=== PATIENT | male | born 1950 | race Two or more races ===

== ENCOUNTER 2023-11-09 11:43 | Outpatient (REF) | payer MEDICARE, SELFPAY ==
[2023-11-09 13:48] LABS: Alanine Aminotransferase 16 U/L (16-63); Albumin Globulin Ratio 0.9; Albumin Level 2.8 g/dL (3.4-5.0); Alkaline Phosphatase 62 U/L (46-116); Anion Gap 10.7; Aspartate Amino Transferase 10 U/L (15-37); Bilirubin Total 0.8 mg/dL (0.2-1.0); Calcium 9.2 mg/dL (8.5-10.1); Carbon Dioxide 36.3 mmol/L (21.0-32.0); Chloride 99 mmol/L (98-107); Estimated GFR (African America 53 (>=60); Estimated GFR (Non-African Ame 44 (>=60); Glucose 159 mg/dL (74-106); Sodium 142 mmol/L (136-145); Total Protein 5.8 g/dL (6.4-8.2)
[2023-11-09 14:45] LABS: Estimated Average Glucose 128 mg/dL; Glycohemoglobin A1C 6.1 % (4.5-6.2)
== END 2023-11-09 11:44 | disposition home or self-care (01) ==
LOC: LAB 11:43
PROVIDERS: PCP Family Medicine; Visit Provider Family Medicine
DX: J44.9 Chronic obstructive pulmonary disease, unspecified (principal); J96.12 Chronic respiratory failure with hypercapnia; E11.42 Type 2 diabetes mellitus with diabetic polyneuropathy; E46 Unspecified protein-calorie malnutrition
CPT/HCPCS: 36415; 80053; 83036

== ENCOUNTER 2023-11-11 02:06 | Outpatient (REF) | payer MEDICARE, SELFPAY ==
--- OUTSIDE RECORDS SUMMARY | 2023-11-11 02:10 | XMS_ITS | CCD ---
Author Organization [facility] Inform ion Partnership [facility] Care Team Providers Care Annual Giving Director Name Role Phone PATRICE MARTIN Primary Care Unavailable PATRICE MARTIN Admitting Unavailable NARAYAN RAMOS Attending Unavailable DANIEL CHENG Attending Unavailable CATHI SERVIN Primary Care KATERINE Hughes Referring Unavailable CATHI SERVIN Primary Care Mounika riddle Allergies Allergy Classification Reported Allergen(s) Allergy Type Date of Onset Reaction(s) Facility Anti-Epileptic Agents (1 source) gabapentin; Translations: [GABAPENTIN] Drug Allergy 09-01-2023 [facility] Repository sildenafil (1 source) sildenafil; Translations: [SILDENAFIL] Drug Allergy 09-01-2023 [facility] Repository (1 source) gabapentin; Translations: [GABAPENTIN] Drug Allergy 05-13-2021 [facility] Repository (1 source) sildenafil; Translations: [SILDENAFIL] Drug Allergy 04-28-2020 [facility] Repository (1 source) tomato allergenic extract; Translations: [TOMATO] Drug Allergy 10-19-2018 [facility] Repository Problems Problem Classification Problem Date Documented Da te Episodic/Chronic Other injuries and conditions due to external causes (2 sources) History of fall; Translations: [Multiple Falls] Onset: 08-02-2023 Episodic Other lower respiratory disease (2 sources) Dyspnea, unspecified; Translations: [Dyspnea, unspecified] Onset: 09-01-2023 Episodic Residual codes; unclassified (2 sources) Altered mental status, unspecified; Translations: [Altered mental status, unspecified] Onset: 08-02-2023 Episodic Residual codes; unclassified (2 sources) Altered mental status; Translations: [Altered Mental Status] Onset: 08-02-2023 Episodic Respiratory failure; insufficiency; arrest (adult) (6 sources) Acute and chronic respiratory failure with hypoxia; Translations: [Acute and chronic respiratory failure with hypercapnia] Onset: 08-02-2023 Chronic Respiratory failure; insufficiency; arrest (adult) (3 sources) Acute respiratory failure with hypoxia; Translations: [Acute respiratory failure with hypoxia ([facility])] Onset: 08-02-2023 Episodic Results Test Name Value Interpretation Reference Range Facility BNPon 09-01-2023 Natriuretic peptide B (Bld) [Mass/Vol] 383 pg/mL High 0-124 [facility] Comment on above: Performed By: #### B NPEP #### MD ANDREAS CORLEY ([id number]) [facility] [address] [place] [address] CBC With Platelet and Differ entialon 09-01-2023 Anisocytosis Ql (Bld) Occasional Abnormal [facility] Comment on above: Performed By: #### C BCWD #### MD ANDREAS CORLEY ([id number]) [facility] [address] [place] [address] Atypical Lymphs 1 % Normal 0-6 [facility] Comment on above: Performed By: #### C BCWD #### MD ANDREAS CORLEY ([id number]) [facility] [address] [place] [address] Basophils (Bld) [#/Vol] 0.0 10*3/uL Normal 0.0-0.2 [facility] Comment on above: Performed By: #### C BCWD #### MD ANDREAS CORLEY ([id number]) [facility] ([facility] [address] [place] [address] [place] Basophils/100 WBC (Bld) 0.0 % Normal [facility] Comment on above: Performed By: #### C BCWD #### MD ANDREAS CORLEY ([id number]) [facility] [address] [place] [address] [place] Eosinophils (Bld) [#/Vol] 0.0 10*3/uL Normal 0.0-0.6 [facility] Comment on above: Performed By: #### C BCWD #### MD ANDREAS CORLEY ([id number]) [facility] ([facility] [address] [place] [address] [place] Eosinophils/100 WBC (Bld) 0.0 % Normal [facility] Comment on above: Performed By: #### C BCWD #### MD ANDREAS CORLEY ([id number]) [facility]) [address] [place] [address] [place] Lymphocytes (Bld) [#/Vol] 2.3 10*3/uL Normal 1.0-5.1 [facility] Comment on above: Performed By: #### C BCWD #### MD ANDREAS CORLEY ([id number]) [facility] ([facility]) [address] [place], [place] [phone] [place] Lymphocytes/100 WBC (Bld) 12.0 % Normal [facility] Comment on above: Performed By: #### C BCWD #### MD ANDREAS CORLEY ([id number]) [facility] ([facility]) [address] [place] [address] [place] Monocytes (Bld) [#/Vol] 0.5 10*3/uL Normal 0.0-1.3 [facility] Comment on above: Performed By: #### C BCWD #### MD ANDREAS CORLEY ([id number]) [facility] ([facility]) [address] [place] [address] [place] Monocytes/100 WBC (Bld) 3.0 % Normal [facility] Comment on above: Performed By: #### C BCWD #### MD ANDREAS CORLEY ([id number]) [facility]) [address] [place] [address] [place] Neutrophils (Bld) [#/Vol] 14.9 10*3/uL High 1.7-7.7 [facility] Comment on above: Performed By: #### C BCWD #### MD ANDREAS CORLEY ([id number]) [facility] ([facility]) [address] [place] [address] [place] Neutrophils/100 WBC (Bld) 84.0 % Normal [facility] Comment on above: Performed By: #### C BCWD #### MD ANDREAS CORLEY ([id number]) [facility] [address] [place] [address] Polychromasia Occasional Abnormal [facility] Comment on above: Performed By: #### C BCWD #### MD ANDREAS CORLEY ([id number]) [facility] [address] [place] [address] Slide Review see below Normal [facility] Comment on above: Result Comment: Slid e review agrees with reported results Performed By: #### C BCWD #### MD ANDREAS CORLEY ([id number]) [facility] ([facility]) [address] [place] [address] Slide Review for Platelets Adequate [facility] Comment on above: Performed By: #### C BCWD #### MD ANDREAS CORLEY ([id number]) [facility] [address] [place] [address] Erythrocyte distribution width (RBC) [Ratio] 15.6 % High 12.4-15.4 [facility] Comment on above: Performed By: #### C BCWD #### MD ANDREAS CORLEY ([id number]) [facility] [address] [place] [address] Hematocrit (Bld) [Volume fraction] 36.2 % Low 40.5-52.5 [facility] Comment on above: Performed By: #### C BCWD #### MD ANDREAS CORLEY ([id number]) [facility] [address] [place] [address] Hemoglobin (Bld) [Mass/Vol] 11.9 g/dL Low 13.5-17.5 [facility] Comment on above: Performed By: #### C BCWD #### MD ANDREAS CORLEY ([id number]) [facility] [address] [place] [address] MCH (RBC) [Entitic mass] 31.8 pg Normal 26.0-34.0 [facility] Comment on above: Performed By: #### C BCWD #### MD ANDREAS CORLEY ([id number]) [facility] [address] [place] [address] MCHC (RBC) [Mass/Vol] 32.8 g/dL Normal 31.0-36.0 [facility] Comment on above: Performed By: #### C BCWD #### MD ANDREAS CORLEY ([id number]) [facility] [address] [place] [address] MCV (RBC) [Entitic vol] 97.0 fL Normal 80.0-100.0 [facility] Comment on above: Performed By: #### C BCWD #### MD ANDREAS CORLEY ([id number]) [facility] ([facility]) [address] [place] [address] Platelet mean volume (Bld) [Entitic vol] 7.6 fL Normal 5.0-10.5 [facility] Comment on above: Performed By: #### C BCWD #### MD ANDREAS CORLEY ([id number]) [facility] [address] [place] [address] Platelets (Bld) [#/Vol] 304 10*3/uL Normal 135-450 [facility] Comment on above: Performed By: #### C BCWD #### MD ANDREAS CORLEY ([id number]) [facility] [address] [place] [address] RBC (Bld) [#/Vol] 3.74 10*6/uL Low 4.20-5.90 [facility] Comment on above: Performed By: #### C BCWD #### MD ANDREAS CORLEY ([id number]) [facility] [address] [place] [address] [place] WBC (Bld) [#/Vol] 17.7 10*3/uL High 4.0-11.0 [facility] Comment on above: Performed By: #### C BCWD #### MD ANDREAS CORLEY ([id number]) [facility] ([facility]) [address] [place] [address] COVID-19on 09-01-2023 SARS-CoV-2 (COVID-19) RNA GEE+probe Ql (Unsp spec) Not detected Normal Not Detected [facility] Comment on above: Result Comment: Bradleyi erinn NAAT: Negative results should be treated as presumptive and, if inconsistent with clinical signs and symptoms or necessary for patient management, should be tested with an alternative molecular assay. Negative results do not preclude SARS-CoV-2 infection and should not be used as the sole basis for patient management decisions. This test has been authorized by the FDA under an Emergency Use Authorization (EUA) for use by authorized laboratories. Fact sheet for Healthcare Providers: https://www.fda.gov/media/680180/download Fact sheet for Patients: https://www.fda.gov/media/861271/download METHODOLOGY: Isothermal Nucleic Acid Amplification Performed By: #### C OVRG #### MD ANDREAS CORLEY ([id number]) [facility] ([facility]) [address] [place] [address] Comprehensive Metabolic Pane l reflex Mgon 09-01-2023 Albumin [Mass/Vol] 3.1 g/dL Low 3.4-5.0 [facility] Comment on above: Performed By: #### C MPX #### MD ANDREAS CORLEY ([id number]) [facility] ([facility]) [address] [place] [address] Albumin/Globulin [Mass ratio] 1.1 {ratio} Normal 1.1-2.2 [facility] Comment on above: Performed By: #### C MPX #### MD ANDREAS CORLEY ([id number]) [facility] ([facility]) [address] [place] [address] ALP [Catalytic activity/Vol] 110 U/L Normal 40-129 [facility] Comment on above: Performed By: #### C MPX #### MD ANDREAS CORLEY ([id number]) [facility] ([facility]) [address] [place] [address] ALT [Catalytic activity/Vol] 12 U/L Normal 10-40 [facility] Comment on above: Performed By: #### C MPX #### MD ANDREAS CORLEY ([id number]) [facility] [address] [place] [address] [place] Anion gap [Moles/Vol] 7 mmol/L Normal 3-16 [facility] Comment on above: Performed By: #### C MPX #### MD ANDREAS CORLEY ([id number]) [facility] [address] [place] [address] [place] AST [Catalytic activity/Vol] 7 U/L Low 15-37 [facility] Comment on above: Performed By: #### C MPX #### MD ANDREAS CORLEY ([id number]) [facility] [address] [place] [address] Bilirubin [Mass/Vol] 0.5 mg/dL Normal 0.0-1.0 [facility] Comment on above: Performed By: #### C MPX #### MD ANDREAS CORLEY ([id number]) [facility] [address] [place] [address] Calcium [Mass/Vol] 9.0 mg/dL Normal 8.3-10.6 [facility] Comment on above: Performed By: #### C MPX #### MD ANDREAS CORLEY ([id number]) [facility] [address] [place] [address] [place] Chloride [Moles/Vol] 99 mmol/L Normal 99-110 [facility] Comment on above: Performed By: #### C MPX #### MD ANDREAS CORLEY ([id number]) [facility] [address] [place], [place] [phone] [place] CO2 [Moles/Vol] 32 mmol/L Normal 21-32 [facility] Comment on above: Performed By: #### C MPX #### MD ANDREAS CORLEY ([id number]) [facility] ([facility] [address] [place], [place] [phone] [place] Creatinine [Mass/Vol] 1.2 mg/dL Normal 0.8-1.3 [facility] Comment on above: Performed By: #### C MPX #### MD ANDREAS CORLEY ([id number]) [facility] ([facility] [address] [place], [place] [phone] [facility] GFR 64 Normal >60 [facility] Comment on above: Result Comment: Alina stephensc calculator link https://www.kidney.org/professionals/kdoqi/gfr_calculatorped Effective Jan 06, 2022 These results are not intended for use in patients <18 years of age. eGFR results are calculated without a race factor using the 2020 CKD-EPI equation. Careful clinical correlation is recommended, particularly when comparing to results calculated using previous equations. The CKD-EPI equation is less accurate in patients with extremes of muscle mass, extra-renal metabolism of creatinine, excessive creatinine ingestion, or following therapy that affects renal tubular secretion. Performed By: #### C MPX #### MD ANDREAS CORLEY ([id number]) [facility] ([facility] [address] [place], [place] [phone] [facility] Glucose [Mass/Vol] 142 mg/dL High 70-99 [facility] Comment on above: Performed By: #### C MPX #### MD ANDREAS CORLEY ([id number]) [facility] [address] [place], [place] [phone] [place] Magnesium [Moles/Vol] 5.1 mmol/L Normal 3.5-5.1 [facility] Comment on above: Performed By: #### C MPX #### MD ANDREAS CORLEY ([id number]) [facility] [address] [place] [address] [place] Protein [Mass/Vol] 5.9 g/dL Low 6.4-8.2 [facility] Comment on above: Performed By: #### C MPX #### MD ADNREAS CORLEY ([id number]) [facility] [address] [place], [place] [phone] [facility] Sodium [Moles/Vol] 138 mmol/L Normal 136-145 [facility] Comment on above: Performed By: #### C MPX #### MD ANDREAS CORLEY ([id number]) [facility] ([facility]) [address] [place] [address] Urea nitrogen [Mass/Vol] 21 mg/dL High 7-20 [facility] Comment on above: Performed By: #### C MPX #### MD ANDREAS CORLEY ([id number]) [facility] ([facility]) [address] [place] [address] Culture, Bloodon 09-01-2023 Microscopic examination of blood, culture Culture, Blood No Growth after 4 days of incubation. [facility] Comment on above: Performed By: #### C BCWD #### MD ANDREAS CORLEY ([id number]) [facility] ([facility]) [address] [place] [address] Culture, Blood 2on 4 Culture, Blood 2 Culture, Blood 2 No Growth after 4 days of incubation. [facility] Comment on above: Performed By: #### C BCWD #### MD ANDREAS CORLEY ([id number]) [facility] ([facility]) [address] [place] [address] High Sensitivity Troponin To n 09-01-2023 High Sensitivity Troponin T 77 ng/L High 022 [facility] Comment on above: Result Comment: The high-sensitivity troponin T result should not be compared with other troponin methodologies. Performed By: #### T RP5 #### MD ANDREAS CORLEY ([id number]) [facility] ([facility]) [address] [place] [address] High Sensitivity Troponin T 75 ng/L High 022 [facility] Comment on above: Result Comment: The high-sensitivity troponin T result should not be compared with other troponin methodologies. Performed By: #### T RP5 #### MD ANDREAS CORLEY ([id number]) [facility] ([facility]) [address] [place] [address] Venous Blood Gason 4 CO2 [Moles/Vol] 31 mmol/L Normal Not Established [facility] Comment on above: Performed By: #### V BG #### MD ANDREAS CORLEY ([id number]) [facility] ([facility]) [address] [place] [address] HCO3 (Bld) [Moles/Vol] 28.8 mmol/L Normal 23.0-29.0 [facility] Comment on above: Performed By: #### V BG #### MD ANDREAS CORLEY ([id number]) [facility] [address] [place] [address] Oxygen saturation in Blood 62 % Normal Not Established [facility] Comment on above: Performed By: #### V BG #### MD ANDREAS CORLEY ([id number]) [facility] [address] [place] [address] Venous Base Excess 1.1 mmol/L Normal -3.0-3.0 [facility] Comment on above: Performed By: #### V BG #### MD ANDREAS CORLEY ([id number]) [facility] ([facility]) [address] [place] [address] Venous Carboxyhemoglobin 3.5 % High 0.0-1.5 [facility] Comment on above: Result Comment: 0.0- 1.5 (Smokers 1.5-5.0) Performed By: #### V BG #### MD ANDREAS CORLEY ([id number]) [facility] ([facility]) [address] [place] [address] Venous Methemoglobin 0.3 % Normal <1.5 [facility] Comment on above: Performed By: #### V BG #### MD ANDREAS CORLEY ([id number]) [facility] [address] [place] [address] Venous O2 Content 12 VOL % Normal Not Established [facility] Comment on above: Performed By: #### V BG #### MD ANDREAS CORLEY ([id number]) [facility] [address] [place] [address] Venous PCO2 59.7 mmHg High 40.0-50.0 [facility] Comment on above: Performed By: #### V BG #### MD ANDREAS CORLEY ([id number]) [facility] [address] [place] [address] Venous pH 7.301 Low 7.350-7.450 [facility] Comment on above: Performed By: #### V BG #### MD ANDREAS CORLEY ([id number]) [facility] [address] [place] [address] Venous PO2 36.0 mmHg Normal 25.0-40.0 [facility] Comment on above: Performed By: #### V BG #### MD ANDREAS CORLEY ([id number]) [facility] [address] [place] [address] Venous O2 Therapy Unknown Normal [facility] Comment on above: Performed By: #### V BG #### MD ANDREAS CORLEY ([id number]) [facility] [address] [place] [address] CO2 [Moles/Vol] 33 mmol/L Normal Not Established [facility] Comment on above: Performed By: #### V BG #### MD ANDREAS CORLEY ([id number]) [facility] [address] [place] [address] HCO3 (Bld) [Moles/Vol] 31.2 mmol/L High 23.0-29.0 [facility] Comment on above: Performed By: #### V BG #### MD ANDREAS CORLEY ([id number]) [facility] [address] [place] [address] Oxygen saturation in Blood 92 % Normal Not Established [facility] Comment on above: Performed By: #### V BG #### MD ANDREAS CORLEY ([id number]) [facility] [address] [place] [address] Venous Base Excess 3.3 mmol/L High -3.0-3.0 [facility] Comment on above: Performed By: #### V BG #### MD ANDREAS CORLEY ([id number]) [facility] [address] [place], [place] [phone] [facility] Venous Carboxyhemoglobin 1.6 % High 0.0-1.5 [facility] Comment on above: Result Comment: 0.0- 1.5 (Smokers 1.5-5.0) Performed By: #### V BG #### MD ANDREAS CORLEY ([id number]) [facility] [address] [place] [address] Venous Methemoglobin 0.0 % Normal <1.5 [facility] Comment on above: Performed By: #### V BG #### MD ANDREAS CORLEY ([id number]) [facility] [address] [place] [address] Venous O2 Content 17 VOL % Normal Not Established [facility] Comment on above: Performed By: #### V BG #### MD ANDREAS CORLEY ([id number]) [facility] [address] [place] [address] Venous PCO2 62.6 mmHg High 40.0-50.0 [facility] Comment on above: Performed By: #### V BG #### MD ANDREAS CORLEY ([id number]) [facility] [address] [place] [address] Venous pH 7.315 Low 7.350-7.450 [facility] Comment on above: Performed By: #### V BG #### MD ANDREAS CORLEY ([id number]) [facility] [address] [place] [address] Venous PO2 70.9 mmHg High 25.0-40.0 [facility] Comment on above: Performed By: #### V BG #### MD ANDREAS CORLEY ([id number]) [facility] [address] [place] [address] Venous O2 Therapy Unknown Normal [facility] Comment on above: Performed By: #### V BG #### MD ANDREAS CORLEY ([id number]) [facility] [address] [place] [address] CO2 [Moles/Vol] 31 mmol/L Normal Not Established [facility] Comment on above: Performed By: #### V BG #### MD ANDREAS CORLEY ([id number]) [facility] [address] [place] [address] HCO3 (Bld) [Moles/Vol] 29.2 mmol/L High 23.0-29.0 [facility] Comment on above: Performed By: #### V BG #### MD ANDREAS CORLEY ([id number]) [facility] [address] [place] [address] Oxygen saturation in Blood 96 % Normal Not Established [facility] Comment on above: Performed By: #### V BG #### MD ANDREAS CORLEY ([id number]) [facility] [address] [place] [address] Venous Base Excess 1.9 mmol/L Normal -3.0-3.0 [facility] Comment on above: Performed By: #### V BG #### MD ANDREAS CORLEY ([id number]) [facility] ([facility]) [address] [place] [address] Venous Carboxyhemoglobin 3.0 % High 0.0-1.5 [facility] Comment on above: Result Comment: 0.0- 1.5 (Smokers 1.5-5.0) Performed By: #### V BG #### MD ANDREAS CORLEY ([id number]) [facility] ([facility]) [address] [place] [address] Venous Methemoglobin 0.0 % Normal <1.5 [facility] Comment on above: Performed By: #### V BG #### MD ANDREAS CORLEY ([id number]) [facility] [address] [place] [address] Venous PCO2 57.8 mmHg High 40.0-50.0 [facility] Comment on above: Performed By: #### V BG #### MD ANDREAS CORLEY ([id number]) [facility] [address] [place] [address] Venous pH 7.321 Low 7.350-7.450 [facility] Comment on above: Performed By: #### V BG #### MD ANDREAS CORLEY ([id number]) [facility] [address] [place] [address] Venous PO2 93.3 mmHg High 25.0-40.0 [facility] Comment on above: Performed By: #### V BG #### MD ANDREAS CORLEY ([id number]) [facility] [address] [place] [address] Venous O2 Therapy Unknown Normal [facility] Comment on above: Performed By: #### V BG #### MD ANDREAS CORLYE ([id number]) [facility] ([facility]) [address] [place] [address] XR CHEST PORTABLEon 09-01-19 XR CHEST PORTABLE EXAMINATION: ONE XRAY VIEW OF THE CHEST 09/01/2023 11:38 am COMPARISON: None. HISTORY: ORDERING SYSTEM PROVIDED HISTORY: dyspnea TECHNOLOGIST PROVIDED HISTORY: Reason for exam:->dyspnea Reason for Exam: Dyspnea FINDINGS: Lung volumes are low accentuating heart size and bronchovascular markings at the lung bases. Hazy opacity is seen at the lung bases bilaterally, left greater than right. Blunting the left costophrenic angle is seen on the left either due to small left-sided pleural effusion or pleural thickening. IMPRESSION: Bibasilar airspace disease, either atelectasis or pneumonia. Pleural fluid-pleural thickening is seen on the left. Interpreted by: Ranjit Bradley MD Signed by: Ranjit Bradley MD 09/01/23 Final result Normal [facility] Comment on above: Order Comment: Reaso n for exam:->dyspnea Reason for exam?->Dyspnea CBCon 08-06-2023 Erythrocyte distribution width (RBC) [Ratio] 15.2 % High 11.0-15.0 [facility] Comment on above: Performed By: #### B C #### Roger Witt ([id number]) [address] Hematocrit (Bld) [Volume fraction] 43.4 % Normal 38.5-50.0 [facility] Comment on above: Performed By: #### B C #### Roger Witt ([id number]) [address] Hemoglobin (Bld) [Mass/Vol] 14.7 g/dL Normal 13.2-17.1 [facility] Comment on above: Performed By: #### B C #### Roger Witt ([id number]) [address] MCH (RBC) [Entitic mass] 32.6 pg Normal 27.0-33.0 [facility] Comment on above: Performed By: #### B C #### Roger Witt ([id number]) [address] MCHC (RBC) [Mass/Vol] 33.8 g/dL Normal 32.0-36.0 [facility] Comment on above: Performed By: #### B C #### Roger Witt ([id number]) [address] MCV (RBC) [Entitic vol] 96.7 fL Normal 80.0-100.0 [facility] Comment on above: Performed By: #### B C #### Roger Witt ([id number]) [address] Platelet mean volume (Bld) [Entitic vol] 8.9 fL Normal 7.5-11.5 [facility] Comment on above: Performed By: #### B C #### Roger Witt ([id number]) [address] Platelets (Bld) [#/Vol] 397 10*3/uL Normal 140-400 [facility] Comment on above: Performed By: #### B C #### Roger Witt ([id number]) [facility] [address] RBC (Bld) [#/Vol] 4.49 10*6/uL Normal 4.20-5.80 [facility] Comment on above: Performed By: #### B C #### Roger Witt ([id number]) [address] WBC (Bld) [#/Vol] 15.0 10*3/uL High 3.8-10.8 [facility] Comment on above: Performed By: #### B C #### Roger Witt ([id number]) [address] Disch [facility] 08-06-2023 [facility] Department of Internal Medicine Inpatient Discharge Summary Patient: Maikel Riojas CSN: [id number] Date of Admission: 08/02/2023 Date of Discharge: 08/06/23 Attending Physician: Narayan Ramos MD Past Medical History Past Medical History: Diagnosis Date Anxiety Cataract Chronic heart failure Chronic obstructive pulmonary disease Chronic respiratory failure with hypoxia and hypercapnia Depression Diabetes mellitus type 2 Hyperlipidemia Hypertension Obesity Obstructive sleep apnea Spinal stenosis Umbilical hernia Urinary retention Discharge Diagnoses There are no hospital problems to display for this patient. Operations/Procedures Performed (include dates) Lines/Drains/Airways: Patient Lines/Drains/Airways Status Active Line / PIV Line Name Placement date Placement time Site Days Peripheral IV 08/05/23 Left Antecubital 08/05/23 1606 Antecubital less than 1 Notable Imaging Studies: Results for orders placed during the hospital encounter of 08/02/23 X-ray Portable Chest Narrative EXAM: XR PORTABLE CHEST INDICATION: Intubation TECHNIQUE: 1 view of the chest. COMPARISON: Chest radiograph from less than 1 hour prior FINDINGS: Medical Devices: ET tube tip projects over the midthoracic trachea. Enteric tube courses below the level of the diaphragms with tip not included in the [id number]-neyi. Heart and Mediastinum: Cardiac silhouette is partially obscured, but likely within normal size limits. Lungs and Pleura: Hypoexpanded lungs with mild bibasilar parenchymal opacities. Suspected trace bilateral pleural effusions with blunting of the lateral costophrenic sulci. No pneumothorax. Bones and soft tissues: No acute abnormalities. Allergies Sildenafil Tomato Gabapentin Discharge Medications Medication List TAKE these medications, which are NEW Quantity/Refills metFORMIN 500 MG tablet Commonly known as: GLUCOPHAGE Take 1 tablet (500 mg total) by mouth daily with breakfast. Increase to BID after one week if tolerated from a GI SE standpoint. Quantity: 60 tablet Refills: 0 miconazole 2 % powder Commonly known as: MICOTIN Apply topically 2 times a day. Quantity: 70 g Refills: 0 polyethylene glycol 17 gram packet Commonly known as: MIRALAX Take 17 g by mouth daily. Start taking on: August 07, 2023 Quantity: 14 packet Refills: 0 tamsulosin 0.4 mg Cap Commonly known as: FLOMAX Take 2 capsules (0.8 mg total) by mouth at bedtime. Refills: 0 wound dressings Pste Commonly known as: TRIAD (Zinc Oxide 20%) Apply 1 g topically daily. Start taking on: August 07, 2023 Refills: 0 TAKE these medications, which you were ALREADY TAKING Quantity/Refills aspirin 81 MG EC tablet Take 1 tablet (81 mg total) by mouth daily. Refills: 0 atorvastatin 20 MG tablet Commonly known as: LIPITOR Take 1 tablet (20 mg total) by mouth daily. Refills: 0 DULoxetine 60 MG capsule Commonly known as: CYMBALTA Take 1 capsule (60 mg total) by mouth daily. Refills: 0 pregabalin 150 MG capsule Commonly known as: LYRICA Take 1 capsule (150 mg total) by mouth 2 times a day. Refills: 0 spironolactone 25 MG tablet Commonly known as: ALDACTONE Take 0.5 tablets (12.5 mg total) by mouth daily. Refills: 0 torsemide 20 MG tablet Commonly known as: DEMADEX Take 3 tablets (60 mg total) by mouth daily. Refills: 0 Where to Get Your Medications These medications were sent to [facility] [address] [place] [id number] Hours: Thursday - Thursday: 8:00AM - 6:00PM metFORMIN 500 MG tablet miconazole 2 % powder polyethylene glycol 17 gram packet Information about where to get these medications is not yet available Ask your nurse or doctor about these medications tamsulosin 0.4 mg Cap wound dressings Pste Reason for Admission Per H&P: Maikel Riojas is a 73 y.o. male with a history of COPD, T2DM, HFpEF, HTN, HARIS, BPH, multiple recent falls presenting for altered mental status. Of note patient recently admitted to [facility] for COPD exacerbation which required ICU stay and intubation, discharged on 07/26. Per ED notes, patient reports multiple falls on 07/31-08/01 without LOC or head strike in addition to some confusion and SOA, he is not on blood thinners. In the ED patient's mental status reportedly declined with minimal response to deep painful stimuli and patient was placed on BIPAP trial given concern for hypercarbia. Patient's mental status continued to decline and patient was intubated and admitted to ICU. Additional treatment in ED included initiation of treatment for COPD exacerbation and patient was started on broad spectrum antibiotics. On arrival to ICU patient alert and following all commands on ventilator subsequently found to have severe uremia on lab workup. Hospital Course By Problem #Acute on chronic hypo (more content not included)... Normal [facility] Nursingon 08-06-2023 Nursing PIV removed with catheter intact... report called to Zafar at the [facility] in [facility]. Pt will be transported via EMS [facility] POC GLU MONITORING DEVICEon 08-06-2023 POC GLU MONITORING DEVICE 173 mg/dL High 70-100 [facility] Comment on above: Performed By: #### P OCGMD #### Roger Witt ([id number]) [address] POC GLU MONITORING DEVICE 235 mg/dL High 70-100 [facility] Comment on above: Performed By: #### B C #### Roger Witt ([id number]) [address] RENAL FUNCTION PANEL W/EGFRo n 08-06-2023 Albumin [Mass/Vol] 3.8 g/dL Normal 3.5-5.7 [facility] Comment on above: Performed By: #### P OCGMD #### Roger Witt ([id number]) [address] Anion gap [Moles/Vol] 10 mmol/L Normal 3-16 [facility] Comment on above: Performed By: #### P OCGMD #### Roger Witt ([id number]) [address] Calcium [Mass/Vol] 9.6 mg/dL Normal 8.6-10.3 [facility] Comment on above: Performed By: #### P OCGMD #### Roger Witt ([id number]) [address] Chloride [Moles/Vol] 102 mmol/L Normal 98-110 [facility] Comment on above: Performed By: #### P OCGMD #### Roger Witt ([id number]) [address] CO2 [Moles/Vol] 29 mmol/L Normal 21-33 [facility] Comment on above: Performed By: #### P OCGMD #### Roger Witt ([id number]) [address] Creatinine [Mass/Vol] 1.10 mg/dL Normal 0.60-1.30 [facility] Comment on above: Performed By: #### P OCGMD #### Roger Witt ([id number]) [address] GFR/1.73 sq M.predicted among non-blacks MDRD (S/P/Bld) [Vol rate/Area] 71 mL/min/{1.73_m2} Normal [facility] Comment on above: Result Comment: As o f 2021, the estimated GFR is calculated using the 2020 Chronic Kidney Disease Epidemiology Collaboration (CKD-EPI) equation. In line with the NKF-ASN Task Force Recommendations, this equation does not include a coefficient for race. A single eGFR value is calculated for each patient. The reference interval is >60 mL/min/1.73m2. eGFR values greater than 90 will be reported as >90mL/min/1.73m2. Reference: Mark C, Karen M, Edgard DC, Gene ND, Jaylene CA, Abbie LA, et al. A Unifying Approach for GFR Estimation: Recommendations of the NKF-ASN Task Force on Reassessing the inclusion of Race in Diagnosing Kidney Disease. Am J Kidney Dis. 2020. Performed By: #### P OCGMD #### Roger Witt ([id number]) [address] Glucose [Mass/Vol] 213 mg/dL High 70-100 [facility] Comment on above: Performed By: #### P OCGMD #### Roger Witt ([id number]) [address] Osmolality [Osmolality] 309 mosm/kg High 278-305 [facility] Comment on above: Performed By: #### P OCGMD #### Roger Witt ([id number]) [address] Phosphate [Mass/Vol] 3.0 mg/dL Normal 2.1-4.5 [facility] Comment on above: Result Comment: HEMO LYSIS EVIDENT. RESULTS MAY BE INFLUENCED. Performed By: #### P OCGMD #### Roger Witt ([id number]) [place] [address] [place] Potassium [Moles/Vol] 5.6 mmol/L High 3.5-5.3 [facility] Comment on above: Result Comment: Hemo lysis Present: Results may be influenced artificially. Recommend recollection as clinically indicated. Performed By: #### P OCGMD #### Roger Witt ([id number]) [address] Sodium [Moles/Vol] 141 mmol/L Normal 133-146 [facility] Comment on above: Performed By: #### P OCGMD #### Roger Witt ([id number]) [address] Urea nitrogen [Mass/Vol] 42 mg/dL High 7-25 [facility] Comment on above: Performed By: #### P OCGMD #### Roger Witt ([id number]) [address] CARE PLANon 08-05-2023 CARE PLAN Problem: Patient jaz l remain free of injury d/t fall Goal: High Fall Risk Precautions Outcome: Progressing Goal: Additional High Fall Risk Precautions (consider the following) Outcome: Progressing Problem: Knowledge Deficit Goal: Patient/family/caregi johnie demonstrates understanding of disease process, treatment plan, medications, and discharge instructions Description: Complete learning assessment and assess knowledge base. Outcome: Progressing Problem: Potential for Compromised Skin Integrity Goal: Skin integrity is maintained or improved Description: Assess and monitor skin integrity. Identify patients at risk for skin breakdown on admission and per policy. Collaborate with interdisciplinary team and initiate plans and interventions as needed. Outcome: Progressing Goal: Nutritional status is improving Description: Monitor and assess patient for malnutrition (ex- brittle hair, bruises, dry skin, pale skin and conjunctiva, muscle wasting, smooth red tongue, and disorientation). Collaborate with interdisciplinary team and initiate plan and interventions as ordered. Monitor patient's weight and dietary intake as ordered or per policy. Utilize nutrition screening tool and intervene per policy. Determine patient's food preferences and provide high-protein, high-caloric foods as appropriate. Outcome: Progressing Problem: Incontinence Goal: Perineal skin integrity is maintained or improved Description: Assess genitourinary system, perineal skin, labs (urinalysis), and history of incontinence to include past management, aggravating, and alleviating factors. Collaborate with interdisciplinary team and initiate plans and interventions as needed. Outcome: Progressing Normal [facility] CONSULTon 08-05-2023 CONSULT [facility] Wound Care Assessment 08/05/2023 11:45 AM Maikel Riojas is an 73 y.o. male Assessment: Wound care consulted for skin breakdown to gluteal cleft, scrotum. Wounds appear to be moisture associated skin damage (MASD) at this time. Wounds pictured and detailed below. Of note, patient is moderately mobile, able to turn with min assist. Per chart review, patient has hx of cardiac disease, DM. Wound care recommends Triad [place] to buttocks/scrotum, safe skin bundle, and low air loss (CATINA) mattress. Triad [place] is a zinc-oxide based hydrophilic paste absorbs moderate levels of wound exudate. Helps maintain an optimal wound healing environment to facilitate natural autolytic debridement. Wound care will sign off at this time. Please re-consult for further skin needs or worsening wound. Thank you. Last recorded Bert Score by nursing: Bert Scale Score: 14 Sleep support surface: Pressure re-distribution, CATINA Pain assessment: Patient did not c/o pain upon assessment. Plan: Cleanse scrotum/buttocks with saline or pH balanced non-rinse foam cleanser. Pat dry. Apply Triad [place] paste to wound bed daily and as needed. Leave open to air. CATINA Mattress. Safe S.K.I.N. Bundle. Safe S.K.I.N. Pressure injury preventative nursing interventions: 1. Inspect skin every shift. Consider Low air-loss support surface for increased moisture or decreased mobility. Head of bed at 30 degrees or less. Waffle cushion when up in chair. Float heels off of bed. Sacral preventative dressing-check every shift. 2. Turn and reposition every 2 hours and as needed. Limit layers. Use glide sheet or incontinence pad for re-positioning. Limit chair-time to one hour or shift every 30 minutes. If possible, rotate medical devices every 12 hours. 3. Provide incontinent care and apply skin barriers to protect skin as needed. Avoid adult diapers when possible. Interdry to skin folds as needed. 4. Address nutrition and hydration. 5. Keep patient turned off of any pressure injuries as much as possible. Wounds (Other): Wound #1 Moisture associated skin damage Buttocks (Active) 08/05/23 1143 Wound Number: #1 Wound Type: Moisture associated skin damage Location: Buttocks Orientation: Wound Description (Comments): Present on admission: No Removal Reason : Non-staged Wound Description Partial thickness 08/05/23 1144 Site (Wound bed) Assessment Moist;[place];Red 08/05/23 1144 [place]-wound Assessment [place];Intact 08/05/23 1144 Closure None 08/05/23 1144 Hematoma Present? No 08/05/23 1144 Drainage Amount Scant 08/05/23 1144 Drainage Description Serous 08/05/23 1144 Treatments Cleanse with soap & water 08/05/23 1144 Dressing Triad hydro;Open to air 08/05/23 1144 Dressing Changed Nurse to change 08/05/23 1144 Tunneling 0 cm 08/05/23 1144 Undermining 0 cm 08/05/23 1144 Margins Attached edges;Undefined edges;Defined edges 08/05/23 1144 History: Diagnosis: Acute hypoxemic respiratory failure (CMS-HCC) [J96.01] AMS (altered mental status) [R41.82] Past Medical History: Diagnosis Date Anxiety Cataract Chronic heart failure Chronic obstructive pulmonary disease Chronic respiratory failure with hypoxia and hypercapnia Depression Diabetes mellitus type 2 Hyperlipidemia Hypertension Obesity Obstructive sleep apnea Spinal stenosis Umbilical hernia Urinary retention Past Surgical History: Procedure Laterality Date ENDOTRACHEAL INTUBATION EMERGENT Social History Socioeconomic History Marital status: Single Spouse name: Not on file Number of children: Not on file Years of education: Not on file Highest education level: Not on file Occupational History Not on file Tobacco Use Smoking status: Former Types: Cigarettes Smokeless tobacco: Not on file Substance and Sexual Activity Alcohol use: Not on file Drug use: Not on file Sexual activity: Not on file Other Topics Concern Not on file Social History Narrative Not on file Social Determinants of Health Financial Resource Strain: Not on file Food Insecurity: Patient Declined (08/02/2023) Hunger Vital Sign Worried About Running Out of Food in the Last Year: Patient declined Ran Out of Food in the Last Year: Patient declined Transportation Needs: Patient Unable To Answer (08/02/2023) PRAPARE - Transportation Lack of Transportation (Medical): Patient unable to answer Lack of Transportation (Non-Medical): Patient unable to answer Physical Activity: Not on file Stress: Not on file Social Connections: Not on file Intimate Partner Violence: Patient Unable To Answer (08/02/2023) Humiliation, Afraid, Rape, and Kick questionnaire Fear of Current or Ex-Partner: Patient unable to answer Emotionally Abused: Patient unable to answer Physically Abused: Patient unable to answer Sexually Abused: Patient unable to answer Housing Stability: Patient Unable To Answer (08/02/2023) Housing Stability Vital Sign Unable (more content not included)... Normal [facility] POC GLU MONITORING DEVICEon 08-05-2023 POC GLU MONITORING DEVICE 315 mg/dL High 70-100 [facility] Comment on above: Performed By: #### B C #### Roger Witt ([id number]) [address] POC GLU MONITORING DEVICE 252 mg/dL High 70-100 [facility] Comment on above: Performed By: #### B C #### Roger Witt ([id number]) [address] POC GLU MONITORING DEVICE 192 mg/dL High 70-100 [facility] Comment on above: Performed By: #### B C #### Roger Witt ([id number]) [address] POC GLU MONITORING DEVICE 213 mg/dL High 70-100 [facility] Comment on above: Performed By: #### E DHCVR #### Roger Witt ([id number]) [address] RENAL FUNCTION PANEL W/EGFRo n 08-05-2023 Albumin [Mass/Vol] 3.9 g/dL Normal 3.5-5.7 [facility] Comment on above: Performed By: #### B C #### Roger Witt ([id number]) [address] Anion gap [Moles/Vol] 10 mmol/L Normal 3-16 [facility] Comment on above: Performed By: #### B C #### Roger Witt ([id number]) [address] Calcium [Mass/Vol] 8.8 mg/dL Normal 8.6-10.3 [facility] Comment on above: Performed By: #### B C #### Roger Witt ([id number]) [address] Chloride [Moles/Vol] 101 mmol/L Normal 98-110 [facility] Comment on above: Performed By: #### B C #### Roger Witt ([id number]) [address] CO2 [Moles/Vol] 27 mmol/L Normal 21-33 [facility] Comment on above: Performed By: #### B C #### Roger Witt ([id number]) [address] Creatinine [Mass/Vol] 1.36 mg/dL High 0.60-1.30 [facility] Comment on above: Performed By: #### B C #### Roger Witt ([id number]) [address] GFR/1.73 sq M.predicted among non-blacks MDRD (S/P/Bld) [Vol rate/Area] 55 mL/min/{1.73_m2} Normal [facility] Comment on above: Result Comment: As o f 2021, the estimated GFR is calculated using the 2020 Chronic Kidney Disease Epidemiology Collaboration (CKD-EPI) equation. In line with the NKF-ASN Task Force Recommendations, this equation does not include a coefficient for race. A single eGFR value is calculated for each patient. The reference interval is >60 mL/min/1.73m2. eGFR values greater than 90 will be reported as >90mL/min/1.73m2. Reference: Mark C, Karen M, Edgard DC, Gene ND, Jaylene CA, Abbie LA, et al. A Unifying Approach for GFR Estimation: Recommendations of the NKF-ASN Task Force on Reassessing the inclusion of Race in Diagnosing Kidney Disease. Am J Kidney Dis. 2020. Performed By: #### B C #### Roger Witt ([id number]) [address] Glucose [Mass/Vol] 338 mg/dL High 70-100 [facility] Comment on above: Performed By: #### B C #### Roger Witt ([id number]) [address] Osmolality [Osmolality] 310 mosm/kg High 278-305 [facility] Comment on above: Performed By: #### B C #### Roger Witt ([id number]) [address] Phosphate [Mass/Vol] 2.5 mg/dL Normal 2.1-4.5 [facility] Comment on above: Performed By: #### B C #### Roger Witt ([id number]) [address] Potassium [Moles/Vol] 5.0 mmol/L Normal 3.5-5.3 [facility] Comment on above: Performed By: #### B C #### Roger Witt ([id number]) [address] Sodium [Moles/Vol] 138 mmol/L Normal 133-146 [facility] Comment on above: Performed By: #### B C #### Roger Witt ([id number]) [address] Urea nitrogen [Mass/Vol] 44 mg/dL High 7- [facility] Comment on above: Performed By: #### B C #### Roger Witt ([id number]) [address] CBCon 08-04-2023 Erythrocyte distribution width (RBC) [Ratio] 15.0 % Normal 11.0-15.0 [facility] Comment on above: Performed By: #### H STROPI #### Roger Witt ([id number]) [address] Hematocrit (Bld) [Volume fraction] 42.7 % Normal 38.5-50.0 [facility] Comment on above: Performed By: #### H STROPI #### Roger Witt ([id number]) [address] Hemoglobin (Bld) [Mass/Vol] 14.2 g/dL Normal 13.2-17.1 [facility] Comment on above: Performed By: #### H STROPI #### Roger Witt ([id number]) [address] MCH (RBC) [Entitic mass] 32.1 pg Normal 27.0-33.0 [facility] Comment on above: Performed By: #### H STROPI #### Roger Witt ([id number]) [address] MCHC (RBC) [Mass/Vol] 33.3 g/dL Normal 32.0-36.0 [facility] Comment on above: Performed By: #### H STROPI #### Roger Witt ([id number]) [address] MCV (RBC) [Entitic vol] 96.5 fL Normal 80.0-100.0 [facility] Comment on above: Performed By: #### H STROPI #### Roger Witt ([id number]) [address] Platelet mean volume (Bld) [Entitic vol] 8.1 fL Normal 7.5-11.5 [facility] Comment on above: Performed By: #### H STROPI #### Roger Witt ([id number]) [address] Platelets (Bld) [#/Vol] 280 10*3/uL Normal 140-400 [facility] Comment on above: Performed By: #### H STROPI #### Roger Witt ([id number]) [address] RBC (Bld) [#/Vol] 4.43 10*6/uL Normal 4.20-5.80 [facility] Comment on above: Performed By: #### H STROPI #### Roger Witt ([id number]) [address] WBC (Bld) [#/Vol] 14.6 10*3/uL High 3.8-10.8 [facility] Comment on above: Performed By: #### H STROPI #### Roger Kiran Witt ([id number]) [facility] [address] CONSULTon 08-04-2023 CONSULT Speech Language Pathology Clinical Swallow Assessment Name: Maikel Riojas : 1950 Attending Physician: Narayan Ramos MD Admission Diagnosis: Acute hypoxemic respiratory failure (CMS-HCC) [J96.01] AMS (altered mental status) [R41.82] Date: 08/04/2023 Reviewed Pertinent hospital course: Yes Hospital Course [employer] ATT[employer]ER: 73 y/o male presents with AMS. PMH: COPD, T2DM, HFpEF, HTN, HARIS, BPH, multiple recent falls. Patient with recent admission to [facility] for COPD exacerbation requiring ICU stay and intubation, discharged 07/26. Intubated 08/01-08/02. Imaging: HCT 08/01: 1. No acute intracranial hemorrhage or mass effect 2. Mild chronic microvascular ischemic disease and diffuse atrophy. CXR 08/01: 1. Endotracheal tube tip projects over the midthoracic trachea. 2. Expiratory chest radiograph with mild bibasilar parenchymal opacities, consider atelectasis or developing pneumonia to include aspiration. 3. Trivial trace bilateral pleural effusions. BRUSH LOADER AND HANDLE ATTACHER Hx: none at [facility]. Assessment: Patient presents with increased risk of oropharyngeal dysphagia secondary to recent intubation and comorbidities (COPD on baseline O2). No clinical sign/symptoms of aspiration are observed with thin liquids, puree, or hard solids. Patient endorses occasional difficulty swallowing, specifically coughing when eating and drinking, if he is not paying close attention during meals. Given current chest imaging and today's evaluation, recommend regular diet (IDDSI 7) with thin liquids (IDDSI 0) and a FEES to further evaluate pharyngeal swallow function. Plan: - Diet recommendation: Regular (IDDSI 7) with Thin Liquids (IDDSI 0) - Instrumental recommendation: FEES - BRUSH LOADER AND HANDLE ATTACHER therapy recommendations TBD pending results of instrumental assessment Orientation: Person: Yes Place: Yes Time: Yes Situation: Yes Behavioral Profile: alert, cooperative Pain: Pain Score: 0 - No Pain Aspiration Risk Aspiration Risk Recommendations: Fiberoptic endoscopic evaluation of swallowing Dysphagia Diagnosis: pending further imaging Prognosis: Good Prognosis Considerations: Previous level of function, Participation level Recommended Solid for Diet: Regular Recommended Liquid for Diet: Thin Liquids (IDDSI 0) Medication Administration: whole Recommendation Recommendations Recommendation: BRUSH LOADER AND HANDLE ATTACHER recommendation pending clinical progress Baseline Assessment History of Intubation: Yes Length of Intubations (days): 2 days Date extubated: 08/03/23 Dentition: Some missing teeth Baseline diet: regular diet with thin liquids Current diet: regular diet with thin liquids Patient Positioning: Upright in bed Respiratory Status Respiratory Status: O2 via nasual cannula Cranial Nerve & Laryngeal Function Exam CNV- Trigeminal: Within Functional Limits CNVII - Facial : Within Functional Limits CNIX - Glossopharyngeal: Within Functional Limits CNX - Vagus: Impaired;Likely unrelated to CN deficit Vocal quality: hoarse CNVXII - Hypoglossal Status: Within Functional Limits Dentition and Hearing Dentition: Some missing teeth Hearing Exceptions: None Consistencies Assessed Consistencies Assessed: Thin;Puree;Hard Solid Thin # of Trials: 1 cup Presentation: Straw Oral: Within functional limits Pharyngeal: No overt s/s of aspiration Puree # of Trials: 2 Presentation: Spoon Oral: Within functional limits Pharyngeal: No overt s/s of aspiration Hard Solid # of Trials: 2 Presentation: Self Fed Oral: Prolonged Oral Phase Pharyngeal: No overt s/s of aspiration Patient and Family Education Patient and Family Education: Patient educated on, instrumental procedure, role of BRUSH LOADER AND HANDLE ATTACHER, current POC Education response: Patient demonstrated understanding End of Session: Patient was left in bed with call light within reach and all needs met. Safety handoff completed with RN. Jessica Mitchell M.A, [facility]-BRUSH LO[employer]ER [employer] HANDLE ATTACHER Speech Language Pathologist--Rehab Services [facility] MBSImP Certified Clinician Time Start Time: 1330 Stop Time: 1355 Time Calculation (min): 25 min Charges $Clinical Swallow: 1 Procedure Patient Class Inpatient Normal [facility] CONSULT Speech Language Pathology Speech, Language and Cognitive Initial Assessment Name: Maikel Riojas : 1950 Attending Physician: Narayan Ramos MD Admission Diagnosis: Acute hypoxemic respiratory failure (CMS-HCC) [J96.01] AMS (altered mental status) [R41.82] Date: 08/04/2023 Reviewed Pertinent hospital course: Yes Hospital Course BRUSH LOADER AND HANDLE ATTACHER: 73 y/o male presents with AMS. PMH: COPD, T2DM, HFpEF, HTN, HARIS, BPH, multiple recent falls. Patient with recent admission to [place] for COPD exacerbation requiring ICU stay and intubation, discharged 07/26. Intubated 08/01-08/02. Imaging: HCT 08/01: 1. No acute intracranial hemorrhage or mass effect 2. Mild chronic microvascular ischemic disease and diffuse atrophy. CXR 08/01: 1. Endotracheal tube tip projects over the midthoracic trachea. 2. Expiratory chest radiograph with mild bibasilar parenchymal opacities, consider atelectasis or developing pneumonia to include aspiration. 3. Trivial trace bilateral pleural effusions. BR[employer] LO[employer]ER AND HANDLE ATTACHER Hx: none at [facility]. Assessment: Patient presents with moderate cognitive-linguistic deficits in the domains of short-term memory and abstract reasoning. He endorses change to baseline cognitive-linguistic function and states I need to work on it. The patient was administered the Cognistat which assesses orientation, attention, language, constructional ability, memory, reasoning, and judgement. The patient's composite score is 62 / 76 with the following breakdown: Component Score Total Severity of Deficits Orientation 12 12 WFL Attention 6 8 WFL Comprehension 6 6 WFL Repetition 12 12 WFL Naming 8 8 WFL Constructional Ability X X DNT Memory 5 12 moderate Calculations 4 4 WFL Similarities 3 8 moderate Judgement 6 6 WFL Composite 62 76 Acute BRUSH LOADER AND HANDLE ATTACHER intervention is warranted. Plan/Recommendation: - Diet: Regular (IDDSI 7) with Thin Liquids (IDDSI 0), FEES - BRUSH LOADER AND HANDLE ATTACHER therapy 1-3x/week while inpatient - BRUSH LOADER AND HANDLE ATTACHER at discharge is recommended Prognosis Diagnosis: Cognitive-linguistic deficits Prognosis: Good Prognosis Considerations: Previous level of function, Participation level Goals Goals Cognitive-Linguistics Patient will recall: 4/4 items of information following a 2-minute delay with min cues. Patient will complete abstract reasoning task: with 80% accuracy and min cues. Patient will demonstrate use compensatory strategy: for short term memory with 90% accuracy and min cues. Time frame for goals to be met in: 08/14/23 Recommendation Recommendations Services: Recommend BRUSH LOADER AND HANDLE ATTACHER therapy at discharge Problem List There is no problem list on file for this patient. Past Medical History Past Medical History: Diagnosis Date Anxiety Cataract Chronic heart failure Chronic obstructive pulmonary disease Chronic respiratory failure with hypoxia and hypercapnia Depression Diabetes mellitus type 2 Hyperlipidemia Hypertension Obesity Obstructive sleep apnea Spinal stenosis Umbilical hernia Urinary retention Past Surgical History Past Surgical History: Procedure Laterality Date ENDOTRACHEAL INTUBATION EMERGENT Orientation: Person: Yes Place: Yes Time: Yes Situation: Yes Behavioral Profile: alert;cooperative Pain Pain Score: 0 - No Pain Respiratory Status Respiratory Status: O2 via nasual cannula Receptive Language Simple Yes/No Questions: WFL Complex Yes/No Questions: WFL One Step Basic Commands: Within Functional Limits Two Step Basic Commands: Within Functional Limits Multistep Basic Commands: Within Functional Limits Conversation: Within Functional Limits Expressive Language Primary Mode of Expression: Verbal Primary Language: Greek Confrontation Naming: Within Functional Limits Sentence Level Repetition: Within Functional Limits Open Ended Questions: Within Functional Limits Spontaneous Speech in Conversation: WFL Conversation: Within Functional Limits Cognitive Attention: Within Functional Limits Memory: Impaired Short-term Memory: Moderate 50-74% Problem Solving: Within Functional Limits Numeric Reasoning: Within Functional Limits Abstract Reasoning: Impaired Impulsive: WFL Organization: WFL Processing Speed: WFL Motor Speech Intelligibility: Intelligible Cranial Nerve & Laryngeal Function Exam CNV- Trigeminal: Within Functional Limits CNVII - Facial : Within Functional Limits CNIX - Glossopharyngeal: Within Functional Limits CNX - Vagus: Impaired;Likely unrelated to CN deficit Vocal quality: hoarse CNVXII - Hypoglossal Status: Within Functional Limits Dentition and Hearing Dentition: Some missing teeth Hearing Exceptions: None Patient Education Patient educated on: role of BRUSH LOADER AND HANDLE ATTACHER, current POC, and discharge recommendations for BRUSH LOADER AND HANDLE ATTACHER therapy;cognitive function and strategies to improve cognition Patient response: Patient verbalized understanding End of Session: Patient was left in bed with call light within reach and (more content not included)... Normal [facility] LACTIC ACIDon 08-04-2023 Lactate [Moles/Vol] 1.1 mmol/L Normal 0.5-2.2 [facility] Comment on above: Performed By: #### H STROPI #### Roger Witt ([id number]) [address] MAGNESIUMon 08-04-2023 Magnesium [Mass/Vol] 2.3 mg/dL Normal 1.5-2.5 [facility] Comment on above: Performed By: #### H STROPI #### Roger Witt ([id number]) [address] Nursingon 08-04-2023 Nursing Patient has arrived from the MICU with belongings in stable condition, paitent has been oriented to room and call light is within reach Normal [facility] POC GLU MONITORING DEVICEon 08-04-2023 POC GLU MONITORING DEVICE 246 mg/dL High 70-100 [facility] Comment on above: Performed By: #### E DHCVR #### Roger Witt ([id number]) [address] POC GLU MONITORING DEVICE 213 mg/dL High 70-100 [facility] Comment on above: Performed By: #### E DHCVR #### Roger Witt ([id number]) [address] POC GLU MONITORING DEVICE 145 mg/dL High 70-100 [facility] Comment on above: Performed By: #### H STROPI #### Roger Witt ([id number]) [address] POC GLU MONITORING DEVICE 201 mg/dL High 70-100 [facility] Comment on above: Performed By: #### H STROPI #### Roger Witt ([id number]) [address] RENAL FUNCTION PANEL W/EGFRo n 08-04-2023 Albumin [Mass/Vol] 3.6 g/dL Normal 3.5-5.7 [facility] Comment on above: Performed By: #### E DHCVR #### Roger Witt ([id number]) [address] Anion gap [Moles/Vol] 7 mmol/L Normal 3-16 [facility] Comment on above: Performed By: #### E DHCVR #### Roger Witt ([id number]) [place] [address] [place] Calcium [Mass/Vol] 9.1 mg/dL Normal 8.6-10.3 [facility] Comment on above: Performed By: #### E DHCVR #### Roger Witt ([id number]) [place] [address] [place] Chloride [Moles/Vol] 98 mmol/L Normal 98-110 [facility] Comment on above: Performed By: #### E DHCVR #### Roger Witt ([id number]) [place] [address] [place] CO2 [Moles/Vol] 33 mmol/L Normal 21-33 [facility] Comment on above: Performed By: #### E DHCVR #### Roger Witt ([id number]) [place] [address] [place] Creatinine [Mass/Vol] 2.06 mg/dL High 0.60-1.30 [facility] Comment on above: Performed By: #### E DHCVR #### Roger Witt ([id number]) [place] [address] [place] GFR/1.73 sq M.predicted among non-blacks MDRD (S/P/Bld) [Vol rate/Area] 33 mL/min/{1.73_m2} Normal [facility] Comment on above: Result Comment: As o f 2021, the estimated GFR is calculated using the 2020 Chronic Kidney Disease Epidemiology Collaboration (CKD-EPI) equation. In line with the NKF-ASN Task Force Recommendations, this equation does not include a coefficient for race. A single eGFR value is calculated for each patient. The reference interval is >60 mL/min/1.73m2. eGFR values greater than 90 will be reported as >90mL/min/1.73m2. Reference: Flores C, Karen M, Edgard DC, Gene ND, Jaylene CA, Abbie LA, et al. A Unifying Approach for GFR Estimation: Recommendations of the NKF-ASN Task Force on Reassessing the inclusion of Race in Diagnosing Kidney Disease. Am J Kidney Dis. 2020. Performed By: #### E DHCVR #### Roger Witt ([id number]) [address] Glucose [Mass/Vol] 279 mg/dL High 70-100 [facility] Comment on above: Performed By: #### E DHCVR #### Roger Witt ([id number]) [address] Osmolality [Osmolality] 313 mosm/kg High 278-305 [facility] Comment on above: Performed By: #### E DHCVR #### Roger Witt ([id number]) [place] [address] [place] Phosphate [Mass/Vol] 4.7 mg/dL High 2.1-4.5 [facility] Comment on above: Performed By: #### E DHCVR #### Roger Witt ([id number]) [place] [address] [place] Potassium [Moles/Vol] 4.7 mmol/L Normal 3.5-5.3 [facility] Comment on above: Performed By: #### E DHCVR #### Roger Witt ([id number]) [address] Sodium [Moles/Vol] 138 mmol/L Normal 133-146 [facility] Comment on above: Performed By: #### E DHCVR #### Roger Witt ([id number]) [address] Urea nitrogen [Mass/Vol] 61 mg/dL High 7-25 [facility] Comment on above: Performed By: #### E DHCVR #### Roger Witt ([id number]) [address] Albumin [Mass/Vol] 3.3 g/dL Low 3.5-5.7 [facility] Comment on above: Performed By: #### E DHCVR #### Roger Witt ([id number]) [address] Anion gap [Moles/Vol] 11 mmol/L Normal 3-16 [facility] Comment on above: Performed By: #### E DHCVR #### Roger Witt ([id number]) [address] Calcium [Mass/Vol] 8.9 mg/dL Normal 8.6-10.3 [facility] Comment on above: Performed By: #### E DHCVR #### Roger Witt ([id number]) [place] [address] [place] Chloride [Moles/Vol] 100 mmol/L Normal 98-110 [facility] Comment on above: Performed By: #### E DHCVR #### Roger Witt ([id number]) [address] CO2 [Moles/Vol] 28 mmol/L Normal 21-33 [facility] Comment on above: Performed By: #### E DHCVR #### Roger Witt ([id number]) [facility] [address] Creatinine [Mass/Vol] 2.29 mg/dL High 0.60-1.30 [facility] Comment on above: Performed By: #### E DHCVR #### Roger Witt ([id number]) [place] [address] [place] GFR/1.73 sq M.predicted among non-blacks MDRD (S/P/Bld) [Vol rate/Area] 29 mL/min/{1.73_m2} Normal [facility] Comment on above: Result Comment: As o f 2021, the estimated GFR is calculated using the 2020 Chronic Kidney Disease Epidemiology Collaboration (CKD-EPI) equation. In line with the NKF-ASN Task Force Recommendations, this equation does not include a coefficient for race. A single eGFR value is calculated for each patient. The reference interval is >60 mL/min/1.73m2. eGFR values greater than 90 will be reported as >90mL/min/1.73m2. Reference: Mark C, Karen M, Edgard DC, Gene ND, Jaylene CA, Abbie LA, et al. A Unifying Approach for GFR Estimation: Recommendations of the NKF-ASN Task Force on Reassessing the inclusion of Race in Diagnosing Kidney Disease. Am J Kidney Dis. 2020. Performed By: #### E DHCVR #### Roger Witt ([id number]) [place] [address] [place] Glucose [Mass/Vol] 164 mg/dL High 70-100 [facility] Comment on above: Performed By: #### E DHCVR #### Roger Witt ([id number]) [place] [address] [place] Osmolality [Osmolality] 312 mosm/kg High 278-305 [facility] Comment on above: Performed By: #### E DHCVR #### Roger Witt ([id number]) [address] Phosphate [Mass/Vol] 4.0 mg/dL Normal 2.1-4.5 [facility] Comment on above: Performed By: #### E DHCVR #### Roger Witt ([id number]) [address] Potassium [Moles/Vol] 3.9 mmol/L Normal 3.5-5.3 [facility] Comment on above: Performed By: #### E DHCVR #### Roger Witt ([id number]) [address] Sodium [Moles/Vol] 139 mmol/L Normal 133-146 [facility] Comment on above: Performed By: #### E DHCVR #### Roger Witt ([id number]) [address] Urea nitrogen [Mass/Vol] 69 mg/dL High 7-25 [facility] Comment on above: Performed By: #### E DHCVR #### Roger Witt ([id number]) [address] AMMONIAon 08-03-2023 Ammonia (P) [Mass/Vol] 46 ug/dL Normal 27-90 [facility] Comment on above: Performed By: #### L DVBG #### Roger Witt ([id number]) [place] [address] [place] CALCIUM FREE, SERUMon 2023 Calcium [Mass/Vol] 4.77 mg/dL Normal 4.40-5.40 [facility] Comment on above: Result Comment: Free calcium levels vary inversely with pH by approximately 5% for each 0.1 unit of pH change. Assay results have been normalized to pH = 7.40. Performed By: #### D IFF #### Roger Witt ([id number]) [address] Calcium [Mass/Vol] 11.27 mg/dL Critically high 4.40-5.40 [facility] Comment on above: Result Comment: The critical result was called to, and read back by, licensed caregiver [place] [address]558T IN MICU Performed By: #### D IFF #### Roger Witt ([id number]) [address] Calcium [Mass/Vol] 4.73 mg/dL Normal 4.40-5.40 [facility] Comment on above: Result Comment: Free calcium levels vary inversely with pH by approximately 5% for each 0.1 unit of pH change. Assay results have been normalized to pH = 7.40. Performed By: #### L DVBG #### Roger Witt ([id number]) [address] CARE PLANon 08-03-2023 CARE PLAN Problem: Patient jaz l remain free of injury d/t fall Goal: High Fall Risk Precautions Outcome: Progressing Goal: Additional High Fall Risk Precautions (consider the following) Outcome: Progressing Problem: Knowledge Deficit Goal: Patient/family/caregi johnie demonstrates understanding of disease process, treatment plan, medications, and discharge instructions Description: Complete learning assessment and assess knowledge base. Outcome: Progressing Problem: Potential for Compromised Skin Integrity Goal: Skin integrity is maintained or improved Description: Assess and monitor skin integrity. Identify patients at risk for skin breakdown on admission and per policy. Collaborate with interdisciplinary team and initiate plans and interventions as needed. Outcome: Progressing Problem: Incontinence Goal: Perineal skin integrity is maintained or improved Description: Assess genitourinary system, perineal skin, labs (urinalysis), and history of incontinence to include past management, aggravating, and alleviating factors. Collaborate with interdisciplinary team and initiate plans and interventions as needed. Outcome: Progressing Normal [facility] CBCon 08-03-2023 Erythrocyte distribution width (RBC) [Ratio] 14.5 % Normal 11.0-15.0 [facility] Comment on above: Performed By: #### C BC #### Roger Witt ([id number]) [address] Hematocrit (Bld) [Volume fraction] 38.1 % Low 38.5-50.0 [facility] Comment on above: Performed By: #### C BC #### Roger Witt ([id number]) [address] Hemoglobin (Bld) [Mass/Vol] 12.7 g/dL Low 13.2-17.1 [facility] Comment on above: Performed By: #### C BC #### Roger Witt ([id number]) [address] MCH (RBC) [Entitic mass] 32.0 pg Normal 27.0-33.0 [facility] Comment on above: Performed By: #### C BC #### Roger Witt ([id number]) [address] MCHC (RBC) [Mass/Vol] 33.3 g/dL Normal 32.0-36.0 [facility] Comment on above: Performed By: #### C BC #### Roger Witt ([id number]) [address] MCV (RBC) [Entitic vol] 96.1 fL Normal 80.0-100.0 [facility] Comment on above: Performed By: #### C BC #### Roger Witt ([id number]) [address] Platelet mean volume (Bld) [Entitic vol] 8.6 fL Normal 7.5-11.5 [facility] Comment on above: Performed By: #### C BC #### Roger Witt ([id number]) [address] Platelets (Bld) [#/Vol] 255 10*3/uL Normal 140-400 [facility] Comment on above: Performed By: #### C BC #### Roger Witt ([id number]) [address] RBC (Bld) [#/Vol] 3.96 10*6/uL Low 4.20-5.80 [facility] Comment on above: Performed By: #### C BC #### Roger Witt ([id number]) [address] WBC (Bld) [#/Vol] 12.9 10*3/uL High 3.8-10.8 [facility] Comment on above: Performed By: #### C BC #### Roger Witt ([id number]) [address] Erythrocyte distribution width (RBC) [Ratio] 15.2 % High 11.0-15.0 [facility] Comment on above: Order Comment: Perip heral blood smear was scanned per review criteria approved by the laboratory medical imaging technician. Performed By: #### L DVBG #### Roger Witt ([id number]) [address] Hematocrit (Bld) [Volume fraction] 43.0 % Normal 38.5-50.0 [facility] Comment on above: Order Comment: Perip heral blood smear was scanned per review criteria approved by the laboratory medical imaging technician. Performed By: #### L DVBG #### Roger Witt ([id number]) [address] Hemoglobin (Bld) [Mass/Vol] 14.5 g/dL Normal 13.2-17.1 [facility] Comment on above: Order Comment: Perip heral blood smear was scanned per review criteria approved by the laboratory medical imaging technician. Performed By: #### L DVBG #### Roger Witt ([id number]) [address] MCH (RBC) [Entitic mass] 32.2 pg Normal 27.0-33.0 [facility] Comment on above: Order Comment: Perip heral blood smear was scanned per review criteria approved by the laboratory medical imaging technician. Performed By: #### L DVBG #### Roger Witt ([id number]) [address] MCHC (RBC) [Mass/Vol] 33.7 g/dL Normal 32.0-36.0 [facility] Comment on above: Order Comment: Perip heral blood smear was scanned per review criteria approved by the laboratory medical imaging technician. Performed By: #### L DVBG #### Roger Witt ([id number]) [address] MCV (RBC) [Entitic vol] 95.7 fL Normal 80.0-100.0 [facility] Comment on above: Order Comment: Perip heral blood smear was scanned per review criteria approved by the laboratory medical imaging technician. Performed By: #### L DVBG #### Roger Witt ([id number]) [address] Platelet estimate Adequate Normal [facility] Comment on above: Order Comment: Perip heral blood smear was scanned per review criteria approved by the laboratory medical imaging technician. Performed By: #### L DVBG #### Roger Witt ([id number]) [address] Platelet mean volume (Bld) [Entitic vol] 8.2 fL Normal 7.5-11.5 [facility] Comment on above: Order Comment: Perip heral blood smear was scanned per review criteria approved by the laboratory medical imaging technician. Performed By: #### L DVBG #### Roger Witt ([id number]) [address] Platelets (Bld) [#/Vol] 208 10*3/uL Normal 140-400 [facility] Comment on above: Order Comment: Perip heral blood smear was scanned per review criteria approved by the laboratory medical imaging technician. Result Comment: Spec imen checked for clots. None detected. Slide Reviewed for PLT Clumps. None Seen. Performed By: #### L DVBG #### Roger Witt ([id number]) [address] RBC (Bld) [#/Vol] 4.50 10*6/uL Normal 4.20-5.80 [facility] Comment on above: Order Comment: Perip heral blood smear was scanned per review criteria approved by the laboratory medical imaging technician. Performed By: #### L DVBG #### Roger Witt ([id number]) [address] WBC (Bld) [#/Vol] 17.8 10*3/uL High 3.8-10.8 [facility] Comment on above: Order Comment: Perip heral blood smear was scanned per review criteria approved by the laboratory medical imaging technician. Performed By: #### L DVBG #### Roger Witt ([id number]) [place] [address] [place] CHLORIDE, RANDOM URINEon Chloride, Ur 89 mmol/L Normal [facility] Comment on above: Result Comment: Refe rence range not established for this test. Performed By: #### L AVBG #### Roger Witt ([id number]) [place] [address] [place] CONSULTon 08-03-2023 CONSULT [facility] Clinical Pharmacy Service: Vancomycin Consult Primary team has transitioned patient off of vancomycin. Pharmacy will sign off consult at this time. If vancomycin is reinitiated, please feel free to consult pharmacy services again. Thank you. Carlita Friedman, PharmD, [facility] Clinical Calculation Clerk, Critical Care Epic Secure Chat Preferred OnCall/Weekends: [phone] 08/03/23 1:03 PM Normal [facility] ETHANOL, SERUMon 08-03-2023 Ethanol [Mass/Vol] mg/dL Normal 0-10 [facility] Comment on above: Performed By: #### L DVBG #### Roger Witt ([id number]) [address] FREE CALCIUM, WHOLE BLOODon 08-03-2023 Calcium [Mass/Vol] 4.71 mg/dL Normal 4.50-5.30 [facility] Comment on above: Performed By: #### D IFF #### Roger Witt ([id number]) [address] Calcium [Mass/Vol] 3.63 mg/dL Low 4.50-5.30 [facility] Comment on above: Performed By: #### C BC #### Roger Witt ([id number]) [address] GLYCOHEMOGLOBIN, A1Con 08-02 HbA1c (Bld) [Mass fraction] 7.3 % High 4.0-5.6 [facility] Comment on above: Result Comment: Hemo globin A1c Interpretation Guidelines: Normal: <5.7% Prediabetes: 5.7-6.4% Diabetes: >6.4% Diagnosis requires two independent tests unless clinical diagnosis is clear. Some clinical conditions, particularly anemias and hemoglobinopathies, may interfere with the diagnostic accuracy of hemoglobin A1c. The recommended goal for diabetic glycemic control (Hemoglobin A1c <7.0%) should be individualized based on duration of diabetes, age/life expectancy, comorbid conditions, known CVD or advanced microvascular complications, hypoglycemia unawareness, and other individual patient considerations. Performed By: #### C CHRISTINE #### Roger Witt ([id number]) [address] H AND Timothy 08-03-2023 H AND P - Attestation signed by Hari Gould MD at 08/03/2023 1:25 AM I have personally seen this patient, obtained the history and review of systems, performed the physical examination, and reviewed the pertinent laboratory and imaging data. I discussed the treatment plan with the resident and/or fellow as well as the patient when applicable. I saw the patient on 08/02/2023. Please see my separate note for details regarding plan of care. Hari Gould MD Pulmonary, Critical Care, Interventional Pulmonology Department of Internal Medicine MICU History and Physical Patient Name: Maikel Riojas (73 y.o. male) Room/Bed: B01/1U Admission Date: 08/02/2023 (HD# 0) Attending Physician: Hari Gould,* Chief Complaint(s) Encephalopathy HPI Maikel Riojas is a 73 y.o. male with a history of COPD, T2DM, HFpEF, HTN, HARIS, BPH, multiple recent falls presenting for altered mental status. Of note patient recently admitted to [facility] for COPD exacerbation which required ICU stay and intubation, discharged on 07/26. Per ED notes, patient reports multiple falls on 07/31-08/01 without LOC or head strike in addition to some confusion and SOA, he is not on blood thinners. In the ED patient's mental status reportedly declined with minimal response to deep painful stimuli and patient was placed on BIPAP trial given concern for hypercarbia. Patient's mental status continued to decline and patient was intubated and admitted to ICU. Additional treatment in ED included initiation of treatment for COPD exacerbation and patient was started on broad spectrum antibiotics. On arrival to ICU patient alert and following all commands on ventilator subsequently found to have severe uremia on lab workup. Review of Systems Unable to obtain due to: intubated and sedated History Past Medical History: Diagnosis Date Anxiety Cataract Chronic heart failure Chronic obstructive pulmonary disease Chronic respiratory failure with hypoxia and hypercapnia Depression Diabetes mellitus type 2 Hyperlipidemia Hypertension Obesity Obstructive sleep apnea Spinal stenosis Umbilical hernia Urinary retention Past Surgical History: Procedure Laterality Date ENDOTRACHEAL INTUBATION EMERGENT History reviewed. No pertinent family history. - FHx reviewed, non-contributory other than listed above. Allergies as of 08/02/2023 - Fully Reviewed 08/02/2023 Allergen Reaction Noted Sildenafil 04/28/2020 Tomato 10/19/2018 Gabapentin Swelling 05/13/2021 Medications Medications Prior to Admission Patient fills meds at [facility] Inpatient Medications Scheduled Medications vancomycin 25 mg/kg Intravenous Once Continuous Medications fentanyl (SUBLIMAZE) IV infusion 100 mcg/hr (08/02/232130) propofol PRN Medications fentanyl (SUBLIMAZE) IV infusion AND fentaNYL AND fentaNYL Access/Lines/Tubes/Dr henriquez -ETT: intubated on 08/01 -PIV: x4 -Holloway: present (placed on 08/01) -OG Vitals & Physical Exam Temp: [97.4 ?F (36.3 ?C)-97.9 ?F (36.6 ?C)] 97.9 ?F (36.6 ?C) Heart Rate: [57-81] 63 Resp: [15-25] 16 BP: (89-117)/(54-78) 99/69 FiO2: [40 %-100 %] 40 % Vitals: 08/02/23 2102 08/02/23 2103 08/02/23 21008/02/23 2134 BP: 99/69 Pulse: 60 62 61 63 Resp: 16 16 18 16 Temp: 97.9 ?F (36.6 ?C) TempSrc: Bladder SpO2: 93% 92% 91% 99% Weight: General: sedated and intubated Eyes: No discharge, conjunctival injection, or scleral icterus. HENT: NC/AT. Neck is supple and symmetric. Lungs: Intubated, on vent. Lungs are clear to auscultation bilaterally. Cardiovascular: RRR. No peripheral edema. Abdomen: Soft and non-distended. No palpable masses or organomegaly. Normal bowel sounds in all 4 quadrants. No guarding. MSK: Extremities are warm and well-perfused. Normal muscle bulk w/o contractures, deformities or obvious signs of trauma. Skin: Warm and dry. No jaundice. No obvious rashes or lesions. Neurologic: alert. Moves all 4 extremities symmetrically. No facial asymmetry. Labs/Studies Labs and diagnostic studies reviewed in EMR, pertinent results discussed in assessment and plan below Recent Imaging Imaging studies were reviewed in EMR. Pertinent findings are discussed in assessment and plan. X-ray Portable Chest Result Date: 08/02/2023 EXAM: XR PORTABLE CHEST INDICATION: Intubation TECHNIQUE: 1 view of the chest. COMPARISON: Chest radiograph from less than 1 hour prior FINDINGS: Medical Devices: ET tube tip projects over the midthoracic trachea. Enteric tube courses below the level of the diaphragms with tip not included in the [id number]. Heart and Mediastinum: Cardiac silhouette is partially obscured, but likely within normal size limits. Lungs and Pleura: Hypoexpanded lungs with mild bibasilar par (more content not included)... Normal [facility] HEPATIC FUNCTION PANELon Albumin [Mass/Vol] 3.5 g/dL Normal 3.5-5.7 [facility] Comment on above: Performed By: #### L DVBG #### Roger Witt ([id number]) [address] ALP [Catalytic activity/Vol] 78 U/L Normal 36-125 [facility] Comment on above: Performed By: #### L DVBG #### Roger Witt ([id number]) [address] ALT [Catalytic activity/Vol] 7 U/L Normal 7-52 [facility] Comment on above: Performed By: #### L DVBG #### Roger Witt ([id number]) [address] AST [Catalytic activity/Vol] 8 U/L Low 13-39 [facility] Comment on above: Performed By: #### L DVBG #### Roger Witt ([id number]) [address] BILI, Direct 0.17 mg/dL Normal 0.00-0.40 [facility] Comment on above: Performed By: #### L DVBG #### Roger Witt ([id number]) [address] BILI, Total 0.7 mg/dL Normal 0.0-1.5 [facility] Comment on above: Performed By: #### L DVBG #### Roger Witt ([id number]) [address] Performed By: #### P OCGMD #### Roger Witt ([id number]) [address] [place] [address] [place] Bilirubin, Indirect 0.53 mg/dL Normal 0.00-1.10 [facility] Comment on above: Performed By: #### L DVBG #### Roger Witt ([id number]) [address] Protein [Mass/Vol] 6.8 g/dL Normal 6.4-8.9 [facility] Comment on above: Performed By: #### L DVBG #### Roger Witt ([id number]) [address] ALP [Catalytic activity/Vol] 90 U/L Normal 36-125 [facility] Comment on above: Performed By: #### P OCGMD #### Roger Witt ([id number]) [address] ALT [Catalytic activity/Vol] 8 U/L Normal 7-52 [facility] Comment on above: Performed By: #### P OCGMD #### Roger Witt ([id number]) [address] AST [Catalytic activity/Vol] 12 U/L Low 13-39 [facility] Comment on above: Performed By: #### P OCGMD #### Roger Witt ([id number]) [address] BILI, Direct 0.11 mg/dL Normal 0.00-0.40 [facility] Comment on above: Result Comment: HEMO LYSIS EVIDENT. RESULTS MAY BE INFLUENCED. Performed By: #### P OCGMD #### Roger Witt ([id number]) [address] Bilirubin, Indirect 0.59 mg/dL Normal 0.00-1.10 [facility] Comment on above: Performed By: #### P OCGMD #### Roger Witt ([id number]) [address] Protein [Mass/Vol] 7.8 g/dL Normal 6.4-8.9 [facility] Comment on above: Performed By: #### P OCGMD #### Roger Witt ([id number]) [address] LACTIC ACIDon 08-03-2023 Lactate [Moles/Vol] 2.6 mmol/L High 0.5-2.2 [facility] Comment on above: Performed By: #### B STEM ROLLER OPERATOR #### Roger Witt ([id number]) [address] Lactate [Moles/Vol] 2.5 mmol/L High 0.5-2.2 [facility] Comment on above: Performed By: #### L AVBG #### Roger Witt ([id number]) [address] LIPASEon 08-03-2023 Lipase [Catalytic activity/Vol] 75 U/L Normal 4-82 [facility] Comment on above: Performed By: #### P OCGMD #### Roger Witt ([id number]) [address] MAGNESIUMon 08-03-2023 Magnesium [Mass/Vol] 2.0 mg/dL Normal 1.5-2.5 [facility] Comment on above: Performed By: #### D IFF #### Roger Witt ([id number]) [place] [address] [place] Magnesium [Mass/Vol] 2.4 mg/dL Normal 1.5-2.5 [facility] Comment on above: Performed By: #### L DVBG #### Roger Witt ([id number]) [address] MRSA/Staph aureus DNA - Diag nostic testing for pneon 08-03-2023 MRSA, PCR Negative Normal Negative [facility] Comment on above: Order Comment: Diagn osis of MRSA Pneumonia->Yes - Place [id number] (this order) Performed By: #### C BC #### Roger Witt ([id number]) [address] Staph Aureus, PCR Negative Normal Negative [facility] Comment on above: Order Comment: Diagn osis of MRSA Pneumonia->Yes - Place [id number] (this order) Result Comment: Test method is a FDA approved amplified DNA assay. Performed By: #### C BC #### Roger Witt ([id number]) [address] POC GLU MONITORING DEVICEon 08-03-2023 POC GLU MONITORING DEVICE 205 mg/dL High 70-100 [facility] Comment on above: Performed By: #### H STROPI #### Roger Witt ([id number]) [address] POC GLU MONITORING DEVICE 239 mg/dL High 70-100 [facility] Comment on above: Performed By: #### B STEM ROLLER OPERATOR #### Roger Witt ([id number]) [address] POC GLU MONITORING DEVICE 216 mg/dL High 70-100 [facility] Comment on above: Performed By: #### B STEM ROLLER OPERATOR #### Roger Witt ([id number]) [address] POC GLU MONITORING DEVICE 191 mg/dL High 70-100 [facility] Comment on above: Performed By: #### C BC #### Roger Witt ([id number]) [address] POC GLU MONITORING DEVICE 165 mg/dL High 70-100 [facility] Comment on above: Performed By: #### L AVBG #### Roger Witt ([id number]) [address] POTASSIUM, RANDOM URINEon Potassium, Ur 30.0 mmol/L Normal [facility] Comment on above: Result Comment: Refe rence range not established for this test. Performed By: #### L AVBG #### Roger Witt ([id number]) [address] PROTIMEon 08-03-2023 INR Coag (PPP) [Relative time] 0.9 {INR} Normal 0.9-1.1 [facility] Comment on above: Result Comment: MESSI MMENDED THERAPEUTIC RANGES USING INR : Stable oral anticoagulant therapy: 2.0 - 3.0 Mechanical prosthetic heart valve: 2.5 - 3.5 Recurrent acute myocardial infarction: 2.5 - 3.5 Performed By: #### P OCGMD #### Roger Witt ([id number]) [address] PT Coag (PPP) [Time] 12.6 s Normal 12.1-15.1 [facility] Comment on above: Performed By: #### P OCGMD #### Roger Witt ([id number]) [address] [place] [address] [place] PTHon 08-03-2023 PTH, Intact 185.0 pg/mL High 12.0-88.0 [facility] Comment on above: Performed By: #### B STEM ROLLER OPERATOR #### Roger Witt ([id number]) [address] PTH-RELATED PROTEIN (PTH-RP) on 08-03-2023 PTH Related Protein <2.0 Normal [facility] Comment on above: Order Comment: PERFO RMED AT: [facility] [id number] [place] [address] [id number] DIRECTOR: Mike Dotson MD PHONE: [phone] Result Comment: This test was developed and its performance characteristics determined by [facility]. It has not been cleared or approved by the Food and Drug Administration. Reference Range: All Ages: <2.0 The PTHrP assay should not be used to exclude cancer or screen tumor patients for humoral hypercalcemia of malignancy (HHM). The results should always be assessed in conjunction with the patient's medical history, clinical examination, and other findings. If test results are clinically discordant, please contact the laboratory. Performed By: #### P OCGMD #### Roger Witt ([id number]) [address] RENAL FUNCTION PANEL W/EGFRo n 08-03-2023 Albumin [Mass/Vol] 3.6 g/dL Normal 3.5-5.7 [facility] Comment on above: Performed By: #### H STROPI #### Roger Witt ([id number]) [address] Anion gap [Moles/Vol] 15 mmol/L Normal 3-16 [facility] Comment on above: Performed By: #### H STROPI #### Roger Witt ([id number]) [facility] [address] Calcium [Mass/Vol] 9.2 mg/dL Normal 8.6-10.3 [facility] Comment on above: Performed By: #### H STROPI #### Roger Witt ([id number]) [place] [address] [place] Chloride [Moles/Vol] 94 mmol/L Low 98-110 [facility] Comment on above: Performed By: #### H STROPI #### Roger Witt ([id number]) [address] CO2 [Moles/Vol] 28 mmol/L Normal 21-33 [facility] Comment on above: Performed By: #### H STROPI #### Roger Witt ([id number]) [address] Creatinine [Mass/Vol] 3.01 mg/dL High 0.60-1.30 [facility] Comment on above: Performed By: #### H STROPI #### Roger Witt ([id number]) [address] GFR/1.73 sq M.predicted among non-blacks MDRD (S/P/Bld) [Vol rate/Area] 21 mL/min/{1.73_m2} Normal [facility] Comment on above: Result Comment: As o f 2021, the estimated GFR is calculated using the 2020 Chronic Kidney Disease Epidemiology Collaboration (CKD-EPI) equation. In line with the NKF-ASN Task Force Recommendations, this equation does not include a coefficient for race. A single eGFR value is calculated for each patient. The reference interval is >60 mL/min/1.73m2. eGFR values greater than 90 will be reported as >90mL/min/1.73m2. Reference: Karen Peterson M, Edgard DC, Gene ND, Jaylene CA, Abbie LA, et al. A Unifying Approach for GFR Estimation: Recommendations of the NKF-ASN Task Force on Reassessing the inclusion of Race in Diagnosing Kidney Disease. Am J Kidney Dis. 2020. Performed By: #### H STROPI #### Roger Witt ([id number]) [address] Glucose [Mass/Vol] 233 mg/dL High 70-100 [facility] Comment on above: Performed By: #### H STROPI #### Roger Witt ([id number]) [address] Osmolality [Osmolality] 317 mosm/kg High 278-305 [facility] Comment on above: Performed By: #### H STROPI #### Roger Witt ([id number]) [address] Phosphate [Mass/Vol] 5.5 mg/dL High 2.1-4.5 [facility] Comment on above: Performed By: #### H STROPI #### Roger Witt ([id number]) [address] Potassium [Moles/Vol] 4.2 mmol/L Normal 3.5-5.3 [facility] Comment on above: Performed By: #### H STROPI #### Roger Witt ([id number]) [address] Sodium [Moles/Vol] 137 mmol/L Normal 133-146 [facility] Comment on above: Performed By: #### H STROPI #### Roger Witt ([id number]) [facility] [address] Urea nitrogen [Mass/Vol] 83 mg/dL High 7-25 [facility] Comment on above: Performed By: #### H KRISTY #### Roger Witt ([id number]) [address] Albumin [Mass/Vol] 3.5 g/dL Normal 3.5-5.7 [facility] Comment on above: Performed By: #### D IFF #### Roger Witt ([id number]) [address] Anion gap [Moles/Vol] 15 mmol/L Normal 3-16 [facility] Comment on above: Performed By: #### D IFF #### Roger Witt ([id number]) [address] Calcium [Mass/Vol] 9.1 mg/dL Normal 8.6-10.3 [facility] Comment on above: Performed By: #### D IFF #### Roger Witt ([id number]) [address] Chloride [Moles/Vol] 93 mmol/L Low 98-110 [facility] Comment on above: Performed By: #### D IFF #### Roger Witt ([id number]) [address] CO2 [Moles/Vol] 28 mmol/L Normal 21-33 [facility] Comment on above: Performed By: #### D IFF #### Roger Witt ([id number]) [address] Creatinine [Mass/Vol] 3.28 mg/dL High 0.60-1.30 [facility] Comment on above: Performed By: #### D IFF #### Roger Witt ([id number]) [place] [address] [place] GFR/1.73 sq M.predicted among non-blacks MDRD (S/P/Bld) [Vol rate/Area] 19 mL/min/{1.73_m2} [facility] Comment on above: Result Comment: As o f 2021, the estimated GFR is calculated using the 2020 Chronic Kidney Disease Epidemiology Collaboration (CKD-EPI) equation. In line with the NKF-ASN Task Force Recommendations, this equation does not include a coefficient for race. A single eGFR value is calculated for each patient. The reference interval is >60 mL/min/1.73m2. eGFR values greater than 90 will be reported as >90mL/min/1.73m2. Reference: Mark C, Karen M, Edgard DC, Gene ND, Jaylene CA, Abbie LA, et al. A Unifying Approach for GFR Estimation: Recommendations of the NKF-ASN Task Force on Reassessing the inclusion of Race in Diagnosing Kidney Disease. Am J Kidney Dis. 2020. Performed By: #### D IFF #### Roger Witt ([id number]) [place] [address] [place] Glucose [Mass/Vol] 231 mg/dL High 70-100 [facility] Comment on above: Performed By: #### D IFF #### Roger Witt ([id number]) [place] [address] [place] Osmolality [Osmolality] 315 mosm/kg High 278-305 [facility] Comment on above: Performed By: #### D IFF #### Roger Witt ([id number]) [address] [address] [place] Phosphate [Mass/Vol] 6.5 mg/dL High 2.1-4.5 [facility] Comment on above: Performed By: #### D IFF #### Roger Witt ([id number]) [address] Potassium [Moles/Vol] 4.8 mmol/L Normal 3.5-5.3 [facility] Comment on above: Performed By: #### D IFF #### Roger Witt ([id number]) [address] Sodium [Moles/Vol] 136 mmol/L Normal 133-146 [facility] Comment on above: Performed By: #### D IFF #### Roger Witt ([id number]) [address] Urea nitrogen [Mass/Vol] 84 mg/dL High 7-25 [facility] Comment on above: Performed By: #### D IFF #### Roger Witt ([id number]) [address] Albumin [Mass/Vol] 2.9 g/dL Low 3.5-5.7 [facility] Comment on above: Performed By: #### D IFF #### Roger Witt ([id number]) [address] Anion gap [Moles/Vol] 14 mmol/L Normal 3-16 [facility] Comment on above: Performed By: #### D IFF #### Roger Witt ([id number]) [address] Calcium [Mass/Vol] 14.0 mg/dL High 8.6-10.3 [facility] Comment on above: Performed By: #### D IFF #### Roger Witt ([id number]) [place] [address] [place] Chloride [Moles/Vol] 98 mmol/L Normal 98-110 [facility] Comment on above: Performed By: #### D IFF #### Roger Witt ([id number]) [place] [address] [place] CO2 [Moles/Vol] 23 mmol/L Normal 21-33 [facility] Comment on above: Performed By: #### D IFF #### Roger Witt ([id number]) [address] Creatinine [Mass/Vol] 2.97 mg/dL High 0.60-1.30 [facility] Comment on above: Performed By: #### D IFF #### Roger Witt ([id number]) [address] GFR/1.73 sq M.predicted among non-blacks MDRD (S/P/Bld) [Vol rate/Area] 22 mL/min/{1.73_m2} [facility] Comment on above: Result Comment: As o f 2021, the estimated GFR is calculated using the 2020 Chronic Kidney Disease Epidemiology Collaboration (CKD-EPI) equation. In line with the NKF-ASN Task Force Recommendations, this equation does not include a coefficient for race. A single eGFR value is calculated for each patient. The reference interval is >60 mL/min/1.73m2. eGFR values greater than 90 will be reported as >90mL/min/1.73m2. Reference: Mark Guzman, Karen M, Edgard DC, Gene CLANCY, Jaylene CASAS, Abbie MARTÍNEZ, et al. A Unifying Approach for GFR Estimation: Recommendations of the NKF-ASN Task Force on Reassessing the inclusion of Race in Diagnosing Kidney Disease. Am J Kidney Dis. 2020. Performed By: #### D IFF #### Roger Witt ([id number]) [address] Glucose [Mass/Vol] 205 mg/dL High 70-100 [facility] Comment on above: Performed By: #### D IFF #### Roger Witt ([id number]) [address] Osmolality [Osmolality] 308 mosm/kg High 278-305 [facility] Comment on above: Performed By: #### D IFF #### Roger Witt ([id number]) [address] Phosphate [Mass/Vol] 5.2 mg/dL High 2.1-4.5 [facility] Comment on above: Performed By: #### D IFF #### Roger Witt ([id number]) [address] Potassium [Moles/Vol] 4.1 mmol/L Normal 3.5-5.3 [facility] Comment on above: Performed By: #### D IFF #### Roger Witt ([id number]) [place] [address] [place] Sodium [Moles/Vol] 135 mmol/L Normal 133-146 [facility] Comment on above: Performed By: #### D IFF #### Roger Witt ([id number]) [address] Urea nitrogen [Mass/Vol] 74 mg/dL High 7-25 [facility] Comment on above: Performed By: #### D IFF #### Roger Witt ([id number]) [address] Albumin [Mass/Vol] 3.2 g/dL Low 3.5-5.7 [facility] Comment on above: Performed By: #### C BC #### Roger Witt ([id number]) [address] Anion gap [Moles/Vol] 15 mmol/L Normal 3-16 [facility] Comment on above: Performed By: #### C BC #### Roger Witt ([id number]) [address] Calcium [Mass/Vol] 7.1 mg/dL Low 8.6-10.3 [facility] Comment on above: Performed By: #### C BC #### Roger Witt ([id number]) [address] Chloride [Moles/Vol] 99 mmol/L Normal 98-110 [facility] Comment on above: Performed By: #### C BC #### Roger Witt ([id number]) [address] CO2 [Moles/Vol] 23 mmol/L Normal 21-33 [facility] Comment on above: Performed By: #### C BC #### Roger Witt ([id number]) [address] Creatinine [Mass/Vol] 2.99 mg/dL High 0.60-1.30 [facility] Comment on above: Performed By: #### C BC #### Roger Witt ([id number]) [place] [address] [place] GFR/1.73 sq M.predicted among non-blacks MDRD (S/P/Bld) [Vol rate/Area] 21 mL/min/{1.73_m2} [facility] Comment on above: Result Comment: As o f 2021, the estimated GFR is calculated using the 2020 Chronic Kidney Disease Epidemiology Collaboration (CKD-EPI) equation. In line with the NKF-ASN Task Force Recommendations, this equation does not include a coefficient for race. A single eGFR value is calculated for each patient. The reference interval is >60 mL/min/1.73m2. eGFR values greater than 90 will be reported as >90mL/min/1.73m2. Reference: Mark C, Karen M, Edgard DC, Gene CLANCY, Jaylene CA, Abbie LA, et al. A Unifying Approach for GFR Estimation: Recommendations of the NKF-ASN Task Force on Reassessing the inclusion of Race in Diagnosing Kidney Disease. Am J Kidney Dis. 2020. Performed By: #### C BC #### Roger Witt ([id number]) [place] [address] [place] Glucose [Mass/Vol] 177 mg/dL High 70-100 [facility] Comment on above: Performed By: #### C BC #### Roger Witt ([id number]) [place] [address] [place] Osmolality [Osmolality] 310 mosm/kg High 278-305 [facility] Comment on above: Performed By: #### C BC #### Roger Witt ([id number]) [place] [address] [place] Phosphate [Mass/Vol] 5.2 mg/dL High 2.1-4.5 [facility] Comment on above: Performed By: #### C BC #### Roger Witt ([id number]) [address] Potassium [Moles/Vol] 4.3 mmol/L Normal 3.5-5.3 [facility] Comment on above: Performed By: #### C BC #### Roger Witt ([id number]) [address] Sodium [Moles/Vol] 137 mmol/L Normal 133-146 [facility] Comment on above: Performed By: #### C BC #### Roger Witt ([id number]) [address] Urea nitrogen [Mass/Vol] 74 mg/dL High 7-25 [facility] Comment on above: Performed By: #### C BC #### Roger Witt ([id number]) [address] Anion gap [Moles/Vol] 15 mmol/L Normal 3-16 [facility] Comment on above: Performed By: #### L DVBG #### Roger Witt ([id number]) [address] Calcium [Mass/Vol] 8.6 mg/dL Normal 8.6-10.3 [facility] Comment on above: Performed By: #### L DVBG #### Roger Witt ([id number]) [address] Chloride [Moles/Vol] 95 mmol/L Low 98-110 [facility] Comment on above: Performed By: #### L DVBG #### Roger Witt ([id number]) [place] [address] [place] CO2 [Moles/Vol] 26 mmol/L Normal 21-33 [facility] Comment on above: Performed By: #### L DVBG #### Roger Witt ([id number]) [address] Creatinine [Mass/Vol] 3.55 mg/dL High 0.60-1.30 [facility] Comment on above: Performed By: #### L DVBG #### Roger Witt ([id number]) [address] GFR/1.73 sq M.predicted among non-blacks MDRD (S/P/Bld) [Vol rate/Area] 17 mL/min/{1.73_m2} Normal [facility] Comment on above: Result Comment: As o f 2021, the estimated GFR is calculated using the 2020 Chronic Kidney Disease Epidemiology Collaboration (CKD-EPI) equation. In line with the NKF-ASN Task Force Recommendations, this equation does not include a coefficient for race. A single eGFR value is calculated for each patient. The reference interval is >60 mL/min/1.73m2. eGFR values greater than 90 will be reported as >90mL/min/1.73m2. Reference: Mark C, Karen M, Edgard DC, Gene ND, Jaylene CA, Abbie LA, et al. A Unifying Approach for GFR Estimation: Recommendations of the NKF-ASN Task Force on Reassessing the inclusion of Race in Diagnosing Kidney Disease. Am J Kidney Dis. 2020. Performed By: #### L DVBG #### Roger Witt ([id number]) [address] Performed By: #### P OCGMD #### Roger Witt ([id number]) [address] Glucose [Mass/Vol] 173 mg/dL High 70-100 [facility] Comment on above: Performed By: #### L DVBG #### Roger Witt ([id number]) [place] [address] [place] Osmolality [Osmolality] 312 mosm/kg High 278-305 [facility] Comment on above: Performed By: #### L DVBG #### Roger Witt ([id number]) [address] Phosphate [Mass/Vol] 6.5 mg/dL High 2.1-4.5 [facility] Comment on above: Performed By: #### L DVBG #### Roger Witt ([id number]) [address] Potassium [Moles/Vol] 4.4 mmol/L Normal 3.5-5.3 [facility] Comment on above: Performed By: #### L DVBG #### Roger Witt ([id number]) [address] Sodium [Moles/Vol] 136 mmol/L Normal 133-146 [facility] Comment on above: Performed By: #### L DVBG #### Roger Witt ([id number]) [place] [address] [place] Urea nitrogen [Mass/Vol] 84 mg/dL High 7-25 [facility] Comment on above: Performed By: #### L DVBG #### Roger Witt ([id number]) [place] [address] [place] Albumin [Mass/Vol] 3.9 g/dL Normal 3.5-5.7 [facility] Comment on above: Performed By: #### P OCGMD #### Roger Witt ([id number]) [address] Anion gap [Moles/Vol] 16 mmol/L Normal 3-16 [facility] Comment on above: Performed By: #### P OCGMD #### Roger Witt ([id number]) [address] Calcium [Mass/Vol] 9.1 mg/dL Normal 8.6-10.3 [facility] Comment on above: Performed By: #### P OCGMD #### Roger Witt ([id number]) [address] Chloride [Moles/Vol] 92 mmol/L Low 98-110 [facility] Comment on above: Performed By: #### P OCGMD #### Roger Witt ([id number]) [address] CO2 [Moles/Vol] 27 mmol/L Normal 21-33 [facility] Comment on above: Performed By: #### P OCGMD #### Roger Witt ([id number]) [address] Creatinine [Mass/Vol] 3.70 mg/dL High 0.60-1.30 [facility] Comment on above: Performed By: #### P OCGMD #### Roger Witt ([id number]) [address] Glucose [Mass/Vol] 155 mg/dL High 70-100 [facility] Comment on above: Performed By: #### P OCGMD #### Roger Witt ([id number]) [address] Osmolality [Osmolality] 308 mosm/kg High 278-305 [facility] Comment on above: Performed By: #### P OCGMD #### Roger Witt ([id number]) [address] Phosphate [Mass/Vol] 7.0 mg/dL High 2.1-4.5 [facility] Comment on above: Performed By: #### P OCGMD #### Roger Witt ([id number]) [address] Potassium [Moles/Vol] 4.6 mmol/L Normal 3.5-5.3 [facility] Comment on above: Result Comment: Hemo lysis Present: Results may be influenced artificially. Recommend recollection as clinically indicated. Performed By: #### P OCGMD #### Roger Witt ([id number]) [address] Sodium [Moles/Vol] 135 mmol/L Normal 133-146 [facility] Comment on above: Performed By: #### P OCGMD #### Roger Witt ([id number]) [address] Urea nitrogen [Mass/Vol] 81 mg/dL High 7-25 [facility] Comment on above: Performed By: #### P OCGMD #### Roger Witt ([id number]) [address] SALICYLATEon 08-03-2023 Salicylate <3 Low 10-30 [facility] Comment on above: Performed By: #### L DVBG #### Roger Witt ([id number]) [address] SERUM PROT ELECTROPHORESIS, REFLEX TO ITon 08-03-2023 Albumin [Mass/Vol] 3.3 g/dL Low 3.70-4.90 [facility] Comment on above: Performed By: #### H STROPI #### Roger Witt ([id number]) [address] Alpha 1 0.3 g/dL Normal 0.20-0.40 [facility] Comment on above: Performed By: #### H STROPI #### Roger Witt ([id number]) [address] Alpha 2 0.8 g/dL Normal 0.50-1.00 [facility] Comment on above: Performed By: #### H STROPI #### Roger Witt ([id number]) [address] Beta 0.7 g/dL Normal 0.60-1.00 [facility] Comment on above: Performed By: #### H STROPI #### Roger Witt ([id number]) [address] Gamma 1.1 g/dL Normal 0.50-1.50 [facility] Comment on above: Performed By: #### H STROPI #### Roger Witt ([id number]) [address] M Hung 0.0 g/dL Normal [facility] Comment on above: Performed By: #### H STROPI #### Roger Witt ([id number]) [address] Protein [Mass/Vol] 6.3 g/dL Low 6.4-8.9 [facility] Comment on above: Performed By: #### H STROPI #### Roger Witt ([id number]) [address] SODIUM, RANDOM URINEon 08-02 Sodium (U) [Moles/Vol] 81 mmol/L Normal [facility] Comment on above: Result Comment: Refe rence range not established for this test. Performed By: #### L AVBG #### Roger Witt ([id number]) [address] SPUTUM CULTURE PLUS STAINon 08-03-2023 SPUTUM CULTURE PLUS STAIN Gram Stain: Minimal Oral Contamination; Inflammation Present >25 Polymorphonuclear Leukocytes; <10 Squamous Epithelial Cells Per Low Power Field. No Organisms Seen Culture Result: Staphylococcus lugdunensis Scant Growth Identified by MALDI-TOF MS Susceptibility testing for Oxacillin against Staphylococci predicts susceptibility or resistance to all beta-lactamase stable penicillins, beta-lactamase inhibitor combinations, relevant cephalosporins, and carbapenems. Testing Performed at Laboratory Organism 2: No Normal Respiratory Brunilda Isolated Organism: Staphylococcus lugdunensis Antibiotic Interpretation BEBETO Status CLINDAMYCIN I F DOXYCYCLINE S <= 0.5 F ERYTHROMYCIN R >= 8 F OXACILLIN R >= 4 F SULFA/TRIMETHOPRIM S <= 10 F VANCOMYCIN S <= 0.5 F Susceptible [facility] Comment on above: Performed By: #### B STEM ROLLER OPERATOR #### Roger Witt ([id number]) [place] [address] [place] UREA NITROGEN, RANDOM URINEo n 08-03-2023 Urea, Ur 247 mg/dL Normal [facility] Comment on above: Result Comment: Refe rence range not established for this test. Performed By: #### C BC #### Roger Witt ([id number]) [address] URINE CREATININE, RANDOMon 0 08-03-2023 Creatinine, Ur 30.20 mg/dL Normal [facility] Comment on above: Result Comment: Refe rence range not established for this test. Performed By: #### C BC #### Roger Witt ([id number]) [address] URINE DRUG SCREEN WITHOUT CO NFIRMATION, Carlos 08-03-2023 Amphetamines, 500 cutoff Negative Normal Negative [facility] Comment on above: Performed By: #### L DVBG #### Roger Witt ([id number]) [address] Barbiturates, 300 ng/mL Cutoff Negative Normal Negative [facility] Comment on above: Performed By: #### L DVBG #### Roger Witt ([id number]) [address] Benzo, 300 ng/mL Cutoff Positive Abnormal Negative [facility] Comment on above: Performed By: #### L DVBG #### Roger Witt ([id number]) [address] Buprenorphine, 5 ng/mL Cutoff Negative Normal Negative [facility] Comment on above: Performed By: #### L DVBG #### Roger Witt ([id number]) [address] Cocaine, 300 ng/mL Cutoff Negative Normal Negative [facility] Comment on above: Performed By: #### L DVBG #### Roger Witt ([id number]) [place] [address] [place] Fentanyl, 2 ng/mL Cutoff Positive Abnormal Negative [facility] Comment on above: Result Comment: This test has been developed and its performance characteristics determined by [facility] which is certified under the Clinical Laboratory Improvement Amendment of 1988 (CLIA-88) to perform high complexity testing. The test has not been cleared or approved by the [place] Food and Drug Administration (FDA). The FDA has determined that such clearance is not necessary. The test should be used for clinical purposes and is not regarded as investigational. Performed By: #### L DVBG #### Roger Witt ([id number]) [place] [address] [place] Methadone 300 ng/mLCutoff Negative Normal Negative [facility] Comment on above: Performed By: #### L DVBG #### Roger Witt ([id number]) [address] Opiates, 300 ng/mL Cutoff Negative Normal Negative [facility] Comment on above: Performed By: #### L DVBG #### Roger Witt ([id number]) [address] Oxycodone, 100 ng/mL Negative Normal Negative [facility] Comment on above: Performed By: #### L DVBG #### Roger Witt ([id number]) [address] TCA, 300 ng/mL Cutoff Negative Normal [facility] Comment on above: Result Comment: This test has been developed and its performance characteristics determined by [facility] which is certified under the Clinical Laboratory Improvement Amendment of 1987 (CLIA-88) to perform high complexity testing. The test has not been cleared or approved by the [place] Food and Drug Administration (FDA). The FDA has determined that such clearance is not necessary. The test should be used for clinical purposes and is not regarded as investigational. Performed By: #### L DVBG #### Roger Witt ([id number]) [address] THC, 50 ng/mL Cutoff Negative Normal Negative [facility] Comment on above: Result Comment: This is a screening method only and may be associated with false positive and/or false negative results. Results are not definitive without additional confirmatory testing by mass spectrometry. Performed By: #### L DVBG #### Roger Witt ([id number]) [address] URINE KAPPA/LAMBDA RANDOMon 08-03-2023 [place] Chains 112.13 mg/L High 0.39-15.10 [facility] Comment on above: Performed By: #### E DHCVR #### Roger Witt ([id number]) [address] [place]/Lambda Ratio 4.85 ratio High 0.46-4.00 [facility] Comment on above: Performed By: #### E DHCVR #### Roger Witt ([id number]) [address] Lambda Chains 23.14 mg/L High 0.81-10.10 [facility] Comment on above: Performed By: #### E DHCVR #### Roger Witt ([id number]) [address] URINE PROTEIN ELECTROPHORESI S, RANDOM W REFLEX TSTon 08-03-2023 Albumin 5.7 mg/dL Normal [facility] Comment on above: Order Comment: This assay has been modified from the veterinary meat inspector's specifications and has been validated with performance characteristics determined by [facility] in accordance with federal regulations under the Clinical Laboratory Act Amendment of 1987. The modification has not been approved by the FDA which has determined that such approval is not necessary. The test is for clinical purposes and should not be regarded as investigational or for research use. Performed By: #### H KRISTY #### Roger Witt ([id number]) [address] Gajxf-6-Wruvyghjm 11.8 mg/dL Normal [facility] Comment on above: Order Comment: This assay has been modified from the veterinary meat inspector's specifications and has been validated with performance characteristics determined by [facility] in accordance with federal regulations under the Clinical Laboratory Act Amendment of 1988. The modification has not been approved by the FDA which has determined that such approval is not necessary. The test is for clinical purposes and should not be regarded as investigational or for research use. Performed By: #### H LEONIEPI #### Roger Witt ([id number]) [address] Grzbk-3-Dnmzneuhv 4.7 mg/dL Normal [facility] Comment on above: Order Comment: This assay has been modified from the veterinary meat inspector's specifications and has been validated with performance characteristics determined by [facility] in accordance with federal regulations under the Clinical Laboratory Act Amendment of 1988. The modification has not been approved by the FDA which has determined that such approval is not necessary. The test is for clinical purposes and should not be regarded as investigational or for research use. Performed By: #### H KRISTY #### Roger Witt ([id number]) [address] Beta Globulins 4.1 mg/dL Normal [facility] Comment on above: Order Comment: This assay has been modified from the veterinary meat inspector's specifications and has been validated with performance characteristics determined by [facility] in accordance with federal regulations under the Clinical Laboratory Act Amendment of 1988. The modification has not been approved by the FDA which has determined that such approval is not necessary. The test is for clinical purposes and should not be regarded as investigational or for research use. Performed By: #### H LEONIEPI #### Roger Witt ([id number]) [address] Gamma Globulins 2.8 mg/dL Normal [facility] Comment on above: Order Comment: This assay has been modified from the veterinary meat inspector's specifications and has been validated with performance characteristics determined by [facility] in accordance with federal regulations under the Clinical Laboratory Act Amendment of 1987. The modification has not been approved by the FDA which has determined that such approval is not necessary. The test is for clinical purposes and should not be regarded as investigational or for research use. Performed By: #### H STROPI #### Roger Witt ([id number]) [address] Interpretation See Note Normal [facility] Comment on above: Order Comment: This assay has been modified from the veterinary meat inspector's specifications and has been validated with performance characteristics determined by [facility] in accordance with federal regulations under the Clinical Laboratory Act Amendment of 1987. The modification has not been approved by the FDA which has determined that such approval is not necessary. The test is for clinical purposes and should not be regarded as investigational or for research use. Result Comment: Urin e immunofixation negative for monoclonal proteins. Note: Free kappa light chains are elevated with an abnormal K/L ratio. No associated M-spike. Reviewed by Jenise Grady M.D. Performed By: #### H STROPI #### Roger Witt ([id number]) [address] Result Comment: Seru m protein separation shows an unremarkable pattern. No monoclonal protein seen. Reviewed by Jenise Grady M.D. M Hung 0.0 mg/dL Normal [facility] Comment on above: Order Comment: This assay has been modified from the veterinary meat inspector's specifications and has been validated with performance characteristics determined by [facility] in accordance with federal regulations under the Clinical Laboratory Act Amendment of 1987. The modification has not been approved by the FDA which has determined that such approval is not necessary. The test is for clinical purposes and should not be regarded as investigational or for research use. Performed By: #### H STROBOO #### Roger Witt ([id number]) [address] Protein (U) [Mass/Vol] 29 mg/dL Normal [facility] Comment on above: Order Comment: This assay has been modified from the veterinary meat inspector's specifications and has been validated with performance characteristics determined by [facility] in accordance with federal regulations under the Clinical Laboratory Act Amendment of 1987. The modification has not been approved by the FDA which has determined that such approval is not necessary. The test is for clinical purposes and should not be regarded as investigational or for research use. Result Comment: Refe rence range not established for this test. Performed By: #### H STROPI #### Roger Witt ([id number]) [address] US RETROPERITONEAL COMPLETEo n 08-03-2023 US RETROPERITONEAL COMPLETE EXAM: US RETROPERITONEAL COMPLETE INDICATION: acute renal failure COMPARISON: None TECHNIQUE: Grayscale and color Doppler imaging acquisition was performed for evaluation of the kidneys and urinary bladder. FINDINGS: Limited due to poor acoustic windows Right Kidney: 11.6 cm. There is no hydronephrosis. Normal echogenicity. Left Kidney: 10.8 cm. There is no hydronephrosis. Normal echogenicity. Bladder: Urinary bladder is not visualized. Other: None IMPRESSION: Limited study. No hydronephrosis Report Verified by: Fely Kline MD at 08/03/2023 2:10 PM EDT Normal [facility] Comment on above: Performed By: #### B STEM ROLLER OPERATOR #### Roger Witt ([id number]) [address] VANCOMYCIN, RANDOMon 024 Vancomycin, Random 28.0 ug/mL Normal [facility] Comment on above: Result Comment: Refe rence range not established for this test. Performed By: #### D IFF #### Roger Witt ([id number]) [address] VENOUS BLOOD GAS, LINE/SYRIN GEon 08-03-2023 %HBO2 79.3 % High 40.0-70.0 [facility] Comment on above: Performed By: #### D IFF #### Roger Witt ([id number]) [address] Base Excess 0.0 mmol/L Normal -2.0-3.0 [facility] Comment on above: Performed By: #### D IFF #### Roger Witt ([id number]) [address] Carboxyhgb 1.6 % Normal [facility] Comment on above: Result Comment: CARB OXYHEMOGLOBIN (CO) REFERENCE RANGES: Non-Smokers: <2 % Smokers: <8 % TOXIC: >20 % Performed By: #### D IFF #### Roger Witt ([id number]) [address] CO2 [Moles/Vol] 29 mmol/L Normal 25-29 [facility] Comment on above: Performed By: #### D IFF #### Roger Witt ([id number]) [address] HCO3 (Bld) [Moles/Vol] 27 mmol/L Normal 24-28 [facility] Comment on above: Performed By: #### D IFF #### Roger Witt ([id number]) [address] Methemoglobin 0.6 % Normal 0.0-1.5 [facility] Comment on above: Performed By: #### D IFF #### Roger Witt ([id number]) [place] [address] [place] PCO2 54 mm Hg High 41-51 [facility] Comment on above: Performed By: #### D IFF #### Roger Witt ([id number]) [address] pH (Bld) 7.31 [pH] Low 7.32-7.42 [facility] Comment on above: Performed By: #### D IFF #### Roger Witt ([id number]) [place] [address] [place] PO2 48 mm Hg High 25-40 [facility] Comment on above: Performed By: #### D IFF #### Roger Witt ([id number]) [address] Reduced Hemoglobin 18.5 % High 0.0-5.0 [facility] Comment on above: Performed By: #### D IFF #### Roger Witt ([id number]) [address] %HBO2 43.2 % Normal 40.0-70.0 [facility] Comment on above: Performed By: #### C BC #### Roger Witt ([id number]) [address] Base Excess -1.6 mmol/L Normal -2.0-3.0 [facility] Comment on above: Performed By: #### C BC #### Roger Witt ([id number]) [address] Carboxyhgb 1.2 % Normal 0.0-2.0 [facility] Comment on above: Result Comment: CARB OXYHEMOGLOBIN (CO) REFERENCE RANGES: Non-Smokers: <2 % Smokers: <8 % TOXIC: >20 % Performed By: #### C BC #### Roger Witt ([id number]) [address] CO2 [Moles/Vol] 26 mmol/L Normal 25-29 [facility] Comment on above: Performed By: #### C BC #### Roger Witt ([id number]) [address] HCO3 (Bld) [Moles/Vol] 25 mmol/L Normal 24-28 [facility] Comment on above: Performed By: #### C BC #### Roger Witt ([id number]) [address] Methemoglobin 0.7 % Normal 0.0-1.5 [facility] Comment on above: Performed By: #### C BC #### Roger Witt ([id number]) [address] PCO2 47 mm Hg Normal 41-51 [facility] Comment on above: Performed By: #### C BC #### Roger Witt ([id number]) [address] pH (Bld) 7.33 [pH] Normal 7.32-7.42 [facility] Comment on above: Performed By: #### C BC #### Roger Witt ([id number]) [address] PO2 26 mm Hg Normal 25-40 [facility] Comment on above: Performed By: #### C BC #### Roger Witt ([id number]) [address] Reduced Hemoglobin 54.9 % High 0.0-5.0 [facility] Comment on above: Performed By: #### C BC #### Roger Witt ([id number]) [address] %HBO2 35.4 % Low 40.0-70.0 [facility] Comment on above: Performed By: #### L AVBG #### Roger Witt ([id number]) [address] Base Excess 2.4 mmol/L Normal -2.0-3.0 [facility] Comment on above: Performed By: #### L AVBG #### Roger Witt ([id number]) [address] Carboxyhgb 1.1 % Normal 0.0-2.0 [facility] Comment on above: Result Comment: CARB OXYHEMOGLOBIN (CO) REFERENCE RANGES: Non-Smokers: <2 % Smokers: <8 % TOXIC: >20 % Performed By: #### L AVBG #### Roger Witt ([id number]) [address] CO2 [Moles/Vol] 33 mmol/L High 25-29 [facility] Comment on above: Performed By: #### L AVBG #### Roger Witt ([id number]) [address] Performed By: #### P OCGMD #### Roger Witt ([id number]) [address] HCO3 (Bld) [Moles/Vol] 31 mmol/L High 24-28 [facility] Comment on above: Performed By: #### L AVBG #### Roger Witt ([id number]) [address] Performed By: #### P OCGMD #### Roger Witt ([id number]) [address] Methemoglobin 0.7 % Normal 0.0-1.5 [facility] Comment on above: Performed By: #### L AVBG #### Roger Witt ([id number]) [place] [address] [place] PCO2 64 mm Hg High 41-51 [facility] Comment on above: Performed By: #### L AVBG #### Roger Witt ([id number]) [address] pH (Bld) 7.29 [pH] Low 7.32-7.42 [facility] Comment on above: Performed By: #### L AVBG #### Roger Witt ([id number]) [place] [address] [place] PO2 24 mm Hg Low 25-40 [facility] Comment on above: Performed By: #### L AVBG #### Roger Witt ([id number]) [address] Reduced Hemoglobin 62.8 % High 0.0-5.0 [facility] Comment on above: Performed By: #### L AVBG #### Roger Witt ([id number]) [address] %HBO2 31.9 % Low 40.0-70.0 [facility] Comment on above: Performed By: #### P OCGMD #### Roger Witt ([id number]) [address] Base Excess 1.1 mmol/L Normal -2.0-3.0 [facility] Comment on above: Performed By: #### P OCGMD #### Roger Witt ([id number]) [address] Carboxyhgb 1.2 % Normal 0.0-2.0 [facility] Comment on above: Result Comment: CARB OXYHEMOGLOBIN (CO) REFERENCE RANGES: Non-Smokers: <2 % Smokers: <8 % TOXIC: >20 % Performed By: #### P OCGMD #### Roger Witt ([id number]) [address] PCO2 67 mm Hg High 41-51 [facility] Comment on above: Performed By: #### P OCGMD #### Roger Witt ([id number]) [address] pH (Bld) 7.27 [pH] Low 7.32-7.42 [facility] Comment on above: Performed By: #### P OCGMD #### Roger Witt ([id number]) [place] [address] [place] PO2 22 mm Hg Low 25-40 [facility] Comment on above: Performed By: #### P OCGMD #### Roger Witt ([id number]) [address] Reduced Hemoglobin 66.3 % High 0.0-5.0 [facility] Comment on above: Performed By: #### P OCGMD #### Roger Witt ([id number]) [address] VITAMIN B12on 08-03-2023 Cobalamin (Vitamin B12) [Mass/Vol] 248 pg/mL Normal 180-914 [facility] Comment on above: Performed By: #### L DVBG #### Roger Witt ([id number]) [address] VITAMIN D 25-HYDROXYon 08-02 Vitamin D, 25 Hydroxy 42.0 ng/mL Normal 30.0-100.0 [facility] Comment on above: Result Comment: Keyla min D deficiency has been defined by the [place] [employer] (IOM) and an Endocrine Society practice guideline as a level of serum 25-OH Vitamin D less than 20 ng/mL. The Endocrine Society went on to further define Vitamin D insufficiency as a level between 21-29 ng/mL. 1) IOM. 2011 Dietary reference intakes for calcium and D. Boudreaux D.C: The National Academies Press 2) Pito MF, Luzmaria NC, Erickson LEAL, et al. Evaluation, treatment, and prevention of Vitamin D deficiency: an Endocrine Society clinical practice guideline. JCEM. 2010; 96(7):1911-30. Performed By: #### B STEM ROLLER OPERATOR #### Roger Witt ([id number]) [address] B NATRIURETIC PEPTIDEon 07-06 Natriuretic peptide B (Bld) [Mass/Vol] 14 pg/mL Normal 0-100 [facility] Comment on above: Order Comment: The p resence of high concentrations of biotin may cause falsely lowered BNP results. Biotin interference may be seen if an individual is taking >5 mg biotin per day. Interpret BNP results in the context of the patient's clinical presentation. Result Comment: BNP may be increased in the presence of sacubitril/valsartan (Entresto). Please interpret accordingly. Performed By: #### B STEM ROLLER OPERATOR #### Roger Witt ([id number]) [address] BLOOD CULTURE-PERIPHERALon 0 08-02-2023 BLOOD CULTURE-PERIPHERAL Culture Result: No Growth After 5 Days Normal [facility] Comment on above: Order Comment: Subop timal volume of blood received. Interpret results with caution. Performed By: #### B C #### Roger Witt ([id number]) [address] Performed By: #### P OCGMD #### Roger Witt ([id number]) [address] CBCon 08-02-2023 Erythrocyte distribution width (RBC) [Ratio] 15.3 % High 11.0-15.0 [facility] Comment on above: Performed By: #### C BC #### Roger Witt ([id number]) [address] Hematocrit (Bld) [Volume fraction] 46.6 % Normal 38.5-50.0 [facility] Comment on above: Performed By: #### C BC #### Roger Witt ([id number]) [address] Hemoglobin (Bld) [Mass/Vol] 15.7 g/dL Normal 13.2-17.1 [facility] Comment on above: Performed By: #### C BC #### Roger Witt ([id number]) [address] MCH (RBC) [Entitic mass] 32.4 pg Normal 27.0-33.0 [facility] Comment on above: Performed By: #### C BC #### Roger Witt ([id number]) [address] MCHC (RBC) [Mass/Vol] 33.6 g/dL Normal 32.0-36.0 [facility] Comment on above: Performed By: #### C BC #### Roger Witt ([id number]) [address] MCV (RBC) [Entitic vol] 96.5 fL Normal 80.0-100.0 [facility] Comment on above: Performed By: #### C BC #### Roger Witt ([id number]) [address] Platelet mean volume (Bld) [Entitic vol] 8.6 fL Normal 7.5-11.5 [facility] Comment on above: Performed By: #### C BC #### Roger Witt ([id number]) [address] Platelets (Bld) [#/Vol] 318 10*3/uL Normal 140-400 [facility] Comment on above: Performed By: #### C BC #### Roger Witt ([id number]) [address] RBC (Bld) [#/Vol] 4.83 10*6/uL Normal 4.20-5.80 [facility] Comment on above: Performed By: #### C BC #### Roger Witt ([id number]) [address] WBC (Bld) [#/Vol] 19.1 10*3/uL High 3.8-10.8 [facility] Comment on above: Performed By: #### C BC #### Roger Witt ([id number]) [address] HEAD WO CONTRASTon 2023 CT HEAD WO CONTRAST EXAM: CT HEAD WO CONTRAST INDICATION: Mental status change, unknown cause TECHNIQUE: Axial thin section CT images of the head were obtained without contrast. Sagittal and coronal 2-D multiplanar reconstructions were performed at the scanner. COMPARISON: None available. FINDINGS: Limited by nonstandard positioning and streak artifacts. Brain parenchyma: Scattered foci of nonspecific white matter low-attenuation. No acute intraparenchymal hemorrhage or mass effect. Ventricles and extraaxial spaces: Proportionate mild enlargement of ventricles and sulci. Mildly prominent extra-axial fluid spaces, likely compensatory. Orbits, paranasal sinuses, mastoids: No acute orbital abnormality. Clear paranasal sinuses. Mild mastoid opacification on the right Extracranial soft tissues: Limited evaluation of the left scalp due to partial exclusion from the [id number]. Normal as included. Calvarium and skull base: No fracture or suspicious osseous lesion. Unfused posterior arch C1. Other: Partially visualized endotracheal tube and enteric tube. IMPRESSION: 1. No acute intracranial hemorrhage or mass effect 2. Mild chronic microvascular ischemic disease and diffuse atrophy. Approved by Vikas Gomez MD on 08/02/2023 9:40 PM EDT I have personally reviewed the images and I agree with this report. Report Verified by: Eduardo Suazo MD at 08/02/2023 10:47 PM EDT Normal [facility] DIFFERENTIALon 08-02-2023 Abs BASO 76 /uL Normal 0-200 [facility] Comment on above: Performed By: #### D IFF #### Roger Witt ([id number]) [address] Abs EOS 134 /uL Normal 15-500 [facility] Comment on above: Performed By: #### D IFF #### Roger Witt ([id number]) [address] Abs MONO 1719 /uL High 200-950 [facility] Comment on above: Performed By: #### D IFF #### Roger Witt ([id number]) [address] Abs NEUT 11807 /uL High 6906-7926 [facility] Comment on above: Performed By: #### D IFF #### Roger Witt ([id number]) [address] Basophils/100 WBC (Bld) 0.4 % Normal 0.0-1.0 [facility] Comment on above: Performed By: #### D IFF #### Roger Witt ([id number]) [address] Eosinophils/100 WBC (Bld) 0.7 % Normal 0.0-8.0 [facility] Comment on above: Performed By: #### D IFF #### Roger Witt ([id number]) [place] [address] [place] Lymphocytes (Bld) [#/Vol] 1.795 10*3/uL Normal 850-3900 [facility] Comment on above: Performed By: #### D IFF #### Roger Witt ([id number]) [place] [address] [place] Lymphocytes/100 WBC (Bld) 9.4 % Low 15.0-45.0 [facility] Comment on above: Performed By: #### D IFF #### Roger Witt ([id number]) [place] [address] [place] Monocytes/100 WBC (Bld) 9.0 % Normal 0.0-12.0 [facility] Comment on above: Performed By: #### D IFF #### Roger Witt ([id number]) [address] Neutrophils/100 WBC (Bld) 80.5 % High 40.0-80.0 [facility] Comment on above: Performed By: #### D IFF #### Roger Witt ([id number]) [address] Nucleated RBC 0 /100 WBC Normal 0-0 [facility] Comment on above: Performed By: #### D IFF #### Roger Witt ([id number]) [address] ED HCV AB REFLEX TO HCV JASPAL Ton 08-02-2023 HCVAB NUMBER 0.08 S/CO Normal 0.00-0.79 [facility] Comment on above: Performed By: #### E DHCVR #### Roger Witt ([id number]) [address] Hepatitis C Interp Non-Reactive Normal Nonreactive [facility] Comment on above: Result Comment: Heal th Department notified in accordance with reportable infectious disease guidelines. Performed By: #### E DHCVR #### Roger Witt ([id number]) [address] ED Prov Noteon 08-02-2023 ED Prov Note [facility] ED Note Date of Service: 08/02/2023 Reason for Visit: Altered Mental Status and Multiple Falls Patient History HPI Maikel Riojas is a 73 y.o. male with a history of COPD. DMT2, CHF , HTN who presents to the ED for evaluation of AMS. Patient presents via aircare after multiple falls and now presenting with AMS. Patient had been recently admitted to [place] for a COPD exacerbation that required an ICU stay along with intubation. He had been discharged on 07/26 however, he started having falls yesterday (fell a total of three times per family). No LOC, no head strikes. He also began having increasing SOB and altered mental status. Patient denies any fevers, chills, chest pain, nausea, vomiting, diarrhea, constipation or abdominal pain. States that he is having orthopnea and feels that his legs are a bit swollen. Denies hitting head or any LOC. Patient is not on any blood thinners at this time. History reviewed. No pertinent past medical history. No past surgical history on file. Physical Exam Vitals: 08/02/23 2102 08/02/23 2103 08/02/23 2104 08/02/23 2134 BP: 99/69 BP Location: Right upper arm Patient Position: Lying BP Cuff Size: Large Pulse: 60 62 61 63 Resp: 16 16 18 16 Temp: 97.9 ?F (36.6 ?C) TempSrc: Bladder SpO2: 93% 92% 91% 99% Weight: General: Ill appearing; increased WOB Eyes: Pupils reactive. EOMI. No discharge from eyes. ENT: No oropharyngeal edema, tolerating oral secretions Pulmonary: Increased work of breath. Bilateral wheezing of the lower extremities. Cardiac: Regular rate and rhythm. Abdomen: Soft. Non-distended. Non-tender. Musculoskeletal: No long bone deformity. No peripheral edema Skin: Dry, no rashes Neuro: Alert and oriented x4 but is lethargic. Speech is slurred at times. Unable to move lower extremities chronically, 5/5 strength of the upper extremities and Cranial nerves intact. Diagnostic Studies Labs: Please see EMR for labs obtained during this patient encounter Radiology: Please see EMR for images obtained during this patient encounter EKG Interpretation: Rhythm: normal sinus Rate: normal ST Segments: no acute change T Waves: no acute change Q Waves: none Clinical Impression: no acute changes Comparison: ED Course and MDM Maikel Riojas is a 73 y.o. male with a history and presentation as described above in HPI. The patient was evaluated by myself, the ED Attending Physician Dr. Conway, and R4 Dr. Nuno. All management and disposition plans were discussed and agreed upon. Medications received during this ED visit: Medications vancomycin (VANCOCIN) 3,000 mg in sodium chloride 0.9 % 500 mL IVPB (3,000 mg Intravenous New Bag 08/02/232042) propofol (DIPRIVAN) infusion 10 mg/mL (has no administration in time range) fentaNYL (SUBLIMAZE) 2,000 mcg in sodium chloride 0.9% 200 mL IV infusion (100 mcg/hr Intravenous Rate/Dose Change 08/02/232130) And fentaNYL (SUBLIMAZE) bolus from bag 50 mcg (50 mcg Intravenous Bolus from Bag 08/02/232131) And fentaNYL (SUBLIMAZE) bolus from bag 100 mcg (has no administration in time range) ipratropium-albuteroL (DUO-NEB) 0.5 mg-3 mg(2.5 mg base)/3 mL nebulizer solution 3 mL (3 mLs Nebulization Given 08/02/231936) methylPREDNISolone sod suc(PF) (SOLU-medrol) SolR 125 mg (125 mg Intravenous Given 08/02/232005) cefepime (MAXIPIME) 2 g in sodium chloride 0.9% 100 mL IVPB ADDaptor (0 g Intravenous Stopped 08/02/232042) electrolyte-R (pH 7.4) (NORMOSOL-R pH 7.4) IV bolus 500 mL (0 mLs Intravenous Stopped 08/02/232134) succinylcholine (QUELICIN) injection 200 mg (200 mg Intravenous Given 08/02/232033) ketamine (KETALAR) injection 200 mg (200 mg Intravenous Given 08/02/232032) Medical Decision Making Amount and/or Complexity of Data Reviewed Labs: ordered. Radiology: ordered. ECG/medicine tests: ordered. Risk Prescription drug management. Decision regarding hospitalization. ED Course as of 08/02/232142 Sun Aug 02, 20231910 EKG showed normal sinus rhythm with first degree AV block. No ST/T wave changes. 1954 This is a patient with a history of COPD and CHF who was is presenting with altered mental status. On exam, patient seems lethargic and has slurred speech. He has no focal neurological deficits and is unable to move lower extremities chronically. He is afebrile and normotensive but is requiring 4L of O2 (increased from his home 2L). Given his recent hospitalization for COPD exacerbation, patient was started on duonebs and given a course of solumedrol. Patient showed respiratory acidosis with a pH of 7.25 and wheezing on exam. BNP was 14. Chest X-ray was obtained. EKG showed normal sinus rhythm with first degree AV block. Troponin was 14; repeat is pending at this time. Given elevated lactate, infections workup was done with Blood culture and Urine culture. CBC was elevated to 19.1 with a left shift. Patient was started on Vancomycin a (more content not included)... Normal [facility] ED Triage Noon 08-02-2023 ED Triage No Pt to [facility] by air car e for AMS, multiple recent falls, COPD exacerbation. VSS per EMS. Istat remarkable only for lactic of 3. [facility]. On 4LPM O2, baseline 2 L. Normal [facility] High Sensitivity Troponinon 08-02-2023 HSTROPI 14 ng/L Normal 0-20 [facility] Comment on above: Performed By: #### L AVBG #### Roger Witt ([id number]) [address] Performed By: #### H STROPI #### Roger Witt ([id number]) [address] LACTIC ACID VENOUS WHOLE BLO ODon 08-02-2023 Lactate [Moles/Vol] 3.6 mmol/L High 0.5-2.2 [facility] Comment on above: Performed By: #### L AVBG #### Roger Witt ([id number]) [address] POC GLU MONITORING DEVICEon 08-02-2023 POC GLU MONITORING DEVICE 169 mg/dL High 70-100 [facility] Comment on above: Performed By: #### P OCGMD #### Roger Witt ([id number]) [address] URINALYSIS W/RFL TO MICROSCO Maykel 08-02-2023 Bilirubin, Urine Negative Normal Negative [facility] Comment on above: Order Comment: Micro scopic testing is not performed when the dipstick is negative for blood, leukocyte, protein and nitrite. Performed By: #### P OCGMD #### Roger Witt ([id number]) [address] Clarity (U) Clear Normal Clear [facility] Comment on above: Order Comment: Micro scopic testing is not performed when the dipstick is negative for blood, leukocyte, protein and nitrite. Performed By: #### P OCGMD #### Roger Witt ([id number]) [address] Color (U) Yellow Normal Yellow,Straw [facility] Comment on above: Order Comment: Micro scopic testing is not performed when the dipstick is negative for blood, leukocyte, protein and nitrite. Performed By: #### P OCGMD #### Roger Witt ([id number]) [address] Glucose Ql (U) Negative Normal Negative [facility] Comment on above: Order Comment: Micro scopic testing is not performed when the dipstick is negative for blood, leukocyte, protein and nitrite. Performed By: #### P OCGMD #### Roger Witt ([id number]) [address] Hemoglobin Ql (U) Negative Normal Negative [facility] Comment on above: Order Comment: Micro scopic testing is not performed when the dipstick is negative for blood, leukocyte, protein and nitrite. Performed By: #### P OCGMD #### Roger Witt ([id number]) [address] Hyaline Cast 16 /LPF High 0-2 [facility] Comment on above: Order Comment: Micro scopic testing is not performed when the dipstick is negative for blood, leukocyte, protein and nitrite. Performed By: #### P OCGMD #### Roger Witt ([id number]) [address] Ketone Negative Normal Negative [facility] Comment on above: Order Comment: Micro scopic testing is not performed when the dipstick is negative for blood, leukocyte, protein and nitrite. Performed By: #### P OCGMD #### Roger Witt ([id number]) [address] Leukocyte esterase Test strip Ql (U) Negative Normal Negative [facility] Comment on above: Order Comment: Micro scopic testing is not performed when the dipstick is negative for blood, leukocyte, protein and nitrite. Performed By: #### P OCGMD #### Roger Witt ([id number]) [address] Mucous Present Abnormal None Seen [facility] Comment on above: Order Comment: Micro scopic testing is not performed when the dipstick is negative for blood, leukocyte, protein and nitrite. Performed By: #### P OCGMD #### Roger Witt ([id number]) [address] Nitrite Ql (U) Negative Normal Negative [facility] Comment on above: Order Comment: Micro scopic testing is not performed when the dipstick is negative for blood, leukocyte, protein and nitrite. Performed By: #### P OCGMD #### Roger Witt ([id number]) [address] pH (U) 5.5 [pH] Normal 5.0-8.0 [facility] Comment on above: Order Comment: Micro scopic testing is not performed when the dipstick is negative for blood, leukocyte, protein and nitrite. Performed By: #### P OCGMD #### Roger Witt ([id number]) [address] Protein, urine Negative Normal Negative [facility] Comment on above: Order Comment: Micro scopic testing is not performed when the dipstick is negative for blood, leukocyte, protein and nitrite. Result Comment: Resu lts were rechecked. Performed By: #### P OCGMD #### Roger Witt ([id number]) [address] RBC. 1 /HPF Normal 0-3 [facility] Comment on above: Order Comment: Micro scopic testing is not performed when the dipstick is negative for blood, leukocyte, protein and nitrite. Performed By: #### P OCGMD #### Roger Witt ([id number]) [address] Specific gravity (U) [Rel density] 1.015 Normal 1.005-1.035 [facility] Comment on above: Order Comment: Micro scopic testing is not performed when the dipstick is negative for blood, leukocyte, protein and nitrite. Performed By: #### P OCGMD #### Roger Witt ([id number]) [address] Squamous, Epith 1 /HPF Normal 0-5 [facility] Comment on above: Order Comment: Micro scopic testing is not performed when the dipstick is negative for blood, leukocyte, protein and nitrite. Performed By: #### P OCGMD #### Roger Witt ([id number]) [address] Urobilinogen (U) [Mass/Vol] mg/dL Normal 0.2-1.9 [facility] Comment on above: Order Comment: Micro scopic testing is not performed when the dipstick is negative for blood, leukocyte, protein and nitrite. Performed By: #### P OCGMD #### Roger Witt ([id number]) [address] WBC. 3 /HPF Normal 0-5 [facility] Comment on above: Order Comment: Micro scopic testing is not performed when the dipstick is negative for blood, leukocyte, protein and nitrite. Performed By: #### P OCGMD #### Roger Witt ([id number]) [address] URINE CULTUREon 08-02-2023 Bacteria identified Cx Nom (U) Culture Result: No Growth After 2 Days Normal [facility] Comment on above: Performed By: #### B STEM ROLLER OPERATOR #### Roger Witt ([id number]) [address] VENOUS BLOOD GAS, LINE/SYRIN GEon 08-02-2023 %HBO2 43.1 % Normal 40.0-70.0 [facility] Comment on above: Performed By: #### L DVBG #### Roger Witt ([id number]) [address] Base Excess 0.7 mmol/L Normal -2.0-3.0 [facility] Comment on above: Performed By: #### L DVBG #### Roger Witt ([id number]) [address] Carboxyhgb 1.4 % Normal 0.0-2.0 [facility] Comment on above: Result Comment: CARB OXYHEMOGLOBIN (CO) REFERENCE RANGES: Non-Smokers: <2 % Smokers: <8 % TOXIC: >20 % Performed By: #### L DVBG #### Roger Witt ([id number]) [address] CO2 [Moles/Vol] 32 mmol/L High 25-29 [facility] Comment on above: Performed By: #### L DVBG #### Roger Witt ([id number]) [address] HCO3 (Bld) [Moles/Vol] 30 mmol/L High 24-28 [facility] Comment on above: Performed By: #### L DVBG #### Roger Witt ([id number]) [address] Methemoglobin 0.6 % Normal 0.0-1.5 [facility] Comment on above: Performed By: #### P OCGMD #### Roger Witt ([id number]) [address] Performed By: #### L DVBG #### Roger Witt ([id number]) [address] PCO2 69 mm Hg High 41-51 [facility] Comment on above: Performed By: #### L DVBG #### Roger Witt ([id number]) [address] pH (Bld) 7.25 [pH] Low 7.32-7.42 [facility] Comment on above: Performed By: #### L DVBG #### Roger Witt ([id number]) [address] PO2 28 mm Hg Normal 25-40 [facility] Comment on above: Performed By: #### L DVBG #### Roger Witt ([id number]) [address] Reduced Hemoglobin 54.9 % High 0.0-5.0 [facility] Comment on above: Performed By: #### L DVBG #### Roger Witt ([id number]) [address] XR PORTABLE CHESTon 08-02-19 XR PORTABLE CHEST EXAM: XR PORTABLE CHEST INDICATION: Intubation TECHNIQUE: 1 view of the chest. COMPARISON: Chest radiograph from less than 1 hour prior FINDINGS: Medical Devices: ET tube tip projects over the midthoracic trachea. Enteric tube courses below the level of the diaphragms with tip not included in the [id number]. Heart and Mediastinum: Cardiac silhouette is partially obscured, but likely within normal size limits. Lungs and Pleura: Hypoexpanded lungs with mild bibasilar parenchymal opacities. Suspected trace bilateral pleural effusions with blunting of the lateral costophrenic sulci. No pneumothorax. Bones and soft tissues: No acute abnormalities. IMPRESSION: 1. Endotracheal tube tip projects over the midthoracic trachea. 2. Expiratory chest radiograph with mild bibasilar parenchymal opacities, consider atelectasis or developing pneumonia to include aspiration. 3. Trivial trace bilateral pleural effusions. Report Verified by: Yesenia Schmitt MD at 08/02/2023 9:13 PM EDT Normal [facility] Comment on above: Performed By: #### P OCGMD #### Roger Witt ([id number]) [address] XR PORTABLE CHEST EXAM: XR PORTABLE CHEST INDICATION: Altered mental status, unspecified TECHNIQUE: 1 view of the chest. COMPARISON: None. FINDINGS: Medical Devices: None. Heart and Mediastinum: Cardiomediastinal silhouette is within normal limits. Lungs and Pleura: Low lung volumes with mild bibasilar parenchymal opacities and suspected trace bilateral pleural effusions. No visible pneumothorax. Bones and soft tissues: No acute abnormalities. IMPRESSION: Mild bibasilar parenchymal opacities likely atelectasis versus pneumonia with trace bilateral pleural effusions. Approved by Zain Fajardo MD on 08/02/2023 10:34 PM EDT I have personally reviewed the images and I agree with this report. Report Verified by: Vivek Pedraza MD at 08/02/2023 11:04 PM EDT Normal [facility] Comment on above: Performed By: #### L AVBG #### Roger Kiran Witt ([id number]) [address] Encounters Encounter Date Encounter Type Care Provider Facility Start: 09-01-2023 End: 09-01-2023 Emergency department patient visit [facility] Start: 08-02-2023 End: 08-06-2023 Evaluation and management of inpatient [facility] Payers Date Payer Category Payer Unknown [id number] 1950 Unknown [id number] 1950 Unknown [id number] 1950 Unknown [id number] Clinical Note 08-06-2023 Note Date & Type Note Facility 08-06-2023 Note [facility] Case Management/Social Work Department Progress Note Patient Information Patient Name: Maikel Riojas Hospital day: 4 Inpatient/Observation: Inpatient Level of Care: floor Admit date: 08/02/2023 Admission diagnosis: Acute hypoxemic respiratory failure (CMS-HCC) [J96.01] AMS (altered mental status) [R41.82] PMH: has a past medical history of Anxiety, Cataract, Chronic heart failure, Chronic obstructive pulmonary disease, Chronic respiratory failure with hypoxia and hypercapnia, Depression, Diabetes mellitus type 2, Hyperlipidemia, Hypertension, Obesity, Obstructive sleep apnea, Spinal stenosis, Umbilical hernia, and Urinary retention. PCP: ATTENDING PROVIDER UNKNOWN Home Pharmacy: [facility] [id number] [id number] Medical Insurance Coverage: Payor: [employer] CARE / Plan: [employer] [facility] / Product Type: Government / Other Pertinent Information RNCM met with interdisciplinary team for rounding/received report, and reviewed chart. Per team, patient is medically ready for discharge. Patient has been accepted at both [facility] and [facility]. Patient has chosen [facility]. Kirill, liaison with [facility]# [phone], is checking on which insurance to use and will reply back to RNCM. Discharge Plan Anticipated discharge plan: short term chcf Anticipated discharge date: today or tomorrow CM/SW will continue to follow and remain available for discharge planning needs. SUGAR MEDINA Cell [phone] [facility] Clinical Note 08-05-2023 Note Date & Type Note Facility 08-05-2023 Note [facility] Case Management/Social Work Department Progress Note Patient Information Patient Name: Maikel Riojas Hospital day: 3 Inpatient/Observation: Inpatient Level of Care: floor Admit date: 08/02/2023 Admission diagnosis: Acute hypoxemic respiratory failure (CMS-HCC) [J96.01] AMS (altered mental status) [R41.82] PMH: has a past medical history of Anxiety, Cataract, Chronic heart failure, Chronic obstructive pulmonary disease, Chronic respiratory failure with hypoxia and hypercapnia, Depression, Diabetes mellitus type 2, Hyperlipidemia, Hypertension, Obesity, Obstructive sleep apnea, Spinal stenosis, Umbilical hernia, and Urinary retention. PCP: ATTENDING PROVIDER UNKNOWN Home Pharmacy: [facility] [id number] [id number] Medical Insurance Coverage: Payor: [employer] CARE / Plan: [facility] [facility] / Product Type: Government / Other Pertinent Information RNCM met with interdisciplinary team for rounding/received report, and reviewed chart. Per team, patient is medically ready for discharge. Patient needs SNF placement. [facility] who stated [facility] not eligible for [facility] with [facility]. Referral sent to Ebonie at the [facility] who stated they do not have a bed available until 08/19/23. RNCM spoke with patient's son, Hayden, explaining new referrals need to be picked for patient. RNCM printed compare list and given to patient to choose from. Referrals sent out for SNFs. Discharge Plan Anticipated discharge plan: short term skilled facility Anticipated discharge date: 1-2 days CM/SW will continue to follow and remain available for discharge planning needs. 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 PMH: COPD, T2DM, HFpEF, HTN, HARIS, BPH, multiple recent falls. Patient with recent admission to [facility] for COPD exacerbation requiring ICU stay and intubation, discharged 07/26. Intubated 08/01-08/02. Imaging: HCT 08/01: 1. No acute intracranial hemorrhage or mass effect 2. Mild chronic microvascular ischemic disease and diffuse atrophy. CXR 08/01: 1. Endotracheal tube tip projects over the midthoracic trachea. 2. Expiratory chest radiograph with mild bibasilar parenchymal opacities, consider atelectasis or developing pneumonia to include aspiration. 3. Trivial trace bilateral pleural effusions. BRUSH LOADER AND HANDLE ATTACHER Hx: none at [facility]. Assessment: Patient presents with oropharyngeal dysphagia secondary to delayed swallow initiation and reduced hyolaryngeal elevation, complicated by comorbidities and prolonged intubation resulting in observed laryngeal penetration and trace silent aspiration of thin liquids x1 during the swallow. A cued cough and re-swallow is effective in clearing tracheal residue and most laryngeal residue. Trace penetration of mildly thick liquid through interarytenoid space also observed, with no further penetration or aspiration of any other consistency. Swallow initiation is generally timely with occasional pre-mature spillage of thin liquid to the pyriforms contributing to observed instances of penetration/aspiration. No significant post swallow residue of any consistency is noted. Mastication is timely and efficient. Based on today's evaluation, recommend a Regular diet (IDDSI 7) with Thin liquids (IDDSI 1) with intermittent throat clear and re-swallow. BRUSH LOADER AND HANDLE ATTACHER will follow up 1-2x to ensure implementation of compensatory and safe swallow strategy. Patient is at an increased risk of aspiration. Images are available for review in [employer]. Flotation Operator: Elena Deleon silent aspiration of thin liquid x1 Plan/Recommendation ST while in house: recommended ST while in house frequency: 1-3x/week ST at discharge: not anticipated Recommended Solid for Diet: Regular Recommended Liquid for Diet: Thin Liquids (IDDSI 0); intermittent throat clear/re-swallow Medication Administration: whole Compensatory Swallowing Strategies/ Safe Swallowing Behaviors: Upright as possible for all oral intake, Small bites/sips, Eat/feed slowly, Throat clear and re-swallow Background/Subjective Past Medical History: Past Medical History: Diagnosis Date Anxiety Cataract Chronic heart failure Chronic obstructive pulmonary disease Chronic respiratory failure with hypoxia and hypercapnia Depression Diabetes mellitus type 2 Hyperlipidemia Hypertension Obesity Obstructive sleep apnea Spinal stenosis Umbilical hernia Urinary retention Respiratory Status: O2 via nasual cannula Liters: 2 Dentition: Some missing teeth Previous Swallowing Assessments: BSE Dates/ Results: 08/03 rx R/T & FEES Orientation: Person: Yes Place: Yes Time: Yes Situation: Yes Behavioral Profile: alert, cooperative Pain: Pain Score: 0 - No Pain Procedure: The purpose and description of the procedure was explained in addition to the risks and options available to the patient. The nasoendoscope was advanced through the right nares. Adequate views were obtained. Pre-Swallow Assessment Serial number Nasopharyngoscope used: [id number] Velopharyngeal closure: complete Base of tongue contact with posterior pharyngeal wall: WFL Pharyngeal and Longitudinal constrictors on high pitched /i/: WFL Left true vocal fold adduction and abduction: WFL Right true vocal fold adduction and abduction: WFL Epiglottic inversion/retroversion on dry swallow: incomplete Secretions: none Masses/Lesions Observed: White excresence on posterior 1/3 of true VF's consistent with intubation, noted to be slightly increased on R vs. L. Erythema also observed on both anterior and posterior 1/3 of VF's, with R VF slightly more edematous than L. Additonal Pre-Swallow Observations: Compression of false vocal folds noted, with reduced negative space in the pharynx 2/2 body habitus Trials Administered & Pen Asp Scale Score Pen Asp Score Description of Events 1. Material does not enter airway 2. Material enters the airway, remains above the vocal folds, and is ejected from the airway. 3. Material enters the airway, remains above the vocal folds, and is not ejected from the airway. 4 Material enters the airway, contacts the vocal folds, and is ejected from the airway. 5. Material enters the airway, contacts the vocal folds, and is not (more content not included)... [facility] Clinical Note 08-03-2023 Note Date & Type Note Facility 08-03-2023 Note Problem: Non-violent , bzo-qkhg-vxkprgnvsmu restraints Description: Less restrictive alternative interventions will be considered prior to application of restraint devices. Goal: Patient will be restrained only to maintain safety Description: Alternatives to restraints can include; moving the patient closer to the nurses station, video monitoring where available, medicating for pain, agitation or psychosis, psychosocial interventions, manipulation of environment, frequent toileting, diversional activities, bed alarms, having family members sit with patient, frequent reorientation, or repositioning. 08/03/2023 1420 by Leonor Rios RN Outcome: Completed 08/03/2023 0941 by Leonor Rios RN Outcome: Progressing Problem: Non-violent restraint safety Goal: Patient will be free from injury during restraint period Description: Assess and monitor for unsafe behaviors that can include unintentional harm of self or others, risk for joint dislocation related to post-operative status, risks for potential nutrition/hydration issues related to removing/tampering with medical equipment, protection of medical procedures, or protection of medical record retrieval specialist access. Outcome: Completed Restraints removed with extubation. notified. Leonor Fabian RN [facility] Clinical Note 08-03-2023 Note Date & Type Note Facility 08-03-2023 Note HEALTH Care Management/Social Work Assessment Patient Information Patient Name: Maikel Riojas Hospital Day: 1 Inpatient/Observation: Inpatient Admit Date: 08/02/2023 Admission Diagnosis: Acute hypoxemic respiratory failure (CMS-HCC) [J96.01] Attending provider: Nicolas Rich MD PCP: ATTENDING PROVIDER UNKNOWN Home Pharmacy: No Pharmacies Listed Issues related to obtaining medications: n/a Payor Information Medical Insurance Coverage: Payor: [employer] / Plan: [facility] / Product Type: Government / Secondary Payor: Medicare A Functional Assessment Functional Assessment Assessment Information Obtained From:: Children, Chart Review May We Obtain Collateral Information From Family, Friends and Neighbors?: Yes Current Mental Status: Intubated Mental Status Prior to Admission: Unable to Assess Mental Health History: No Suicide Attempts: No Activities of Daily Living: Partial Assistance Needed Marital Status: Single Number of children and their names: 13 Relative Search Completed: No Demographics Correct:: Yes Current Living Arrangements Current Living Arrangements Current Living Arrangements: Home Type of Housing: Apartment Who do you live with?: Alone One Story or Two (check all that apply): One Story Enter the number of steps and rails to enter the residence: 0 Enter the number of steps and rails inside the residence: 0 History of Falls?: No Community Services Community Services Community Services at Home: Home Health Group Home Health Services Types Prior to Admission: Home Health Aide Support Systems Emergency contact: Extended Emergency Contact Information Primary Emergency Contact: Hayden Riojas Mobile Relation: Son Radiology Teacher needed? No Support Systems Primary Caregiver: Self, Family Marital Status: Single Number of children and their names: 13 Relative Search Completed: No Demographics Correct:: Yes Expected Discharge Disposition: [facility] Facility Next of Kin: Hayden Riojas Next of Kin Relationship: Son Next of Kin Assessment Information Obtained From:: Children, Chart Review Other Pertinent Information Registered Nurse Cardiac met with MICU team for daily rounds and completed chart review. Patient is not anticipated to be medically ready today. Pt is currently intubated. H&P: Maikel Riojas is a 73 y.o. male with a history of COPD, T2DM, HFpEF, HTN, HARIS, BPH, multiple recent falls presenting for altered mental status. Of note patient recently admitted to [facility] for COPD exacerbation which required ICU stay and intubation, discharged on 07/26. Per ED notes, patient reports multiple falls on 07/31-08/01 without LOC or head strike in addition to some confusion and SOA, he is not on blood thinners. In the ED patient's mental status reportedly declined with minimal response to deep painful stimuli and patient was placed on BIPAP trial given concern for hypercarbia. Patient's mental status continued to decline and patient was intubated and admitted to ICU. Additional treatment in ED included initiation of treatment for COPD exacerbation and patient was started on broad spectrum antibiotics. On arrival to ICU patient alert and following all commands on ventilator subsequently found to have severe uremia on lab workup. Assessment: Airline Radio Operator/Registered Nurse Cardiac Malcolm Gerardo spoke with patient's son Hayden [phone] to complete psychosocial assessment for discharge planning as part of routine care. SW introduced herself and role of SW in hospital. SW verified demographic information. Patient lives alone in an apartment. Patient reportedly has 0 step(s) to enter the home and 0 steps inside the home. Patient reportedly has 13 children. SW unable to assess pt's safety at home due to intubation. Pt does not usually falls at home but did have 3 falls this weekend. Pt reported was partially independent with ADLs prior to admission. Patient reported DME use. Pt is using community resources to meet his needs at this time. Patient is currently receiving SSI and VA benefits. Patient has no history of or current mental health concerns or diagnoses. Patient has no history of or current alcohol abuse, tobacco use, and/or drug/illicit substance use. Pt has home oxygen No dialysis. No history of chcf facility Pt has a history of inpatient rehabilitation facility admissions. No history of home health care services. SW inquired regarding Advance Directives paperwork. Pt reportedly does have a HCPOA which is his son, Hayden Riojas [phone]. Son is aware that without this document on file we go to LNOK which is all of his children collectively. Patient's LNOK are all 13 of his children (3 are leaving 10) until Hayden sends over HCPOA documentation. Advance Directives (For Healthcare) Advance Directive: Patient has advance directive, copy not (more content not included)... [facility] Clinical Note 08-03-2023 Note Date & Type Note Facility 08-03-2023 Note Problem: Non-violent , vqr-jybj-ioqqeehszvx restraints Description: Less restrictive alternative interventions will be considered prior to application of restraint devices. Goal: Patient will be restrained only to maintain safety Description: Alternatives to restraints can include; moving the patient closer to the nurses station, video monitoring where available, medicating for pain, agitation or psychosis, psychosocial interventions, manipulation of environment, frequent toileting, diversional activities, bed alarms, having family members sit with patient, frequent reorientation, or repositioning. Outcome: Progressing: Patient in bilateral soft wrist restraints per valid order. Patient intubated with x4 pivs, holloway and og. This RN has concern for inadvertent discontinuation of airway and lines that play a vital role in this patients care. There are no signs or symptoms of injury related to restraint use. All polices and procedures are being followed. Will continue to monitor and assess patient. Problem: Patient will remain free of injury d/t fall Goal: High Fall Risk Precautions Outcome: Progressing: Patient remains on bed rest at this time. Assisted with turns q2h. Bed alarm on with bed in low position with wheels locked. Call light in reach. Free from falls this shift. Problem: Potential for Compromised Skin Integrity Goal: Skin integrity is maintained or improved Description: Assess and monitor skin integrity. Identify patients at risk for skin breakdown on admission and per policy. Collaborate with interdisciplinary team and initiate plans and interventions as needed. Outcome: Progressing: Redness noted to BLE. Patient remains on low air loss bed. Leonor Fabian RN [facility] Clinical Note 08-03-2023 Note Date & Type Note Facility 08-03-2023 Note Problem: Non-violent , vjd-prqp-wxgjjbplzqn restraints Description: Less restrictive alternative interventions will be considered prior to application of restraint devices. Goal: Patient will be restrained only to maintain safety Description: Alternatives to restraints can include; moving the patient closer to the nurses station, video monitoring where available, medicating for pain, agitation or psychosis, psychosocial interventions, manipulation of environment, frequent toileting, diversional activities, bed alarms, having family members sit with patient, frequent reorientation, or repositioning. Outcome: Progressing Problem: Non-violent restraint safety Goal: Patient will be free from injury during restraint period Description: Assess and monitor for unsafe behaviors that can include unintentional harm of self or others, risk for joint dislocation related to post-operative status, risks for potential nutrition/hydration issues related to removing/tampering with medical equipment, protection of medical procedures, or protection of medical record retrieval specialist access. Outcome: Progressing Pt in BUE restraints to prevent from pulling at medical devices. Will educate and continue to monitor. [facility] Clinical Note 08-03-2023 Note Date & Type Note Facility 08-03-2023 Note Problem: Non-violent , vuk-bidi-hfqvqeyippt restraints Description: Less restrictive alternative interventions will be considered prior to application of restraint devices. Goal: Patient will be restrained only to maintain safety Description: Alternatives to restraints can include; moving the patient closer to the nurses station, video monitoring where available, medicating for pain, agitation or psychosis, psychosocial interventions, manipulation of environment, frequent toileting, diversional activities, bed alarms, having family members sit with patient, frequent reorientation, or repositioning. 08/02/[id number] by Nnamdi Estrada RN Note: Patient in bilateral soft wrist restraints to maintain safety and protect multiple lines and tubes. Will continue to monitor need for restraints Q2h 08/02/20232227 by Nnamdi Estrada RN Outcome: Progressing Problem: Potential for Compromised Skin Integrity Goal: Skin integrity is maintained or improved Description: Assess and monitor skin integrity. Identify patients at risk for skin breakdown on admission and per policy. Collaborate with interdisciplinary team and initiate plans and interventions as needed. 08/02/20232227 by Nnamdi Estrada RN Note: Patient turned Q2h to prevent pressure on bony prominences. Skin kept clean and dry. Patient monitored for incontinence 08/02/20232227 by Nnamdi Estrada RN Outcome: Progressing [facility] Procedure note 08-02-2023 Note Date & Type Note Facility 08-02-2023 Note [facility] ED Procedu re Note Emergency Department Procedures Intubation Date/Time: 08/02/2023 8:40 PM Performed by: Юлия Pate MD Authorized by: Ulises Conway MD Consent: Consent obtained: Emergent situation [place] protocol: Patient identity confirmed: Arm band Pre-procedure details: Indications: altered consciousness and respiratory failure Indications comment: Ventilatory failure Patient status: Altered mental status Look externally: facial hair and large tongue Mouth opening - incisor distance: 2 finger widths Hyoid-mental distance: 1 finger width Hyoid-thyroid distance: 1 finger width Mallampati score: Unable to assess, on BiPAP. Obstruction: none Normal range of motion: Kyphosis. Pharmacologic strategy: RSI Induction agents: Etomidate Paralytics: Succinylcholine Procedure details: Preoxygenation: BiLevel CPR in progress: no Number of attempts: 1 Successful intubation attempt details: Intubation method: Oral Intubation technique: video assisted Laryngoscope blade: Hypercurved Bougie used: no Grade view: I Tube size (mm): 8.0 Tube type: Cuffed Tube visualized through cords: yes Placement assessment: ETT at teeth/gumline (cm): 23 Tube secured with: ETT almendarez Breath sounds: Equal and absent over the epigastrium Placement verification: CXR verification, direct visualization and equal breath sounds Post-procedure details: Procedure completion: Tolerated well, no immediate complications The patient developed respiratory distress and worsening hypercapnea despite BiPAP. Decision made to proceed with intubation. The patient was on BiPAP. The decision was made to intubate the patient due to respiratory failure and mental status. The patient was pre-oxygenated with BiPAP. Anticipated difficulty of the procedure was moderate due to habitus, high anterior airway, kyphosis, poor respiratory reserve . Meds were pushed and the requisite time elapsed before proceeding with intubation. The pre-oxygenation adjunct was removed. Apneic oxygenation of 15L nasal cannula was maintained. A video laryngoscope with hyperangulated S4 blade was placed into the patient's mouth and advanced into the airway. During intubation, standard respiratory secretions encountered in the airway and managed with Yankauer catheter. A Cormack-Lehane Grade 1 view wasobtained. An 8.0 cuffed endotracheal tube was advanced into the airway. The cuff was visualized passing though the cords and the balloon was inflated. Tube depth at time of placement was 23 cm at the teeth. This was secured with the assistance of RT. Tube placement was confirmed by bilateral breath sounds, quantitative end tidal CO2 monitoring, and adequate pulse oximetry reading. A CXR was obtained which showed appropriate tube position. EM Екатерина Nuno MD and EM Laura Conway MD were present for this procedure. There were no complications unless otherwise documented. [facility] Summary Purpose Family History No Family History Records FoundNo Family History Records Found Advance Directives No Advanced Directives Records FoundNo Advanced Directives Records Found Additional Source Comments (unrecognized sect ion and content) No Status Records FoundNo Status Records Found INFORMATION SOURCE (unrecogn ized section and content) DATE CREATED AUTHOR 08/13/2023 [facility] DATE CREATED AUTHOR AUTHOR'S ORGANIZ ATION 09/11/2023 [facility] FOR RECORDS PERTAINING TO PATIENTS WHO ARE OR HAVE BEEN ENROLLED IN A CHEMICAL DEPENDENCY/SUBSTANCEABUSE PROGRAM, SOME INFORMATION MAY BE OMITTED. This clinical summary was aggregated from multiple sources. Caution should be exercised in using it in the provision of clinical care. This summary normalizes information from multiple sources, and as a consequence, information in this document may materially change the coding, format and clinical context of patient data. In addition, data may be omitted in some cases. CLINICAL DECISIONS SHOULD BE BASED ON THE PRIMARY CLINICAL RECORDS. [facility]. provides no warranty or guarantee of the accuracy or completeness of information in this document.
[2023-11-11 09:43] LABS: BUN Creatinine Ratio 21.2; Carbon Dioxide 33.8 mmol/L (21.0-32.0); Chloride 97 mmol/L (98-107); Estimated GFR (African America 55 (>=60); Estimated GFR (Non-African Ame 46 (>=60); Glucose 114 mg/dL (74-106); Potassium 3.8 mmol/L (3.5-5.1); Sodium 139 mmol/L (136-145)
== END 2023-11-11 02:07 | disposition home or self-care (01) ==
LOC: LAB 02:06
PROVIDERS: PCP Family Medicine; Visit Provider Nurse Practitioner
DX: I50.43 Acute on chronic combined systolic (congestive) and diastolic (congestive) heart failure (principal); I73.9 Peripheral vascular disease, unspecified
CPT/HCPCS: 36415; 80048

== ENCOUNTER 2023-11-28 10:20 | Outpatient (REF) | payer MEDICARE, SELFPAY ==
--- OUTSIDE RECORDS SUMMARY | 2023-11-28 10:36 | XMS_ITS | CCD ---
Author Organization [place] [employer] [facility] Care Team Providers Care Nipple Threader Name Role Phone PATRICE MARTIN Primary Care Unavailable PATRICE MARTIN Admitting Unavailable NARAYAN RAMOS Attending Unavailable DANIEL CHENG Attending Unavailable CATHI SERVIN Primary Care KATERINE Hughes Referring Unavailable CATHI SERVIN Primary Care Shari Mabry Attending Unavailable Allergies Allergy Classification Reported Allergen(s) Allergy Type Date of Onset Reaction(s) Facility Anti-Epileptic Agents (1 source) gabapentin; Translations: [GABAPENTIN] Drug Allergy 09-01-2023 [facility] Repository sildenafil (1 source) sildenafil; Translations: [SILDENAFIL] Drug Allergy 09-01-2023 [facility] Repository (1 source) gabapentin; Translations: [GABAPENTIN] Drug Allergy 05-13-2021 [facility] Repository (1 source) sildenafil; Translations: [SILDENAFIL] Drug Allergy 04-28-2020 [facility] Repository (1 source) tomato allergenic extract; Translations: [TOMATO] Drug Allergy 10-19-2018 [facility] Repository Problems Problem Classification Problem [...] hypoxia; Translations: [Acute respiratory failure with hypoxia ([facility])] Onset: 08-02-2023 Episodic Results Test Name Value Interpretation Reference Range Facility BNPon 09-01-2023 Natriuretic peptide B (Bld) [Mass/Vol] 383 pg/mL High 0-124 [facility] Comment on above: Performed By: #### B NPEP #### MD ANDREAS CORLEY ([id number]) [facility] ([facility]) [address] [place] [address] CBC With Platelet and Differ entialon 09-01-2023 Anisocytosis Ql (Bld) Occasional Abnormal [facility] Comment on above: Performed By: #### C BCWD #### MD ANDREAS CORLEY ([id number]) [facility] ([facility]) [address] [place] [address] Atypical Lymphs 1 % Normal 0-6 [facility] Comment on above: Performed By: #### C BCWD #### MD ANDREAS CORLEY ([id number]) [facility] ([facility]) [address] [place] [address] Basophils (Bld) [#/Vol] 0.0 10*3/uL Normal 0.0-0.2 [facility] Comment on above: Performed By: #### C BCWD #### MD ANDREAS CORLEY ([id number]) [facility] ([facility]) [address] [place] [address] [place] Basophils/100 WBC (Bld) 0.0 % Normal [facility] Comment on above: Performed By: #### C BCWD #### MD ANDREAS CORLEY ([id number]) [facility] ([facility]) [address] [place] [address] [place] Eosinophils (Bld) [#/Vol] 0.0 10*3/uL Normal 0.0-0.6 [facility] Comment on above: Performed By: #### C BCWD #### MD ANDREAS CORLEY ([id number]) [facility] ([facility]) [address] [place] [address] [place] Eosinophils/100 WBC (Bld) 0.0 % Normal [facility] Comment on above: Performed By: #### C BCWD #### MD ANDREAS CORLEY ([id number]) [facility] ([facility]) [address] [place] [address] [place] Lymphocytes (Bld) [#/Vol] 2.3 10*3/uL Normal 1.0-5.1 [facility] Comment on above: Performed By: #### C BCWD #### MD ANDREAS CORLEY ([id number]) [facility] ([facility]) [address] [place] [address] [place] Lymphocytes/100 WBC (Bld) 12.0 % Normal [facility] Comment on above: Performed By: #### C BCWD #### MD ANDREAS CORLEY ([id number]) [facility] ([facility]) [address] [place] [address] [place] Monocytes (Bld) [#/Vol] 0.5 10*3/uL Normal 0.0-1.3 [facility] Comment on above: Performed By: #### C BCWD #### MD ANDREAS CORLEY ([id number]) [facility] ([facility]) [address] [place] [address] [place] Monocytes/100 WBC (Bld) 3.0 % Normal [facility] Comment on above: Performed By: #### C BCWD #### MD ANDREAS CORLEY ([id number]) [facility] ([facility]) [address] [place] [address] [place] Neutrophils (Bld) [#/Vol] 14.9 10*3/uL High 1.7-7.7 [facility] Comment on above: Performed By: #### C BCWD #### MD ANDREAS CORLEY ([id number]) [facility] ([facility]) [address] [place] [address] Neutrophils/100 WBC (Bld) 84.0 % Normal [facility] Comment on above: Performed By: #### C BCWD #### MD ANDREAS CORLEY ([id number]) [facility] ([facility]) [address] [place] [address] Polychromasia Occasional Abnormal [facility] Comment on above: Performed By: #### C BCWD #### MD ANDREAS CORLEY ([id number]) [facility] ([facility]) [address] [place] [address] Slide Review see below Normal [facility] Comment on above: Result Comment: Slid e review agrees with reported results Performed By: #### C BCWD #### MD ANDREAS CORLEY ([id number]) [facility] ([facility]) [address] [place] [address] Slide Review for Platelets Adequate Normal [facility] Comment on above: Performed By: #### C BCWD #### MD ANDREAS CORLEY ([id number]) [facility] ([facility]) [address] [place] [address] Erythrocyte distribution width (RBC) [Ratio] 15.6 % High 12.4-15.4 [facility] Comment on above: Performed By: #### C BCWD #### MD ANDREAS CORLEY ([id number]) [facility] ([facility]) [address] [place] [address] Hematocrit (Bld) [Volume fraction] 36.2 % Low 40.5-52.5 [facility] Comment on above: Performed By: #### C BCWD #### MD ANDREAS CORLEY ([id number]) [facility] ([facility]) [address] [place] [address] Hemoglobin (Bld) [Mass/Vol] 11.9 g/dL Low 13.5-17.5 [facility] Comment on above: Performed By: #### C BCWD #### MD ANDREAS CORLEY ([id number]) [facility] ([facility]) [address] [place] [address] MCH (RBC) [Entitic mass] 31.8 pg Normal 26.0-34.0 [facility] Comment on above: Performed By: #### C BCWD #### MD ANDREAS CORLEY ([id number]) [facility] ([facility]) [address] [place] [address] MCHC (RBC) [Mass/Vol] 32.8 g/dL Normal 31.0-36.0 [facility] Comment on above: Performed By: #### C BCWD #### MD ANDREAS CORLEY ([id number]) [facility] ([facility]) [address] [place] [address] MCV (RBC) [Entitic vol] 97.0 fL Normal 80.0-100.0 [facility] Comment on above: Performed By: #### C BCWD #### MD ANDREAS CORLEY ([id number]) [facility] ([facility]) [address] [place] [address] Platelet mean volume (Bld) [Entitic vol] 7.6 fL Normal 5.0-10.5 [facility] Comment on above: Performed By: #### C BCWD #### MD ANDREAS CORLEY ([id number]) [facility] ([facility]) [address] [place] [address] Platelets (Bld) [#/Vol] 304 10*3/uL Normal 135-450 [facility] Comment on above: Performed By: #### C BCWD #### MD ANDREAS CORLEY ([id number]) [facility] ([facility]) [address] [place] [address] RBC (Bld) [#/Vol] 3.74 10*6/uL Low 4.20-5.[address] [facility] Comment on above: Performed By: #### C BCWD #### MD ANDREAS CORLEY ([id number]) [facility] ([facility]) [address] [place] [address] WBC (Bld) [#/Vol] 17.7 10*3/uL High 4.0-11.[address] [facility] Comment on above: Performed By: #### C BCWD #### MD ANDREAS CORLEY ([id number]) [facility] ([facility]) [address] [place] [address] [place] COVID-19on 09-01-2023 SARS-CoV-2 (COVID-19) RNA GEE+probe Ql (Unsp spec) Not detected Normal Not Detected [facility] Comment on above: Result Comment: Rapi d NAAT: Negative results should be treated as [...] authorized laboratories. Fact sheet for Healthcare Providers: https://www.fda.gov/media/056921/download Fact sheet for Patients: https://www.fda.gov/media/417808/download METHODOLOGY: Isothermal Nucleic Acid Amplification Performed By: #### C OVRG #### MD ANDREAS CORLEY ([id number]) [facility] ([facility]) [address] [place] [address] Comprehensive Metabolic Pane l reflex Mgon 09-01-2023 Albumin [Mass/Vol] 3.1 g/dL Low 3.4-5.0 [facility] Comment on above: Performed By: #### C MPX #### MD ANDREAS CORLEY ([id number]) [facility] ([facility]) [address] [place] [address] Albumin/Globulin [Mass ratio] 1.1 {ratio} Normal 1.1-2.2 [facility] Comment on above: Performed By: #### C MPX #### MD ANDREAS CORLEY ([id number]) [facility] ([facility]) [address] [place] [address] ALP [Catalytic activity/Vol] 110 U/L Normal 40-129 [facility] Comment on above: Performed By: #### C MPX #### MD ANDREAS CORLEY ([id number]) [facility] ([facility]) [address] [place] [address] [place] ALT [Catalytic activity/Vol] 12 U/L Normal 10-40 [facility] Comment on above: Performed By: #### C MPX #### MD ANDREAS CORLEY ([id number]) [facility] ([facility]) [address] [place], [place] [phone] [facility] Anion gap [Moles/Vol] 7 mmol/L Normal 3-16 [facility] Comment on above: Performed By: #### C MPX #### MD ANDREAS CORLEY ([id number]) [facility] ([facility]) [address] [place], [place] [phone] [place] AST [Catalytic activity/Vol] 7 U/L Low 15-37 [facility] Comment on above: Performed By: #### C MPX #### MD ANDREAS CORLEY ([id number]) [facility] ([facility]) [address] [place] [address] Bilirubin [Mass/Vol] 0.5 mg/dL Normal 0.0-1.0 [facility] Comment on above: Performed By: #### C MPX #### MD ANDREAS CORLEY ([id number]) [facility] ([facility]) [address] [place] [address] [place] Calcium [Mass/Vol] 9.0 mg/dL Normal 8.3-10.6 [facility] Comment on above: Performed By: #### C MPX #### MD ANDREAS CORLEY ([id number]) [facility] ([facility]) [address] [place] [address] [place] Chloride [Moles/Vol] 99 mmol/L Normal 99-110 [facility] Comment on above: Performed By: #### C MPX #### MD ANDREAS CORLEY ([id number]) [facility] ([facility]) [address] [place], [place] [phone] [place] CO2 [Moles/Vol] 32 mmol/L Normal 21-32 [facility] Comment on above: Performed By: #### C MPX #### MD ANDREAS CORLEY ([id number]) [facility] ([facility]) [address] [place], [place] [phone] [place] Creatinine [Mass/Vol] 1.2 mg/dL Normal 0.8-1.3 [facility] Comment on above: Performed By: #### C MPX #### MD ANDREAS CORLEY ([id number]) [facility] ([facility]) [address] [place] [address] GFR 64 Normal >60 [facility] Comment on above: Result Comment: Alina atric calculator link https://www.kidney.org/professionals/kdoqi/gfr_calculatorped Effective Jan 06, 2022 [...] #### C MPX #### MD ANDREAS CORLEY ([id number]) [facility] ([facility]) [address] [place] [address] Glucose [Mass/Vol] 142 mg/dL High 70-99 [facility] Comment on above: Performed By: #### C MPX #### MD ANDREAS CORLEY ([id number]) [facility] ([facility]) [address] [place] [address] Magnesium [Moles/Vol] 5.1 mmol/L Normal 3.5-5.1 [facility] Comment on above: Performed By: #### C MPX #### MD ANDREAS CORLEY ([id number]) [facility] ([facility]) [address] [place], [place] [phone] [facility] Protein [Mass/Vol] 5.9 g/dL Low 6.4-8.2 [facility] Comment on above: Performed By: #### C MPX #### MD ANDREAS CORLEY ([id number]) [facility] ([facility]) [address] [place], [place] [phone] [facility] Sodium [Moles/Vol] 138 mmol/L Normal 136-145 [facility] Comment on above: Performed By: #### C MPX #### MD ANDREAS CORLEY ([id number]) [facility] ([facility]) [address] [place] [address] Urea nitrogen [Mass/Vol] 21 mg/dL High 7-20 [facility] Comment on above: Performed By: #### C MPX #### MD ANDREAS CORLEY ([id number]) [facility] ([facility]) [address] [place] [address] Culture, Bloodon 09-01-2023 Microscopic examination of blood, culture Culture, Blood No Growth after 4 days of incubation. Normal [facility] Comment on above: Performed By: #### C BCWD #### MD ANDREAS CORLEY ([id number]) [facility] ([facility]) [address] [place] [address] Culture, Blood 2on 4 Culture, Blood 2 Culture, Blood 2 No Growth after 4 days of incubation. [facility] Comment on above: Performed By: #### C BCWD #### MD ANDREAS CORLEY ([id number]) [facility] ([facility]) [address] [place] [address] High Sensitivity Troponin To n 09-01-2023 High Sensitivity Troponin T 77 ng/L [facility] 022 [facility] Comment on above: Result Comment: The high-sensitivity troponin T result should not be compared with other troponin methodologies. Performed By: #### T RP5 #### MD ANDREAS COLREY ([id number]) [facility] ([facility]) [address] [place] [address] High Sensitivity Troponin T 75 ng/L [facility] 022 [facility] Comment on above: Result Comment: The high-sensitivity troponin T result should not be compared with other troponin methodologies. Performed By: #### T RP5 #### MD ANDREAS CORLEY ([id number]) [facility] ([facility]) [address] [place] [address] Venous Blood Gason 4 CO2 [Moles/Vol] 31 mmol/L Normal Not Established [facility] Comment on above: Performed By: #### V BG #### MD ANDREAS CORLEY ([id number]) [facility] ([facility]) [address] [place] [address] HCO3 (Bld) [Moles/Vol] 28.8 mmol/L Normal 23.0-29.0 [facility] Comment on above: Performed By: #### V BG #### MD ANDREAS CORLEY ([id number]) [facility] ([facility]) [address] [place] [address] Oxygen saturation in Blood 62 % Normal Not Established [facility] Comment on above: Performed By: #### V BG #### MD ANDREAS CORLEY ([id number]) [facility] [address] [place] [address] Venous Base Excess 1.1 mmol/L Normal -3.0-3.0 [facility] Comment on above: Performed By: #### V BG #### MD ANDREAS CORLEY ([id number]) [facility]) [address] [place] [address] Venous Carboxyhemoglobin 3.5 % High 0.0-1.5 [facility] Comment on above: Result Comment: 0.0- 1.5 (Smokers 1.5-5.0) Performed By: #### V BG #### MD ANDREAS CORLEY ([id number]) [facility] ([facility]) [address] [place] [address] Venous Methemoglobin 0.3 % Normal <1.5 [facility] Comment on above: Performed By: #### V BG #### MD ANDREAS CORLEY ([id number]) [facility] [address] [place] [address] Venous O2 Content 12 VOL % Normal Not Established [facility] Comment on above: Performed By: #### V BG #### MD ANDREAS CORLEY ([id number]) [facility]) [address] [place] [address] Venous PCO2 59.7 mmHg High 40.0-50.0 [facility] Comment on above: Performed By: #### V BG #### MD ANDREAS CORLEY ([id number]) [facility] [address] [place], [place] [phone] [facility] Venous pH 7.301 Low 7.350-7.450 [facility] Comment on above: Performed By: #### V BG #### MD ANDREAS CORLEY ([id number]) [facility] [address] [place] [address] Venous PO2 36.0 mmHg Normal 25.0-40.0 [facility] Comment on above: Performed By: #### V BG #### MD ANDREAS CORLEY ([id number]) [facility] ([facility]) [address] [place] [address] Venous O2 Therapy Unknown Normal [facility] Comment on above: Performed By: #### V BG #### MD ANDREAS CORLEY ([id number]) [facility] ([facility]) [address] [place] [address] CO2 [Moles/Vol] 33 mmol/L Normal Not [facility] Comment on above: Performed By: #### V BG #### MD ANDREAS CORLEY ([id number]) [facility] ([facility]) [address] [place] [address] HCO3 (Bld) [Moles/Vol] 31.2 mmol/L High 23.0-29.0 [facility] Comment on above: Performed By: #### V BG #### MD ANDREAS CORLEY ([id number]) [facility] ([facility]) [address] [place] [address] Oxygen saturation in Blood 92 % Normal Not [facility] Comment on above: Performed By: #### V BG #### MD ANDREAS CORLEY ([id number]) [facility] [address] [place] [address] Venous Base Excess 3.3 mmol/L High -3.0-3.0 [facility] Comment on above: Performed By: #### V BG #### MD ANDREAS CORLEY ([id number]) [facility] [address] [place] [address] Venous Carboxyhemoglobin 1.6 % High 0.0-1.5 [facility] Comment on above: Result Comment: 0.0- 1.5 (Smokers 1.5-5.0) Performed By: #### V BG #### MD ANDREAS CORLEY ([id number]) [facility] ([facility]) [address] [place] [address] [facility] Venous Methemoglobin 0.0 % Normal <1.5 [facility] Comment on above: Performed By: #### V BG #### MD ANDREAS CORLEY ([id number]) [facility] [address] [place] [address] [facility] Venous O2 Content 17 VOL % Normal Not Established [facility] Comment on above: Performed By: #### V BG #### MD ANDREAS CORLEY ([id number]) [facility] [address] [place] [address] [facility] Venous PCO2 62.6 mmHg High 40.0-50.0 [facility] Comment on above: Performed By: #### V BG #### MD ANDREAS CORLEY ([id number]) [facility] [address] [place] [address] [facility] Venous pH 7.315 Low 7.350-7.450 [facility] Comment on above: Performed By: #### V BG #### MD ANDREAS CORLEY ([id number]) [facility] [address] [place] [address] [facility] Venous PO2 70.9 mmHg High 25.0-40.0 [facility] Comment on above: Performed By: #### V BG #### MD ANDREAS CORLEY ([id number]) [facility] [address] [place] [address] [place] Venous O2 Therapy Unknown Normal [facility] Comment on above: Performed By: #### V BG #### MD ANDREAS CORLEY ([id number]) [facility] ([facility]) [address] [place] [address] [place] CO2 [Moles/Vol] 31 mmol/L Normal Not Established [facility] Comment on above: Performed By: #### V BG #### MD ANDREAS CORLEY ([id number]) [facility] ([facility]) [address] [place] [address] HCO3 (Bld) [Moles/Vol] 29.2 mmol/L High 23.0-29.0 [facility] Comment on above: Performed By: #### V BG #### MD ANDREAS CORLEY ([id number]) [facility] ([facility]) [address] [place] [address] Oxygen saturation in Blood 96 % Normal Not Established [facility] Comment on above: Performed By: #### V BG #### MD ANDREAS CORLEY ([id number]) [facility] ([facility]) [address] [place] [address] Venous Base Excess 1.9 mmol/L Normal -3.0-3.0 [facility] Comment on above: Performed By: #### V BG #### MD ANDREAS CORLEY ([id number]) [facility] ([facility]) [address] [place] [address] Venous Carboxyhemoglobin 3.0 % High 0.0-1.5 [facility] Comment on above: Result Comment: 0.0- 1.5 (Smokers 1.5-5.0) Performed By: #### V BG #### MD ANDREAS CORLEY ([id number]) [facility] ([facility]) [address] [place] [address] Venous Methemoglobin 0.0 % Normal <1.5 [facility] Comment on above: Performed By: #### V BG #### MD ANDREAS CORLEY ([id number]) [facility] ([facility]) [address] [place] [address] Venous PCO2 57.8 mmHg High 40.0-50.0 [facility] Comment on above: Performed By: #### V BG #### MD ANDREAS CORLEY ([id number]) [facility] ([facility]) [address] [place] [address] Venous pH 7.321 Low 7.350-7.450 [facility] Comment on above: Performed By: #### V BG #### MD ANDREAS CORLEY ([id number]) [facility] ([facility]) [address] [place] [address] Venous PO2 93.3 mmHg High 25.0-40.0 [facility] Comment on above: Performed By: #### V BG #### MD ANDREAS CORLEY ([id number]) [facility] ([facility]) [address] [place] [address] Venous O2 Therapy Unknown Normal [facility] Comment on above: Performed By: #### V BG #### MD ANDREAS CORLEY ([id number]) [facility] ([facility]) [address] [place] [address] XR CHEST PORTABLEon 09-01-19 XR CHEST PORTABLE [...] Ranjit Bradley MD 09/01/23 Final result Normal [facility] Comment on above: Order Comment: Reaso n for exam:->dyspnea Reason for exam?->Dyspnea CBCon 08-06-2023 Erythrocyte distribution width (RBC) [Ratio] 15.2 % High 11.0-15.0 [facility] Comment on above: Performed By: #### B C #### Roger Witt ([id number]) [address] Hematocrit (Bld) [Volume fraction] 43.4 % Normal 38.5-50.0 [facility] Comment on above: Performed By: #### B C #### Roger Witt ([id number]) [address] Hemoglobin (Bld) [Mass/Vol] 14.7 g/dL Normal 13.2-17.1 [facility] Comment on above: Performed By: #### B C #### Roger Witt ([id number]) [address] MCH (RBC) [Entitic mass] 32.6 pg Normal 27.0-33.0 [facility] Comment on above: Performed By: #### B C #### Roger Witt ([id number]) [address] MCHC (RBC) [Mass/Vol] 33.8 g/dL Normal 32.0-36.0 [facility] Comment on above: Performed By: #### B C #### Roger Witt ([id number]) [address] MCV (RBC) [Entitic vol] 96.7 fL Normal 80.0-100.0 [facility] Comment on above: Performed By: #### B C #### Roger Witt ([id number]) [address] Platelet mean volume (Bld) [Entitic vol] 8.9 fL Normal 7.5-11.5 [facility] Comment on above: Performed By: #### B C #### Roger Witt ([id number]) [address] Platelets (Bld) [#/Vol] 397 10*3/uL Normal 140-400 [facility] Comment on above: Performed By: #### B C #### Roger Witt ([id number]) [address] RBC (Bld) [#/Vol] 4.49 10*6/uL Normal 4.20-5.80 [facility] Comment on above: Performed By: #### B C #### Roger Witt ([id number]) [address] WBC (Bld) [#/Vol] 15.0 10*3/uL High 3.8-10.8 [facility] Comment on above: Performed By: #### B C #### Roger Witt ([id number]) [address] Disch [facility] 08-06-2023 [facility] Department of Internal Medicine Inpatient Discharge Summary Patient: Maikel Riojas CSN: [id number] Date of Admission: 08/02/2023 Date of Discharge: [...] diaphragms with tip not included in the [id number]. Heart and Mediastinum: Cardiac silhouette is partially [...] were sent to [facility] [address] [place] [address] Hours: Thursday - Thursday: 8:00AM - 6:00PM [...] status. Of note patient [place] for COPD exacerbation which required ICU stay [...] chronic hypo (more content not included)... Normal [facility] Nursingon 08-06-2023 Nursing PIV removed with catheter intact... report called to [facility] [place] [facility]. Pt will be transported via EMS Normal [facility] POC GLU MONITORING DEVICEon 08-06-2023 POC GLU MONITORING DEVICE 173 mg/dL High 70-100 [facility] Comment on above: Performed By: #### P OCGMD #### Roger Witt ([id number]) [address] POC GLU MONITORING DEVICE 235 mg/dL High 70-100 [facility] Comment on above: Performed By: #### B C #### Roger Witt ([id number]) [address] RENAL FUNCTION PANEL W/EGFRo n 08-06-2023 Albumin [Mass/Vol] 3.8 g/dL Normal 3.5-5.7 [facility] Comment on above: Performed By: #### P OCGMD #### Roger Witt ([id number]) [address] Anion gap [Moles/Vol] 10 mmol/L Normal 3-16 [facility] Comment on above: Performed By: #### P OCGMD #### Roger Witt ([id number]) [address] Calcium [Mass/Vol] 9.6 mg/dL Normal 8.6-10.3 [facility] Comment on above: Performed By: #### P OCGMD #### Roger Witt ([id number]) [address] Chloride [Moles/Vol] 102 mmol/L Normal 98-110 [facility] Comment on above: Performed By: #### P OCGMD #### Roger Witt ([id number]) [address] CO2 [Moles/Vol] 29 mmol/L Normal 21-33 [facility] Comment on above: Performed By: #### P OCGMD #### Roger Witt ([id number]) [address] Creatinine [Mass/Vol] 1.10 mg/dL Normal 0.60-1.30 [facility] Comment on above: Performed By: #### P OCGMD #### Roger Witt ([id number]) [place] [address] [place] GFR/1.73 sq M.predicted among non-blacks MDRD (S/P/Bld) [Vol rate/Area] 71 mL/min/{1.73_m2} Normal [place] [facility] Comment on above: Result Comment: As o [...] By: #### P OCGMD #### Roger Witt ([id number]) [place] [address] [place] Glucose [Mass/Vol] 213 mg/dL High 70-100 [facility] Comment on above: Performed By: #### P OCGMD #### Roger Witt ([id number]) [place] [address] [place] Osmolality [Osmolality] 309 mosm/kg High 278-305 [facility] Comment on above: Performed By: #### P OCGMD #### Roger Witt ([id number]) [place] [address] [place] Phosphate [Mass/Vol] 3.0 mg/dL Normal 2.1-4.5 [facility] Comment on above: Result Comment: HEMO LYSIS EVIDENT. RESULTS MAY BE INFLUENCED. Performed By: #### P OCGMD #### Roger Witt ([id number]) [address] Potassium [Moles/Vol] 5.6 mmol/L High 3.5-5.3 [facility] Comment on above: Result Comment: Hemo lysis Present: Results may be influenced artificially. Recommend recollection as clinically indicated. Performed By: #### P OCGMD #### Roger Witt ([id number]) [address] Sodium [Moles/Vol] 141 mmol/L Normal 133-146 [facility] Comment on above: Performed By: #### P OCGMD #### Roger Witt ([id number]) [address] Urea nitrogen [Mass/Vol] 42 mg/dL High 7-25 [facility] Comment on above: Performed By: #### P OCGMD #### Roger Witt ([id number]) [address] CARE PLANon 08-05-2023 CARE PLAN Problem: [...] and interventions as needed. Outcome: Progressing Normal [facility] CONSULTon 08-05-2023 CONSULT [facility] Assessment 08/05/2023 11:45 AM Maikel [...] cardiac disease, DM. Wound care recommends [employer] to buttocks/scrotum, safe skin bundle, and low air loss (CATINA) mattress. [employer] is a zinc-oxide based hydrophilic paste absorbs [...] non-rinse foam cleanser. Pat dry. Apply [employer] paste to wound bed daily and as [...] thickness 08/05/23 1144 Site (Wound bed) Assessment Moist;[place];Red 08/05/23 1144 [place]-wound Assessment [place];Intact 08/05/23 1144 Closure None 08/05/23 1144 Hematoma [...] 1144 History: Diagnosis: Acute hypoxemic respiratory failure ([facility]) [J96.01] AMS (altered mental status) [R41.82] Past [...] Sign Unable (more content not included)... Normal [facility] POC GLU MONITORING DEVICEon 08-05-2023 POC GLU MONITORING DEVICE 315 mg/dL High 70-100 [facility] Comment on above: Performed By: #### B C #### Roger Witt ([id number]) [address] POC GLU MONITORING DEVICE 252 mg/dL High 70-100 [facility] Comment on above: Performed By: #### B C #### Roger Witt ([id number]) [address] POC GLU MONITORING DEVICE 192 mg/dL High 70-100 [facility] Comment on above: Performed By: #### B C #### Roger Witt ([id number]) [address] POC GLU MONITORING DEVICE 213 mg/dL High 70-100 [facility] Comment on above: Performed By: #### E DHCVR #### Roger Witt ([id number]) [address] RENAL FUNCTION PANEL W/EGFRo n 08-05-2023 Albumin [Mass/Vol] 3.9 g/dL Normal 3.5-5.7 [facility] Comment on above: Performed By: #### B C #### Roger Witt ([id number]) [address] Anion gap [Moles/Vol] 10 mmol/L Normal 3-16 [facility] Comment on above: Performed By: #### B C #### Roger Witt ([id number]) [address] Calcium [Mass/Vol] 8.8 mg/dL Normal 8.6-10.3 [facility] Comment on above: Performed By: #### B C #### Roger Witt ([id number]) [address] Chloride [Moles/Vol] 101 mmol/L Normal 98-110 [facility] Comment on above: Performed By: #### B C #### Roger Witt ([id number]) [address] CO2 [Moles/Vol] 27 mmol/L Normal 21-33 [facility] Comment on above: Performed By: #### B C #### Roger Witt ([id number]) [address] Creatinine [Mass/Vol] 1.36 mg/dL High 0.60-1.30 [facility] Comment on above: Performed By: #### B C #### Roger Witt ([id number]) [place] [address] [place] GFR/1.73 sq M.predicted among non-blacks MDRD (S/P/Bld) [Vol rate/Area] 55 mL/min/{1.73_m2} Normal [place] [facility] Comment on above: Result Comment: As o [...] By: #### B C #### Roger Witt ([id number]) [address] Glucose [Mass/Vol] 338 mg/dL High 70-100 [facility] Comment on above: Performed By: #### B C #### Roger Witt ([id number]) [place] [address] [place] Osmolality [Osmolality] 310 mosm/kg High 278-305 [facility] Comment on above: Performed By: #### B C #### Roger Witt ([id number]) [address] Phosphate [Mass/Vol] 2.5 mg/dL Normal 2.1-4.5 [facility] Comment on above: Performed By: #### B C #### Roger Witt ([id number]) [address] Potassium [Moles/Vol] 5.0 mmol/L Normal 3.5-5.3 [facility] Comment on above: Performed By: #### B C #### Roger Witt ([id number]) [address] Sodium [Moles/Vol] 138 mmol/L Normal 133-146 [facility] Comment on above: Performed By: #### B C #### Roger Witt ([id number]) [address] Urea nitrogen [Mass/Vol] 44 mg/dL High 7- [facility] Comment on above: Performed By: #### B C #### Roger Witt ([id number]) [address] CBCon 08-04-2023 Erythrocyte distribution width (RBC) [Ratio] 15.0 % Normal 11.0-15.0 [facility] Comment on above: Performed By: #### H KRISTY #### Roger Witt ([id number]) [address] Hematocrit (Bld) [Volume fraction] 42.7 % Normal 38.5-50.0 [facility] Comment on above: Performed By: #### H STROPI #### Roger Witt ([id number]) [address] Hemoglobin (Bld) [Mass/Vol] 14.2 g/dL Normal 13.2-17.1 [facility] Comment on above: Performed By: #### H STROPI #### Roger Witt ([id number]) [address] MCH (RBC) [Entitic mass] 32.1 pg Normal 27.0-33.0 [facility] Comment on above: Performed By: #### H STROPI #### Roger Witt ([id number]) [address] MCHC (RBC) [Mass/Vol] 33.3 g/dL Normal 32.0-36.0 [facility] Comment on above: Performed By: #### H STROPI #### Roger Witt ([id number]) [address] MCV (RBC) [Entitic vol] 96.5 fL Normal 80.0-100.0 [facility] Comment on above: Performed By: #### H STROPI #### Roger Witt ([id number]) [address] Platelet mean volume (Bld) [Entitic vol] 8.1 fL Normal 7.5-11.5 [facility] Comment on above: Performed By: #### H STROPI #### Roger Witt ([id number]) [address] Platelets (Bld) [#/Vol] 280 10*3/uL Normal 140-400 [facility] Comment on above: Performed By: #### H STROPI #### Roger Witt ([id number]) [address] RBC (Bld) [#/Vol] 4.43 10*6/uL Normal 4.20-5.80 [facility] Comment on above: Performed By: #### H STROPI #### Roger Witt ([id number]) [address] WBC (Bld) [#/Vol] 14.6 10*3/uL High 3.8-10.8 [facility] Comment on above: Performed By: #### H KRISTY #### Roger Kiran Witt ([id number]) [facility] [address] CONSULTon 08-04-2023 CONSULT Speech Language Pathology Clinical Swallow Assessment Name: Maikel Riojas : 1950 Attending Physician: Narayan Ramos MD Admission Diagnosis: Acute hypoxemic respiratory failure (CMS-HCC) [J96.01] AMS (altered mental status) [R41.82] Date: 08/04/2023 Reviewed Pertinent hospital course: Yes Hospital Course OUTER DIAMETER GRINDER TOOL: 73 y/o male presents with AMS. PMH: COPD, T2DM, HFpEF, HTN, HARIS, BPH, multiple recent falls. Patient with recent admission to [place] for COPD exacerbation requiring ICU stay and [...] aspiration. 3. Trivial trace bilateral pleural effusions. OUTER DIAMETER GRINDER TOOL Hx: none at [facility]. Assessment: Patient presents with increased risk of [...] (IDDSI 0) - Instrumental recommendation: FEES - OUTER DIAMETER GRINDER TOOL therapy recommendations TBD pending results of instrumental [...] 0) Medication Administration: whole Recommendation Recommendations Recommendation: OUTER DIAMETER GRINDER TOOL recommendation pending clinical progress Baseline Assessment History [...] Patient educated on, instrumental procedure, role of OUTER DIAMETER GRINDER TOOL, current POC Education response: Patient demonstrated understanding End of Session: Patient was left in bed with call light within reach and all needs met. Safety handoff completed with RN. Jessica Mitchell M.A, [facility] DIAMETER GRINDER TOOL Speech Language Pathologist--Rehab Services [facility] MBSImP Certified Clinician Time Start Time: 1330 Stop Time: 1355 Time Calculation (min): 25 min Charges $Clinical Swallow: 1 Procedure Patient Class Inpatient Normal [facility] CONSULT Speech Language Pathology Speech, Language and Cognitive Initial Assessment Name: Maikel Riojas : 1950 Attending Physician: Narayan Ramos MD Admission Diagnosis: Acute hypoxemic respiratory failure (CMS-HCC) [J96.01] AMS (altered mental status) [R41.82] Date: 08/04/2023 Reviewed Pertinent hospital course: Yes Hospital Course OUTER DIAMETER GRINDER TOOL: 73 y/o male presents with AMS. PMH: COPD, T2DM, HFpEF, HTN, HARIS, BPH, multiple recent falls. Patient with recent admission to [place] for [place] exacerbation requiring ICU stay and [...] aspiration. 3. Trivial trace bilateral pleural effusions. OUTER DIAMETER GRINDER TOOL Hx: none at [facility]. Assessment: Patient presents with moderate cognitive-linguistic deficits [...] 6 6 WFL Composite 62 76 Acute OUTER DIAMETER GRINDER TOOL intervention is warranted. Plan/Recommendation: - Diet: Regular (IDDSI 7) with Thin Liquids (IDDSI 0), FEES - OUTER DIAMETER GRINDER TOOL therapy 1-3x/week while inpatient - OUTER DIAMETER GRINDER TOOL at discharge is recommended Prognosis Diagnosis: Cognitive-linguistic [...] met in: 08/14/23 Recommendation Recommendations Services: Recommend OUTER DIAMETER GRINDER TOOL therapy at discharge Problem List There is [...] Primary Mode of Expression: Verbal Primary Language: Ukrainian Confrontation Naming: Within Functional Limits Sentence Level [...] Patient Education Patient educated on: role of OUTER DIAMETER GRINDER TOOL, current POC, and discharge recommendations for OUTER DIAMETER GRINDER TOOL therapy;cognitive function and strategies to improve cognition Patient response: Patient verbalized understanding End of Session: Patient was left in bed with call light within reach and (more content not included)... Normal [facility] LACTIC ACIDon 08-04-2023 Lactate [Moles/Vol] 1.1 mmol/L Normal 0.5-2.2 [facility] Comment on above: Performed By: #### H STROPI #### Roger Witt ([id number]) [address] MAGNESIUMon 08-04-2023 Magnesium [Mass/Vol] 2.3 mg/dL Normal 1.5-2.5 [facility] Comment on above: Performed By: #### H STROPI #### Roger Witt ([id number]) [address] Nursingon 08-04-2023 Nursing Patient has arrived from the MICU with belongings in stable condition, paitent has been oriented to room and call light is within reach Normal [facility] POC GLU MONITORING DEVICEon 08-04-2023 POC GLU MONITORING DEVICE 246 mg/dL High 70-100 [facility] Comment on above: Performed By: #### E DHCVR #### Roger Witt ([id number]) [address] POC GLU MONITORING DEVICE 213 mg/dL High 70-100 [facility] Comment on above: Performed By: #### E DHCVR #### Roger Witt ([id number]) [address] POC GLU MONITORING DEVICE 145 mg/dL High 70-100 [facility] Comment on above: Performed By: #### H STROPI #### Roger Witt ([id number]) [address] POC GLU MONITORING DEVICE 201 mg/dL High 70-100 [facility] Comment on above: Performed By: #### H STROPI #### Roger Witt ([id number]) [address] RENAL FUNCTION PANEL W/EGFRo n 08-04-2023 Albumin [Mass/Vol] 3.6 g/dL Normal 3.5-5.7 [facility] Comment on above: Performed By: #### E DHCVR #### Roger Witt ([id number]) [address] Anion gap [Moles/Vol] 7 mmol/L Normal 3-16 [facility] Comment on above: Performed By: #### E DHCVR #### Roger Witt ([id number]) [place] [address] [place] Calcium [Mass/Vol] 9.1 mg/dL Normal 8.6-10.3 [facility] Comment on above: Performed By: #### E DHCVR #### Roger Witt ([id number]) [address] Chloride [Moles/Vol] 98 mmol/L Normal 98-110 [facility] Comment on above: Performed By: #### E DHCVR #### Roger Witt ([id number]) [address] CO2 [Moles/Vol] 33 mmol/L Normal 21-33 [facility] Comment on above: Performed By: #### E DHCVR #### Roger Witt ([id number]) [address] Creatinine [Mass/Vol] 2.06 mg/dL High 0.60-1.30 [facility] Comment on above: Performed By: #### E DHCVR #### Roger Witt ([id number]) [address] GFR/1.73 sq M.predicted among non-blacks MDRD (S/P/Bld) [Vol rate/Area] 33 mL/min/{1.73_m2} Normal [place] [facility] Comment on above: Result Comment: [...] By: #### E DHCVR #### Roger Witt ([id number]) [place] [address] [place] Glucose [Mass/Vol] 279 mg/dL High 70-100 [facility] Comment on above: Performed By: #### E DHCVR #### Roger Witt ([id number]) [place] [address] [place] Osmolality [Osmolality] 313 mosm/kg High 278-305 [facility] Comment on above: Performed By: #### E DHCVR #### Roger Witt ([id number]) [address] Phosphate [Mass/Vol] 4.7 mg/dL High 2.1-4.5 [facility] Comment on above: Performed By: #### E DHCVR #### Roger Witt ([id number]) [address] Potassium [Moles/Vol] 4.7 mmol/L Normal 3.5-5.3 [facility] Comment on above: Performed By: #### E DHCVR #### Roger Witt ([id number]) [address] Sodium [Moles/Vol] 138 mmol/L Normal 133-146 [facility] Comment on above: Performed By: #### E DHCVR #### Roger Witt ([id number]) [address] Urea nitrogen [Mass/Vol] 61 mg/dL High 7-25 [facility] Comment on above: Performed By: #### E DHCVR #### Roger Witt ([id number]) [address] Albumin [Mass/Vol] 3.3 g/dL Low 3.5-5.7 [facility] Comment on above: Performed By: #### E DHCVR #### Roger Witt ([id number]) [address] Anion gap [Moles/Vol] 11 mmol/L Normal 3-16 [facility] Comment on above: Performed By: #### E DHCVR #### Roger Witt ([id number]) [address] Calcium [Mass/Vol] 8.9 mg/dL Normal 8.6-10.3 [facility] Comment on above: Performed By: #### E DHCVR #### Roger Witt ([id number]) [address] Chloride [Moles/Vol] 100 mmol/L Normal 98-110 [facility] Comment on above: Performed By: #### E DHCVR #### Roger Witt ([id number]) [address] CO2 [Moles/Vol] 28 mmol/L Normal 21-33 [facility] Comment on above: Performed By: #### E DHCVR #### Roger Witt ([id number]) [place] [address] [place] Creatinine [Mass/Vol] 2.29 mg/dL High 0.60-1.30 [facility] Comment on above: Performed By: #### E DHCVR #### Roger Witt ([id number]) [place] [address] [place] GFR/1.73 sq M.predicted among non-blacks MDRD (S/P/Bld) [Vol rate/Area] 29 mL/min/{1.73_m2} Normal [place] [facility] Comment on above: Result Comment: As o [...] By: #### E DHCVR #### Roger Witt ([id number]) [place] [address] [place] Glucose [Mass/Vol] 164 mg/dL High 70-100 [facility] Comment on above: Performed By: #### E DHCVR #### Roger Witt ([id number]) [place] [address] [place] Osmolality [Osmolality] 312 mosm/kg High 278-305 [facility] Comment on above: Performed By: #### E DHCVR #### Roger Witt ([id number]) [address] Phosphate [Mass/Vol] 4.0 mg/dL Normal 2.1-4.5 [facility] Comment on above: Performed By: #### E DHCVR #### Roger Witt ([id number]) [address] Potassium [Moles/Vol] 3.9 mmol/L Normal 3.5-5.3 [facility] Comment on above: Performed By: #### E DHCVR #### Roger Witt ([id number]) [address] Sodium [Moles/Vol] 139 mmol/L Normal 133-146 [facility] Comment on above: Performed By: #### E DHCVR #### Roger Witt ([id number]) [address] Urea nitrogen [Mass/Vol] 69 mg/dL High 7-25 [facility] Comment on above: Performed By: #### E DHCVR #### Roger Witt ([id number]) [address] AMMONIAon 08-03-2023 Ammonia (P) [Mass/Vol] 46 ug/dL Normal 27-90 [facility] Comment on above: Performed By: #### L DVBG #### Roger Witt ([id number]) [address] CALCIUM FREE, SERUMon 2023 Calcium [Mass/Vol] 4.77 mg/dL Normal 4.40-5.40 [facility] Comment on above: Result Comment: Free calcium levels vary inversely with pH by approximately 5% for each 0.1 unit of pH change. Assay results have been normalized to pH = 7.40. Performed By: #### D IFF #### Roger Witt ([id number]) [address] Calcium [Mass/Vol] 11.27 mg/dL Critically high 4.40-5.40 [facility] Comment on above: Result Comment: The critical result was called to, and read back by, licensed caregiver LONI KYLE RN AT 05T IN MICU Performed By: #### D IFF #### Roger Witt ([id number]) [address] Calcium [Mass/Vol] 4.73 mg/dL Normal 4.40-5.40 [facility] Comment on above: Result Comment: Free calcium levels vary inversely with pH by approximately 5% for each 0.1 unit of pH change. Assay results have been normalized to pH = 7.40. Performed By: #### L DVBG #### Roger Witt ([id number]) [address] CARE PLANon 08-03-2023 CARE PLAN Problem: [...] and interventions as needed. Outcome: Progressing Normal [facility] CBCon 08-03-2023 Erythrocyte distribution width (RBC) [Ratio] 14.5 % Normal 11.0-15.0 [facility] Comment on above: Performed By: #### C BC #### Roger Witt ([id number]) [address] Hematocrit (Bld) [Volume fraction] 38.1 % Low 38.5-50.0 [facility] Comment on above: Performed By: #### C BC #### Roger Witt ([id number]) [address] Hemoglobin (Bld) [Mass/Vol] 12.7 g/dL Low 13.2-17.1 [facility] Comment on above: Performed By: #### C BC #### Roger Witt ([id number]) [address] MCH (RBC) [Entitic mass] 32.0 pg Normal 27.0-33.0 [facility] Comment on above: Performed By: #### C BC #### Roger Witt ([id number]) [address] MCHC (RBC) [Mass/Vol] 33.3 g/dL Normal 32.0-36.0 [facility] Comment on above: Performed By: #### C BC #### Roger Witt ([id number]) [address] MCV (RBC) [Entitic vol] 96.1 fL Normal 80.0-100.0 [facility] Comment on above: Performed By: #### C BC #### Roger Witt ([id number]) [address] Platelet mean volume (Bld) [Entitic vol] 8.6 fL Normal 7.5-11.5 [facility] Comment on above: Performed By: #### C BC #### Roger Witt ([id number]) [address] Platelets (Bld) [#/Vol] 255 10*3/uL Normal 140-400 [facility] Comment on above: Performed By: #### C BC #### Roger Witt ([id number]) [address] RBC (Bld) [#/Vol] 3.96 10*6/uL Low 4.20-5.80 [facility] Comment on above: Performed By: #### C BC #### Roger Witt ([id number]) [address] WBC (Bld) [#/Vol] 12.9 10*3/uL High 3.8-10.8 [facility] Comment on above: Performed By: #### C BC #### Roger Witt ([id number]) [address] Erythrocyte distribution width (RBC) [Ratio] 15.2 % High 11.0-15.0 [facility] Comment on above: Order Comment: Perip heral blood smear was scanned per review criteria approved by the laboratory emergency medical service manager. Performed By: #### L DVBG #### Roger Witt ([id number]) [address] Hematocrit (Bld) [Volume fraction] 43.0 % Normal 38.5-50.0 [facility] Comment on above: Order Comment: Perip heral blood smear was scanned per review criteria approved by the laboratory emergency medical service manager. Performed By: #### L DVBG #### Roger Witt ([id number]) [address] Hemoglobin (Bld) [Mass/Vol] 14.5 g/dL Normal 13.2-17.1 [facility] Comment on above: Order Comment: Perip heral blood smear was scanned per review criteria approved by the laboratory emergency medical service manager. Performed By: #### L DVBG #### Roger Witt ([id number]) [address] MCH (RBC) [Entitic mass] 32.2 pg Normal 27.0-33.0 [facility] Comment on above: Order Comment: Perip heral blood smear was scanned per review criteria approved by the laboratory emergency medical service manager. Performed By: #### L DVBG #### Roger Witt ([id number]) [address] MCHC (RBC) [Mass/Vol] 33.7 g/dL Normal 32.0-36.0 [facility] Comment on above: Order Comment: Perip heral blood smear was scanned per review criteria approved by the laboratory emergency medical service manager. Performed By: #### L DVBG #### Roger Witt ([id number]) [address] MCV (RBC) [Entitic vol] 95.7 fL Normal 80.0-100.0 [facility] Comment on above: Order Comment: Perip heral blood smear was scanned per review criteria approved by the laboratory emergency medical service manager. Performed By: #### L DVBG #### Roger Witt ([id number]) [address] Platelet estimate Adequate Normal [facility] Comment on above: Order Comment: Perip heral blood smear was scanned per review criteria approved by the laboratory emergency medical service manager. Performed By: #### L DVBG #### Roger Witt ([id number]) [address] Platelet mean volume (Bld) [Entitic vol] 8.2 fL Normal 7.5-11.5 [facility] Comment on above: Order Comment: Perip heral blood smear was scanned per review criteria approved by the laboratory emergency medical service manager. Performed By: #### L DVBG #### Roger Witt ([id number]) [address] Platelets (Bld) [#/Vol] 208 10*3/uL Normal 140-400 [facility] Comment on above: Order Comment: Perip heral blood smear was scanned per review criteria approved by the laboratory emergency medical service manager. Result Comment: Spec imen checked for clots. None detected. Slide Reviewed for PLT Clumps. None Seen. Performed By: #### L DVBG #### Roger Witt ([id number]) [address] RBC (Bld) [#/Vol] 4.50 10*6/uL Normal 4.20-5.80 [facility] Comment on above: Order Comment: Perip heral blood smear was scanned per review criteria approved by the laboratory emergency medical service manager. Performed By: #### L DVBG #### Roger Witt ([id number]) [address] WBC (Bld) [#/Vol] 17.8 10*3/uL High 3.8-10.8 [facility] Comment on above: Order Comment: Perip heral blood smear was scanned per review criteria approved by the laboratory emergency medical service manager. Performed By: #### L DVBG #### Roger Witt ([id number]) [place] [address] [place] CHLORIDE, RANDOM URINEon Chloride, Ur 89 mmol/L Normal [facility] Comment on above: Result Comment: Refe rence range not established for this test. Performed By: #### L AVBG #### Roger Witt ([id number]) [place] [address] [place] CONSULTon 08-03-2023 [facility]ULT [facility] Clinical Pharmacy Service: Vancomycin Consult Primary team has transitioned patient off of vancomycin. Pharmacy will sign off consult at this time. If vancomycin is reinitiated, please feel free to consult pharmacy services again. Thank you. Carlita Friedman, PharmD, [facility] Clinical Cutting Supervisor, Critical Care Epic Secure Chat Preferred OnCall/Weekends: [phone] 08/03/23 1:03 PM Normal [facility] ETHANOL, SERUMon 08-03-2023 Ethanol [Mass/Vol] mg/dL Normal 0-10 [facility] Comment on above: Performed By: #### L DVBG #### Roger Witt ([id number]) [address] FREE CALCIUM, WHOLE BLOODon 08-03-2023 Calcium [Mass/Vol] 4.71 mg/dL Normal 4.50-5.30 [facility] Comment on above: Performed By: #### D IFF #### Roger Witt ([id number]) [address] Calcium [Mass/Vol] 3.63 mg/dL Low 4.50-5.30 [facility] Comment on above: Performed By: #### C BC #### Roger Witt ([id number]) [address] GLYCOHEMOGLOBIN, A1Con 08-02 HbA1c (Bld) [Mass fraction] 7.3 % High 4.0-5.6 [facility] Comment on above: Result Comment: Hemo globin [...] individual patient considerations. Performed By: #### C BC #### Roger Witt ([id number]) [address] H AND Timothy 08-03-2023 H AND [...] Name: Maikel Riojas (73 y.o. male) Room/Bed: B01/B01U Admission Date: 08/02/2023 (HD# 0) Attending Physician: Hari Gould,* Chief Complaint(s) Encephalopathy HPI Maikel Riojas is a 73 y.o. male with a history of COPD, T2DM, HFpEF, HTN, HARIS, BPH, multiple recent falls presenting for altered mental status. Of note patient recently admitted [facility] for COPD exacerbation which required ICU stay [...] Prior to Admission Patient fills meds at [facility] Inpatient Medications Scheduled Medications vancomycin 25 mg/kg [...] 40 % Vitals: 08/02/23 2102 08/02/23 2103 08/02/23210308/02/232133 BP: 99/69 Pulse: 60 62 61 63 [...] diaphragms with tip not included in the [id number]. Heart and Mediastinum: Cardiac silhouette is partially obscured, but likely within normal size limits. Lungs and Pleura: Hypoexpanded lungs with mild bibasilar par (more content not included)... Normal [facility] HEPATIC FUNCTION PANELon Albumin [Mass/Vol] 3.5 g/dL Normal 3.5-5.7 [facility] Comment on above: Performed By: #### L DVBG #### Roger Witt ([id number]) [address] ALP [Catalytic activity/Vol] 78 U/L Normal 36-125 [facility] Comment on above: Performed By: #### L DVBG #### Roger Witt ([id number]) [address] ALT [Catalytic activity/Vol] 7 U/L Normal 7-52 [facility] Comment on above: Performed By: #### L DVBG #### Roger Witt ([id number]) [address] AST [Catalytic activity/Vol] 8 U/L Low 13-39 [facility] Comment on above: Performed By: #### L DVBG #### Roger Witt ([id number]) [address] BILI, Direct 0.17 mg/dL Normal 0.00-0.40 [facility] Comment on above: Performed By: #### L DVBG #### Roger Witt ([id number]) [address] BILI, Total 0.7 mg/dL Normal 0.0-1.5 [facility] Comment on above: Performed By: #### L DVBG #### Roger Witt ([id number]) [address] Performed By: #### P OCGMD #### Roger Witt ([id number]) [address] Bilirubin, Indirect 0.53 mg/dL Normal 0.00-1.10 [facility] Comment on above: Performed By: #### L DVBG #### Roger Witt ([id number]) [address] Protein [Mass/Vol] 6.8 g/dL Normal 6.4-8.9 [facility] Comment on above: Performed By: #### L DVBG #### Roger Witt ([id number]) [address] ALP [Catalytic activity/Vol] 90 U/L Normal 36-125 [facility] Comment on above: Performed By: #### P OCGMD #### Roger Witt ([id number]) [address] ALT [Catalytic activity/Vol] 8 U/L Normal 7-52 [facility] Comment on above: Performed By: #### P OCGMD #### Roger Witt ([id number]) [address] AST [Catalytic activity/Vol] 12 U/L Low 13-39 [facility] Comment on above: Performed By: #### P OCGMD #### Roger Witt ([id number]) [address] BILI, Direct 0.11 mg/dL Normal 0.00-0.40 [facility] Comment on above: Result Comment: HEMO LYSIS EVIDENT. RESULTS MAY BE INFLUENCED. Performed By: #### P OCGMD #### Roger Witt ([id number]) [address] Bilirubin, Indirect 0.59 mg/dL Normal 0.00-1.10 [facility] Comment on above: Performed By: #### P OCGMD #### Roger Witt ([id number]) [address] Protein [Mass/Vol] 7.8 g/dL Normal 6.4-8.9 [facility] Comment on above: Performed By: #### P OCGMD #### Roger Witt ([id number]) [address] LACTIC ACIDon 08-03-2023 Lactate [Moles/Vol] 2.6 mmol/L High 0.5-2.2 [facility] Comment on above: Performed By: #### B OWNER CONSULTING ENGINEER #### Roger Witt ([id number]) [address] Lactate [Moles/Vol] 2.5 mmol/L High 0.5-2.2 [facility] Comment on above: Performed By: #### L AVBG #### Rogre Witt ([id number]) [address] LIPASEon 08-03-2023 Lipase [Catalytic activity/Vol] 75 U/L Normal 4-82 [facility] Comment on above: Performed By: #### P OCGMD #### Roger Witt ([id number]) [address] MAGNESIUMon 08-03-2023 Magnesium [Mass/Vol] 2.0 mg/dL Normal 1.5-2.5 [facility] Comment on above: Performed By: #### D IFF #### Roger Witt ([id number]) [address] Magnesium [Mass/Vol] 2.4 mg/dL Normal 1.5-2.5 [facility] Comment on above: Performed By: #### L DVBG #### Roger Witt ([id number]) [address] MRSA/Staph aureus DNA - Diag nostic testing for pneon 08-03-2023 MRSA, PCR Negative Normal Negative [facility] Comment on above: Order Comment: Diagn osis of MRSA Pneumonia->Yes - Place [id number] (this order) Performed By: #### C BC #### Roger Witt ([id number]) [address] Staph Aureus, PCR Negative Normal Negative [facility] Comment on above: Order Comment: Diagn osis of MRSA Pneumonia->Yes - Place [id number] (this order) Result Comment: Test method is a FDA approved amplified DNA assay. Performed By: #### C BC #### Roger Witt ([id number]) [address] POC GLU MONITORING DEVICEon 08-03-2023 POC GLU MONITORING DEVICE 205 mg/dL High 70-100 [facility] Comment on above: Performed By: #### H STROPI #### Roger Witt ([id number]) [address] POC GLU MONITORING DEVICE 239 mg/dL High 70-100 [facility] Comment on above: Performed By: #### B OWNER CONSULTING ENGINEER #### Roger Witt ([id number]) [address] POC GLU MONITORING DEVICE 216 mg/dL High 70-100 [facility] Comment on above: Performed By: #### B OWNER CONSULTING ENGINEER #### Roger Witt ([id number]) [address] POC GLU MONITORING DEVICE 191 mg/dL High 70-100 [facility] Comment on above: Performed By: #### C BC #### Roger Witt ([id number]) [address] POC GLU MONITORING DEVICE 165 mg/dL High 70-100 [facility] Comment on above: Performed By: #### L AVBG #### Roger Witt ([id number]) [address] POTASSIUM, RANDOM URINEon Potassium, Ur 30.0 mmol/L Normal [facility] Comment on above: Result Comment: Refe rence range not established for this test. Performed By: #### L AVBG #### Roger Witt ([id number]) [address] PROTIMEon 08-03-2023 INR Coag (PPP) [Relative time] 0.9 {INR} Normal 0.9-1.1 [facility] Comment on above: Result Comment: MESSI MMENDED THERAPEUTIC RANGES USING INR : Stable oral anticoagulant therapy: 2.0 - 3.0 Mechanical prosthetic heart valve: 2.5 - 3.5 Recurrent acute myocardial infarction: 2.5 - 3.5 Performed By: #### P OCGMD #### Roger iWtt ([id number]) [address] PT Coag (PPP) [Time] 12.6 s Normal 12.1-15.1 [facility] Comment on above: Performed By: #### P OCGMD #### Roger Witt ([id number]) [address] PTHon 08-03-2023 PTH, Intact 185.0 pg/mL High 12.0-88.0 [facility] Comment on above: Performed By: #### B OWNER CONSULTING ENGINEER #### Roger Witt ([id number]) [address] PTH-RELATED PROTEIN (PTH-RP) on 08-03-2023 PTH Related Protein <2.0 Normal [facility] Comment on above: Order Comment: PERFO RMED AT: [facility] [address] [id number] DIRECTOR: Mike Dotson MD PHONE: [phone] Result Comment: This test was developed and its performance characteristics determined by [employer]. It has not been cleared or approved [...] By: #### P OCGMD #### Roger Witt ([id number]) [address] RENAL FUNCTION PANEL W/EGFRo n 08-03-2023 Albumin [Mass/Vol] 3.6 g/dL Normal 3.5-5.7 [facility] Comment on above: Performed By: #### H STROPI #### Roger Witt ([id number]) [address] Anion gap [Moles/Vol] 15 mmol/L Normal 3-16 [facility] Comment on above: Performed By: #### H STROPI #### Roger Witt ([id number]) [address] Calcium [Mass/Vol] 9.2 mg/dL Normal 8.6-10.3 [facility] Comment on above: Performed By: #### H STROPI #### Roger Witt ([id number]) [address] Chloride [Moles/Vol] 94 mmol/L Low 98-110 [facility] Comment on above: Performed By: #### H STROPI #### Roger Witt ([id number]) [address] CO2 [Moles/Vol] 28 mmol/L Normal 21-33 [facility] Comment on above: Performed By: #### H STROPI #### Roger Witt ([id number]) [address] Creatinine [Mass/Vol] 3.01 mg/dL High 0.60-1.30 [facility] Comment on above: Performed By: #### H STROPI #### Roger Witt ([id number]) [address] GFR/1.73 sq M.predicted among non-blacks MDRD (S/P/Bld) [Vol rate/Area] 21 mL/min/{1.73_m2} Normal [place] [facility] Comment on above: Result Comment: [...] By: #### H STROPI #### Roger Witt ([id number]) [address] Glucose [Mass/Vol] 233 mg/dL High 70-100 [facility] Comment on above: Performed By: #### H STROPI #### Roger Witt ([id number]) [address] Osmolality [Osmolality] 317 mosm/kg High 278-305 [facility] Comment on above: Performed By: #### H STROPI #### Roger Witt ([id number]) [address] Phosphate [Mass/Vol] 5.5 mg/dL High 2.1-4.5 [facility] Comment on above: Performed By: #### H STROPI #### Roger Witt ([id number]) [address] Potassium [Moles/Vol] 4.2 mmol/L Normal 3.5-5.3 [facility] Comment on above: Performed By: #### H STROPI #### Roger Witt ([id number]) [address] Sodium [Moles/Vol] 137 mmol/L Normal 133-146 [facility] Comment on above: Performed By: #### H STROPI #### Roger Witt ([id number]) [address] Urea nitrogen [Mass/Vol] 83 mg/dL High 7-25 [facility] Comment on above: Performed By: #### H STROPI #### Roger Witt ([id number]) [address] Albumin [Mass/Vol] 3.5 g/dL Normal 3.5-5.7 [facility] Comment on above: Performed By: #### D IFF #### Roger Witt ([id number]) [address] Anion gap [Moles/Vol] 15 mmol/L Normal 3-16 [facility] Comment on above: Performed By: #### D IFF #### Roger Witt ([id number]) [address] Calcium [Mass/Vol] 9.1 mg/dL Normal 8.6-10.3 [facility] Comment on above: Performed By: #### D IFF #### Roger Witt ([id number]) [address] Chloride [Moles/Vol] 93 mmol/L Low 98-110 [facility] Comment on above: Performed By: #### D IFF #### Roger Witt ([id number]) [address] CO2 [Moles/Vol] 28 mmol/L Normal 21-33 [facility] Comment on above: Performed By: #### D IFF #### Roger Witt ([id number]) [place] [address] [place] Creatinine [Mass/Vol] 3.28 mg/dL High 0.60-1.30 [facility] Comment on above: Performed By: #### D IFF #### Roger Witt ([id number]) [place] [address] [place] GFR/1.73 sq M.predicted among non-blacks MDRD (S/P/Bld) [Vol rate/Area] 19 mL/min/{1.73_m2} [facility] Comment on above: Result Comment: As o [...] By: #### D IFF #### Roger Witt ([id number]) [place] [address] [place] Glucose [Mass/Vol] 231 mg/dL High 70-100 [facility] Comment on above: Performed By: #### D IFF #### Roger Witt ([id number]) [place] [address] [place] Osmolality [Osmolality] 315 mosm/kg High 278-305 [facility] Comment on above: Performed By: #### D IFF #### Roger Witt ([id number]) [address] Phosphate [Mass/Vol] 6.5 mg/dL High 2.1-4.5 [facility] Comment on above: Performed By: #### D IFF #### Roger Witt ([id number]) [address] Potassium [Moles/Vol] 4.8 mmol/L Normal 3.5-5.3 [facility] Comment on above: Performed By: #### D IFF #### Roger Witt ([id number]) [address] Sodium [Moles/Vol] 136 mmol/L Normal 133-146 [facility] Comment on above: Performed By: #### D IFF #### Roger Witt ([id number]) [address] Urea nitrogen [Mass/Vol] 84 mg/dL High 7-25 [facility] Comment on above: Performed By: #### D IFF #### Roger Witt ([id number]) [address] Albumin [Mass/Vol] 2.9 g/dL Low 3.5-5.7 [facility] Comment on above: Performed By: #### D IFF #### Roger Witt ([id number]) [address] Anion gap [Moles/Vol] 14 mmol/L Normal 3-16 [facility] Comment on above: Performed By: #### D IFF #### Roger Witt ([id number]) [place] [address] [place] Calcium [Mass/Vol] 14.0 mg/dL High 8.6-10.3 [facility] Comment on above: Performed By: #### D IFF #### Roger Witt ([id number]) [place] [address] [place] Chloride [Moles/Vol] 98 mmol/L Normal 98-110 [facility] Comment on above: Performed By: #### D IFF #### Roger Witt ([id number]) [address] CO2 [Moles/Vol] 23 mmol/L Normal 21-33 [facility] Comment on above: Performed By: #### D IFF #### Roger Witt ([id number]) [address] Creatinine [Mass/Vol] 2.97 mg/dL High 0.60-1.30 [facility] Comment on above: Performed By: #### D IFF #### Roger Witt ([id number]) [address] GFR/1.73 sq M.predicted among non-blacks MDRD (S/P/Bld) [Vol rate/Area] 22 mL/min/{1.73_m2} [facility] Comment on above: Result Comment: [...] By: #### D IFF #### Roger Witt ([id number]) [address] Glucose [Mass/Vol] 205 mg/dL High 70-100 [facility] Comment on above: Performed By: #### D IFF #### Roger Witt ([id number]) [address] Osmolality [Osmolality] 308 mosm/kg High 278-305 [facility] Comment on above: Performed By: #### D IFF #### Roger Witt ([id number]) [address] Phosphate [Mass/Vol] 5.2 mg/dL High 2.1-4.5 [facility] Comment on above: Performed By: #### D IFF #### Roger Witt ([id number]) [address] Potassium [Moles/Vol] 4.1 mmol/L Normal 3.5-5.3 [facility] Comment on above: Performed By: #### D IFF #### Roger Witt ([id number]) [address] Sodium [Moles/Vol] 135 mmol/L Normal 133-146 [facility] Comment on above: Performed By: #### D IFF #### Roger Witt ([id number]) [address] Urea nitrogen [Mass/Vol] 74 mg/dL High 7-25 [facility] Comment on above: Performed By: #### D IFF #### Roger Witt ([id number]) [address] Albumin [Mass/Vol] 3.2 g/dL Low 3.5-5.7 [facility] Comment on above: Performed By: #### C BC #### Roger Witt ([id number]) [address] Anion gap [Moles/Vol] 15 mmol/L Normal 3-16 [facility] Comment on above: Performed By: #### C BC #### Roger Witt ([id number]) [address] Calcium [Mass/Vol] 7.1 mg/dL Low 8.6-10.3 [facility] Comment on above: Performed By: #### C BC #### Roger Witt ([id number]) [address] Chloride [Moles/Vol] 99 mmol/L Normal 98-110 [facility] Comment on above: Performed By: #### C BC #### Roger Witt ([id number]) [address] CO2 [Moles/Vol] 23 mmol/L Normal 21-33 [facility] Comment on above: Performed By: #### C BC #### Roger Witt ([id number]) [address] Creatinine [Mass/Vol] 2.99 mg/dL High 0.60-1.30 [facility] Comment on above: Performed By: #### C BC #### Roger Witt ([id number]) [place] [address] [place] GFR/1.73 sq M.predicted among non-blacks MDRD (S/P/Bld) [Vol rate/Area] 21 mL/min/{1.73_m2} Normal [place] [facility] Comment on above: Result Comment: As o [...] By: #### C BC #### Roger Witt ([id number]) [place] [address] [place] Glucose [Mass/Vol] 177 mg/dL High 70-100 [facility] Comment on above: Performed By: #### C BC #### Roger Witt ([id number]) [place] [address] [place] Osmolality [Osmolality] 310 mosm/kg High 278-305 [facility] Comment on above: Performed By: #### C BC #### Roger Witt ([id number]) [place] [id number] [place] Phosphate [Mass/Vol] 5.2 mg/dL High 2.1-4.5 [facility] Comment on above: Performed By: #### C BC #### Roger Witt ([id number]) [address] Potassium [Moles/Vol] 4.3 mmol/L Normal 3.5-5.3 [facility] Comment on above: Performed By: #### C BC #### Roger Witt ([id number]) [address] Sodium [Moles/Vol] 137 mmol/L Normal 133-146 [facility] Comment on above: Performed By: #### C BC #### Roger Witt ([id number]) [address] Urea nitrogen [Mass/Vol] 74 mg/dL High 7-25 [facility] Comment on above: Performed By: #### C BC #### Roger Witt ([id number]) [address] Anion gap [Moles/Vol] 15 mmol/L Normal 3-16 [facility] Comment on above: Performed By: #### L DVBG #### Roger Witt ([id number]) [address] Calcium [Mass/Vol] 8.6 mg/dL Normal 8.6-10.3 [facility] Comment on above: Performed By: #### L DVBG #### Roger Witt ([id number]) [address] Chloride [Moles/Vol] 95 mmol/L Low 98-110 [facility] Comment on above: Performed By: #### L DVBG #### Roger Witt ([id number]) [address] CO2 [Moles/Vol] 26 mmol/L Normal 21-33 [facility] Comment on above: Performed By: #### L DVBG #### Roger Witt ([id number]) [address] Creatinine [Mass/Vol] 3.55 mg/dL High 0.60-1.30 [facility] Comment on above: Performed By: #### L DVBG #### Roger Witt ([id number]) [address] GFR/1.73 sq M.predicted among non-blacks MDRD (S/P/Bld) [Vol rate/Area] 17 mL/min/{1.73_m2} Normal [place] [facility] Comment on above: Result Comment: [...] By: #### L DVBG #### Roger Witt ([id number]) [place] [id number] [place] Performed By: #### P OCGMD #### Roger Witt ([id number]) [address] Glucose [Mass/Vol] 173 mg/dL High 70-100 [facility] Comment on above: Performed By: #### L DVBG #### Roger Witt ([id number]) [address] Osmolality [Osmolality] 312 mosm/kg High 278-305 [facility] Comment on above: Performed By: #### L DVBG #### Roger Witt ([id number]) [address] Phosphate [Mass/Vol] 6.5 mg/dL High 2.1-4.5 [facility] Comment on above: Performed By: #### L DVBG #### Roger Witt ([id number]) [address] Potassium [Moles/Vol] 4.4 mmol/L Normal 3.5-5.3 [facility] Comment on above: Performed By: #### L DVBG #### Roger Witt ([id number]) [address] Sodium [Moles/Vol] 136 mmol/L Normal 133-146 [facility] Comment on above: Performed By: #### L DVBG #### Roger Witt ([id number]) [address] Urea nitrogen [Mass/Vol] 84 mg/dL High 7-25 [facility] Comment on above: Performed By: #### L DVBG #### Roger Witt ([id number]) [address] Albumin [Mass/Vol] 3.9 g/dL Normal 3.5-5.7 [facility] Comment on above: Performed By: #### P OCGMD #### Roger Witt ([id number]) [address] Anion gap [Moles/Vol] 16 mmol/L Normal 3-16 [facility] Comment on above: Performed By: #### P OCGMD #### Roger Witt ([id number]) [address] Calcium [Mass/Vol] 9.1 mg/dL Normal 8.6-10.3 [facility] Comment on above: Performed By: #### P OCGMD #### Roger Witt ([id number]) [address] Chloride [Moles/Vol] 92 mmol/L Low 98-110 [facility] Comment on above: Performed By: #### P OCGMD #### Roger Witt ([id number]) [address] CO2 [Moles/Vol] 27 mmol/L Normal 21-33 [facility] Comment on above: Performed By: #### P OCGMD #### Roger Witt ([id number]) [address] Creatinine [Mass/Vol] 3.70 mg/dL High 0.60-1.30 [facility] Comment on above: Performed By: #### P OCGMD #### Roger Witt ([id number]) [address] Glucose [Mass/Vol] 155 mg/dL High 70-100 [facility] Comment on above: Performed By: #### P OCGMD #### Roger Witt ([id number]) [address] Osmolality [Osmolality] 308 mosm/kg High 278-305 [facility] Comment on above: Performed By: #### P OCGMD #### Roger Witt ([id number]) [address] Phosphate [Mass/Vol] 7.0 mg/dL High 2.1-4.5 [facility] Comment on above: Performed By: #### P OCGMD #### Roger Witt ([id number]) [address] Potassium [Moles/Vol] 4.6 mmol/L Normal 3.5-5.3 [facility] Comment on above: Result Comment: Hemo lysis Present: Results may be influenced artificially. Recommend recollection as clinically indicated. Performed By: #### P OCGMD #### Roger Witt ([id number]) [address] Sodium [Moles/Vol] 135 mmol/L Normal 133-146 [facility] Comment on above: Performed By: #### P OCGMD #### Roger Witt ([id number]) [address] Urea nitrogen [Mass/Vol] 81 mg/dL High 7-25 [facility] Comment on above: Performed By: #### P OCGMD #### Roger Witt ([id number]) [address] SALICYLATEon 08-03-2023 Salicylate <3 Low 10-30 [facility] Comment on above: Performed By: #### L DVBG #### Roger Witt ([id number]) [address] SERUM PROT ELECTROPHORESIS, REFLEX TO ITon 08-03-2023 Albumin [Mass/Vol] 3.3 g/dL Low 3.70-4.90 [facility] Comment on above: Performed By: #### H STROPI #### Roger Witt ([id number]) [address] Alpha 1 0.3 g/dL Normal 0.20-0.40 [facility] Comment on above: Performed By: #### H STROPI #### Roger Witt ([id number]) [address] Alpha 2 0.8 g/dL Normal 0.50-1.00 [facility] Comment on above: Performed By: #### H STROPI #### Roger Witt ([id number]) [address] Beta 0.7 g/dL Normal 0.60-1.00 [facility] Comment on above: Performed By: #### H STROPI #### Roger Witt ([id number]) [place] [address] [place] Gamma 1.1 g/dL Normal 0.50-1.50 [facility] Comment on above: Performed By: #### H STROPI #### Roger Witt ([id number]) [place] [address] [place] M Hung 0.0 g/dL Normal [facility] Comment on above: Performed By: #### H STROPI #### Roger Witt ([id number]) [address] Protein [Mass/Vol] 6.3 g/dL Low 6.4-8.9 [facility] Comment on above: Performed By: #### H STROPI #### Roger Witt ([id number]) [address] SODIUM, RANDOM URINEon 08-02 Sodium (U) [Moles/Vol] 81 mmol/L Normal [facility] Comment on above: Result Comment: Refe rence range not established for this test. Performed By: #### L AVBG #### Roger Witt ([id number]) [address] SPUTUM CULTURE PLUS STAINon 08-03-2023 SPUTUM [...] F VANCOMYCIN S <= 0.5 F Susceptible [facility] Comment on above: Performed By: #### B OWNER CONSULTING ENGINEER #### Roger Witt ([id number]) [address] UREA NITROGEN, RANDOM URINEo n 08-03-2023 Urea, Ur 247 mg/dL Normal [facility] Comment on above: Result Comment: Refe rence range not established for this test. Performed By: #### C BC #### Roger Witt ([id number]) [address] URINE CREATININE, RANDOMon 0 08-03-2023 Creatinine, Ur 30.20 mg/dL Normal [facility] Comment on above: Result Comment: Refe rence range not established for this test. Performed By: #### C BC #### Roger Witt ([id number]) [address] URINE DRUG SCREEN WITHOUT CO NFIRMATION, Carlos 08-03-2023 Amphetamines, 500 cutoff Negative Normal Negative [facility] Comment on above: Performed By: #### L DVBG #### Roger Witt ([id number]) [address] Barbiturates, 300 ng/mL Cutoff Negative Normal Negative [facility] Comment on above: Performed By: #### L DVBG #### Roger Witt ([id number]) [place] [address] [place] Benzo, 300 ng/mL Cutoff Positive Abnormal Negative [facility] Comment on above: Performed By: #### L DVBG #### Roger Witt ([id number]) [place] [address] [place] Buprenorphine, 5 ng/mL Cutoff Negative Normal Negative [facility] Comment on above: Performed By: #### L DVBG #### Roger Witt ([id number]) [place] [address] [place] Cocaine, 300 ng/mL Cutoff Negative Normal Negative [facility] Comment on above: Performed By: #### L DVBG #### Roger Witt ([id number]) [place] [address] [place] Fentanyl, 2 ng/mL Cutoff Positive Abnormal Negative [facility] Comment on above: Result Comment: This test has been developed and its performance characteristics determined by [facility] which is certified under the Clinical [...] By: #### L DVBG #### Roger Witt ([id number]) [place] [address] [place] Methadone 300 ng/mLCutoff Negative Normal Negative [facility] Comment on above: Performed By: #### L DVBG #### Roger Witt ([id number]) [place] [address] [place] Opiates, 300 ng/mL Cutoff Negative Normal Negative [facility] Comment on above: Performed By: #### L DVBG #### Roger Witt ([id number]) [place] [address] [place] Oxycodone, 100 ng/mL Negative Normal Negative [facility] Comment on above: Performed By: #### L DVBG #### Roger Witt ([id number]) [place] [address] [place] TCA, 300 ng/mL Cutoff Negative Normal Negative [facility] Comment on above: Result Comment: This test has been developed and its performance characteristics determined by [facility] which is certified under the Clinical [...] By: #### L DVBG #### Roger Witt ([id number]) [address] THC, 50 ng/mL Cutoff Negative Normal Negative [facility] Comment on above: Result Comment: This is a screening method only and may be associated with false positive and/or false negative results. Results are not definitive without additional confirmatory testing by mass spectrometry. Performed By: #### L DVBG #### Roger Witt ([id number]) [address] URINE KAPPA/LAMBDA RANDOMon 08-03-2023 [place] Chains 112.13 mg/L High 0.39-15.10 [facility] Comment on above: Performed By: #### E DHCVR #### Roger Witt ([id number]) [address] [place]/Lambda Ratio 4.85 ratio High 0.46-4.00 [facility] Comment on above: Performed By: #### E DHCVR #### Roger Witt ([id number]) [address] Lambda Chains 23.14 mg/L High 0.81-10.10 [facility] Comment on above: Performed By: #### E DHCVR #### Roger Witt ([id number]) [address] URINE PROTEIN ELECTROPHORESI S, RANDOM W REFLEX TSTon 08-03-2023 Albumin 5.7 mg/dL Normal [facility] Comment on above: Order Comment: This assay has been modified from the terrazzo finisher's specifications and has been validated with performance characteristics determined by [facility] in accordance with federal regulations under the Clinical Laboratory Act Amendment of 1988. The modification has not been approved by the FDA which has determined that such approval is not necessary. The test is for clinical purposes and should not be regarded as investigational or for research use. Performed By: #### H KRISTY #### Roger Witt ([id number]) [address] Vmsbl-9-Aqjsxkefz 11.8 mg/dL Normal [facility] Comment on above: Order Comment: This assay has been modified from the terrazzo finisher's specifications and has been validated with performance characteristics determined by [facility] in accordance with federal regulations under the Clinical Laboratory Act Amendment of 1988. The modification has not been approved by the FDA which has determined that such approval is not necessary. The test is for clinical purposes and should not be regarded as investigational or for research use. Performed By: #### H KRISTY #### Roger Witt ([id number]) [address] Sdwyn-9-Jssodneqn 4.7 mg/dL Normal [facility] Comment on above: Order Comment: This assay has been modified from the terrazzo finisher's specifications and has been validated with performance characteristics determined by [facility] in accordance with federal regulations under the Clinical Laboratory Act Amendment of 1988. The modification has not been approved by the FDA which has determined that such approval is not necessary. The test is for clinical purposes and should not be regarded as investigational or for research use. Performed By: #### H LEONIEPI #### Roger Witt ([id number]) [address] Beta Globulins 4.1 mg/dL Normal [facility] Comment on above: Order Comment: This assay has been modified from the terrazzo finisher's specifications and has been validated with performance characteristics determined by [facility] in accordance with federal regulations under the Clinical Laboratory Act Amendment of 1988. The modification has not been approved by the FDA which has determined that such approval is not necessary. The test is for clinical purposes and should not be regarded as investigational or for research use. Performed By: #### H STROPI #### Roger Witt ([id number]) [address] Gamma Globulins 2.8 mg/dL Normal [facility] Comment on above: Order Comment: This assay has been modified from the terrazzo finisher's specifications and has been validated with performance characteristics determined by [facility] in accordance with federal regulations under the Clinical Laboratory Act Amendment of 1987. The modification has not been approved by the FDA which has determined that such approval is not necessary. The test is for clinical purposes and should not be regarded as investigational or for research use. Performed By: #### H STROPI #### Roger Witt ([id number]) [address] Interpretation See Note Normal [facility] Comment on above: Order Comment: This assay has been modified from the terrazzo finisher's specifications and has been validated with performance characteristics determined by [facility] in accordance with federal regulations under the [...] By: #### H STROPI #### Roger Witt ([id number]) [address] Result Comment: Seru m protein separation shows an unremarkable pattern. No monoclonal protein seen. Reviewed by Jenise Grady M.D. M Hung 0.0 mg/dL Normal [facility] Comment on above: Order Comment: This assay has been modified from the terrazzo finisher's specifications and has been validated with performance characteristics determined by [facility] in accordance with federal regulations under the Clinical Laboratory Act Amendment of 1987. The modification has not been approved by the FDA which has determined that such approval is not necessary. The test is for clinical purposes and should not be regarded as investigational or for research use. Performed By: #### H KRISTY #### Roger Witt ([id number]) [address] Protein (U) [Mass/Vol] 29 mg/dL Normal [facility] Comment on above: Order Comment: This assay has been modified from the terrazzo finisher's specifications and has been validated with performance characteristics determined by [facility] in accordance with federal regulations under the Clinical Laboratory Act Amendment of 1988. The modification has not been approved by the FDA which has determined that such approval is not necessary. The test is for clinical purposes and should not be regarded as investigational or for research use. Result Comment: Refe rence range not established for this test. Performed By: #### H KRISTY #### Roger Witt ([id number]) [address] US RETROPERITONEAL COMPLETEo n 08-03-2023 US [...] MD at 08/03/2023 2:10 PM EDT Normal [facility] Comment on above: Performed By: #### B OWNER CONSULTING ENGINEER #### Roger Witt ([id number]) [address] VANCOMYCIN, RANDOMon 024 Vancomycin, Random 28.0 ug/mL Normal [facility] Comment on above: Result Comment: Refe rence range not established for this test. Performed By: #### D IFF #### Roger Witt ([id number]) [address] VENOUS BLOOD GAS, LINE/SYRIN GEon 08-03-2023 %HBO2 79.3 % High 40.0-70.0 [facility] Comment on above: Performed By: #### D IFF #### Roger Witt ([id number]) [address] Base Excess 0.0 mmol/L Normal -2.0-3.0 [facility] Comment on above: Performed By: #### D IFF #### Roger Witt ([id number]) [address] Carboxyhgb 1.6 % Normal [facility] Comment on above: Result Comment: CARB OXYHEMOGLOBIN (CO) REFERENCE RANGES: Non-Smokers: <2 % Smokers: <8 % TOXIC: >20 % Performed By: #### D IFF #### Roger Witt ([id number]) [address] CO2 [Moles/Vol] 29 mmol/L Normal 25-29 [facility] Comment on above: Performed By: #### D IFF #### Roger Witt ([id number]) [address] HCO3 (Bld) [Moles/Vol] 27 mmol/L Normal 24-28 [facility] Comment on above: Performed By: #### D IFF #### Roger Witt ([id number]) [address] Methemoglobin 0.6 % Normal 0.0-1.5 [facility] Comment on above: Performed By: #### D IFF #### Roger Witt ([id number]) [place] [address] [place] PCO2 54 mm Hg High 41-51 [facility] Comment on above: Performed By: #### D IFF #### Roger Witt ([id number]) [address] pH (Bld) 7.31 [pH] Low 7.32-7.42 [facility] Comment on above: Performed By: #### D IFF #### Roger Witt ([id number]) [place] [address] [place] PO2 48 mm Hg High 25-40 [facility] Comment on above: Performed By: #### D IFF #### Roger Witt ([id number]) [address] Reduced Hemoglobin 18.5 % High 0.0-5.0 [facility] Comment on above: Performed By: #### D IFF #### Roger Witt ([id number]) [address] %HBO2 43.2 % Normal 40.0-70.0 [facility] Comment on above: Performed By: #### C BC #### Roger Witt ([id number]) [address] Base Excess -1.6 mmol/L Normal -2.0-3.0 [facility] Comment on above: Performed By: #### C BC #### Roger Witt ([id number]) [address] Carboxyhgb 1.2 % Normal 0.0-2.0 [facility] Comment on above: Result Comment: CARB OXYHEMOGLOBIN (CO) REFERENCE RANGES: Non-Smokers: <2 % Smokers: <8 % TOXIC: >20 % Performed By: #### C BC #### Roger Witt ([id number]) [address] CO2 [Moles/Vol] 26 mmol/L Normal 25-29 [facility] Comment on above: Performed By: #### C BC #### Roger Witt ([id number]) [address] HCO3 (Bld) [Moles/Vol] 25 mmol/L Normal 24-28 [facility] Comment on above: Performed By: #### C BC #### Roger Witt ([id number]) [address] Methemoglobin 0.7 % Normal 0.0-1.5 [facility] Comment on above: Performed By: #### C BC #### Roger Witt ([id number]) [place] [address] [place] PCO2 47 mm Hg Normal 41-51 [facility] Comment on above: Performed By: #### C BC #### Roger Witt ([id number]) [address] pH (Bld) 7.33 [pH] Normal 7.32-7.42 [facility] Comment on above: Performed By: #### C BC #### Roger Witt ([id number]) [place] [address] [place] PO2 26 mm Hg Normal 25-40 [facility] Comment on above: Performed By: #### C BC #### Roger Witt ([id number]) [address] Reduced Hemoglobin 54.9 % High 0.0-5.0 [facility] Comment on above: Performed By: #### C BC #### Roger Witt ([id number]) [address] %HBO2 35.4 % Low 40.0-70.0 [facility] Comment on above: Performed By: #### L AVBG #### Roger Witt ([id number]) [address] Base Excess 2.4 mmol/L Normal -2.0-3.0 [facility] Comment on above: Performed By: #### L AVBG #### Roger Witt ([id number]) [address] Carboxyhgb 1.1 % Normal 0.0-2.0 [facility] Comment on above: Result Comment: CARB OXYHEMOGLOBIN (CO) REFERENCE RANGES: Non-Smokers: <2 % Smokers: <8 % TOXIC: >20 % Performed By: #### L AVBG #### Roger Witt ([id number]) [address] CO2 [Moles/Vol] 33 mmol/L High 25-29 [facility] Comment on above: Performed By: #### L AVBG #### Roger Witt ([id number]) [address] Performed By: #### P OCGMD #### Roger Witt ([id number]) [facility] [address] HCO3 (Bld) [Moles/Vol] 31 mmol/L High 24-28 [facility] Comment on above: Performed By: #### L AVBG #### Roger Witt ([id number]) [address] Performed By: #### P OCGMD #### Roger Witt ([id number]) [address] Methemoglobin 0.7 % Normal 0.0-1.5 [facility] Comment on above: Performed By: #### L AVBG #### Roger Witt ([id number]) [address] PCO2 64 mm Hg High 41-51 [facility] Comment on above: Performed By: #### L AVBG #### Roger Witt ([id number]) [address] pH (Bld) 7.29 [pH] Low 7.32-7.42 [facility] Comment on above: Performed By: #### L AVBG #### Roger Witt ([id number]) [place] [address] [place] PO2 24 mm Hg Low 25-40 [facility] Comment on above: Performed By: #### L AVBG #### Roger Witt ([id number]) [address] Reduced Hemoglobin 62.8 % High 0.0-5.0 [facility] Comment on above: Performed By: #### L AVBG #### Roger Witt ([id number]) [address] %HBO2 31.9 % Low 40.0-70.0 [facility] Comment on above: Performed By: #### P OCGMD #### Roger Witt ([id number]) [address] Base Excess 1.1 mmol/L Normal -2.0-3.0 [facility] Comment on above: Performed By: #### P OCGMD #### Roger Witt ([id number]) [address] Carboxyhgb 1.2 % Normal 0.0-2.0 [facility] Comment on above: Result Comment: CARB OXYHEMOGLOBIN (CO) REFERENCE RANGES: Non-Smokers: <2 % Smokers: <8 % TOXIC: >20 % Performed By: #### P OCGMD #### Roger Witt ([id number]) [address] PCO2 67 mm Hg High 41-51 [facility] Comment on above: Performed By: #### P OCGMD #### Roger Witt ([id number]) [address] pH (Bld) 7.27 [pH] Low 7.32-7.42 [facility] Comment on above: Performed By: #### P OCGMD #### Roger Witt ([id number]) [address] PO2 22 mm Hg Low 25-40 [facility] Comment on above: Performed By: #### P OCGMD #### Roger Witt ([id number]) [address] Reduced Hemoglobin 66.3 % High 0.0-5.0 [facility] Comment on above: Performed By: #### P OCGMD #### Roger Witt ([id number]) [address] VITAMIN B12on 08-03-2023 Cobalamin (Vitamin B12) [Mass/Vol] 248 pg/mL Normal 180-914 [facility] Comment on above: Performed By: #### L DVBG #### Roger Witt ([id number]) [address] VITAMIN D 25-HYDROXYon 08-02 Vitamin D, 25 Hydroxy 42.0 ng/mL Normal 30.0-100.0 [facility] Comment on above: Result Comment: Keyla min D deficiency has been defined by the [place] [employer] (IOM) and an Endocrine Society practice guideline as a level of serum 25-OH Vitamin D less than 20 ng/mL. The Endocrine Society went on to further define Vitamin D insufficiency as a level between 21-29 ng/mL. 1) IOM. 2011 Dietary reference intakes for calcium and D. Boudreaux D.C: The National Academies Press 2) Pito MF, Luzmaria KIM, Erickson LEAL, et al. Evaluation, treatment, and prevention of Vitamin D deficiency: an Endocrine Society clinical practice guideline. JCEM. 2010; 96(7):1911-30. Performed By: #### B OWNER CONSULTING ENGINEER #### Roger Witt ([id number]) [address] B NATRIURETIC PEPTIDEon 07-06 Natriuretic peptide B (Bld) [Mass/Vol] 14 pg/mL Normal 0-100 [facility] Comment on above: Order Comment: The p [...] Please interpret accordingly. Performed By: #### B OWNER CONSULTING ENGINEER #### Roger Witt ([id number]) [address] BLOOD CULTURE-PERIPHERALon 0 08-02-2023 BLOOD CULTURE-PERIPHERAL Culture Result: No Growth After 5 Days Normal [facility] Comment on above: Order Comment: Subop timal volume of blood received. Interpret results with caution. Performed By: #### B C #### Roger Witt ([id number]) [address] Performed By: #### P OCGMD #### Roger Witt ([id number]) [address] CBCon 08-02-2023 Erythrocyte distribution width (RBC) [Ratio] 15.3 % High 11.0-15.0 [facility] Comment on above: Performed By: #### C BC #### Roger Witt ([id number]) [address] Hematocrit (Bld) [Volume fraction] 46.6 % Normal 38.5-50.0 [facility] Comment on above: Performed By: #### C BC #### Roger Witt ([id number]) [address] Hemoglobin (Bld) [Mass/Vol] 15.7 g/dL Normal 13.2-17.1 [facility] Comment on above: Performed By: #### C BC #### Roger Witt ([id number]) [address] MCH (RBC) [Entitic mass] 32.4 pg Normal 27.0-33.0 [facility] Comment on above: Performed By: #### C BC #### Roger Witt ([id number]) [address] MCHC (RBC) [Mass/Vol] 33.6 g/dL Normal 32.0-36.0 [facility] Comment on above: Performed By: #### C BC #### Roger Witt ([id number]) [address] MCV (RBC) [Entitic vol] 96.5 fL Normal 80.0-100.0 [facility] Comment on above: Performed By: #### C BC #### Roger Witt ([id number]) [address] Platelet mean volume (Bld) [Entitic vol] 8.6 fL Normal 7.5-11.5 [facility] Comment on above: Performed By: #### C BC #### Roger Witt ([id number]) [address] Platelets (Bld) [#/Vol] 318 10*3/uL Normal 140-400 [facility] Comment on above: Performed By: #### C BC #### Roger Witt ([id number]) [address] RBC (Bld) [#/Vol] 4.83 10*6/uL Normal 4.20-5.80 [facility] Comment on above: Performed By: #### C BC #### Roger Witt ([id number]) [address] WBC (Bld) [#/Vol] 19.1 10*3/uL High 3.8-10.8 [facility] Comment on above: Performed By: #### C BC #### Roger Witt ([id number]) [address] HEAD WO CONTRASTon 2023 CT [...] scalp due to partial exclusion from the [id number]. Normal as included. Calvarium and skull base: [...] MD at 08/02/2023 10:47 PM EDT Normal [facility] DIFFERENTIALon 08-02-2023 Abs BASO 76 /uL Normal 0-200 [facility] Comment on above: Performed By: #### D IFF #### Roger Witt ([id number]) [address] Abs EOS 134 /uL Normal 15-500 [facility] Comment on above: Performed By: #### D IFF #### Roger Witt ([id number]) [place] [address] [place] Abs MONO 1719 /uL High 200-950 [facility] Comment on above: Performed By: #### D IFF #### Roger Witt ([id number]) [place] [address] [place] Abs NEUT 10980 /uL High 9863-2434 [facility] Comment on above: Performed By: #### D IFF #### Roger Witt ([id number]) [place] [address] [place] Basophils/100 WBC (Bld) 0.4 % Normal 0.0-1.0 [facility] Comment on above: Performed By: #### D IFF #### Roger Witt ([id number]) [place] [address] [place] Eosinophils/100 WBC (Bld) 0.7 % Normal 0.0-8.0 [facility] Comment on above: Performed By: #### D IFF #### Roger Witt ([id number]) [place] [address] [place] Lymphocytes (Bld) [#/Vol] 1.795 10*3/uL Normal 850-3900 [facility] Comment on above: Performed By: #### D IFF #### Roger Witt ([id number]) [place] [address] [place] Lymphocytes/100 WBC (Bld) 9.4 % Low 15.0-45.0 [facility] Comment on above: Performed By: #### D IFF #### Roger Witt ([id number]) [place] [address] [place] Monocytes/100 WBC (Bld) 9.0 % Normal 0.0-12.0 [facility] Comment on above: Performed By: #### D IFF #### Roger Witt ([id number]) [address] Neutrophils/100 WBC (Bld) 80.5 % High 40.0-80.0 [facility] Comment on above: Performed By: #### D IFF #### Roger Witt ([id number]) [address] Nucleated RBC 0 /100 WBC Normal 0-0 [facility] Comment on above: Performed By: #### D IFF #### Roger Witt ([id number]) [address] ED HCV AB REFLEX TO HCV JASPAL Ton 08-02-2023 HCVAB NUMBER 0.08 S/CO Normal 0.00-0.79 [facility] Comment on above: Performed By: #### E DHCVR #### Roger Witt ([id number]) [address] Hepatitis C Interp Non-Reactive Normal Nonreactive [facility] Comment on above: Result Comment: Heal th Department notified in accordance with reportable infectious disease guidelines. Performed By: #### E DHCVR #### Roger Witt ([id number]) [address] ED Prov Noteon 08-02-2023 ED Prov Note [facility] ED Note Date of Service: 08/02/2023 Reason for Visit: Altered Mental Status and Multiple Falls Patient History HPI Maikel Riojas is a 73 y.o. male with a history of COPD. DMT2, CHF , HTN who presents to the ED for evaluation of AMS. Patient presents via [facility]irc[facility] after multiple falls and now presenting with AMS. Patient had been recently admitted to [facility] for a COPD exacerbation that required an [...] file. Physical Exam Vitals: 08/02/23 2102 08/02/23 [id number]/[id number] BP: 99/69 BP Location: Right upper arm [...] Vancomycin a (more content not included)... Normal [facility] ED Triage Noon 08-02-2023 ED Triage No Pt to [facility] by air car e for AMS, multiple recent falls, COPD exacerbation. VSS per EMS. Istat remarkable only for lactic of 3. [facility]. On 4LPM O2, baseline 2 L. Normal [facility] High Sensitivity Troponinon 08-02-2023 HSTROPI 14 ng/L Normal 0-20 [facility] Comment on above: Performed By: #### L AVBG #### Roegr Witt ([id number]) [address] Performed By: #### H STROPI #### Roger Witt ([id number]) [address] LACTIC ACID VENOUS WHOLE BLO ODon 08-02-2023 Lactate [Moles/Vol] 3.6 mmol/L High 0.5-2.2 [facility] Comment on above: Performed By: #### L AVBG #### Roger Witt ([id number]) [address] POC GLU MONITORING DEVICEon 08-02-2023 POC GLU MONITORING DEVICE 169 mg/dL High 70-100 [facility] Comment on above: Performed By: #### P OCGMD #### Roger Witt ([id number]) [address] [place] [address] [place] URINALYSIS W/RFL TO MICROSCO Maykel 08-02-2023 Bilirubin, Urine Negative Normal Negative [facility] Comment on above: Order Comment: Micro scopic testing is not performed when the dipstick is negative for blood, leukocyte, protein and nitrite. Performed By: #### P OCGMD #### Roger Witt ([id number]) [address] Clarity (U) Clear Normal Clear [facility] Comment on above: Order Comment: Micro scopic testing is not performed when the dipstick is negative for blood, leukocyte, protein and nitrite. Performed By: #### P OCGMD #### Roger Witt ([id number]) [address] Color (U) Yellow Normal Yellow,Straw [place] [facility] Comment on above: Order Comment: Micro scopic testing is not performed when the dipstick is negative for blood, leukocyte, protein and nitrite. Performed By: #### P OCGMD #### Roger Witt ([id number]) [address] Glucose Ql (U) Negative Normal Negative [facility] Comment on above: Order Comment: Micro scopic testing is not performed when the dipstick is negative for blood, leukocyte, protein and nitrite. Performed By: #### P OCGMD #### Roger Witt ([id number]) [address] Hemoglobin Ql (U) Negative Normal Negative [facility] Comment on above: Order Comment: Micro scopic testing is not performed when the dipstick is negative for blood, leukocyte, protein and nitrite. Performed By: #### P OCGMD #### Roger Witt ([id number]) [address] [place] [address] [place] Hyaline Cast 16 /LPF High 0-2 [facility] Comment on above: Order Comment: Micro scopic testing is not performed when the dipstick is negative for blood, leukocyte, protein and nitrite. Performed By: #### P OCGMD #### Roger Witt ([id number]) [address] Ketone Negative Normal Negative [facility] Comment on above: Order Comment: Micro scopic testing is not performed when the dipstick is negative for blood, leukocyte, protein and nitrite. Performed By: #### P OCGMD #### Roger Witt ([id number]) [address] Leukocyte esterase Test strip Ql (U) Negative Normal Negative [facility] Comment on above: Order Comment: Micro scopic testing is not performed when the dipstick is negative for blood, leukocyte, protein and nitrite. Performed By: #### P OCGMD #### Roger Witt ([id number]) [address] Mucous Present Abnormal None Seen [facility] Comment on above: Order Comment: Micro scopic testing is not performed when the dipstick is negative for blood, leukocyte, protein and nitrite. Performed By: #### P OCGMD #### Roger Witt ([id number]) [address] Nitrite Ql (U) Negative Normal Negative [facility] Comment on above: Order Comment: Micro scopic testing is not performed when the dipstick is negative for blood, leukocyte, protein and nitrite. Performed By: #### P OCGMD #### Roger Witt ([id number]) [address] pH (U) 5.5 [pH] Normal 5.0-8.0 [facility] Comment on above: Order Comment: Micro scopic testing is not performed when the dipstick is negative for blood, leukocyte, protein and nitrite. Performed By: #### P OCGMD #### Roger Witt ([id number]) [address] Protein, urine Negative Normal Negative [facility] Comment on above: Order Comment: Micro scopic testing is not performed when the dipstick is negative for blood, leukocyte, protein and nitrite. Result Comment: Resu lts were rechecked. Performed By: #### P OCGMD #### Roger Witt ([id number]) [address] RBC. 1 /HPF Normal 0-3 [facility] Comment on above: Order Comment: Micro scopic testing is not performed when the dipstick is negative for blood, leukocyte, protein and nitrite. Performed By: #### P OCGMD #### Roger Witt ([id number]) [address] Specific gravity (U) [Rel density] 1.015 Normal 1.005-1.035 [facility] Comment on above: Order Comment: Micro scopic testing is not performed when the dipstick is negative for blood, leukocyte, protein and nitrite. Performed By: #### P OCGMD #### Roger Witt ([id number]) [place] [address] [place] Squamous, Epith 1 /HPF Normal 0-5 [facility] Comment on above: Order Comment: Micro scopic testing is not performed when the dipstick is negative for blood, leukocyte, protein and nitrite. Performed By: #### P OCGMD #### Roger Witt ([id number]) [place] [address] [place] Urobilinogen (U) [Mass/Vol] mg/dL Normal 0.2-1.9 [facility] Comment on above: Order Comment: Micro scopic testing is not performed when the dipstick is negative for blood, leukocyte, protein and nitrite. Performed By: #### P OCGMD #### Roger Witt ([id number]) [address] WBC. 3 /HPF Normal 0-5 [facility] Comment on above: Order Comment: Micro scopic testing is not performed when the dipstick is negative for blood, leukocyte, protein and nitrite. Performed By: #### P OCGMD #### Roger Witt ([id number]) [address] URINE CULTUREon 08-02-2023 Bacteria identified Cx Nom (U) Culture Result: No Growth After 2 Days Normal [facility] Comment on above: Performed By: #### B OWNER CONSULTING ENGINEER #### Roger Witt ([id number]) [address] VENOUS BLOOD GAS, LINE/SYRIN GEon 08-02-2023 %HBO2 43.1 % Normal 40.0-70.0 [facility] Comment on above: Performed By: #### L DVBG #### Roger Witt ([id number]) [address] Base Excess 0.7 mmol/L Normal -2.0-3.0 [facility] Comment on above: Performed By: #### L DVBG #### Roger Witt ([id number]) [address] Carboxyhgb 1.4 % Normal 0.0-2.0 [facility] Comment on above: Result Comment: CARB OXYHEMOGLOBIN (CO) REFERENCE RANGES: Non-Smokers: <2 % Smokers: <8 % TOXIC: >20 % Performed By: #### L DVBG #### Roger Witt ([id number]) [address] CO2 [Moles/Vol] 32 mmol/L High 25-29 [facility] Comment on above: Performed By: #### L DVBG #### Roger Witt ([id number]) [address] HCO3 (Bld) [Moles/Vol] 30 mmol/L High 24-28 [facility] Comment on above: Performed By: #### L DVBG #### Roger Witt ([id number]) [address] Methemoglobin 0.6 % Normal 0.0-1.5 [facility] Comment on above: Performed By: #### P OCGMD #### Roger Witt ([id number]) [address] Performed By: #### L DVBG #### Roger Witt ([id number]) [address] PCO2 69 mm Hg High 41-51 [facility] Comment on above: Performed By: #### L DVBG #### Roger Witt ([id number]) [address] pH (Bld) 7.25 [pH] Low 7.32-7.42 [facility] Comment on above: Performed By: #### L DVBG #### Roger Witt ([id number]) [address] [address] [place] PO2 28 mm Hg Normal 25-40 [facility] Comment on above: Performed By: #### L DVBG #### Roger Witt ([id number]) [address] Reduced Hemoglobin 54.9 % High 0.0-5.0 [facility] Comment on above: Performed By: #### L DVBG #### Roger Witt ([id number]) [address] XR PORTABLE CHESTon 08-02-19 XR PORTABLE CHEST EXAM: XR PORTABLE CHEST INDICATION: Intubation TECHNIQUE: 1 view of the chest. COMPARISON: Chest radiograph from less than 1 hour prior FINDINGS: Medical Devices: ET tube tip projects over the midthoracic trachea. Enteric tube courses below the level of the diaphragms with tip not included in the osuiq-cs-srbb. Heart and Mediastinum: Cardiac silhouette is partially [...] MD at 08/02/2023 9:13 PM EDT Normal [facility] Comment on above: Performed By: #### P OCGMD #### Roger Witt ([id number]) [address] XR PORTABLE CHEST EXAM: XR PORTABLE [...] MD at 08/02/2023 11:04 PM EDT Normal [facility] Comment on above: Performed By: #### L AVBG #### Roger Kiran Witt ([id number]) [address] Encounters Encounter Date Encounter Type Care Provider Facility Start: 12-10-2023 ambulatory Shari Tobar Facility :[facility] Start: 09-01-2023 End: 09-01-2023 Emergency department patient visit [facility] Start: 08-02-2023 End: 08-06-2023 Evaluation and management of inpatient PATRICE MARTIN [facility] Payers Date Payer Category Payer Unknown [id number] 1950 Unknown [id number] 1950 Unknown [id number] 1950 Unknown [id number] Clinical Note 08-06-2023 Note Date & Type Note Facility 08-06-2023 Note [facility] Case Management/Social Work Department Progress Note Patient [...] UNKNOWN Home Pharmacy: [facility] [id number] [id number] Medical Insurance Coverage: Payor: [employer] [place] CARE / Plan: [facility] [facility] / Product Type: Government / Other Pertinent Information RNCM met with interdisciplinary team for rounding/received report, and reviewed chart. Per team, patient is medically ready for discharge. Patient has been accepted at both [facility] and [facility]. Patient has chosen [facility]. Kirill, liaison with [facility]# [phone], is checking on which insurance to use and will reply back to RNCM. Discharge Plan Anticipated discharge plan: short term group home Anticipated discharge date: today or tomorrow CM/SW will continue to follow and remain available for discharge planning needs. SUGAR HANEY Cell [phone] [facility] Clinical Note 08-05-2023 Note Date & Type Note Facility 08-05-2023 Note [facility] Case Management/Social Work Department Progress Note Patient [...] UNKNOWN Home Pharmacy: [facility] [id number] [id number] Medical Insurance Coverage: Payor: [employer] / Plan: [facility] [facility] / Product Type: Government / Other Pertinent Information RNCM met with interdisciplinary team for rounding/received report, and reviewed chart. Per team, patient is medically ready for discharge. Patient needs SNF placement. [facility] who stated [facility] not [facility] for [facility] with [facility]. Referral sent to Ebonie at the [facility] who stated they do not have a [...] for discharge planning needs. SUGAR HANEY Cell [phone] [facility] Procedure note 08-05-2023 Note Date & Type Note Facility 08-05-2023 Note Speech Shirring Machine Operator ology Fiberoptic Endoscopic Evaluation of Swallowing (FEES) Name: Maikel Riojas : 1950 Attending Physician: Narayan Ramos MD Admission Diagnosis: Acute hypoxemic respiratory failure (CMS-HCC) [J96.01] AMS (altered mental status) [R41.82] Date: 08/05/2023 Reviewed Pertinent hospital course: Yes Hospital Course OUTER DIAMETER GRINDER TOOL: 73 y/o male presents with AMS. PMH: COPD, T2DM, HFpEF, HTN, HARIS, BPH, multiple recent falls. Patient with recent admission to [facility] for COPD exacerbation requiring ICU stay and [...] aspiration. 3. Trivial trace bilateral pleural effusions. OUTER DIAMETER GRINDER TOOL Hx: [facility] at [facility]. Assessment: Patient presents with oropharyngeal dysphagia secondary [...] 1) with intermittent throat clear and re-swallow. OUTER DIAMETER GRINDER TOOL will follow up 1-2x to ensure implementation of compensatory and safe swallow strategy. Patient is at an increased risk of aspiration. Images are available for review in [employer]. Restaurant Kitchen Manager: Elena Trace silent aspiration of thin liquid x1 Plan/Recommendation [...] obtained. Pre-Swallow Assessment Serial number Nasopharyngoscope used: [id number] Velopharyngeal closure: complete Base of tongue contact [...] and is not (more content not included)... [facility] Clinical Note 08-03-2023 Note Date & Type Note Facility 08-03-2023 Note Problem: Non-violent , lyp-bvkm-oyhhlhiiyoa restraints Description: Less restrictive alternative interventions will [...] of medical procedures, or protection of medical surgical tech access. Outcome: Completed Restraints removed with extubation. notified. Leonor Fabian RN [facility] Clinical Note 08-03-2023 Note Date & Type [...] Coverage: Payor: [employer] / [facility] Product Type: Government / Secondary Payor: [...] Services Community Services at Home: [facility] Types Prior to Admission: Home Health Aide Support Systems Emergency contact: Extended Emergency Contact Information Primary Emergency Contact: Hayden Riojas Mobile Relation: Son Golf Manager needed? No Support Systems Primary Caregiver: Self, Family Marital Status: Single Number of children and their names: 13 Relative Search Completed: No Demographics Correct:: Yes Expected Discharge Disposition: Jail Facility Next of Kin: Hayden Riojas Next of Kin Relationship: Son Next of Kin Assessment Information Obtained From:: Children, Chart Review Other Pertinent Information Equipment Mechanic Specialist met with MICU team for daily rounds and completed chart review. Patient is not anticipated to be medically ready today. Pt is currently intubated. H&P: Maikel Riojas is a 73 y.o. male with a history of COPD, T2DM, HFpEF, HTN, HARIS, BPH, multiple recent falls presenting for altered mental status. Of note patient recently admitted to [facility] for COPD exacerbation which required ICU stay [...] have severe uremia on lab workup. Assessment: Supervisor [employer]/Equipment Mechanic Specialist Malcolm Gerardo spoke with patient's son Hayden [phone] to complete psychosocial assessment for discharge planning [...] home oxygen No dialysis. No history of group home facility Pt has a history of inpatient rehabilitation facility admissions. No history of home health care services. SW inquired regarding Advance Directives paperwork. Pt reportedly does have a HCPOA which is his son, Hayden Riojas [phone]. Son is aware that without this document on file we go to L[facility]K which is all of his children collectively. Patient's [place] are all 13 of his children (3 are leaving 10) until Hayden sends over HCPOA documentation. Advance Directives (For Healthcare) Advance Directive: Patient has advance directive, copy not (more content not included)... [facility] Clinical Note 08-03-2023 Note Date & Type Note Facility 08-03-2023 Note Problem: Non-violent , sde-ontm-jpeygcbboln restraints Description: Less restrictive alternative interventions will [...] low air loss bed. Leonor Fabian RN [facility] Clinical Note 08-03-2023 Note Date & Type Note Facility 08-03-2023 Note Problem: Non-violent , cqe-znjf-uzuzzdnvgfj restraints Description: Less restrictive alternative interventions will [...] of medical procedures, or protection of medical surgical tech access. Outcome: Progressing Pt in BUE restraints to prevent from pulling at medical devices. Will educate and continue to monitor. [facility] Clinical Note 08-03-2023 Note Date & Type Note Facility 08-03-2023 Note Problem: Non-violent , qnc-eibq-sxtcwtifdqb restraints Description: Less restrictive alternative interventions will [...] 08/02/[id number] by Nnamdi Estrada RN Outcome: Progressing [facility] Procedure note 08-02-2023 Note Date & Type Note Facility 08-02-2023 Note [facility] ED Procedu re Note Emergency Department Procedures Intubation Date/Time: 08/02/2023 8:40 PM Performed by: Юлия Pate MD Authorized by: Ulises Conway MD Consent: Consent obtained: Emergent situation Curtice protocol: Patient identity confirmed: Arm band Pre-procedure [...] position. EM Екатерина Nuno MD and EM Attending MD Zoraida were present for this procedure. There were no complications unless otherwise documented. [facility] Summary Purpose Family History No Family History Records FoundNo Family History Records FoundNo Family History Records Found Advance Directives No Advanced Directives Records FoundNo Advanced Directives Records FoundNo Advanced Directives Records Found Additional Source Comments (unrecognized sect ion and content) No Status Records FoundNo Status Records FoundNo Status Records Found INFORMATION SOURCE (unrecogn ized section and content) DATE CREATED AUTHOR 08/13/2023 [facility] DATE CREATED AUTHOR AUTHOR'S ORGANIZ ATION 09/11/2023 [facility] DATE CREATED AUTHOR AUTHOR'S ORGANIZ ATION 11/15/2023 [facility] FOR RECORDS PERTAINING TO PATIENTS WHO ARE [...] BE BASED ON THE PRIMARY CLINICAL RECORDS. [employer] provides no warranty or guarantee of the accuracy or completeness of information in this document.
[2023-11-28 11:51] LABS: Bilirubin Urine NEGATIVE (NEGATIVE); Blood Urine MODERATE (NEGATIVE); Color Urine YELLOW (YELLOW); Glucose Urine UA NEGATIVE (NEGATIVE); Ketones Urine NEGATIVE (NEGATIVE); Leukocyte Esterase Urine MODERATE (NEGATIVE); Nitrite Urine POSITIVE (NEGATIVE); Protein Urine 100 mg/dL (NEG/TRACE); Urobilinogen Urine 0.2 EU/dL (0.2-1.0)
[2023-11-28 12:00] LABS: Clarity Urine TURBID (CLEAR); Urine Microscopic Indicated YES
[2023-11-28 12:30] LABS: Bacteria Urine LARGE #/HPF (NONE SEEN); Cast Seen? NONE SEEN #/LPF (NONE SEEN); Crystals Seen? None Seen #/HPF (None Seen); Mucus Urine NONE SEEN (NONE SEEN); Squamous Epithelial Cell Urine NONE SEEN #/LPF (NONE/RARE); WBC Urine >100 #/HPF (NONE SEEN)
== END 2023-11-28 10:21 | disposition home or self-care (01) ==
LOC: LAB 10:20
PROVIDERS: PCP Family Medicine; Visit Provider Family Medicine
DX: J44.9 Chronic obstructive pulmonary disease, unspecified (principal); R41.82 Altered mental status, unspecified
CPT/HCPCS: 81001

== ENCOUNTER 2023-11-30 02:34 | Outpatient (RCR) | payer MEDICARE, SELFPAY ==
[2023-11-30 07:45] LABS: Basophils Absolute Auto 0.1 10^3/uL (0.0-0.1); Basophils Percent Auto 0.5 % (0.2-2.0); Eosinophils Absolute Auto 0.2 10^3/uL (0.0-0.7); Eosinophils Percent Auto 2.5 % (0.9-7.0); Hematocrit 39.8 % (42.0-54.0); Hemoglobin 12.2 g/dL (14.0-18.0); Immature Granulocytes Abs Auto 0.05 10^3/uL (0.00-0.03); Immature Granulocytes Pct Auto 0.5 % (0.0-0.5); Lymphocytes Absolute Auto 2.1 10^3/uL (1.2-3.8); Lymphocytes Percent Auto 21.6 % (20.5-60.0); Mean Corpuscular HGB Conc 30.7 g/dL (29.9-35.2); Mean Corpuscular Hemoglobin 30.9 pg (25.9-34.0); Mean Corpuscular Volume 100.8 fL (80.0-94.0); Mean Platelet Volume 10.1 fL (9.5-13.5); Monocytes Absolute Auto 0.8 10^3/uL (0.3-0.8); Monocytes Percent Auto 8.2 % (1.7-12.0); Neutrophils Absolute Auto 6.3 10^3/uL (1.4-6.5); Neutrophils Percent Auto 66.7 % (43.0-75.0); Platelet Count 243 10^3/uL (150-450); Red Blood Count 3.95 10^6/uL (4.70-6.10); Red Cell Distribution Width 14.4 % (11.0-15.0); White Blood Count 9.5 10^3/uL (4.0-11.0)
[2023-11-30 08:35] LABS: Alanine Aminotransferase 17 U/L (16-63); Albumin Level 3.3 g/dL (3.4-5.0); Alkaline Phosphatase 84 U/L (46-116); Aspartate Amino Transferase 8 U/L (15-37); BUN Creatinine Ratio 16.7; Bilirubin Total 0.6 mg/dL (0.2-1.0); Calcium 9.5 mg/dL (8.5-10.1); Carbon Dioxide 36.5 mmol/L (21.0-32.0); Chloride 102 mmol/L (98-107); Estimated GFR (African America >60 (>=60); Estimated GFR (Non-African Ame 56 (>=60); Globulin 3.4 g/dL; Glucose 111 mg/dL (74-106); Potassium 4.5 mmol/L (3.5-5.1); Sodium 144 mmol/L (136-145); Total Protein 6.7 g/dL (6.4-8.2)
== END 2023-12-05 23:59 | disposition home or self-care (01) ==
LOC: LAB 02:34
PROVIDERS: PCP Family Medicine; Visit Provider Family Medicine
DX: R41.0 Disorientation, unspecified (principal)
CPT/HCPCS: 36415; 80053; 85025

== ENCOUNTER 2023-12-05 10:41 | Inpatient (IN) | payer MEDICARE, MEDICAID, SELFPAY ==
[2023-12-05] VITALS (112 sets, daily range): BP systolic 80–188; BP diastolic 42–160; PULSE 68–99; RESP 14–16; TEMP 36.2–37.3; O2SAT 56–100; BMI 41.3; BMI 41.4
--- NOTE | 2023-12-05 10:45 | ED.SOB1 ---
HPI - SOB/Dyspnea General Chief Complaint: Shortness of Breath/Dyspnea Stated Complaint: RESPIRATORY DISTRESS Time Seen by Provider: 12/05/23 10:44 Mode of arrival: ambulance History of Present Illness HPI Narrative: This patient brought to us from a care facility. He is unable to provide any history due to his underlying medical condition. Medics indicate that his pulse oximetry was low when they picked him up at his care facility. We do not have any old records on him. He is a full CODE BLUE. He was seen by myself on arrival here. Supportive care was initiated including supplemental oxygen. He was quickly converted to CPAP. Imaging diagnostic testing and workup will ensue. We did obtain transfer records from the care facility that indicate he has known sleep apnea and hypercarbic respiratory failure on top of COPD. A number of other medical problem are listed in that transfer sheet as well. On arrival here we rapidly checked his blood glucose and it was normal. Respiratory therapy was here and we switched him over from cannula to a CPAP mask. On arrival he does open his eyes to command but did not follow any other commands. Related Data Home Medications ?Medication ?Instructions ?Recorded ?Confirmed albuterol sulfate 2.5 mg/3 mL 2.5 mg inhalation Q6H 12/05/23 12/05/23 (0.083 %) solution for nebulization albuterol sulfate 90 mcg/actuation 2 puff inhalation QID 12/05/23 12/05/23 aerosol inhaler amlodipine 5 mg tablet 5 mg PO DAILY 12/05/23 12/05/23 aspirin 81 mg tablet,delayed 81 mg PO DAILY 12/05/23 12/05/23 release (Adult Low Dose Aspirin) atorvastatin 20 mg tablet 20 mg PO DAILY 12/05/23 12/05/23 buspirone 5 mg tablet 5 mg PO BID 12/05/23 12/05/23 cetirizine 10 mg tablet 10 mg PO DAILY 12/05/23 12/05/23 cholecalciferol (vitamin D3) 25 1,000 unit PO DAILY 12/05/23 12/05/23 mcg (1,000 unit) capsule cromolyn 5.2 mg/spray (4 %) nasal 1 spray intranasal DAILY 12/05/23 12/05/23 spray cyanocobalamin (vitamin B-12) 1,000 mcg PO DAILY 12/05/23 12/05/23 1,000 mcg tablet diclofenac sodium 1 % topical gel 4 g topical QID 12/05/23 12/05/23 duloxetine 60 mg capsule,delayed 60 mg PO DAILY 12/05/23 12/05/23 release fluticasone 250 mcg-salmeterol 50 1 inh inhalation Q12H 12/05/23 12/05/23 mcg/dose blistr powdr for inhalation fluticasone propionate 50 2 spray intranasal DAILY 12/05/23 12/05/23 mcg/actuation nasal spray,suspension (24 Hour Allergy Relief) ipratropium 0.5 mg-albuterol 3 mg 3 ml inhalation Q6H 12/05/23 12/05/23 (2.5 mg base)/3 mL nebulization soln levofloxacin 500 mg tablet 500 mg PO DAILY 12/05/23 12/05/23 metformin 1,000 mg tablet 1,000 mg PO BID 12/05/23 12/05/23 metoprolol tartrate 25 mg tablet 25 mg PO BID 12/05/23 12/05/23 miconazole nitrate 2 % topical 1 applic topical BID 12/05/23 12/05/23 powder (Antifungal (miconazole)) omeprazole 20 mg capsule,delayed 20 mg PO DAILY 12/05/23 12/05/23 release polyethylene glycol 3350 17 gram 17 g PO DAILY PRN constipation 12/05/23 12/05/23 oral powder packet (Miralax) potassium 75 mg tablet 10 mg PO DAILY 12/05/23 12/05/23 pregabalin 150 mg capsule 150 mg PO BID 12/05/23 12/05/23 sennosides 8.6 mg tablet (Natural 8.6 mg PO BID PRN constipation 12/05/23 12/05/23 Senna Laxative) sodium chloride 0.65 % nasal spray 2 spray intranasal BID PRN dry 12/05/23 12/05/23 aerosol ([place] Saline) nasal passages spironolactone 25 mg tablet 25 mg PO DAILY 12/05/23 12/05/23 tamsulosin 0.4 mg capsule 0.4 mg PO DAILY 12/05/23 12/05/23 tiotropium 2.5 mcg-olodaterol 2.5 2 puff inhalation BID 12/05/23 12/05/23 mcg/actuation mist for inhalation (Stiolto Respimat) torsemide 20 mg tablet 20 mg PO DAILY 12/05/23 12/05/23 Allergies Allergy/AdvReac Type Severity Reaction Status Date / Time gabapentin Allergy Unknown Unknown Verified 12/05/23 11:04 tomato Allergy Unknown Unknown Verified 12/05/23 11:41 [facility] Medical History (Updated 12/05/23 @ 14:44 by Anish Zuniga MD) History of cognitive deficit ?Z87.898 - Personal history of other specified conditions (ICD-10) Gastro-esophageal reflux ?K21.9 - Gastro-esophageal reflux disease without esophagitis (ICD-10) Osteoarthritis ?M19.90 - Unspecified osteoarthritis, unspecified site (ICD-10) History of peripheral vascular disease ?Z86.79 - Personal history of other diseases of the circulatory system (ICD-10) History of congestive heart disease ?Z86.79 - Personal history of other diseases of the circulatory system (ICD-10) Hypertension ?I10 - Essential (primary) hypertension (ICD-10) History of obstructive sleep apnea ?Z86.69 - Personal history of other diseases of the nervous system and sense organs (ICD-10) History of panic disorder ?Z86.59 - Personal history of other mental and behavioral disorders (ICD-10) History of depression ?Z86.59 - Personal history of other mental and behavioral disorders (ICD-10) Morbid obesity ?E66.01 - Morbid (severe) obesity due to excess calories (ICD-10) Hx of diabetes mellitus ?Z86.39 - Personal history of other endocrine, nutritional and metabolic disease (ICD-10) COPD (chronic obstructive pulmonary disease) ?J44.9 - Chronic obstructive pulmonary disease, unspecified (ICD-10) Exam Narrative Exam Narrative: Awake. Somewhat somnolent as noted above will open his command eyes to command only. Seems to indicate he is not having any pain or discomfort. Initial vital signs noted. His pulse oximetry is in fact decreased so he is placed on CPAP immediately. Mouth and oral cavity are dry dentition is in somewhat poor repair. Gag reflex intact. There is no craniofacial trauma injury or indication of a fall. Scattered rhonchi are noted but no wheezing. He does have diminished airflow bilaterally. Heart rate and rhythm show rate to be 86 with possible atrial rhythm. No ST segment elevation or malignant ectopy is noted on his twelve-lead. Abdomen is obese does not seem to have any pain or discomfort to palpation. His extremities show edema bilaterally with chronic venous stasis with no evidence of active cellulitis at this time. Neurological shows spontaneous eye opening and voice command opening. He does move the extremities with no obvious deficit. He is still not communicative. Constitutional Vital Signs, click to edit/add: Last Vital Signs Temp 97.8 F 12/05/23 13:24 Pulse 78 12/05/23 14:15 Resp 17 12/05/23 14:15 BP 123/73 12/05/23 14:00 Pulse Ox 91 L 12/05/23 14:15 O2 Del Method BIPAP 12/05/23 13:24 O2 Flow Rate 10 12/05/23 10:45 FiO2 50 12/05/23 11:17 Course Vital Signs Vital signs: Vital Signs Pulse Rate 99 H 12/05/23 10:44 Respiratory Rate 32 H 12/05/23 10:44 Pulse Oximetry 99 12/05/23 10:44 Temperature 97.8 F 12/05/23 13:24 Pulse Rate 78 12/05/23 14:15 Respiratory Rate 17 12/05/23 14:15 Blood Pressure 123/73 12/05/23 14:00 Pulse Oximetry 91 L 12/05/23 14:15 Oxygen Delivery Method BIPAP 12/05/23 13:24 Oxygen Delivery Flow Rate 10 12/05/23 10:45 Fraction of Inspired Oxygen 50 12/05/23 11:17 MDM - SOB/Dyspnea MDM Narrative Medical decision making narrative: Initial workup included a CPAP. DuoNeb respiratory therapy treatment intravenous Solu-Medrol. His initial blood pressure vital signs are stabilized but he had a brief episode of hypotension. When we look at some outpatient lab compared to today's labs BUN and creatinine have elevated substantially consistent with volume depletion so he was given 500 cc of fluid and his blood pressure did correct. His sequential arterial blood gases show increase in his hypercarbia and pH. His chest x-ray per radiologist did not show any acute findings. We did instill Daniel catheter because he will need long-term care and the urinalysis does not suggest any urinary tract infection. Lactate rales were normal. Working diagnosis exacerbation of COPD. We have empirically started him on steroids and antibiotics. Case was discussed with the hospitalist. He will be admitted to ICU Lab Data Labs: Lab Results 0812/05/23 12/05/23 Range/Units 10:45 10:56 11:13 WBC 10.8 (4.0-11.0) 10^3/uL RBC 3.64 L (4.70-6.10) 10^6/uL Hgb 11.6 L (14.0-18.0) g/dL Hct 37.4 L (42.0-54.0) % MCV 102.7 H (80.0-94.0) fL MCH 31.9 (25.9-34.0) pg MCHC 31.0 (29.9-35.2) g/dL RDW 14.5 (11.0-15.0) % Plt Count 266 (150-450) 10^3/uL MPV 10.1 (9.5-13.5) fL Neut % (Auto) 74.6 (43.0-75.0) % Lymph % (Auto) 11.6 L (20.5-60.0) % [place] % (Auto) 8.5 (1.7-12.0) % Eos % (Auto) 0.6 L (0.9-7.0) % Baso % (Auto) 0.9 (0.2-2.0) % Neut # (Auto) 8.0 H (1.4-6.5) 10^3/uL Lymph # (Auto) 1.3 (1.2-3.8) 10^3/uL [place] # (Auto) 0.9 H (0.3-0.8) 10^3/uL Eos # (Auto) 0.1 (0.0-0.7) 10^3/uL Baso # (Auto) 0.1 (0.0-0.1) 10^3/uL Abs Immat Gran (auto) 0.41 H (0.00-0.03) 10^3/uL Imm/Tot Granulo (auto) 3.8 H (0.0-0.5) % PT 10.5 (9.0-11.6) sec INR 0.99 Puncture Site R radial ABG pH 7.230 L* (7.350-7.450) ABG pCO2 86.0 H* (35.0-45.0) mmHg ABG pO2 198.0 H (80.0-100.0) mmHg ABG HCO3 36.0 H (22.0-26.0) mmol/L ABG O2 Saturation 99.9 % ABG Base Excess 8.5 H (-2.0-2.0) mmol/L Hitesh Test Pos (POSITIVE) VBG pH 7.254 L (7.330-7.430) VBG pCO2 85.8 H* (40.0-52.0) mmHg FiO2 60 % BiPAP 14/8 Sodium 144 (136-145) mmol/L Potassium 5.5 H (3.5-5.1) mmol/L Chloride 101 (98-107) mmol/L Carbon Dioxide 39.3 H (21.0-32.0) mmol/L Anion Gap 9.2 BUN 34.0 H (7.0-18.0) mg/dL Creatinine 1.80 H (0.70-1.30) mg/dL Est GFR ( Amer) 45 L (>=60) Est GFR (Non-Af Amer) 37 L (>=60) BUN/Creatinine Ratio 18.9 Glucose 111 H (74-106) mg/dL Lactate (0.4-2.0) mmol/L Calcium 8.8 (8.5-10.1) mg/dL Total Bilirubin 0.4 (0.2-1.0) mg/dL AST 7 L (15-37) U/L ALT 12 L (16-63) U/L Alkaline Phosphatase 81 (46-116) U/L Troponin I High Sens 5.8 (4.0-76.1) pg/mL NT-Pro-B Natriuret Pep 350.0 (<=900.0) pg/mL Total Protein 6.7 (6.4-8.2) g/dL Albumin 3.1 L (3.4-5.0) g/dL Globulin 3.6 g/dL Albumin/Globulin Ratio 0.9 Urine Color (YELLOW) Urine Clarity (CLEAR) Urine pH (5.0-9.0) Ur Specific [place] (1.005-1.025) Urine Protein (NEG/TRACE) mg/dL Urine Glucose (UA) (NEGATIVE) mg/dL Urine Ketones (NEGATIVE) mg/dL Urine Occult Blood (NEGATIVE) Urine Nitrite (NEGATIVE) Urine Bilirubin (NEGATIVE) Urine Urobilinogen (0.2-1.0) EU/dL Ur Leukocyte Esterase (NEGATIVE) POC Glucose 102 (74-106) mg/dL 12/05/23 12/05/23 12/05/23 Range/Units 12:32 12:45 12:55 WBC (4.0-11.0) 10^3/uL RBC (4.70-6.10) 10^6/uL Hgb (14.0-18.0) g/dL Hct (42.0-54.0) % MCV (80.0-94.0) fL MCH (25.9-34.0) pg MCHC (29.9-35.2) g/dL RDW (11.0-15.0) % Plt Count (150-450) 10^3/uL MPV (9.5-13.5) fL Neut % (Auto) (43.0-75.0) % Lymph % (Auto) (20.5-60.0) % [place] % (Auto) (1.7-12.0) % Eos % (Auto) (0.9-7.0) % Baso % (Auto) (0.2-2.0) % Neut # (Auto) (1.4-6.5) 10^3/uL Lymph # (Auto) (1.2-3.8) 10^3/uL [place] # (Auto) (0.3-0.8) 10^3/uL Eos # (Auto) (0.0-0.7) 10^3/uL Baso # (Auto) (0.0-0.1) 10^3/uL Abs Immat Gran (auto) (0.00-0.03) 10^3/uL Imm/Tot Granulo (auto) (0.0-0.5) % PT (9.0-11.6) sec INR Puncture Site R radial ABG pH 7.290 L* (7.350-7.450) ABG pCO2 73.2 H* (35.0-45.0) mmHg ABG pO2 67.3 L (80.0-100.0) mmHg ABG HCO3 35.1 H (22.0-26.0) mmol/L ABG O2 Saturation 93.6 % ABG Base Excess 8.5 H (-2.0-2.0) mmol/L Hitesh Test Positive (POSITIVE) VBG pH (7.330-7.430) VBG pCO2 (40.0-52.0) mmHg FiO2 35 % BiPAP 14/8 Sodium (136-145) mmol/L Potassium (3.5-5.1) mmol/L Chloride (98-107) mmol/L Carbon Dioxide (21.0-32.0) mmol/L Anion Gap BUN (7.0-18.0) mg/dL Creatinine (0.70-1.30) mg/dL Est GFR ( Amer) (>=60) Est GFR (Non-Af Amer) (>=60) BUN/Creatinine Ratio Glucose (74-106) mg/dL Lactate 0.8 (0.4-2.0) mmol/L Calcium (8.5-10.1) mg/dL Total Bilirubin (0.2-1.0) mg/dL AST (15-37) U/L ALT (16-63) U/L Alkaline Phosphatase (46-116) U/L Troponin I High Sens (4.0-76.1) pg/mL NT-Pro-B Natriuret Pep (<=900.0) pg/mL Total Protein (6.4-8.2) g/dL Albumin (3.4-5.0) g/dL Globulin g/dL Albumin/Globulin Ratio Urine Color Lt. yellow (YELLOW) Urine Clarity Clear (CLEAR) Urine pH 5.5 (5.0-9.0) Ur Specific [place] 1.025 (1.005-1.025) Urine Protein Negative (NEG/TRACE) mg/dL Urine Glucose (UA) Negative (NEGATIVE) mg/dL Urine Ketones Trace A (NEGATIVE) mg/dL Urine Occult Blood Negative (NEGATIVE) Urine Nitrite Negative (NEGATIVE) Urine Bilirubin Negative (NEGATIVE) Urine Urobilinogen 0.2 (0.2-1.0) EU/dL Ur Leukocyte Esterase Negative (NEGATIVE) POC Glucose (74-106) mg/dL Discharge Plan Discharge Chief Complaint: Shortness of Breath/Dyspnea Clinical Impression: Respiratory failure with hypercapnia Patient Disposition: Admitted As Inpatient Time of Disposition Decision: 14:44 Prescriptions / Home Meds: No Action albuterol sulfate 2.5 mg /3 mL (0.083 %) solution for nebulization 2.5 mg inhalation Q6H albuterol sulfate 90 mcg/actuation HFA aerosol inhaler 2 puff inhalation QID amlodipine 5 mg tablet 5 mg PO DAILY aspirin [Adult Low Dose Aspirin] 81 mg tablet,delayed release (DR/EC) 81 mg PO DAILY atorvastatin 20 mg tablet 20 mg PO DAILY buspirone 5 mg tablet 5 mg PO BID cetirizine 10 mg tablet 10 mg PO DAILY cholecalciferol (vitamin D3) 25 mcg (1,000 unit) capsule 1,000 unit PO DAILY cromolyn 5.2 mg/spray (4 %) spray,non-aerosol 1 spray intranasal DAILY cyanocobalamin (vitamin B-12) 1,000 mcg tablet 1,000 mcg PO DAILY diclofenac sodium 1 % gel 4 g topical QID Rx Instructions: apply to single knee, ankle, foot; for foot includes sole/toes/top of foot duloxetine 60 mg capsule,delayed release(DR/EC) 60 mg PO DAILY fluticasone propion-salmeterol 250-50 mcg/dose blister with device 1 inh inhalation Q12H levofloxacin 500 mg tablet 500 mg PO DAILY Patient Comments: 11/30/23-12/09/23 metformin 1,000 mg tablet 1,000 mg PO BID metoprolol tartrate 25 mg tablet 25 mg PO BID omeprazole 20 mg capsule,delayed release(DR/EC) 20 mg PO DAILY polyethylene glycol 3350 [Miralax] 17 gram powder in packet 17 g PO DAILY PRN (Reason: constipation) potassium 75 mg tablet 10 mg PO DAILY pregabalin 150 mg capsule 150 mg PO BID spironolactone 25 mg tablet 25 mg PO DAILY Stiolto Respimat 2.5-2.5 mcg/actuation mist 2 puff inhalation BID tamsulosin 0.4 mg capsule 0.4 mg PO DAILY torsemide 20 mg tablet 20 mg PO DAILY fluticasone propionate [24 Hour Allergy Relief] 50 mcg/actuation spray,suspension 2 spray intranasal DAILY Rx Instructions: administer into each nostril miconazole nitrate [Antifungal (miconazole)] 2 % powder 1 applic topical BID sennosides [Natural Senna Laxative] 8.6 mg tablet 8.6 mg PO BID PRN (Reason: constipation) [place] Saline 0.65 % aerosol,spray 2 spray intranasal BID PRN (Reason: dry nasal passages) ipratropium-albuterol 0.5 mg-3 mg(2.5 mg base)/3 mL solution for nebulization 3 ml inhalation Q6H Print Language: [place]ian Referrals: JENNIFER PUENTE [Primary Care Provider] - 1 week
[2023-12-05 10:47] LABS: Glucometer 102 mg/dL (74-106)
--- NOTE | 2023-12-05 10:49 | XR_ITS ---
[address] [address] Patient Name: JENNIFER RIOJAS MRN: [id number] date: 1950 Sex: M Assigned Patient Location: ER Current Patient Location: ED.MAIN Accession/Order Number: [id number] Exam Date: 12/05/2023 10:50 Report Date: 12/05/2023 11:08 At the request of: ROVERTO ROACH Procedure: XR chest 1V EXAM: XR chest 1V HISTORY: Dyspnea COMPARISON: None FINDINGS/IMPRESSION: 1. Lungs are clear 2. No pneumothorax. No pleural effusion. 3. Heart size and mediastinal contours are normal 4. No acute osseous abnormality. Mild degeneration of the acromioclavicular joint. 5. Upper abdominal bowel gas pattern is nonspecific. Electronically authenticated by: BOGDAN CLARK Date: 12/05/2023 11:08
--- NOTE | 2023-12-05 10:49 | ECG_ITS ---
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
[2023-12-05] MEDS: METHYLPREDNISOLONE SOD SUCC PF 125 MG/2 ML VIAL IVP (11:05)
[2023-12-05 11:07] LABS: Allen Test POS (POSITIVE); Base Excess ABG 8.5 mmol/L (-2.0-2.0); Oxygen Saturation ABG 99.9 %
[2023-12-05] MEDS: IPRATROPIUM/ALBUTEROL SULFATE 3 ML AMPUL.NEB IH ×3 (11:07→20:22)
[2023-12-05 11:08] LABS: BIPAP Pressure 14/8; Fractionated Inspired Oxygen 60 %; O2 Mode BIPAP; Puncture Site R RADIAL
--- NOTE | 2023-12-05 11:12 | RESP.RT ---
Addendum entered by Lyn Oshea, COUNTERINTELLIGENCE SPECIALIST 12/05/23 15:37: Transported from ER to ICU Original Note: titrated FiO2 down to 50%
--- NOTE | 2023-12-05 11:17 | RESP.RT ---
Titrated down to 35%
[2023-12-05 11:28] LABS: pH VBG 7.254 (7.330-7.430)
[2023-12-05 11:30] LABS: PCO2 VBG 85.8 mmHg (40.0-52.0)
[2023-12-05 11:34] LABS: Alanine Aminotransferase 12 U/L (16-63); Albumin Globulin Ratio 0.9; Albumin Level 3.1 g/dL (3.4-5.0); Alkaline Phosphatase 81 U/L (46-116); Anion Gap 9.2; Aspartate Amino Transferase 7 U/L (15-37); BUN Creatinine Ratio 18.9; Bilirubin Total 0.4 mg/dL (0.2-1.0); Calcium 8.8 mg/dL (8.5-10.1); Carbon Dioxide 39.3 mmol/L (21.0-32.0); Chloride 101 mmol/L (98-107); Estimated GFR (African America 45 (>=60); Estimated GFR (Non-African Ame 37 (>=60); Globulin 3.6 g/dL; Glucose 111 mg/dL (74-106); Potassium 5.5 mmol/L (3.5-5.1); Sodium 144 mmol/L (136-145); Total Protein 6.7 g/dL (6.4-8.2)
[2023-12-05 11:42] LABS: Basophils Absolute Auto 0.1 10^3/uL (0.0-0.1); Basophils Percent Auto 0.9 % (0.2-2.0); Eosinophils Absolute Auto 0.1 10^3/uL (0.0-0.7); Eosinophils Percent Auto 0.6 % (0.9-7.0); Hematocrit 37.4 % (42.0-54.0); Hemoglobin 11.6 g/dL (14.0-18.0); Immature Granulocytes Abs Auto 0.41 10^3/uL (0.00-0.03); Immature Granulocytes Pct Auto 3.8 % (0.0-0.5); Lymphocytes Absolute Auto 1.3 10^3/uL (1.2-3.8); Lymphocytes Percent Auto 11.6 % (20.5-60.0); Mean Corpuscular Hemoglobin 31.9 pg (25.9-34.0); Mean Corpuscular Volume 102.7 fL (80.0-94.0); Mean Platelet Volume 10.1 fL (9.5-13.5); Monocytes Absolute Auto 0.9 10^3/uL (0.3-0.8); Monocytes Percent Auto 8.5 % (1.7-12.0); Neutrophils Percent Auto 74.6 % (43.0-75.0); Platelet Count 266 10^3/uL (150-450); Red Blood Count 3.64 10^6/uL (4.70-6.10); Red Cell Distribution Width 14.5 % (11.0-15.0); Troponin I High Sensitivity 5.8 pg/mL (4.0-76.1); White Blood Count 10.8 10^3/uL (4.0-11.0)
[2023-12-05 11:43] LABS: INR 0.99; Prothrombin Time 10.5 sec (9.0-11.6)
--- OUTSIDE RECORDS SUMMARY | 2023-12-05 11:58 | XMS_ITS | CCD ---
Author Organization [place] [facility] Care Team Providers Care Mail Caller Name Role Phone PATRICE MARTIN Primary Care Unavailable PATRICE MARTIN Admitting Unavailable NARAYAN RAMOS Attending Unavailable DANIEL CHENG Attending Unavailable CATHI SERVIN Primary Care KATERINE Hughes Referring Unavailable CATHI SERVIN Primary Care Shari Mabry Attending Unavailable Allergies Allergy Classification Reported Allergen(s) Allergy Type Date of Onset Reaction(s) Facility Anti-Epileptic Agents (1 source) gabapentin; Translations: [GABAPENTIN] Drug Allergy 09-01-2023 [facility] Repository sildenafil (1 source) sildenafil; Translations: [SILDENAFIL] Drug Allergy 09-01-2023 [facility] Repository (1 source) gabapentin; Translations: [GABAPENTIN] Drug Allergy 05-13-2021 [facility] Repository (1 source) sildenafil; Translations: [SILDENAFIL] Drug Allergy 04-28-2020 [facility] Repository (1 source) tomato allergenic extract; Translations: [TOMATO] Drug Allergy 10-19-2018 [facility] Repository Problems Problem Classification Problem Date Documented [...] hypoxia; Translations: [Acute respiratory failure with hypoxia ([facility])] Onset: 08-02-2023 Episodic Results Test Name Value Interpretation Reference Range Facility BNPon 09-01-2023 Natriuretic peptide B (Bld) [Mass/Vol] 383 pg/mL High 0-124 [facility] Comment on above: Performed By: #### B NPEP #### MD ANDREAS CORLEY ([id number]) [facility] [address] [place] [address] CBC With Platelet and Differ entialon 09-01-2023 Anisocytosis Ql (Bld) Occasional Abnormal [facility] Comment on above: Performed By: #### C BCWD #### MD ANDREAS CORLEY ([id number]) [facility] [address] [place] [address] Atypical Lymphs 1 % Normal 0-6 [facility] Comment on above: Performed By: #### C BCWD #### MD ANDREAS CORLEY ([id number]) [facility] [address] [place] [address] Basophils (Bld) [#/Vol] 0.0 10*3/uL Normal 0.0-0.2 [facility] Comment on above: Performed By: #### C BCWD #### MD ANDREAS CORLEY ([id number]) [facility] ([facility] [address] [place] [address] [place] Basophils/100 WBC (Bld) 0.0 % Normal [facility] Comment on above: Performed By: #### C BCWD #### MD ANDREAS CORLEY ([id number]) [facility] [address] [place] [address] [place] Eosinophils (Bld) [#/Vol] 0.0 10*3/uL Normal 0.0-0.6 [facility] Comment on above: Performed By: #### C BCWD #### MD ANDREAS CORLEY ([id number]) [facility] ([facility] [address] [place] [address] [place] Eosinophils/100 WBC (Bld) 0.0 % Normal [facility] Comment on above: Performed By: #### C BCWD #### MD ANDREAS CORLEY ([id number]) [facility] [address] [place] [address] [place] Lymphocytes (Bld) [#/Vol] 2.3 10*3/uL Normal 1.0-5.1 [facility] Comment on above: Performed By: #### C BCWD #### MD ANDREAS CORLEY ([id number]) [facility] [address] [place] [address] [place] Lymphocytes/100 WBC (Bld) 12.0 % Normal [facility] Comment on above: Performed By: #### C BCWD #### MD ANDREAS CORLEY ([id number]) [facility] [address] [place] [address] [place] Monocytes (Bld) [#/Vol] 0.5 10*3/uL Normal 0.0-1.3 [facility] Comment on above: Performed By: #### C BCWD #### MD ANDREAS CORLEY ([id number]) [facility] [address] [place] [address] [place] Monocytes/100 WBC (Bld) 3.0 % Normal [facility] Comment on above: Performed By: #### C BCWD #### MD ANDREAS CORLEY ([id number]) [facility] [address] [place] [address] [place] Neutrophils (Bld) [#/Vol] 14.9 10*3/uL High 1.7-7.7 [facility] Comment on above: Performed By: #### C BCWD #### MD ANDREAS CORLEY ([id number]) [facility] [address] [place] [address] Neutrophils/100 WBC (Bld) 84.0 % Normal [facility] Comment on above: Performed By: #### C BCWD #### MD ANDREAS CORLEY ([id number]) [facility] [address] [place] [address] Polychromasia Occasional Abnormal [facility] Comment on above: Performed By: #### C BCWD #### MD ANDREAS CORLEY ([id number]) [facility] [address] [place] [address] Slide Review see below Normal [facility] Comment on above: Result Comment: Slid e review agrees with reported results Performed By: #### C BCWD #### MD ANDREAS CORLEY ([id number]) [facility] [address] [place] [address] Slide Review for Platelets Adequate Normal [facility] Comment on above: Performed By: #### C BCWD #### MD ANDREAS CORLEY ([id number]) [facility] [address] [place] [address] Erythrocyte distribution width (RBC) [Ratio] 15.6 % High 12.4-15.4 [facility] Comment on above: Performed By: #### C BCWD #### MD ANDREAS CORLEY ([id number]) [facility] [address] [place] [address] Hematocrit (Bld) [Volume fraction] 36.2 % Low 40.5-52.5 [facility] Comment on above: Performed By: #### C BCWD #### MD ANDREAS CORLEY ([id number]) [facility] [address] [place] [address] Hemoglobin (Bld) [Mass/Vol] 11.9 g/dL Low 13.5-17.5 [facility] Comment on above: Performed By: #### C BCWD #### MD ANDREAS CORLEY ([id number]) [facility] [address] [place] [address] MCH (RBC) [Entitic mass] 31.8 pg Normal 26.0-34.0 [facility] Comment on above: Performed By: #### C BCWD #### MD ANDREAS CORLEY ([id number]) [facility] ([facility]) [address] [place] [address] MCHC (RBC) [Mass/Vol] 32.8 g/dL Normal 31.0-36.0 [facility] Comment on above: Performed By: #### C BCWD #### MD ANDREAS CORLEY ([id number]) [facility] [address] [place] [address] MCV (RBC) [Entitic vol] 97.0 fL Normal 80.0-100.0 [facility] Comment on above: Performed By: #### C BCWD #### MD ANDREAS CORLEY ([id number]) [facility]) [address] [place] [address] Platelet mean volume (Bld) [Entitic vol] 7.6 fL Normal 5.0-10.5 [facility] Comment on above: Performed By: #### C BCWD #### MD ANDREAS CORLEY ([id number]) [facility]) [address] [place] [address] Platelets (Bld) [#/Vol] 304 10*3/uL Normal 135-450 [facility] Comment on above: Performed By: #### C BCWD #### MD ANDREAS CORLEY ([id number]) [facility] ([facility]) [address] [place] [address] RBC (Bld) [#/Vol] 3.74 10*6/uL Low 4.20-5.90 [facility] Comment on above: Performed By: #### C BCWD #### MD ANDREAS CORLEY ([id number]) [facility] [address] [place] [address] WBC (Bld) [#/Vol] 17.7 10*3/uL High 4.0-11.0 [facility] Comment on above: Performed By: #### C BCWD #### MD ANDREAS CORLEY ([id number]) [facility] ([facility]) [address] [place] [address] [place] COVID-19on 09-01-2023 SARS-CoV-2 (COVID-19) RNA GEE+probe Ql (Unsp spec) Not detected Normal Not Detected [facility] Comment on above: Result Comment: Rapi d [...] authorized laboratories. Fact sheet for Healthcare Providers: https://www.fda.gov/media/686739/download Fact sheet for Patients: https://www.fda.gov/media/017333/download METHODOLOGY: Isothermal Nucleic Acid Amplification Performed By: #### C OVRG #### MD ANDREAS CORLEY ([id number]) [facility] ([facility]) [address] [place] [address] Comprehensive Metabolic Pane l reflex Mgon 09-01-2023 Albumin [Mass/Vol] 3.1 g/dL Low 3.4-5.[address] [facility] Comment on above: Performed By: #### C MPX #### MD ANDREAS CORLEY ([id number]) [facility] ([facility]) [address] [place] [address] Albumin/Globulin [Mass ratio] 1.1 {ratio} Normal 1.1-2.2 [facility] Comment on above: Performed By: #### C MPX #### MD ANDREAS CORLEY ([id number]) [facility] ([facility]) [address] [place] [address] ALP [Catalytic activity/Vol] 110 U/L Normal 40-129 [facility] Comment on above: Performed By: #### C MPX #### MD ANDREAS CORLEY ([id number]) [facility] ([facility]) [address] [place] [address] [place] ALT [Catalytic activity/Vol] 12 U/L Normal 10-40 [facility] Comment on above: Performed By: #### C MPX #### MD ANDREAS CORLEY ([id number]) [facility] [address] [place], [place] [phone] [facility] Anion gap [Moles/Vol] 7 mmol/L Normal 3-16 [facility] Comment on above: Performed By: #### C MPX #### MD ANDREAS CORLEY ([id number]) [facility] [address] [place], [place] [phone] [place] AST [Catalytic activity/Vol] 7 U/L Low 15-37 [facility] Comment on above: Performed By: #### C MPX #### MD ANDREAS CORLEY ([id number]) [facility] [address] [place] [address] Bilirubin [Mass/Vol] 0.5 mg/dL Normal 0.0-1.0 [facility] Comment on above: Performed By: #### C MPX #### MD ANDREAS CORLEY ([id number]) [facility] [address] [place] [address] [place] Calcium [Mass/Vol] 9.0 mg/dL Normal 8.3-10.[address] [facility] Comment on above: Performed By: #### C MPX #### MD ANDREAS CORLEY ([id number]) [facility] [address] [place] [address] [place] Chloride [Moles/Vol] 99 mmol/L Normal 99-110 [facility] Comment on above: Performed By: #### C MPX #### MD ANDREAS CORLEY ([id number]) [facility] [address] [place], [place] [phone] [place] CO2 [Moles/Vol] 32 mmol/L Normal 21-32 [facility] Comment on above: Performed By: #### C MPX #### MD ANDREAS CORLEY ([id number]) [facility] [address] [place], [place] [phone] [place] Creatinine [Mass/Vol] 1.2 mg/dL Normal 0.8-1.3 [facility] Comment on above: Performed By: #### C MPX #### MD ANDREAS CORLEY ([id number]) [facility] [address] [place] [address] GFR 64 Normal >60 [facility] Comment on above: Result Comment: Alina atric [...] #### C MPX #### MD ANDREAS CORLEY ([id number]) [facility] [address] [place] [address] Glucose [Mass/Vol] 142 mg/dL High 70-[address] [facility] Comment on above: Performed By: #### C MPX #### MD ANDREAS CORLEY ([id number]) [facility] [address] [place] [address] Magnesium [Moles/Vol] 5.1 mmol/L Normal 3.5-5.1 [facility] Comment on above: Performed By: #### C MPX #### MD ANDREAS CORLEY ([id number]) [facility] ([facility] [address] [place], [place] [phone] [facility] Protein [Mass/Vol] 5.9 g/dL Low 6.4-8.[address] [facility] Comment on above: Performed By: #### C MPX #### MD ANDREAS CORLEY ([id number]) [facility] ([facility] [address] [place], [place] [phone] [facility] Sodium [Moles/Vol] 138 mmol/L Normal 136-[address] [facility] Comment on above: Performed By: #### C MPX #### MD ANDREAS CORLEY ([id number]) [facility] ([facility]) [address] [place] [address] Urea nitrogen [Mass/Vol] 21 mg/dL High 7-20 [facility] Comment on above: Performed By: #### C MPX #### MD ANDREAS CORLEY ([id number]) [facility] ([facility]) [address] [place] [address] Culture, Bloodon 09-01-2023 Microscopic examination of blood, culture Culture, Blood No Growth after 4 days of incubation. Normal [facility] Comment on above: Performed By: #### C BCWD #### MD ANDREAS CORLEY ([id number]) [facility] ([facility]) [address] [place] [address] Culture, Blood 2on 4 Culture, Blood 2 Culture, Blood 2 No Growth after 4 days of incubation. [facility] Comment on above: Performed By: #### C BCWD #### MD ANDREAS CORLEY ([id number]) [facility] ([facility]) [address] [place] [address] High Sensitivity Troponin To n 09-01-2023 High Sensitivity Troponin T 77 ng/L [facility] 022 [facility] Comment on above: Result Comment: The high-sensitivity troponin T result should not be compared with other troponin methodologies. Performed By: #### T RP5 #### MD ANDREAS CORLEY ([id number]) [facility] ([facility]) [address] [place] [address] High Sensitivity Troponin T 75 ng/L [facility] 022 [facility] Comment on above: Result Comment: The high-sensitivity troponin T result should not be compared with other troponin methodologies. Performed By: #### T RP5 #### MD ANDREAS CORLEY ([id number]) [facility] ([facility]) [address] [place] [address] Venous Blood Gason 4 CO2 [Moles/Vol] 31 mmol/L Normal Not Established [facility] Comment on above: Performed By: #### V BG #### MD ANDREAS CORLEY ([id number]) [facility] ([facility] [address] [place] [address] HCO3 (Bld) [Moles/Vol] 28.8 mmol/L Normal 23.0-29.0 [facility] Comment on above: Performed By: #### V BG #### MD ANDREAS CORLEY ([id number]) [facility] [address] [place] [address] Oxygen saturation in Blood 62 % Normal Not Established [facility] Comment on above: Performed By: #### V BG #### MD ANDREAS CORLEY ([id number]) [facility] [address] [place] [address] Venous Base Excess 1.1 mmol/L Normal -3.0-3.[address] [facility] Comment on above: Performed By: #### V BG #### MD ANDREAS CORLEY ([id number]) [facility] [address] [place] [address] Venous Carboxyhemoglobin 3.5 % High 0.0-1.5 [facility] Comment on above: Result Comment: 0.0- 1.5 (Smokers 1.5-5.0) Performed By: #### V BG #### MD ANDREAS CORLEY ([id number]) [facility] [address] [place] [address] Venous Methemoglobin 0.3 % Normal <1.5 [facility] Comment on above: Performed By: #### V BG #### MD ANDREAS CORLEY ([id number]) [facility] [address] [place] [address] Venous O2 Content 12 VOL % Normal Not Established [facility] Comment on above: Performed By: #### V BG #### MD ANDREAS CORLEY ([id number]) [facility] [address] [place] [address] Venous PCO2 59.7 mmHg High 40.0-50.0 [facility] Comment on above: Performed By: #### V BG #### MD ANDREAS CORLEY ([id number]) [facility] [address] [place], [place] [phone] [facility] Venous pH 7.301 Low 7.350-7.450 [facility] Comment on above: Performed By: #### V BG #### MD ANDREAS CORLEY ([id number]) [facility] [address] [place] [address] Venous PO2 36.0 mmHg Normal 25.0-40.0 [facility] Comment on above: Performed By: #### V BG #### MD ANDREAS CORLEY ([id number]) [facility] ([facility]) [address] [place] [address] Venous O2 Therapy Unknown Normal [facility] Comment on above: Performed By: #### V BG #### MD ANDREAS CORLEY ([id number]) [facility] ([facility]) [address] [place] [address] CO2 [Moles/Vol] 33 mmol/L Normal Not [facility] Comment on above: Performed By: #### V BG #### MD ANDREAS CORLEY ([id number]) [facility] ([facility]) [address] [place] [address] HCO3 (Bld) [Moles/Vol] 31.2 mmol/L High 23.0-29.0 [facility] Comment on above: Performed By: #### V BG #### MD ANDREAS CORLEY ([id number]) [facility] [address] [place] [address] Oxygen saturation in Blood 92 % Normal Not [facility] Comment on above: Performed By: #### V BG #### MD ANDREAS CORLEY ([id number]) [facility] [address] [place] [address] Venous Base Excess 3.3 mmol/L High -3.0-3.[address] [facility] Comment on above: Performed By: #### V BG #### MD ANDREAS CORLEY ([id number]) [facility] [address] [place] [address] Venous Carboxyhemoglobin 1.6 % High 0.0-1.5 [facility] Comment on above: Result Comment: 0.0- 1.5 (Smokers 1.5-5.0) Performed By: #### V BG #### MD ANDREAS CORLEY ([id number]) [facility] ([facility]) [address] [place] [address] [facility] Venous Methemoglobin 0.0 % Normal <1.5 [facility] Comment on above: Performed By: #### V BG #### MD ANDREAS CORLEY ([id number]) [facility] [address] [place] [address] [facility] Venous O2 Content 17 VOL % Normal Not Established [facility] Comment on above: Performed By: #### V BG #### MD ANDREAS CORLEY ([id number]) [facility] [address] [place] [address] [facility] Venous PCO2 62.6 mmHg High 40.0-50.0 [facility] Comment on above: Performed By: #### V BG #### MD ANDREAS CORLEY ([id number]) [facility] [address] [place] [address] [facility] Venous pH 7.315 Low 7.350-7.450 [facility] Comment on above: Performed By: #### V BG #### MD ANDREAS CORLEY ([id number]) [facility] [address] [place] [address] [facility] Venous PO2 70.9 mmHg High 25.0-40.0 [facility] Comment on above: Performed By: #### V BG #### MD ANDREAS CORLEY ([id number]) [facility] [address] [place] [address] [place] Venous O2 Therapy Unknown Normal [facility] Comment on above: Performed By: #### V BG #### MD ANDREAS CORLEY ([id number]) [facility] ([facility]) [address] [place] [address] [place] CO2 [Moles/Vol] 31 mmol/L Normal Not Established [facility] Comment on above: Performed By: #### V BG #### MD ANDREAS CORLEY ([id number]) [facility] ([facility]) [address] [place] [address] HCO3 (Bld) [Moles/Vol] 29.2 mmol/L High 23.0-29.0 [facility] Comment on above: Performed By: #### V BG #### MD ANDREAS CORLEY ([id number]) [facility] ([facility]) [address] [place] [address] Oxygen saturation in Blood 96 % Normal Not Established [facility] Comment on above: Performed By: #### V BG #### MD ANDREAS CORLEY ([id number]) [facility] [address] [place] [address] Venous Base Excess 1.9 mmol/L Normal -3.0-3.[address] [facility] Comment on above: Performed By: #### V BG #### MD ANDREAS CORLEY ([id number]) [facility] ([facility]) [address] [place] [address] Venous Carboxyhemoglobin 3.0 % High 0.0-1.5 [facility] Comment on above: Result Comment: 0.0- 1.5 (Smokers 1.5-5.0) Performed By: #### V BG #### MD ANDREAS CORLEY ([id number]) [facility] ([facility]) [address] [place] [address] Venous Methemoglobin 0.0 % Normal <1.5 [facility] Comment on above: Performed By: #### V BG #### MD ANDREAS CORLEY ([id number]) [facility] ([facility]) [address] [place] [address] Venous PCO2 57.8 mmHg High 40.0-50.0 [facility] Comment on above: Performed By: #### V BG #### MD ANDREAS CORLEY ([id number]) [facility] ([facility]) [address] [place] [address] Venous pH 7.321 Low 7.350-7.450 [facility] Comment on above: Performed By: #### V BG #### MD ANDREAS CORLEY ([id number]) [facility] ([facility]) [address] [place] [address] Venous PO2 93.3 mmHg High 25.0-40.0 [facility] Comment on above: Performed By: #### V BG #### MD ANDREAS CORLEY ([id number]) [facility] ([facility]) [address] [place] [address] Venous O2 Therapy Unknown Normal [facility] Comment on above: Performed By: #### V BG #### MD ANDREAS CORLEY ([id number]) [facility] ([facility]) [address] [place] [address] XR CHEST PORTABLEon 09-01-19 XR CHEST PORTABLE [...] Ranjit Bradley MD 09/01/23 Final result Normal [facility] Comment on above: Order Comment: Reaso n for exam:->dyspnea Reason for exam?->Dyspnea CBCon 08-06-2023 Erythrocyte distribution width (RBC) [Ratio] 15.2 % High 11.0-15.0 [facility] Comment on above: Performed By: #### B C #### Roger Witt ([id number]) [address] Hematocrit (Bld) [Volume fraction] 43.4 % Normal 38.5-50.0 [facility] Comment on above: Performed By: #### B C #### Roger Witt ([id number]) [address] Hemoglobin (Bld) [Mass/Vol] 14.7 g/dL Normal 13.2-17.1 [facility] Comment on above: Performed By: #### B C #### Roger Witt ([id number]) [address] MCH (RBC) [Entitic mass] 32.6 pg Normal 27.0-33.0 [facility] Comment on above: Performed By: #### B C #### Roger Witt ([id number]) [address] MCHC (RBC) [Mass/Vol] 33.8 g/dL Normal 32.0-36.0 [facility] Comment on above: Performed By: #### B C #### Roger Witt ([id number]) [address] MCV (RBC) [Entitic vol] 96.7 fL Normal 80.0-100.0 [facility] Comment on above: Performed By: #### B C #### Roger Witt ([id number]) [address] Platelet mean volume (Bld) [Entitic vol] 8.9 fL Normal 7.5-11.5 [facility] Comment on above: Performed By: #### B C #### Roger Witt ([id number]) [address] Platelets (Bld) [#/Vol] 397 10*3/uL Normal 140-400 [facility] Comment on above: Performed By: #### B C #### Roger Witt ([id number]) [address] RBC (Bld) [#/Vol] 4.49 10*6/uL Normal 4.20-5.80 [facility] Comment on above: Performed By: #### B C #### Roger Witt ([id number]) [address] WBC (Bld) [#/Vol] 15.0 10*3/uL High 3.8-10.8 [facility] Comment on above: Performed By: #### B C #### Roger Witt ([id number]) [address] Dis[facility] 08-06-2023 [facility] Department of Internal Medicine Inpatient Discharge Summary Patient: Maikel Riojas CSN: [id number] Date of Admission: 08/02/2023 Date of Discharge: [...] diaphragms with tip not included in the [id number]. Heart and Mediastinum: Cardiac silhouette is partially [...] Your Medications These medications were sent to [facility] [address] [place] [id number] Hours: Thursday - Thursday: 8:00AM - 6:00PM [...] status. Of note patient [place] exacerbation which required ICU stay [...] chronic hypo (more content not included)... Normal [facility] Nursingon 08-06-2023 Nursing PIV removed with catheter intact... report called to [facility]. Pt will be transported via EMS Normal [facility] POC GLU MONITORING DEVICEon 08-06-2023 POC GLU MONITORING DEVICE 173 mg/dL High 70-100 [facility] Comment on above: Performed By: #### P OCGMD #### Roger Witt ([id number]) [address] POC GLU MONITORING DEVICE 235 mg/dL High 70-100 [facility] Comment on above: Performed By: #### B C #### Roger Witt ([id number]) [address] RENAL FUNCTION PANEL W/EGFRo n 08-06-2023 Albumin [Mass/Vol] 3.8 g/dL Normal 3.5-5.7 [facility] Comment on above: Performed By: #### P OCGMD #### Roger Witt ([id number]) [address] Anion gap [Moles/Vol] 10 mmol/L Normal 3-16 [facility] Comment on above: Performed By: #### P OCGMD #### Roger Witt ([id number]) [address] Calcium [Mass/Vol] 9.6 mg/dL Normal 8.6-10.3 [facility] Comment on above: Performed By: #### P OCGMD #### Roger Witt ([id number]) [address] Chloride [Moles/Vol] 102 mmol/L Normal 98-110 [facility] Comment on above: Performed By: #### P OCGMD #### Roger Witt ([id number]) [address] CO2 [Moles/Vol] 29 mmol/L Normal 21-33 [facility] Comment on above: Performed By: #### P OCGMD #### Roger Witt ([id number]) [address] Creatinine [Mass/Vol] 1.10 mg/dL Normal 0.60-1.30 [facility] Comment on above: Performed By: #### P OCGMD #### Roger Witt ([id number]) [place] [address] [place] GFR/1.73 sq M.predicted among non-blacks MDRD (S/P/Bld) [Vol rate/Area] 71 mL/min/{1.73_m2} Normal [place] [facility] Comment on above: Result Comment: As o [...] By: #### P OCGMD #### Roger Witt ([id number]) [place] [address] [place] Glucose [Mass/Vol] 213 mg/dL High 70-100 [facility] Comment on above: Performed By: #### P OCGMD #### Roger Witt ([id number]) [place] [address] [place] Osmolality [Osmolality] 309 mosm/kg High 278-305 [facility] Comment on above: Performed By: #### P OCGMD #### Roger Witt ([id number]) [place] [address] [place] Phosphate [Mass/Vol] 3.0 mg/dL Normal 2.1-4.5 [facility] Comment on above: Result Comment: HEMO LYSIS EVIDENT. RESULTS MAY BE INFLUENCED. Performed By: #### P OCGMD #### Roger Witt ([id number]) [address] Potassium [Moles/Vol] 5.6 mmol/L High 3.5-5.3 [facility] Comment on above: Result Comment: Hemo lysis Present: Results may be influenced artificially. Recommend recollection as clinically indicated. Performed By: #### P OCGMD #### Roger Witt ([id number]) [address] Sodium [Moles/Vol] 141 mmol/L Normal 133-146 [facility] Comment on above: Performed By: #### P OCGMD #### Roger Witt ([id number]) [address] Urea nitrogen [Mass/Vol] 42 mg/dL High 7-25 [facility] Comment on above: Performed By: #### P OCGMD #### Roger Witt ([id number]) [address] CARE PLANon 08-05-2023 CARE PLAN Problem: [...] and interventions as needed. Outcome: Progressing Normal [facility] CONSULTon 08-05-2023 CONSULT [facility] Wound Care Assessment 08/05/2023 11:45 AM [...] cardiac disease, DM. Wound care recommends Triad [employer] to buttocks/scrotum, safe skin bundle, and low air loss (CATINA) mattress. [employer]ad [employer] is a zinc-oxide based hydrophilic paste absorbs [...] non-rinse foam cleanser. Pat dry. Apply [employer] paste to wound bed daily and as [...] thickness 08/05/23 1144 Site (Wound bed) Assessment Moist;[place];Red 08/05/23 1144 [place]-wound Assessment [place];Intact 08/05/23 1144 Closure None 08/05/23 1144 Hematoma [...] 1144 History: Diagnosis: Acute hypoxemic respiratory failure ([facility]) [J96.01] AMS (altered mental status) [...] Sign Unable (more content not included)... Normal [facility] POC GLU MONITORING DEVICEon 08-05-2023 POC GLU MONITORING DEVICE 315 mg/dL High 70-100 [facility] Comment on above: Performed By: #### B C #### Roger Witt ([id number]) [address] POC GLU MONITORING DEVICE 252 mg/dL High 70-100 [facility] Comment on above: Performed By: #### B C #### Roger Witt ([id number]) [address] POC GLU MONITORING DEVICE 192 mg/dL High 70-100 [facility] Comment on above: Performed By: #### B C #### Roger Witt ([id number]) [address] POC GLU MONITORING DEVICE 213 mg/dL High 70-100 [facility] Comment on above: Performed By: #### E DHCVR #### Roger Witt ([id number]) [address] RENAL FUNCTION PANEL W/EGFRo n 08-05-2023 Albumin [Mass/Vol] 3.9 g/dL Normal 3.5-5.7 [facility] Comment on above: Performed By: #### B C #### Roger Witt ([id number]) [address] Anion gap [Moles/Vol] 10 mmol/L Normal 3-16 [facility] Comment on above: Performed By: #### B C #### Roger Witt ([id number]) [address] Calcium [Mass/Vol] 8.8 mg/dL Normal 8.6-10.3 [facility] Comment on above: Performed By: #### B C #### Roger Witt ([id number]) [address] Chloride [Moles/Vol] 101 mmol/L Normal 98-110 [facility] Comment on above: Performed By: #### B C #### Roger Witt ([id number]) [address] CO2 [Moles/Vol] 27 mmol/L Normal 21-33 [facility] Comment on above: Performed By: #### B C #### Roger Witt ([id number]) [address] Creatinine [Mass/Vol] 1.36 mg/dL High 0.60-1.30 [facility] Comment on above: Performed By: #### B C #### Roger Witt ([id number]) [place] [address] [place] GFR/1.73 sq M.predicted among non-blacks MDRD (S/P/Bld) [Vol rate/Area] 55 mL/min/{1.73_m2} Normal [place] [facility] Comment on above: Result Comment: As o [...] By: #### B C #### Roger Witt ([id number]) [address] Glucose [Mass/Vol] 338 mg/dL High 70-100 [facility] Comment on above: Performed By: #### B C #### Roger Witt ([id number]) [place] [address] [place] Osmolality [Osmolality] 310 mosm/kg High 278-305 [facility] Comment on above: Performed By: #### B C #### Roger Witt ([id number]) [address] Phosphate [Mass/Vol] 2.5 mg/dL Normal 2.1-4.5 [facility] Comment on above: Performed By: #### B C #### Roger Witt ([id number]) [address] Potassium [Moles/Vol] 5.0 mmol/L Normal 3.5-5.3 [facility] Comment on above: Performed By: #### B C #### Roger Witt ([id number]) [address] Sodium [Moles/Vol] 138 mmol/L Normal 133-146 [facility] Comment on above: Performed By: #### B C #### Roger Witt ([id number]) [address] Urea nitrogen [Mass/Vol] 44 mg/dL High 7- [facility] Comment on above: Performed By: #### B C #### Roger Witt ([id number]) [address] CBCon 08-04-2023 Erythrocyte distribution width (RBC) [Ratio] 15.0 % Normal 11.0-15.0 [facility] Comment on above: Performed By: #### H KRISTY #### Roger Witt ([id number]) [address] Hematocrit (Bld) [Volume fraction] 42.7 % Normal 38.5-50.0 [facility] Comment on above: Performed By: #### H STROPI #### Roger Witt ([id number]) [address] Hemoglobin (Bld) [Mass/Vol] 14.2 g/dL Normal 13.2-17.1 [facility] Comment on above: Performed By: #### H STROPI #### Roger Witt ([id number]) [address] MCH (RBC) [Entitic mass] 32.1 pg Normal 27.0-33.0 [facility] Comment on above: Performed By: #### H STROPI #### Roger Witt ([id number]) [address] MCHC (RBC) [Mass/Vol] 33.3 g/dL Normal 32.0-36.0 [facility] Comment on above: Performed By: #### H STROPI #### Roger Witt ([id number]) [address] MCV (RBC) [Entitic vol] 96.5 fL Normal 80.0-100.0 [facility] Comment on above: Performed By: #### H STROPI #### Roger Witt ([id number]) [address] Platelet mean volume (Bld) [Entitic vol] 8.1 fL Normal 7.5-11.5 [facility] Comment on above: Performed By: #### H STROPI #### Roger Witt ([id number]) [address] Platelets (Bld) [#/Vol] 280 10*3/uL Normal 140-400 [facility] Comment on above: Performed By: #### H STROPI #### Roger Witt ([id number]) [address] RBC (Bld) [#/Vol] 4.43 10*6/uL Normal 4.20-5.80 [facility] Comment on above: Performed By: #### H STROPI #### Roger Witt ([id number]) [address] WBC (Bld) [#/Vol] 14.6 10*3/uL High 3.8-10.8 [facility] Comment on above: Performed By: #### H KRISTY #### Roger Kiran Witt ([id number]) [facility] - [address] CONSULTon 08-04-2023 CONSULT Speech Language Pathology Clinical Swallow Assessment Name: Maikel Riojas : 1950 Attending Physician: Narayan Ramos MD Admission Diagnosis: Acute hypoxemic respiratory failure (CMS-HCC) [J96.01] AMS (altered mental status) [R41.82] Date: 08/04/2023 Reviewed Pertinent hospital course: Yes Hospital Course OUTPATIENT PHYSICAL THERAPIST ASSISTANT: 73 y/o male presents with AMS. PMH: COPD, T2DM, HFpEF, HTN, HARIS, BPH, multiple recent falls. Patient with recent admission to [place] for [place] exacerbation requiring ICU stay and [...] aspiration. 3. Trivial trace bilateral pleural effusions. OUTPATIENT PHYSICAL THERAPIST ASSISTANT Hx: none at [facility]. Assessment: Patient presents with increased [...] (IDDSI 0) - Instrumental recommendation: FEES - OUTPATIENT PHYSICAL THERAPIST ASSISTANT therapy recommendations TBD pending results of instrumental [...] 0) Medication Administration: whole Recommendation Recommendations Recommendation: OUTPATIENT PHYSICAL THERAPIST ASSISTANT recommendation pending clinical progress Baseline Assessment History [...] Patient educated on, instrumental procedure, role of OUTPATIENT PHYSICAL THERAPIST ASSISTANT, current POC Education response: Patient demonstrated understanding End of Session: Patient was left in bed with call light within reach and all needs met. Safety handoff completed with RN. Jessica Mitchell M.A, [facility]-OUTPATIENT PHYSICAL THERAPIST ASSISTANT Speech Language Pathologist--Rehab Services [facility] MBSImP Certified Clinician Time Start Time: 1330 Stop Time: 1355 Time Calculation (min): 25 min Charges $Clinical Swallow: 1 Procedure Patient Class Inpatient Normal [facility] CONSULT Speech Language Pathology Speech, Language and Cognitive Initial Assessment Name: Maikel Riojas : 1950 Attending Physician: Narayan Ramos MD Admission Diagnosis: Acute hypoxemic respiratory failure (CMS-HCC) [J96.01] AMS (altered mental status) [R41.82] Date: 08/04/2023 Reviewed Pertinent hospital course: Yes Hospital Course OUTPATIENT PHYSICAL THERAPIST ASSISTANT: 73 y/o male presents with AMS. PMH: COPD, T2DM, HFpEF, HTN, HARIS, BPH, multiple recent falls. Patient with recent admission to [place] for [place] exacerbation requiring ICU stay and [...] aspiration. 3. Trivial trace bilateral pleural effusions. OUTPATIENT PHYSICAL THERAPIST ASSISTANT Hx: none at [facility]. Assessment: Patient presents with moderate [...] 6 6 WFL Composite 62 76 Acute OUTPATIENT PHYSICAL THERAPIST ASSISTANT intervention is warranted. Plan/Recommendation: - Diet: Regular (IDDSI 7) with Thin Liquids (IDDSI 0), FEES - OUTPATIENT PHYSICAL THERAPIST ASSISTANT therapy 1-3x/week while inpatient - OUTPATIENT PHYSICAL THERAPIST ASSISTANT at discharge is recommended Prognosis Diagnosis: Cognitive-linguistic [...] met in: 08/14/23 Recommendation Recommendations Services: Recommend OUTPATIENT PHYSICAL THERAPIST ASSISTANT therapy at discharge Problem List There is [...] Primary Mode of Expression: Verbal Primary Language: Chinese Confrontation Naming: Within Functional Limits Sentence Level [...] Patient Education Patient educated on: role of OUTPATIENT PHYSICAL THERAPIST ASSISTANT, current POC, and discharge recommendations for OUTPATIENT PHYSICAL THERAPIST ASSISTANT therapy;cognitive function and strategies to improve cognition Patient response: Patient verbalized understanding End of Session: Patient was left in bed with call light within reach and (more content not included)... Normal [facility] LACTIC ACIDon 08-04-2023 Lactate [Moles/Vol] 1.1 mmol/L Normal 0.5-2.2 [facility] Comment on above: Performed By: #### H STROPI #### Roger Witt ([id number]) [address] MAGNESIUMon 08-04-2023 Magnesium [Mass/Vol] 2.3 mg/dL Normal 1.5-2.5 [facility] Comment on above: Performed By: #### H STROPI #### Roger Witt ([id number]) [address] Nursingon 08-04-2023 Nursing Patient has arrived from the MICU with belongings in stable condition, paitent has been oriented to room and call light is within reach Normal [facility] POC GLU MONITORING DEVICEon 08-04-2023 POC GLU MONITORING DEVICE 246 mg/dL High 70-100 [facility] Comment on above: Performed By: #### E DHCVR #### Roger Witt ([id number]) [address] POC GLU MONITORING DEVICE 213 mg/dL High 70-100 [facility] Comment on above: Performed By: #### E DHCVR #### Roger Witt ([id number]) [address] POC GLU MONITORING DEVICE 145 mg/dL High 70-100 [facility] Comment on above: Performed By: #### H STROPI #### Roger Witt ([id number]) [address] POC GLU MONITORING DEVICE 201 mg/dL High 70-100 [facility] Comment on above: Performed By: #### H STROPI #### Roger Witt ([id number]) [address] RENAL FUNCTION PANEL W/EGFRo n 08-04-2023 Albumin [Mass/Vol] 3.6 g/dL Normal 3.5-5.7 [facility] Comment on above: Performed By: #### E DHCVR #### Roger Witt ([id number]) [address] Anion gap [Moles/Vol] 7 mmol/L Normal 3-16 [facility] Comment on above: Performed By: #### E DHCVR #### Roger Witt ([id number]) [place] [address] [place] Calcium [Mass/Vol] 9.1 mg/dL Normal 8.6-10.3 [facility] Comment on above: Performed By: #### E DHCVR #### Roger Witt ([id number]) [address] Chloride [Moles/Vol] 98 mmol/L Normal 98-110 [facility] Comment on above: Performed By: #### E DHCVR #### Roger Witt ([id number]) [address] CO2 [Moles/Vol] 33 mmol/L Normal 21-33 [facility] Comment on above: Performed By: #### E DHCVR #### Roger Witt ([id number]) [address] Creatinine [Mass/Vol] 2.06 mg/dL High 0.60-1.30 [facility] Comment on above: Performed By: #### E DHCVR #### Roger Witt ([id number]) [address] GFR/1.73 sq M.predicted among non-blacks MDRD (S/P/Bld) [Vol rate/Area] 33 mL/min/{1.73_m2} Normal [place] [facility] Comment on above: Result Comment: As o [...] By: #### E DHCVR #### Roger Witt ([id number]) [place] [address] [place] Glucose [Mass/Vol] 279 mg/dL High 70-100 [facility] Comment on above: Performed By: #### E DHCVR #### Roger Witt ([id number]) [place] [address] [place] Osmolality [Osmolality] 313 mosm/kg High 278-305 [facility] Comment on above: Performed By: #### E DHCVR #### Roger Witt ([id number]) [address] Phosphate [Mass/Vol] 4.7 mg/dL High 2.1-4.5 [facility] Comment on above: Performed By: #### E DHCVR #### Roger Witt ([id number]) [address] Potassium [Moles/Vol] 4.7 mmol/L Normal 3.5-5.3 [facility] Comment on above: Performed By: #### E DHCVR #### Roger Witt ([id number]) [address] Sodium [Moles/Vol] 138 mmol/L Normal 133-146 [facility] Comment on above: Performed By: #### E DHCVR #### Roger Witt ([id number]) [address] Urea nitrogen [Mass/Vol] 61 mg/dL High 7-25 [facility] Comment on above: Performed By: #### E DHCVR #### Roger Witt ([id number]) [address] Albumin [Mass/Vol] 3.3 g/dL Low 3.5-5.7 [facility] Comment on above: Performed By: #### E DHCVR #### Roger Witt ([id number]) [address] Anion gap [Moles/Vol] 11 mmol/L Normal 3-16 [facility] Comment on above: Performed By: #### E DHCVR #### Roger Witt ([id number]) [address] Calcium [Mass/Vol] 8.9 mg/dL Normal 8.6-10.3 [facility] Comment on above: Performed By: #### E DHCVR #### Roger Witt ([id number]) [address] Chloride [Moles/Vol] 100 mmol/L Normal 98-110 [facility] Comment on above: Performed By: #### E DHCVR #### Roger Witt ([id number]) [address] CO2 [Moles/Vol] 28 mmol/L Normal 21-33 [facility] Comment on above: Performed By: #### E DHCVR #### Roger iWtt ([id number]) [place] [address] [place] Creatinine [Mass/Vol] 2.29 mg/dL High 0.60-1.30 [facility] Comment on above: Performed By: #### E DHCVR #### Roger Witt ([id number]) [place] [address] [place] GFR/1.73 sq M.predicted among non-blacks MDRD (S/P/Bld) [Vol rate/Area] 29 mL/min/{1.73_m2} Normal [place] o [facility] Comment on above: Result Comment: As o [...] By: #### E DHCVR #### Roger Witt ([id number]) [place] [address] [place] Glucose [Mass/Vol] 164 mg/dL High 70-100 [facility] Comment on above: Performed By: #### E DHCVR #### Roger Witt ([id number]) [place] [address] [place] Osmolality [Osmolality] 312 mosm/kg High 278-305 [facility] Comment on above: Performed By: #### E DHCVR #### Roger Witt ([id number]) [address] Phosphate [Mass/Vol] 4.0 mg/dL Normal 2.1-4.5 [facility] Comment on above: Performed By: #### E DHCVR #### Roger Witt ([id number]) [address] Potassium [Moles/Vol] 3.9 mmol/L Normal 3.5-5.3 [facility] Comment on above: Performed By: #### E DHCVR #### Roger Witt ([id number]) [address] Sodium [Moles/Vol] 139 mmol/L Normal 133-146 [facility] Comment on above: Performed By: #### E DHCVR #### Roger Witt ([id number]) [address] Urea nitrogen [Mass/Vol] 69 mg/dL High 7-25 [facility] Comment on above: Performed By: #### E DHCVR #### Roger Witt ([id number]) [address] AMMONIAon 08-03-2023 Ammonia (P) [Mass/Vol] 46 ug/dL Normal 27-90 [facility] Comment on above: Performed By: #### L DVBG #### Roger Witt ([id number]) [address] CALCIUM FREE, SERUMon 2023 Calcium [Mass/Vol] 4.77 mg/dL Normal 4.40-5.40 [facility] Comment on above: Result Comment: Free calcium levels vary inversely with pH by approximately 5% for each 0.1 unit of pH change. Assay results have been normalized to pH = 7.40. Performed By: #### D IFF #### Roger Witt ([id number]) [address] Calcium [Mass/Vol] 11.27 mg/dL Critically high 4.40-5.40 [facility] Comment on above: Result Comment: The critical result was called to, and read back by, licensed caregiver LONI KYLE RN AT 05T IN MICU Performed By: #### D IFF #### Roger Witt ([id number]) [address] Calcium [Mass/Vol] 4.73 mg/dL Normal 4.40-5.40 [facility] Comment on above: Result Comment: Free calcium levels vary inversely with pH by approximately 5% for each 0.1 unit of pH change. Assay results have been normalized to pH = 7.40. Performed By: #### L DVBG #### Roger Witt ([id number]) [address] CARE PLANon 08-03-2023 CARE PLAN Problem: [...] and interventions as needed. Outcome: Progressing Normal [facility] CBCon 08-03-2023 Erythrocyte distribution width (RBC) [Ratio] 14.5 % Normal 11.0-15.0 [facility] Comment on above: Performed By: #### C BC #### Roger Witt ([id number]) [address] Hematocrit (Bld) [Volume fraction] 38.1 % Low 38.5-50.0 [facility] Comment on above: Performed By: #### C BC #### Roger Witt ([id number]) [address] Hemoglobin (Bld) [Mass/Vol] 12.7 g/dL Low 13.2-17.1 [facility] Comment on above: Performed By: #### C BC #### Roger Witt ([id number]) [address] MCH (RBC) [Entitic mass] 32.0 pg Normal 27.0-33.0 [facility] Comment on above: Performed By: #### C BC #### Roger Witt ([id number]) [address] MCHC (RBC) [Mass/Vol] 33.3 g/dL Normal 32.0-36.0 [facility] Comment on above: Performed By: #### C BC #### Roger Witt ([id number]) [address] MCV (RBC) [Entitic vol] 96.1 fL Normal 80.0-100.0 [facility] Comment on above: Performed By: #### C BC #### Roger Witt ([id number]) [address] Platelet mean volume (Bld) [Entitic vol] 8.6 fL Normal 7.5-11.5 [facility] Comment on above: Performed By: #### C BC #### Roger Witt ([id number]) [address] Platelets (Bld) [#/Vol] 255 10*3/uL Normal 140-400 [facility] Comment on above: Performed By: #### C BC #### Roger Witt ([id number]) [address] RBC (Bld) [#/Vol] 3.96 10*6/uL Low 4.20-5.80 [facility] Comment on above: Performed By: #### C BC #### Roger Witt ([id number]) [address] WBC (Bld) [#/Vol] 12.9 10*3/uL High 3.8-10.8 [facility] Comment on above: Performed By: #### C BC #### Roger Witt ([id number]) [address] Erythrocyte distribution width (RBC) [Ratio] 15.2 % High 11.0-15.0 [facility] Comment on above: Order Comment: Perip heral blood smear was scanned per review criteria approved by the laboratory registered medical assistant. Performed By: #### L DVBG #### Roger Witt ([id number]) [address] Hematocrit (Bld) [Volume fraction] 43.0 % Normal 38.5-50.0 [facility] Comment on above: Order Comment: Perip heral blood smear was scanned per review criteria approved by the laboratory registered medical assistant. Performed By: #### L DVBG #### Roger Witt ([id number]) [address] Hemoglobin (Bld) [Mass/Vol] 14.5 g/dL Normal 13.2-17.1 [facility] Comment on above: Order Comment: Perip heral blood smear was scanned per review criteria approved by the laboratory registered medical assistant. Performed By: #### L DVBG #### Roger Witt ([id number]) [address] MCH (RBC) [Entitic mass] 32.2 pg Normal 27.0-33.0 [facility] Comment on above: Order Comment: Perip heral blood smear was scanned per review criteria approved by the laboratory registered medical assistant. Performed By: #### L DVBG #### Roger Witt ([id number]) [address] MCHC (RBC) [Mass/Vol] 33.7 g/dL Normal 32.0-36.0 [facility] Comment on above: Order Comment: Perip heral blood smear was scanned per review criteria approved by the laboratory registered medical assistant. Performed By: #### L DVBG #### Roger Witt ([id number]) [address] MCV (RBC) [Entitic vol] 95.7 fL Normal 80.0-100.0 [facility] Comment on above: Order Comment: Perip heral blood smear was scanned per review criteria approved by the laboratory registered medical assistant. Performed By: #### L DVBG #### Roger Witt ([id number]) [address] Platelet estimate Adequate Normal [facility] Comment on above: Order Comment: Perip heral blood smear was scanned per review criteria approved by the laboratory registered medical assistant. Performed By: #### L DVBG #### Roger Witt ([id number]) [address] Platelet mean volume (Bld) [Entitic vol] 8.2 fL Normal 7.5-11.5 [facility] Comment on above: Order Comment: Perip heral blood smear was scanned per review criteria approved by the laboratory registered medical assistant. Performed By: #### L DVBG #### Roger Witt ([id number]) [address] Platelets (Bld) [#/Vol] 208 10*3/uL Normal 140-400 [facility] Comment on above: Order Comment: Perip heral blood smear was scanned per review criteria approved by the laboratory registered medical assistant. Result Comment: Spec imen checked for clots. None detected. Slide Reviewed for PLT Clumps. None Seen. Performed By: #### L DVBG #### Roger Witt ([id number]) [address] RBC (Bld) [#/Vol] 4.50 10*6/uL Normal 4.20-5.80 [facility] Comment on above: Order Comment: Perip heral blood smear was scanned per review criteria approved by the laboratory registered medical assistant. Performed By: #### L DVBG #### Roger Witt ([id number]) [address] WBC (Bld) [#/Vol] 17.8 10*3/uL High 3.8-10.8 [facility] Comment on above: Order Comment: Perip heral blood smear was scanned per review criteria approved by the laboratory registered medical assistant. Performed By: #### L DVBG #### Roger Witt ([id number]) [place] [address] [place] CHLORIDE, RANDOM URINEon Chloride, Ur 89 mmol/L Normal [facility] Comment on above: Result Comment: Refe rence range not established for this test. Performed By: #### L AVBG #### Roger Witt ([id number]) [place] [address] [place] CONSULTon 08-03-2023 CONSULT [facility] Clinical Pharmacy Service: Vancomycin Consult Primary team has transitioned patient off of vancomycin. Pharmacy will sign off consult at this time. If vancomycin is reinitiated, please feel free to consult pharmacy services again. Thank you. Carlita Friedman, PharmD, [facility] Clinical English Lecturer, Critical Care Epic Secure Chat Preferred OnCall/Weekends: [phone] 08/03/23 1:03 PM Normal [facility] ETHANOL, SERUMon 08-03-2023 Ethanol [Mass/Vol] mg/dL Normal 0-10 [facility] Comment on above: Performed By: #### L DVBG #### Roger Witt ([id number]) [address] FREE CALCIUM, WHOLE BLOODon 08-03-2023 Calcium [Mass/Vol] 4.71 mg/dL Normal 4.50-5.30 [facility] Comment on above: Performed By: #### D IFF #### Roger Witt ([id number]) [address] Calcium [Mass/Vol] 3.63 mg/dL Low 4.50-5.30 [facility] Comment on above: Performed By: #### C BC #### Roger Witt ([id number]) [address] GLYCOHEMOGLOBIN, A1Con 08-02 HbA1c (Bld) [Mass fraction] 7.3 % High 4.0-5.6 [facility] Comment on above: Result Comment: [...] By: #### C BC #### Roger Witt ([id number]) [address] H AND Timothy 08-03-2023 H AND [...] status. Of note patient recently admitted to [facility] for COPD exacerbation which required ICU stay [...] Prior to Admission Patient fills meds at [facility] Inpatient Medications Scheduled Medications vancomycin 25 mg/kg [...] diaphragms with tip not included in the [id number]. Heart and Mediastinum: Cardiac silhouette is partially obscured, but likely within normal size limits. Lungs and Pleura: Hypoexpanded lungs with mild bibasilar par (more content not included)... Normal [facility] HEPATIC FUNCTION PANELon Albumin [Mass/Vol] 3.5 g/dL Normal 3.5-5.7 [facility] Comment on above: Performed By: #### L DVBG #### Roger Witt ([id number]) [address] ALP [Catalytic activity/Vol] 78 U/L Normal 36-125 [facility] Comment on above: Performed By: #### L DVBG #### Roger Witt ([id number]) [address] ALT [Catalytic activity/Vol] 7 U/L Normal 7-52 [facility] Comment on above: Performed By: #### L DVBG #### Roger Witt ([id number]) [address] AST [Catalytic activity/Vol] 8 U/L Low 13-39 [facility] Comment on above: Performed By: #### L DVBG #### Roger Witt ([id number]) [address] BILI, Direct 0.17 mg/dL Normal 0.00-0.40 [facility] Comment on above: Performed By: #### L DVBG #### Roger Witt ([id number]) [address] BILI, Total 0.7 mg/dL Normal 0.0-1.5 [facility] Comment on above: Performed By: #### L DVBG #### Roger Witt ([id number]) [address] Performed By: #### P OCGMD #### Roger Witt ([id number]) [address] Bilirubin, Indirect 0.53 mg/dL Normal 0.00-1.10 [facility] Comment on above: Performed By: #### L DVBG #### Roger Witt ([id number]) [address] Protein [Mass/Vol] 6.8 g/dL Normal 6.4-8.9 [facility] Comment on above: Performed By: #### L DVBG #### Roger Witt ([id number]) [address] ALP [Catalytic activity/Vol] 90 U/L Normal 36-125 [facility] Comment on above: Performed By: #### P OCGMD #### Roger Witt ([id number]) [address] ALT [Catalytic activity/Vol] 8 U/L Normal 7-52 [facility] Comment on above: Performed By: #### P OCGMD #### Roger Witt ([id number]) [address] AST [Catalytic activity/Vol] 12 U/L Low 13-39 [facility] Comment on above: Performed By: #### P OCGMD #### Roger Witt ([id number]) [address] BILI, Direct 0.11 mg/dL Normal 0.00-0.40 [facility] Comment on above: Result Comment: HEMO LYSIS EVIDENT. RESULTS MAY BE INFLUENCED. Performed By: #### P OCGMD #### Roger Witt ([id number]) [address] Bilirubin, Indirect 0.59 mg/dL Normal 0.00-1.10 [facility] Comment on above: Performed By: #### P OCGMD #### Roger Witt ([id number]) [address] Protein [Mass/Vol] 7.8 g/dL Normal 6.4-8.9 [facility] Comment on above: Performed By: #### P OCGMD #### Roger Witt ([id number]) [address] LACTIC ACIDon 08-03-2023 Lactate [Moles/Vol] 2.6 mmol/L High 0.5-2.2 [facility] Comment on above: Performed By: #### B ANTHROPOLOGY LECTURER #### Roger Witt ([id number]) [address] Lactate [Moles/Vol] 2.5 mmol/L High 0.5-2.2 [facility] Comment on above: Performed By: #### L AVBG #### Roger Witt ([id number]) [address] LIPASEon 08-03-2023 Lipase [Catalytic activity/Vol] 75 U/L Normal 4-82 [facility] Comment on above: Performed By: #### P OCGMD #### Roger Witt ([id number]) [address] MAGNESIUMon 08-03-2023 Magnesium [Mass/Vol] 2.0 mg/dL Normal 1.5-2.5 [facility] Comment on above: Performed By: #### D IFF #### Roger Witt ([id number]) [address] Magnesium [Mass/Vol] 2.4 mg/dL Normal 1.5-2.5 [facility] Comment on above: Performed By: #### L DVBG #### Roger Witt ([id number]) [address] MRSA/Staph aureus DNA - Diag nostic testing for pneon 08-03-2023 MRSA, PCR Negative Normal Negative [facility] Comment on above: Order Comment: Diagn osis of MRSA Pneumonia->Yes - Place [id number] (this order) Performed By: #### C BC #### Roger Witt ([id number]) [address] Staph Aureus, PCR Negative Normal Negative [facility] Comment on above: Order Comment: Diagn osis of MRSA Pneumonia->Yes - Place [id number] (this order) Result Comment: Test method is a FDA approved amplified DNA assay. Performed By: #### C BC #### Roger Witt ([id number]) [address] POC GLU MONITORING DEVICEon 08-03-2023 POC GLU MONITORING DEVICE 205 mg/dL High 70-100 [facility] Comment on above: Performed By: #### H STROPI #### Roger Witt ([id number]) [address] POC GLU MONITORING DEVICE 239 mg/dL High 70-100 [facility] Comment on above: Performed By: #### B ANTHROPOLOGY LECTURER #### Roger Witt ([id number]) [address] POC GLU MONITORING DEVICE 216 mg/dL High 70-100 [facility] Comment on above: Performed By: #### B ANTHROPOLOGY LECTURER #### Roger Witt ([id number]) [address] POC GLU MONITORING DEVICE 191 mg/dL High 70-100 [facility] Comment on above: Performed By: #### C BC #### Roger Witt ([id number]) [address] POC GLU MONITORING DEVICE 165 mg/dL High 70-100 [facility] Comment on above: Performed By: #### L AVBG #### Roger Witt ([id number]) [address] POTASSIUM, RANDOM URINEon Potassium, Ur 30.0 mmol/L Normal [facility] Comment on above: Result Comment: Refe rence range not established for this test. Performed By: #### L AVBG #### Roger Witt ([id number]) [address] PROTIMEon 08-03-2023 INR Coag (PPP) [Relative time] 0.9 {INR} Normal 0.9-1.1 [facility] Comment on above: Result Comment: MESSI MMENDED THERAPEUTIC RANGES USING INR : Stable oral anticoagulant therapy: 2.0 - 3.0 Mechanical prosthetic heart valve: 2.5 - 3.5 Recurrent acute myocardial infarction: 2.5 - 3.5 Performed By: #### P OCGMD #### Roger Witt ([id number]) [address] PT Coag (PPP) [Time] 12.6 s Normal 12.1-15.1 [facility] Comment on above: Performed By: #### P OCGMD #### Roger Witt ([id number]) [address] PTHon 08-03-2023 PTH, Intact 185.0 pg/mL High 12.0-88.0 [facility] Comment on above: Performed By: #### B ANTHROPOLOGY LECTURER #### Roger Witt ([id number]) [address] PTH-RELATED PROTEIN (PTH-RP) on 08-03-2023 PTH Related Protein <2.0 Normal [facility] Comment on above: Order Comment: PERFO RMED AT: [facility] [address] [id number] DIRECTOR: Mike Dotson MD PHONE: [phone] Result Comment: This test was developed and its performance characteristics determined by [employer]. It has not been cleared or approved [...] By: #### P OCGMD #### Roger Witt ([id number]) [address] RENAL FUNCTION PANEL W/EGFRo n 08-03-2023 Albumin [Mass/Vol] 3.6 g/dL Normal 3.5-5.7 [facility] Comment on above: Performed By: #### H STROPI #### Roger Witt ([id number]) [address] Anion gap [Moles/Vol] 15 mmol/L Normal 3-16 [facility] Comment on above: Performed By: #### H STROPI #### Roger Witt ([id number]) [address] Calcium [Mass/Vol] 9.2 mg/dL Normal 8.6-10.3 [facility] Comment on above: Performed By: #### H STROPI #### Roger Witt ([id number]) [address] Chloride [Moles/Vol] 94 mmol/L Low 98-110 [facility] Comment on above: Performed By: #### H STROPI #### Roger Witt ([id number]) [address] CO2 [Moles/Vol] 28 mmol/L Normal 21-33 [facility] Comment on above: Performed By: #### H STROPI #### Roger Witt ([id number]) [address] Creatinine [Mass/Vol] 3.01 mg/dL High 0.60-1.30 [facility] Comment on above: Performed By: #### H STROPI #### Roger Witt ([id number]) [address] GFR/1.73 sq M.predicted among non-blacks MDRD (S/P/Bld) [Vol rate/Area] 21 mL/min/{1.73_m2} Normal [place] o [facility] Comment on above: Result Comment: As o [...] By: #### H STROPI #### Roger Witt ([id number]) [address] Glucose [Mass/Vol] 233 mg/dL High 70-100 [facility] Comment on above: Performed By: #### H STROPI #### Roger Witt ([id number]) [address] Osmolality [Osmolality] 317 mosm/kg High 278-305 [facility] Comment on above: Performed By: #### H STROPI #### Roger Witt ([id number]) [address] Phosphate [Mass/Vol] 5.5 mg/dL High 2.1-4.5 [facility] Comment on above: Performed By: #### H STROPI #### Roger Witt ([id number]) [address] Potassium [Moles/Vol] 4.2 mmol/L Normal 3.5-5.3 [facility] Comment on above: Performed By: #### H STROPI #### Roger Witt ([id number]) [address] Sodium [Moles/Vol] 137 mmol/L Normal 133-146 [facility] Comment on above: Performed By: #### H STROPI #### Roger Witt ([id number]) [address] Urea nitrogen [Mass/Vol] 83 mg/dL High 7-25 [facility] Comment on above: Performed By: #### H STROPI #### Roger Witt ([id number]) [address] Albumin [Mass/Vol] 3.5 g/dL Normal 3.5-5.7 [facility] Comment on above: Performed By: #### D IFF #### Roger Witt ([id number]) [address] Anion gap [Moles/Vol] 15 mmol/L Normal 3-16 [facility] Comment on above: Performed By: #### D IFF #### Roger Witt ([id number]) [address] Calcium [Mass/Vol] 9.1 mg/dL Normal 8.6-10.3 [facility] Comment on above: Performed By: #### D IFF #### Roger Witt ([id number]) [address] Chloride [Moles/Vol] 93 mmol/L Low 98-110 [facility] Comment on above: Performed By: #### D IFF #### Roger Witt ([id number]) [address] CO2 [Moles/Vol] 28 mmol/L Normal 21-33 [facility] Comment on above: Performed By: #### D IFF #### Roger Witt ([id number]) [place] [address] [place] Creatinine [Mass/Vol] 3.28 mg/dL High 0.60-1.30 [facility] Comment on above: Performed By: #### D IFF #### Roger Witt ([id number]) [place] [address] [place] GFR/1.73 sq M.predicted among non-blacks MDRD (S/P/Bld) [Vol rate/Area] 19 mL/min/{1.73_m2} Pending Sale To [facility] o f [facility] Comment on above: Result Comment: As o [...] By: #### D IFF #### Roger Witt ([id number]) [place] [address] [place] Glucose [Mass/Vol] 231 mg/dL High 70-100 [facility] Comment on above: Performed By: #### D IFF #### Roger Witt ([id number]) [place] [address] [place] Osmolality [Osmolality] 315 mosm/kg High 278-305 [facility] Comment on above: Performed By: #### D IFF #### Roger Witt ([id number]) [address] Phosphate [Mass/Vol] 6.5 mg/dL High 2.1-4.5 [facility] Comment on above: Performed By: #### D IFF #### Roger iWtt ([id number]) [address] Potassium [Moles/Vol] 4.8 mmol/L Normal 3.5-5.3 [facility] Comment on above: Performed By: #### D IFF #### Roger Witt ([id number]) [address] Sodium [Moles/Vol] 136 mmol/L Normal 133-146 [facility] Comment on above: Performed By: #### D IFF #### Roger Witt ([id number]) [address] Urea nitrogen [Mass/Vol] 84 mg/dL High 7-25 [facility] Comment on above: Performed By: #### D IFF #### Roger Witt ([id number]) [address] Albumin [Mass/Vol] 2.9 g/dL Low 3.5-5.7 [facility] Comment on above: Performed By: #### D IFF #### Roger Witt ([id number]) [address] Anion gap [Moles/Vol] 14 mmol/L Normal 3-16 [facility] Comment on above: Performed By: #### D IFF #### Roger Witt ([id number]) [place] [address] [place] Calcium [Mass/Vol] 14.0 mg/dL High 8.6-10.3 [facility] Comment on above: Performed By: #### D IFF #### Roger Witt ([id number]) [place] [address] [place] Chloride [Moles/Vol] 98 mmol/L Normal 98-110 [facility] Comment on above: Performed By: #### D IFF #### Roger Witt ([id number]) [address] CO2 [Moles/Vol] 23 mmol/L Normal 21-33 [facility] Comment on above: Performed By: #### D IFF #### Roger Witt ([id number]) [address] Creatinine [Mass/Vol] 2.97 mg/dL High 0.60-1.30 [facility] Comment on above: Performed By: #### D IFF #### Roger Witt ([id number]) [address] GFR/1.73 sq M.predicted among non-blacks MDRD (S/P/Bld) [Vol rate/Area] 22 mL/min/{1.73_m2} Pending Sale To [facility] o [facility] Comment on above: Result Comment: As o [...] By: #### D IFF #### Roger Witt ([id number]) [address] Glucose [Mass/Vol] 205 mg/dL High 70-100 [facility] Comment on above: Performed By: #### D IFF #### Roger Witt ([id number]) [address] Osmolality [Osmolality] 308 mosm/kg High 278-305 [facility] Comment on above: Performed By: #### D IFF #### Roger Witt ([id number]) [address] Phosphate [Mass/Vol] 5.2 mg/dL High 2.1-4.5 [facility] Comment on above: Performed By: #### D IFF #### Roger Witt ([id number]) [address] Potassium [Moles/Vol] 4.1 mmol/L Normal 3.5-5.3 [facility] Comment on above: Performed By: #### D IFF #### Roger Witt ([id number]) [address] Sodium [Moles/Vol] 135 mmol/L Normal 133-146 [facility] Comment on above: Performed By: #### D IFF #### Roger Witt ([id number]) [address] Urea nitrogen [Mass/Vol] 74 mg/dL High 7-25 [facility] Comment on above: Performed By: #### D IFF #### Roger Witt ([id number]) [address] Albumin [Mass/Vol] 3.2 g/dL Low 3.5-5.7 [facility] Comment on above: Performed By: #### C BC #### Roger Witt ([id number]) [address] Anion gap [Moles/Vol] 15 mmol/L Normal 3-16 [facility] Comment on above: Performed By: #### C BC #### Roger Witt ([id number]) [address] Calcium [Mass/Vol] 7.1 mg/dL Low 8.6-10.3 [facility] Comment on above: Performed By: #### C BC #### Roger Witt ([id number]) [address] Chloride [Moles/Vol] 99 mmol/L Normal 98-110 [facility] Comment on above: Performed By: #### C BC #### Roger Witt ([id number]) [address] CO2 [Moles/Vol] 23 mmol/L Normal 21-33 [facility] Comment on above: Performed By: #### C BC #### Roger Witt ([id number]) [address] Creatinine [Mass/Vol] 2.99 mg/dL High 0.60-1.30 [facility] Comment on above: Performed By: #### C BC #### Roger Witt ([id number]) [place] [address] [place] GFR/1.73 sq M.predicted among non-blacks MDRD (S/P/Bld) [Vol rate/Area] 21 mL/min/{1.73_m2} Normal [place] o f [facility] Comment on above: Result Comment: As o [...] By: #### C BC #### Roger Witt ([id number]) [place] [address] [place] Glucose [Mass/Vol] 177 mg/dL High 70-100 [facility] Comment on above: Performed By: #### C BC #### Rgoer Witt ([id number]) [place] [address] [place] Osmolality [Osmolality] 310 mosm/kg High 278-305 [facility] Comment on above: Performed By: #### C BC #### Roger Witt ([id number]) [place] [address] [place] Phosphate [Mass/Vol] 5.2 mg/dL High 2.1-4.5 [facility] Comment on above: Performed By: #### C BC #### Roger Witt ([id number]) [address] Potassium [Moles/Vol] 4.3 mmol/L Normal 3.5-5.3 [facility] Comment on above: Performed By: #### C BC #### Roger Witt ([id number]) [address] Sodium [Moles/Vol] 137 mmol/L Normal 133-146 [facility] Comment on above: Performed By: #### C BC #### Roger Witt ([id number]) [address] Urea nitrogen [Mass/Vol] 74 mg/dL High 7-25 [facility] Comment on above: Performed By: #### C BC #### Roger Witt ([id number]) [address] Anion gap [Moles/Vol] 15 mmol/L Normal 3-16 [facility] Comment on above: Performed By: #### L DVBG #### Roger Witt ([id number]) [address] Calcium [Mass/Vol] 8.6 mg/dL Normal 8.6-10.3 [facility] Comment on above: Performed By: #### L DVBG #### Roger Witt ([id number]) [address] Chloride [Moles/Vol] 95 mmol/L Low 98-110 [facility] Comment on above: Performed By: #### L DVBG #### Roger Witt ([id number]) [address] CO2 [Moles/Vol] 26 mmol/L Normal 21-33 [facility] Comment on above: Performed By: #### L DVBG #### Roger iWtt ([id number]) [address] Creatinine [Mass/Vol] 3.55 mg/dL High 0.60-1.30 [facility] Comment on above: Performed By: #### L DVBG #### Roger Witt ([id number]) [address] GFR/1.73 sq M.predicted among non-blacks MDRD (S/P/Bld) [Vol rate/Area] 17 mL/min/{1.73_m2} Normal [place] o [facility] Comment on above: Result Comment: As o [...] By: #### L DVBG #### Roger Witt ([id number]) [place] [address] [place] Performed By: #### P OCGMD #### Roger Witt ([id number]) [address] Glucose [Mass/Vol] 173 mg/dL High 70-100 [facility] Comment on above: Performed By: #### L DVBG #### Roger Witt ([id number]) [address] Osmolality [Osmolality] 312 mosm/kg High 278-305 [facility] Comment on above: Performed By: #### L DVBG #### Roger Witt ([id number]) [address] Phosphate [Mass/Vol] 6.5 mg/dL High 2.1-4.5 [facility] Comment on above: Performed By: #### L DVBG #### Roger Witt ([id number]) [address] Potassium [Moles/Vol] 4.4 mmol/L Normal 3.5-5.3 [facility] Comment on above: Performed By: #### L DVBG #### Roger Witt ([id number]) [address] Sodium [Moles/Vol] 136 mmol/L Normal 133-146 [facility] Comment on above: Performed By: #### L DVBG #### Roger Witt ([id number]) [address] Urea nitrogen [Mass/Vol] 84 mg/dL High 7-25 [facility] Comment on above: Performed By: #### L DVBG #### Roger Witt ([id number]) [address] Albumin [Mass/Vol] 3.9 g/dL Normal 3.5-5.7 [facility] Comment on above: Performed By: #### P OCGMD #### Roger Witt ([id number]) [address] Anion gap [Moles/Vol] 16 mmol/L Normal 3-16 [facility] Comment on above: Performed By: #### P OCGMD #### Roger Witt ([id number]) [address] Calcium [Mass/Vol] 9.1 mg/dL Normal 8.6-10.3 [facility] Comment on above: Performed By: #### P OCGMD #### Roger Witt ([id number]) [address] Chloride [Moles/Vol] 92 mmol/L Low 98-110 [facility] Comment on above: Performed By: #### P OCGMD #### Roger Witt ([id number]) [address] CO2 [Moles/Vol] 27 mmol/L Normal 21-33 [facility] Comment on above: Performed By: #### P OCGMD #### Roger Witt ([id number]) [address] Creatinine [Mass/Vol] 3.70 mg/dL High 0.60-1.30 [facility] Comment on above: Performed By: #### P OCGMD #### Roger Witt ([id number]) [address] Glucose [Mass/Vol] 155 mg/dL High 70-100 [facility] Comment on above: Performed By: #### P OCGMD #### Roger Witt ([id number]) [address] Osmolality [Osmolality] 308 mosm/kg High 278-305 [facility] Comment on above: Performed By: #### P OCGMD #### Roger Witt ([id number]) [address] Phosphate [Mass/Vol] 7.0 mg/dL High 2.1-4.5 [facility] Comment on above: Performed By: #### P OCGMD #### Roger Witt ([id number]) [address] Potassium [Moles/Vol] 4.6 mmol/L Normal 3.5-5.3 [facility] Comment on above: Result Comment: Hemo lysis Present: Results may be influenced artificially. Recommend recollection as clinically indicated. Performed By: #### P OCGMD #### Roger Witt ([id number]) [address] Sodium [Moles/Vol] 135 mmol/L Normal 133-146 [facility] Comment on above: Performed By: #### P OCGMD #### Roger Witt ([id number]) [address] Urea nitrogen [Mass/Vol] 81 mg/dL High 7-25 [facility] Comment on above: Performed By: #### P OCGMD #### Roger Witt ([id number]) [address] SALICYLATEon 08-03-2023 Salicylate <3 Low 10-30 [facility] Comment on above: Performed By: #### L DVBG #### Roger Witt ([id number]) [address] SERUM PROT ELECTROPHORESIS, REFLEX TO ITon 08-03-2023 Albumin [Mass/Vol] 3.3 g/dL Low 3.70-4.90 [facility] Comment on above: Performed By: #### H STROPI #### Roger Witt ([id number]) [address] Alpha 1 0.3 g/dL Normal 0.20-0.40 [facility] Comment on above: Performed By: #### H STROPI #### Roger Witt ([id number]) [address] Alpha 2 0.8 g/dL Normal 0.50-1.00 [facility] Comment on above: Performed By: #### H STROPI #### Roger Witt ([id number]) [address] Beta 0.7 g/dL Normal 0.60-1.00 [facility] Comment on above: Performed By: #### H STROPI #### Roger Witt ([id number]) [place] [address] [place] Gamma 1.1 g/dL Normal 0.50-1.50 [facility] Comment on above: Performed By: #### H STROPI #### Roger Witt ([id number]) [place] [address] [place] M Hung 0.0 g/dL Normal [facility] Comment on above: Performed By: #### H STROPI #### Roger Witt ([id number]) [address] Protein [Mass/Vol] 6.3 g/dL Low 6.4-8.9 [facility] Comment on above: Performed By: #### H STROPI #### Roger Witt ([id number]) [address] SODIUM, RANDOM URINEon 08-02 Sodium (U) [Moles/Vol] 81 mmol/L Normal [facility] Comment on above: Result Comment: Refe rence range not established for this test. Performed By: #### L AVBG #### Roger Witt ([id number]) [address] SPUTUM CULTURE PLUS STAINon 08-03-2023 SPUTUM [...] F VANCOMYCIN S <= 0.5 F Susceptible [facility] Comment on above: Performed By: #### B ANTHROPOLOGY LECTURER #### Roger Witt ([id number]) [address] UREA NITROGEN, RANDOM URINEo n 08-03-2023 Urea, Ur 247 mg/dL Normal [facility] Comment on above: Result Comment: Refe rence range not established for this test. Performed By: #### C BC #### Roger Witt ([id number]) [address] URINE CREATININE, RANDOMon 0 08-03-2023 Creatinine, Ur 30.20 mg/dL Normal [facility] Comment on above: Result Comment: Refe rence range not established for this test. Performed By: #### C BC #### Roger Witt ([id number]) [address] URINE DRUG SCREEN WITHOUT CO NFIRMATION, Carlos 08-03-2023 Amphetamines, 500 cutoff Negative Normal Negative [facility] Comment on above: Performed By: #### L DVBG #### Roger Witt ([id number]) [address] Barbiturates, 300 ng/mL Cutoff Negative Normal Negative [facility] Comment on above: Performed By: #### L DVBG #### Roger Witt ([id number]) [place] [address] [place] Benzo, 300 ng/mL Cutoff Positive Abnormal Negative [facility] Comment on above: Performed By: #### L DVBG #### Roger Witt ([id number]) [place] [address] [place] Buprenorphine, 5 ng/mL Cutoff Negative Normal Negative [facility] Comment on above: Performed By: #### L DVBG #### Roger Witt ([id number]) [place] [address] [place] Cocaine, 300 ng/mL Cutoff Negative Normal Negative [facility] Comment on above: Performed By: #### L DVBG #### Roger Witt ([id number]) [place] [address] [place] Fentanyl, 2 ng/mL Cutoff Positive Abnormal Negative [facility] Comment on above: Result Comment: This test has been developed and its performance characteristics determined by [facility] which is certified under [...] By: #### L DVBG #### Roger Witt ([id number]) [place] [address] [place] Methadone 300 ng/mLCutoff Negative Normal Negative [facility] Comment on above: Performed By: #### L DVBG #### Roger Witt ([id number]) [place] [address] [place] Opiates, 300 ng/mL Cutoff Negative Normal Negative [facility] Comment on above: Performed By: #### L DVBG #### Roger Witt ([id number]) [place] [address] [place] Oxycodone, 100 ng/mL Negative Normal Negative [facility] Comment on above: Performed By: #### L DVBG #### Roger Witt ([id number]) [place] [address] [place] TCA, 300 ng/mL Cutoff Negative Normal Negative [facility] Comment on above: Result Comment: This test has been developed and its performance characteristics determined by [facility] which is certified under [...] By: #### L DVBG #### Roger Witt ([id number]) [address] THC, 50 ng/mL Cutoff Negative Normal Negative [facility] Comment on above: Result Comment: This is a screening method only and may be associated with false positive and/or false negative results. Results are not definitive without additional confirmatory testing by mass spectrometry. Performed By: #### L DVBG #### Roger Witt ([id number]) [address] URINE KAPPA/LAMBDA RANDOMon 08-03-2023 [place] Ch[place] 112.13 mg/L High 0.39-15.10 [facility] Comment on above: Performed By: #### E DHCVR #### Roger Witt ([id number]) [address] [place]/Lambda Ratio 4.85 ratio High 0.46-4.00 [facility] Comment on above: Performed By: #### E DHCVR #### Roger Witt ([id number]) [address] Lambda Chains 23.14 mg/L High 0.81-10.10 [facility] Comment on above: Performed By: #### E DHCVR #### Roger Witt ([id number]) [address] URINE PROTEIN ELECTROPHORESI S, RANDOM W REFLEX TSTon 08-03-2023 Albumin 5.7 mg/dL Normal [facility] Comment on above: Order Comment: This assay has been modified from the railways assistant's specifications and has been validated with performance [...] for research use. Performed By: #### H KRSITY #### Roger Witt ([id number]) [address] Yiluo-2-Dexgiuccd 11.8 mg/dL Normal [facility] Comment on above: Order Comment: This assay has been modified from the railways assistant's specifications and has been validated with performance characteristics determined by [facility] in accordance with federal regulations under the Clinical Laboratory Act Amendment of 1988. The modification has not been approved by the FDA which has determined that such approval is not necessary. The test is for clinical purposes and should not be regarded as investigational or for research use. Performed By: #### H KRISTY #### Roger Witt ([id number]) [address] Varhz-6-Tlommsrap 4.7 mg/dL Normal [facility] Comment on above: Order Comment: This assay has been modified from the railways assistant's specifications and has been validated with performance characteristics determined by [facility] in accordance with federal regulations under the Clinical Laboratory Act Amendment of 1988. The modification has not been approved by the FDA which has determined that such approval is not necessary. The test is for clinical purposes and should not be regarded as investigational or for research use. Performed By: #### H LEONIEPI #### Roger Witt ([id number]) [address] Beta Globulins 4.1 mg/dL Normal [facility] Comment on above: Order Comment: This assay has been modified from the railways assistant's specifications and has been validated with performance [...] By: #### H STROPI #### Roger Witt ([id number]) [address] Gamma Globulins 2.8 mg/dL Normal [facility] Comment on above: Order Comment: This assay has been modified from the railways assistant's specifications and has been validated with performance [...] By: #### H STROPI #### Roger Witt ([id number]) [address] Interpretation See Note Normal [facility] Comment on above: Order Comment: This assay has been modified from the railways assistant's specifications and has been validated with performance [...] By: #### H STROPI #### Roger Witt ([id number]) [address] Result Comment: Seru m protein separation shows an unremarkable pattern. No monoclonal protein seen. Reviewed by Jenise Grady M.D. M Hung 0.0 mg/dL Normal [facility] Comment on above: Order Comment: This assay has been modified from the railways assistant's specifications and has been validated with performance [...] By: #### H KRISTY #### Roger Witt ([id number]) [address] Protein (U) [Mass/Vol] 29 mg/dL Normal [facility] Comment on above: Order Comment: This assay has been modified from the railways assistant's specifications and has been validated with performance characteristics determined by [facility] in accordance with federal [...] By: #### H KRISTY #### Roger Witt ([id number]) [address] US RETROPERITONEAL COMPLETEo n 08-03-2023 US [...] MD at 08/03/2023 2:10 PM EDT Normal [facility] Comment on above: Performed By: #### B ANTHROPOLOGY LECTURER #### Roger Witt ([id number]) [address] VANCOMYCIN, RANDOMon 024 Vancomycin, Random 28.0 ug/mL Normal [facility] Comment on above: Result Comment: Refe rence range not established for this test. Performed By: #### D IFF #### Roger Witt ([id number]) [address] VENOUS BLOOD GAS, LINE/SYRIN GEon 08-03-2023 %HBO2 79.3 % High 40.0-70.0 [facility] Comment on above: Performed By: #### D IFF #### Roger Witt ([id number]) [address] Base Excess 0.0 mmol/L Normal -2.0-3.0 [facility] Comment on above: Performed By: #### D IFF #### Roger Witt ([id number]) [address] Carboxyhgb 1.6 % Normal [facility] Comment on above: Result Comment: CARB OXYHEMOGLOBIN (CO) REFERENCE RANGES: Non-Smokers: <2 % Smokers: <8 % TOXIC: >20 % Performed By: #### D IFF #### Roger Witt ([id number]) [address] CO2 [Moles/Vol] 29 mmol/L Normal 25-29 [facility] Comment on above: Performed By: #### D IFF #### Roger Witt ([id number]) [address] HCO3 (Bld) [Moles/Vol] 27 mmol/L Normal 24-28 [facility] Comment on above: Performed By: #### D IFF #### Roger Witt ([id number]) [address] Methemoglobin 0.6 % Normal 0.0-1.5 [facility] Comment on above: Performed By: #### D IFF #### Roger Witt ([id number]) [place] [address] [place] PCO2 54 mm Hg High 41-51 [facility] Comment on above: Performed By: #### D IFF #### Roger Witt ([id number]) [address] pH (Bld) 7.31 [pH] Low 7.32-7.42 [facility] Comment on above: Performed By: #### D IFF #### Roger Witt ([id number]) [place] [address] [place] PO2 48 mm Hg High 25-40 [facility] Comment on above: Performed By: #### D IFF #### Roger Witt ([id number]) [address] Reduced Hemoglobin 18.5 % High 0.0-5.0 [facility] Comment on above: Performed By: #### D IFF #### Roger Witt ([id number]) [address] %HBO2 43.2 % Normal 40.0-70.0 [facility] Comment on above: Performed By: #### C BC #### Roger Witt ([id number]) [address] Base Excess -1.6 mmol/L Normal -2.0-3.0 [facility] Comment on above: Performed By: #### C BC #### Roger Witt ([id number]) [address] Carboxyhgb 1.2 % Normal 0.0-2.0 [facility] Comment on above: Result Comment: CARB OXYHEMOGLOBIN (CO) REFERENCE RANGES: Non-Smokers: <2 % Smokers: <8 % TOXIC: >20 % Performed By: #### C BC #### Roger Witt ([id number]) [address] CO2 [Moles/Vol] 26 mmol/L Normal 25-29 [facility] Comment on above: Performed By: #### C BC #### Roger Witt ([id number]) [address] HCO3 (Bld) [Moles/Vol] 25 mmol/L Normal 24-28 [facility] Comment on above: Performed By: #### C BC #### Roger Witt ([id number]) [address] Methemoglobin 0.7 % Normal 0.0-1.5 [facility] Comment on above: Performed By: #### C BC #### Roger Witt ([id number]) [place] [address] [place] PCO2 47 mm Hg Normal 41-51 [facility] Comment on above: Performed By: #### C BC #### Roger Witt ([id number]) [address] pH (Bld) 7.33 [pH] Normal 7.32-7.42 [facility] Comment on above: Performed By: #### C BC #### Roger Witt ([id number]) [place] [address] [place] PO2 26 mm Hg Normal 25-40 [facility] Comment on above: Performed By: #### C BC #### Roger Witt ([id number]) [address] Reduced Hemoglobin 54.9 % High 0.0-5.0 [facility] Comment on above: Performed By: #### C BC #### Roger Witt ([id number]) [address] %HBO2 35.4 % Low 40.0-70.0 [facility] Comment on above: Performed By: #### L AVBG #### Roger Witt ([id number]) [address] Base Excess 2.4 mmol/L Normal -2.0-3.0 [facility] Comment on above: Performed By: #### L AVBG #### Roger Witt ([id number]) [address] Carboxyhgb 1.1 % Normal 0.0-2.0 [facility] Comment on above: Result Comment: CARB OXYHEMOGLOBIN (CO) REFERENCE RANGES: Non-Smokers: <2 % Smokers: <8 % TOXIC: >20 % Performed By: #### L AVBG #### Roger Witt ([id number]) [address] CO2 [Moles/Vol] 33 mmol/L High 25-29 [facility] Comment on above: Performed By: #### L AVBG #### Roger Witt ([id number]) [address] Performed By: #### P OCGMD #### Roger Witt ([id number]) [facility] [address] HCO3 (Bld) [Moles/Vol] 31 mmol/L High 24-28 [facility] Comment on above: Performed By: #### L AVBG #### Roger Witt ([id number]) [address] Performed By: #### P OCGMD #### Roger Witt ([id number]) [address] Methemoglobin 0.7 % Normal 0.0-1.5 [facility] Comment on above: Performed By: #### L AVBG #### Roger Witt ([id number]) [address] PCO2 64 mm Hg High 41-51 [facility] Comment on above: Performed By: #### L AVBG #### Roger Witt ([id number]) [address] pH (Bld) 7.29 [pH] Low 7.32-7.42 [facility] Comment on above: Performed By: #### L AVBG #### Roger Witt ([id number]) [place] [address] [place] PO2 24 mm Hg Low 25-40 [facility] Comment on above: Performed By: #### L AVBG #### Roger Witt ([id number]) [address] Reduced Hemoglobin 62.8 % High 0.0-5.0 [facility] Comment on above: Performed By: #### L AVBG #### Roger Witt ([id number]) [address] %HBO2 31.9 % Low 40.0-70.0 [facility] Comment on above: Performed By: #### P OCGMD #### Roger Witt ([id number]) [address] Base Excess 1.1 mmol/L Normal -2.0-3.0 [facility] Comment on above: Performed By: #### P OCGMD #### Roger Witt ([id number]) [address] Carboxyhgb 1.2 % Normal 0.0-2.0 [facility] Comment on above: Result Comment: CARB OXYHEMOGLOBIN (CO) REFERENCE RANGES: Non-Smokers: <2 % Smokers: <8 % TOXIC: >20 % Performed By: #### P OCGMD #### Roger Witt ([id number]) [address] PCO2 67 mm Hg High 41-51 [facility] Comment on above: Performed By: #### P OCGMD #### Roger Witt ([id number]) [address] pH (Bld) 7.27 [pH] Low 7.32-7.42 [facility] Comment on above: Performed By: #### P OCGMD #### Roger Witt ([id number]) [address] PO2 22 mm Hg Low 25-40 [facility] Comment on above: Performed By: #### P OCGMD #### Roger Witt ([id number]) [address] Reduced Hemoglobin 66.3 % High 0.0-5.0 [facility] Comment on above: Performed By: #### P OCGMD #### Roger Witt ([id number]) [address] VITAMIN B12on 08-03-2023 Cobalamin (Vitamin B12) [Mass/Vol] 248 pg/mL Normal 180-914 [facility] Comment on above: Performed By: #### L DVBG #### Roger Witt ([id number]) [address] VITAMIN D 25-HYDROXYon 08-02 Vitamin D, 25 Hydroxy 42.0 ng/mL Normal 30.0-100.0 [facility] Comment on above: Result Comment: Keyla min D deficiency has been defined by the [employer] (IOM) and an Endocrine Society [...] JCEM. 2010; 96(7):1911-30. Performed By: #### B ANTHROPOLOGY LECTURER #### Roger Witt ([id number]) [address] B NATRIURETIC PEPTIDEon 07-06 Natriuretic peptide B (Bld) [Mass/Vol] 14 pg/mL Normal 0-100 [facility] Comment on above: Order Comment: The [...] Please interpret accordingly. Performed By: #### B ANTHROPOLOGY LECTURER #### Roger Witt ([id number]) [address] BLOOD CULTURE-PERIPHERALon 0 08-02-2023 BLOOD CULTURE-PERIPHERAL Culture Result: No Growth After 5 Days Normal [facility] Comment on above: Order Comment: Subop timal volume of blood received. Interpret results with caution. Performed By: #### B C #### Roger Witt ([id number]) [address] Performed By: #### P OCGMD #### Roger Witt ([id number]) [address] CBCon 08-02-2023 Erythrocyte distribution width (RBC) [Ratio] 15.3 % High 11.0-15.0 [facility] Comment on above: Performed By: #### C BC #### Roger Witt ([id number]) [address] Hematocrit (Bld) [Volume fraction] 46.6 % Normal 38.5-50.0 [facility] Comment on above: Performed By: #### C BC #### Roger Witt ([id number]) [address] Hemoglobin (Bld) [Mass/Vol] 15.7 g/dL Normal 13.2-17.1 [facility] Comment on above: Performed By: #### C BC #### Roger Witt ([id number]) [address] MCH (RBC) [Entitic mass] 32.4 pg Normal 27.0-33.0 [facility] Comment on above: Performed By: #### C BC #### Roger Witt ([id number]) [address] MCHC (RBC) [Mass/Vol] 33.6 g/dL Normal 32.0-36.0 [facility] Comment on above: Performed By: #### C BC #### Roger Witt ([id number]) [address] MCV (RBC) [Entitic vol] 96.5 fL Normal 80.0-100.0 [facility] Comment on above: Performed By: #### C BC #### Roger Witt ([id number]) [address] Platelet mean volume (Bld) [Entitic vol] 8.6 fL Normal 7.5-11.5 [facility] Comment on above: Performed By: #### C BC #### Roger Witt ([id number]) [address] Platelets (Bld) [#/Vol] 318 10*3/uL Normal 140-400 [facility] Comment on above: Performed By: #### C BC #### Roger Witt ([id number]) [address] RBC (Bld) [#/Vol] 4.83 10*6/uL Normal 4.20-5.80 [facility] Comment on above: Performed By: #### C BC #### Roger Witt ([id number]) [address] WBC (Bld) [#/Vol] 19.1 10*3/uL High 3.8-10.8 [facility] Comment on above: Performed By: #### C BC #### Roger Witt ([id number]) [address] HEAD WO CONTRASTon 2023 CT [...] scalp due to partial exclusion from the [id number]. Normal as included. Calvarium and skull base: [...] MD at 08/02/2023 10:47 PM EDT Normal [facility] DIFFERENTIALon 08-02-2023 Abs BASO 76 /uL Normal 0-200 [facility] Comment on above: Performed By: #### D IFF #### Roger Witt ([id number]) [address] Abs EOS 134 /uL Normal 15-500 [facility] Comment on above: Performed By: #### D IFF #### Roger Witt ([id number]) [place] [address] [place] Abs MONO 1719 /uL High 200-950 [facility] Comment on above: Performed By: #### D IFF #### Roger Witt ([id number]) [place] [address] [place] Abs NEUT 86362 /uL High 4179-5993 [facility] Comment on above: Performed By: #### D IFF #### Roegr Witt ([id number]) [place] [address] [place] Basophils/100 WBC (Bld) 0.4 % Normal 0.0-1.0 [facility] Comment on above: Performed By: #### D IFF #### Roger Witt ([id number]) [place] [address] [place] Eosinophils/100 WBC (Bld) 0.7 % Normal 0.0-8.0 [facility] Comment on above: Performed By: #### D IFF #### Roger Witt ([id number]) [place] [address] [place] Lymphocytes (Bld) [#/Vol] 1.795 10*3/uL Normal 850-3900 [facility] Comment on above: Performed By: #### D IFF #### Roger Witt ([id number]) [place] [address] [place] Lymphocytes/100 WBC (Bld) 9.4 % Low 15.0-45.0 [facility] Comment on above: Performed By: #### D IFF #### Roger Witt ([id number]) [place] [address] [place] Monocytes/100 WBC (Bld) 9.0 % Normal 0.0-12.0 [facility] Comment on above: Performed By: #### D IFF #### Roger Witt ([id number]) [address] Neutrophils/100 WBC (Bld) 80.5 % High 40.0-80.0 [facility] Comment on above: Performed By: #### D IFF #### Roger Witt ([id number]) [address] Nucleated RBC 0 /100 WBC Normal 0-0 [facility] Comment on above: Performed By: #### D IFF #### Roger Witt ([id number]) [address] ED HCV AB REFLEX TO HCV JASPAL Ton 08-02-2023 HCVAB NUMBER 0.08 S/CO Normal 0.00-0.79 [facility] Comment on above: Performed By: #### E DHCVR #### Roger Witt ([id number]) [address] Hepatitis C Interp Non-Reactive Normal Nonreactive [facility] Comment on above: Result Comment: Heal th Department notified in accordance with reportable infectious disease guidelines. Performed By: #### E DHCVR #### Roger Witt ([id number]) [address] ED Prov Noteon 08-02-2023 ED Prov Note [facility] ED Note Date of Service: 08/02/2023 Reason for Visit: Altered Mental Status and Multiple Falls Patient History HPI Maikel Riojas is a 73 y.o. male with a history of COPD. DMT2, CHF , HTN who presents to the ED for evaluation of AMS. Patient presents via [facility]irc[facility] after multiple falls and now presenting with AMS. Patient had been recently admitted to [facility] for a COPD exacerbation that required an [...] Vancomycin a (more content not included)... Normal [facility] ED Triage Noon 08-02-2023 ED Triage No Pt to [facility] by air car e for AMS, multiple recent falls, COPD exacerbation. VSS per EMS. Istat remarkable only for lactic of 3. [facility]. On 4LPM O2, baseline 2 L. Normal [facility] High Sensitivity Troponinon 08-02-2023 HSTROPI 14 ng/L Normal 0-20 [facility] Comment on above: Performed By: #### L AVBG #### Roger Witt ([id number]) [address] Performed By: #### H STROPI #### Roger Witt ([id number]) [address] LACTIC ACID VENOUS WHOLE BLO ODon 08-02-2023 Lactate [Moles/Vol] 3.6 mmol/L High 0.5-2.2 [facility] Comment on above: Performed By: #### L AVBG #### Roger Witt ([id number]) [address] POC GLU MONITORING DEVICEon 08-02-2023 POC GLU MONITORING DEVICE 169 mg/dL High 70-100 [facility] Comment on above: Performed By: #### P OCGMD #### Roger Witt ([id number]) [address] [place] [address] [place] URINALYSIS W/RFL TO MICROSCO Maykel 08-02-2023 Bilirubin, Urine Negative Normal Negative [facility] Comment on above: Order Comment: Micro scopic testing is not performed when the dipstick is negative for blood, leukocyte, protein and nitrite. Performed By: #### P OCGMD #### Roger Witt ([id number]) [address] Clarity (U) Clear Normal Clear [facility] Comment on above: Order Comment: Micro scopic testing is not performed when the dipstick is negative for blood, leukocyte, protein and nitrite. Performed By: #### P OCGMD #### Roger Witt ([id number]) [address] Color (U) Yellow Normal Yellow,Straw [place] [facility] Comment on above: Order Comment: Micro scopic testing is not performed when the dipstick is negative for blood, leukocyte, protein and nitrite. Performed By: #### P OCGMD #### Roger Witt ([id number]) [address] Glucose Ql (U) Negative Normal Negative [facility] Comment on above: Order Comment: Micro scopic testing is not performed when the dipstick is negative for blood, leukocyte, protein and nitrite. Performed By: #### P OCGMD #### Roger Witt ([id number]) [address] Hemoglobin Ql (U) Negative Normal Negative [facility] Comment on above: Order Comment: Micro scopic testing is not performed when the dipstick is negative for blood, leukocyte, protein and nitrite. Performed By: #### P OCGMD #### Roger Witt ([id number]) [address] [place] [address] [place] Hyaline Cast 16 /LPF High 0-2 [facility] Comment on above: Order Comment: Micro scopic testing is not performed when the dipstick is negative for blood, leukocyte, protein and nitrite. Performed By: #### P OCGMD #### Roger Witt ([id number]) [address] Ketone Negative Normal Negative [facility] Comment on above: Order Comment: Micro scopic testing is not performed when the dipstick is negative for blood, leukocyte, protein and nitrite. Performed By: #### P OCGMD #### Roger Witt ([id number]) [address] Leukocyte esterase Test strip Ql (U) Negative Normal Negative [facility] Comment on above: Order Comment: Micro scopic testing is not performed when the dipstick is negative for blood, leukocyte, protein and nitrite. Performed By: #### P OCGMD #### Roger Witt ([id number]) [address] Mucous Present Abnormal None Seen [facility] Comment on above: Order Comment: Micro scopic testing is not performed when the dipstick is negative for blood, leukocyte, protein and nitrite. Performed By: #### P OCGMD #### Roger Witt ([id number]) [address] Nitrite Ql (U) Negative Normal Negative [facility] Comment on above: Order Comment: Micro scopic testing is not performed when the dipstick is negative for blood, leukocyte, protein and nitrite. Performed By: #### P OCGMD #### Roger Witt ([id number]) [address] pH (U) 5.5 [pH] Normal 5.0-8.0 [facility] Comment on above: Order Comment: Micro scopic testing is not performed when the dipstick is negative for blood, leukocyte, protein and nitrite. Performed By: #### P OCGMD #### Roger Witt ([id number]) [address] Protein, urine Negative Normal Negative [facility] Comment on above: Order Comment: Micro scopic testing is not performed when the dipstick is negative for blood, leukocyte, protein and nitrite. Result Comment: Resu lts were rechecked. Performed By: #### P OCGMD #### Roger Witt ([id number]) [address] RBC. 1 /HPF Normal 0-3 [facility] Comment on above: Order Comment: Micro scopic testing is not performed when the dipstick is negative for blood, leukocyte, protein and nitrite. Performed By: #### P OCGMD #### Roger Witt ([id number]) [address] Specific gravity (U) [Rel density] 1.015 Normal 1.005-1.035 [facility] Comment on above: Order Comment: Micro scopic testing is not performed when the dipstick is negative for blood, leukocyte, protein and nitrite. Performed By: #### P OCGMD #### Roger Witt ([id number]) [place] [address] [place] Squamous, Epith 1 /HPF Normal 0-5 [facility] Comment on above: Order Comment: Micro scopic testing is not performed when the dipstick is negative for blood, leukocyte, protein and nitrite. Performed By: #### P OCGMD #### Roger Witt ([id number]) [place] [id number] [place] Urobilinogen (U) [Mass/Vol] mg/dL Normal 0.2-1.9 [facility] Comment on above: Order Comment: Micro scopic testing is not performed when the dipstick is negative for blood, leukocyte, protein and nitrite. Performed By: #### P OCGMD #### Roger Witt ([id number]) [address] WBC. 3 /HPF Normal 0-5 [facility] Comment on above: Order Comment: Micro scopic testing is not performed when the dipstick is negative for blood, leukocyte, protein and nitrite. Performed By: #### P OCGMD #### Roger Witt ([id number]) [address] URINE CULTUREon 08-02-2023 Bacteria identified Cx Nom (U) Culture Result: No Growth After 2 Days Normal [facility] Comment on above: Performed By: #### B ANTHROPOLOGY LECTURER #### Roger Witt ([id number]) [address] VENOUS BLOOD GAS, LINE/SYRIN GEon 08-02-2023 %HBO2 43.1 % Normal 40.0-70.0 [facility] Comment on above: Performed By: #### L DVBG #### Roger Witt ([id number]) [address] Base Excess 0.7 mmol/L Normal -2.0-3.0 [facility] Comment on above: Performed By: #### L DVBG #### Roger Witt ([id number]) [address] Carboxyhgb 1.4 % Normal 0.0-2.0 [facility] Comment on above: Result Comment: CARB OXYHEMOGLOBIN (CO) REFERENCE RANGES: Non-Smokers: <2 % Smokers: <8 % TOXIC: >20 % Performed By: #### L DVBG #### Roger Witt ([id number]) [address] CO2 [Moles/Vol] 32 mmol/L High 25-29 [facility] Comment on above: Performed By: #### L DVBG #### Roger Witt ([id number]) [address] HCO3 (Bld) [Moles/Vol] 30 mmol/L High 24-28 [facility] Comment on above: Performed By: #### L DVBG #### Roger Witt ([id number]) [address] Methemoglobin 0.6 % Normal 0.0-1.5 [facility] Comment on above: Performed By: #### P OCGMD #### Roger Witt ([id number]) [address] Performed By: #### L DVBG #### Roger Witt ([id number]) [address] PCO2 69 mm Hg High 41-51 [facility] Comment on above: Performed By: #### L DVBG #### Roger Witt ([id number]) [address] pH (Bld) 7.25 [pH] Low 7.32-7.42 [facility] Comment on above: Performed By: #### L DVBG #### Roger Witt ([id number]) [address] [address] [place] PO2 28 mm Hg Normal 25-40 [facility] Comment on above: Performed By: #### L DVBG #### Roger Witt ([id number]) [address] Reduced Hemoglobin 54.9 % High 0.0-5.0 [facility] Comment on above: Performed By: #### L DVBG #### Roger Witt ([id number]) [address] XR PORTABLE CHESTon 08-02-19 XR PORTABLE CHEST EXAM: XR PORTABLE CHEST INDICATION: Intubation TECHNIQUE: 1 view of the chest. COMPARISON: Chest radiograph from less than 1 hour prior FINDINGS: Medical Devices: ET tube tip projects over the midthoracic trachea. Enteric tube courses below the level of the diaphragms with tip not included in the ublil-kc-cnic. Heart and Mediastinum: Cardiac silhouette is partially [...] MD at 08/02/2023 9:13 PM EDT Normal [facility] Comment on above: Performed By: #### P OCGMD #### Roger Witt ([id number]) [address] XR PORTABLE CHEST EXAM: XR PORTABLE [...] MD at 08/02/2023 11:04 PM EDT Normal [facility] Comment on above: Performed By: #### L AVBG #### Roger Kiran Witt ([id number]) [address] Encounters Encounter Date Encounter Type Care Provider Facility Start: 12-10-2023 ambulatory Shari Tobar Facility :[facility] Start: 09-01-2023 End: 09-01-2023 Emergency department patient visit [facility] Start: 08-02-2023 End: 08-06-2023 Evaluation and management of inpatient PATRICE MARTIN [facility] Payers Date Payer Category Payer Unknown [id number] 1950 Unknown [id number] 1950 Unknown [id number] 1950 Unknown [id number] Clinical Note 08-06-2023 Note Date & Type Note Facility 08-06-2023 Note [facility] Case Management/Social Work Department Progress [...] retention. PCP: ATTENDING PROVIDER UNKNOWN Home Pharmacy: [facility] [address] [id number] Medical Insurance Coverage: Payor: [employer] CARE / Plan: [employer] [facility] / Product Type: Government / Other Pertinent Information RNCM met with interdisciplinary team for rounding/received report, and reviewed chart. Per team, patient is medically ready for discharge. Patient has been accepted at both [facility] and [facility]. Patient has chosen [facility]. Kirill, liaison with [facility]# [phone], is checking on which insurance to use and will reply back to RNCM. Discharge Plan Anticipated discharge plan: short term half-way Anticipated discharge date: today or tomorrow CM/SW will continue to follow and remain available for discharge planning needs. SUGAR HANEY Cell [phone] [facility] Clinical Note 08-05-2023 Note Date & Type Note Facility 08-05-2023 Note [facility] Case Management/Social Work Department Progress [...] retention. PCP: ATTENDING PROVIDER UNKNOWN Home Pharmacy: [facility] [address] [id number] Medical Insurance Coverage: Payor: [employer] / Plan: [facility] [facility] / Product Type: Government / Other Pertinent Information RNCM met with interdisciplinary team for rounding/received report, and reviewed chart. Per team, patient is medically ready for discharge. Patient needs SNF placement. [facility] who stated [facility] not [facility] for [facility] with [facility]. Referral sent to Ebonie at the [facility] who stated they do not have [...] for discharge planning needs. SUGAR HANEY Cell [phone] [facility] Procedure note 08-05-2023 Note Date & Type Note Facility 08-05-2023 Note Speech Scrubbing Machine Operator ology Fiberoptic Endoscopic Evaluation of Swallowing (FEES) Name: Maikel Riojas : 1950 Attending Physician: Narayan Ramos MD Admission Diagnosis: Acute hypoxemic respiratory failure (CMS-HCC) [J96.01] AMS (altered mental status) [R41.82] Date: 08/05/2023 Reviewed Pertinent hospital course: Yes Hospital Course OUTPATIENT PHYSICAL THERAPIST ASSISTANT: 73 y/o male presents with AMS. PMH: COPD, T2DM, HFpEF, HTN, HARIS, BPH, multiple recent falls. Patient with recent admission to [facility] for COPD exacerbation requiring ICU stay and [...] aspiration. 3. Trivial trace bilateral pleural effusions. OUTPATIENT PHYSICAL THERAPIST ASSISTANT Hx: none at [facility]. Assessment: Patient presents with oropharyngeal [...] 1) with intermittent throat clear and re-swallow. OUTPATIENT PHYSICAL THERAPIST ASSISTANT will follow up 1-2x to ensure implementation of compensatory and safe swallow strategy. Patient is at an increased risk of aspiration. Images are available for review in [employer]. Receptionist Nurse: Elena Trace silent aspiration of thin liquid [...] obtained. Pre-Swallow Assessment Serial number Nasopharyngoscope used: [id number] Velopharyngeal closure: complete Base of tongue contact [...] and is not (more content not included)... [facility] Clinical Note 08-03-2023 Note Date & Type Note Facility 08-03-2023 Note Problem: Non-violent , jwq-fqfd-dfoqbutuclh restraints Description: Less restrictive alternative interventions will [...] protection of medical procedures, or protection of ophthalmic medical technician access. Outcome: Completed Restraints removed with extubation. notified. Leonor Fabian RN [facility] Clinical Note 08-03-2023 Note Date & [...] Coverage: Payor: [employer] / Plan: [facility] / Product Type: Government / Secondary [...] Services Community Services at Home: Home Health Senior Living Health Services Types Prior to Admission: Home Health Aide Support Systems Emergency contact: Extended Emergency Contact Information Primary Emergency Contact: Hayden Riojas Mobile Relation: Son Drone Pilot needed? No Support Systems Primary Caregiver: Self, Family Marital Status: Single Number of children and their names: 13 Relative Search Completed: No Demographics Correct:: Yes Expected Discharge Disposition: Residential Facility Next of Kin: Haydne Riojas Next of Kin Relationship: Son Next of Kin Assessment Information Obtained From:: Children, Chart Review Other Pertinent Information Antenna Design Engineer met with MICU team for daily rounds and completed chart review. Patient is not anticipated to be medically ready today. Pt is currently intubated. H&P: Maikel Riojas is a 73 y.o. male with a history of COPD, T2DM, HFpEF, HTN, HARIS, BPH, multiple recent falls presenting for altered mental status. Of note patient recently admitted to [facility] for COPD exacerbation which required ICU stay [...] have severe uremia on lab workup. Assessment: Fleet Sales Associate/Antenna Design Engineer Malcolm Gerardo spoke with patient's son Hayden [phone] to complete psychosocial assessment for discharge planning [...] home oxygen No dialysis. No history of half-way facility Pt has a history of inpatient rehabilitation facility admissions. No history of home health care services. SW inquired regarding Advance Directives paperwork. Pt reportedly does have a HCPOA which is his son, Hayden Riojas [phone]. Son is aware that without this document on file we go to LNOK which is all of his children collectively. Patient's L[place] are all 13 of his children (3 are leaving 10) until Hayden sends over HCPOA documentation. Advance Directives (For Healthcare) Advance Directive: Patient has advance directive, copy not (more content not included)... [facility] Clinical Note 08-03-2023 Note Date & Type Note Facility 08-03-2023 Note Problem: Non-violent , qpi-jtea-tvfdmtsescy restraints Description: Less restrictive alternative interventions will [...] low air loss bed. Leonor Fabian RN [facility] Clinical Note 08-03-2023 Note Date & Type Note Facility 08-03-2023 Note Problem: Non-violent , dpy-zqcc-zrffiifyche restraints Description: Less restrictive alternative interventions will [...] protection of medical procedures, or protection of ophthalmic medical technician access. Outcome: Progressing Pt in BUE restraints to prevent from pulling at medical devices. Will educate and continue to monitor. [facility] Clinical Note 08-03-2023 Note Date & Type Note Facility 08-03-2023 Note Problem: Non-violent , sbm-ptuo-clgmmyloqoz restraints Description: Less restrictive alternative interventions will [...] 08/02/[id number] by Nnamdi Estrada RN Outcome: Progressing [facility] Procedure note 08-02-2023 Note Date & Type Note Facility 08-02-2023 Note [facility] ED Procedu re Note Emergency Department Procedures Intubation Date/Time: 08/02/2023 8:40 PM Performed by: Юлия Pate MD Authorized by: Ulises Conway MD Consent: Consent obtained: Emergent situation [place] protocol: Patient identity confirmed: Arm band Pre-procedure [...] There were no complications unless otherwise documented. [facility] Summary Purpose Family History No Family History Records FoundNo Family History Records FoundNo Family History Records Found Advance Directives No Advanced Directives Records FoundNo Advanced Directives Records FoundNo Advanced Directives Records Found Additional Source Comments (unrecognized sect ion and content) No Status Records FoundNo Status Records FoundNo Status Records Found INFORMATION SOURCE (unrecogn ized section and content) DATE CREATED AUTHOR 08/13/2023 [facility] DATE CREATED AUTHOR AUTHOR'S ORGANIZ ATION 09/11/2023 [facility] DATE CREATED AUTHOR AUTHOR'S ORGANIZ ATION 11/15/2023 [facility] FOR RECORDS PERTAINING TO PATIENTS WHO ARE [...] BE BASED ON THE PRIMARY CLINICAL RECORDS. [employer] provides no warranty or guarantee of the accuracy or completeness of information in this document.
[2023-12-05 13:01] LABS: Base Excess ABG 8.5 mmol/L (-2.0-2.0); HCO3 ABG 35.1 mmol/L (22.0-26.0); PO2 ABG 67.3 mmHg (80.0-100.0)
[2023-12-05 13:02] LABS: Allen Test POSITIVE (POSITIVE); Fractionated Inspired Oxygen 35 %; O2 Mode BIPAP; Oxygen Saturation ABG 93.6 %; Puncture Site R RADIAL
[2023-12-05 13:03] LABS: BIPAP Pressure 14/8; Rate 15
[2023-12-05 13:04] LABS: ABG PCO2 73.2 mmHg (35.0-45.0)
[2023-12-05] MEDS: 0.9 % SODIUM CHLORIDE 1,000 ML 500 ML IV (13:09)
[2023-12-05 13:32] LABS: Bilirubin Urine NEGATIVE (NEGATIVE); Blood Urine NEGATIVE (NEGATIVE); Clarity Urine CLEAR (CLEAR); Color Urine LT. YELLOW (YELLOW); Glucose Urine UA NEGATIVE (NEGATIVE); Ketones Urine TRACE mg/dL (NEGATIVE); Leukocyte Esterase Urine NEGATIVE (NEGATIVE); Nitrite Urine NEGATIVE (NEGATIVE); Protein Urine NEGATIVE (NEG/TRACE); Specific Gravity Urine 1.025 (1.005-1.025); Urobilinogen Urine 0.2 EU/dL (0.2-1.0); pH Urine 5.5 (5.0-9.0)
[2023-12-05 13:33] LABS: Urine Microscopic Indicated NO
[2023-12-05 13:42] LABS: Lactate/Lactic Acid 0.8 mmol/L (0.4-2.0)
[2023-12-05] MEDS: LEVOFLOXACIN IN DEXTROSE 5 % 500 MG/100 ML PREMIX 100 MG IV (14:27)
--- OUTSIDE RECORDS SUMMARY | 2023-12-05 15:26 | XMS_ITS | CCD ---
Author Organization [employer] ([employer] Partnership [facility] Care Team Providers Care Boring Machine Set Up Operator Name Role Phone PATRICE MARTIN Primary Care Unavailable PATRICE MARTIN Admitting Unavailable NARAYAN RAMOS Attending Unavailable DANIEL CHENG Attending Unavailable CATHI SERVIN Primary Care KATERINE Hughes Referring Unavailable CATHI SERVIN Primary Care Shari Mabry Attending Unavailable Allergies Allergy Classification Reported Allergen(s) Allergy Type Date of Onset Reaction(s) Facility Anti-Epileptic Agents (1 source) gabapentin; Translations: [GABAPENTIN] Drug Allergy 09-01-2023 [facility] Repository sildenafil (1 source) sildenafil; Translations: [SILDENAFIL] Drug Allergy 09-01-2023 [facility] Repository (1 source) gabapentin; Translations: [GABAPENTIN] Drug Allergy 05-13-2021 [facility] Repository (1 source) sildenafil; Translations: [SILDENAFIL] Drug Allergy 04-28-2020 [facility] Repository (1 source) tomato allergenic extract; Translations: [TOMATO] Drug Allergy 10-19-2018 [facility] Repository Problems Problem Classification Problem Date [...] hypoxia; Translations: [Acute respiratory failure with hypoxia ([facility])] Onset: 08-02-2023 Episodic Results Test Name Value Interpretation Reference Range Facility BNPon 09-01-2023 Natriuretic peptide B (Bld) [Mass/Vol] 383 pg/mL High 0-124 [facility] Comment on above: Performed By: #### B NPEP #### MD ANDREAS CORLEY ([id number]) [facility] [address] [place] [address] CBC With Platelet and Differ entialon 09-01-2023 Anisocytosis Ql (Bld) Occasional Abnormal [facility] Comment on above: Performed By: #### C BCWD #### MD ANDREAS CORLEY ([id number]) [facility] [address] [place] [address] Atypical Lymphs 1 % Normal 0-6 [facility] Comment on above: Performed By: #### C BCWD #### MD ANDREAS CORLEY ([id number]) [facility] [address] [place] [address] Basophils (Bld) [#/Vol] 0.0 10*3/uL Normal 0.0-0.2 [facility] Comment on above: Performed By: #### C BCWD #### MD ANDREAS CORLEY ([id number]) [facility] [address] [place] [address] [place] Basophils/100 WBC (Bld) 0.0 % Normal [facility] Comment on above: Performed By: #### C BCWD #### MD ANDREAS CORLEY ([id number]) [facility] [address] [place] [address] [place] Eosinophils (Bld) [#/Vol] 0.0 10*3/uL Normal 0.0-0.6 [facility] Comment on above: Performed By: #### C BCWD #### MD ANDREAS CORLEY ([id number]) [facility] ([facility] [address] [place] [address] [place] Eosinophils/100 WBC (Bld) 0.0 % Normal [facility] Comment on above: Performed By: #### C BCWD #### MD ANDREAS CORLEY ([id number]) [facility] [address] [place] [address] [place] Lymphocytes (Bld) [#/Vol] 2.3 10*3/uL Normal 1.0-5.1 [facility] Comment on above: Performed By: #### C BCWD #### MD ANDREAS CORLEY ([id number]) [facility] [address] [place] [address] [place] Lymphocytes/100 WBC (Bld) 12.0 % Normal [facility] Comment on above: Performed By: #### C BCWD #### MD ANDREAS CORLEY ([id number]) [facility] [address] [place] [address] [place] Monocytes (Bld) [#/Vol] 0.5 10*3/uL Normal 0.0-1.3 [facility] Comment on above: Performed By: #### C BCWD #### MD ANDREAS CORLEY ([id number]) [facility] [address] [place] [address] [place] Monocytes/100 WBC (Bld) 3.0 % Normal [facility] Comment on above: Performed By: #### C BCWD #### MD ANDREAS CORLEY ([id number]) [facility] [address] [place] [address] [place] Neutrophils (Bld) [#/Vol] 14.9 10*3/uL High 1.7-7.7 [facility] Comment on above: Performed By: #### C BCWD #### MD ANDREAS CORLEY ([id number]) [facility] [address] [place] [address] Neutrophils/100 WBC (Bld) 84.0 % Normal [facility] Comment on above: Performed By: #### C BCWD #### MD ANDREAS CORLEY ([id number]) [facility] [address] [place] [address] Polychromasia Occasional Abnormal [facility] Comment on above: Performed By: #### C BCWD #### MD ANDREAS CORLEY ([id number]) [facility] [address] [place] [address] Slide Review see below Normal [facility] Comment on above: Result Comment: Slid e review agrees with reported results Performed By: #### C BCWD #### MD ANDREAS CORLEY ([id number]) [facility] [address] [place] [address] Slide Review for Platelets Adequate Normal [facility] Comment on above: Performed By: #### C BCWD #### MD ANDREAS CORLEY ([id number]) [facility] [address] [place] [address] Erythrocyte distribution width (RBC) [Ratio] 15.6 % High 12.4-15.4 [facility] Comment on above: Performed By: #### C BCWD #### MD ANDREAS CORLEY ([id number]) [facility] [address] [place] [address] Hematocrit (Bld) [Volume fraction] 36.2 % Low 40.5-52.5 [facility] Comment on above: Performed By: #### C BCWD #### MD ANDREAS CORLEY ([id number]) [facility] [address] [place] [address] Hemoglobin (Bld) [Mass/Vol] 11.9 g/dL Low 13.5-17.5 [facility] Comment on above: Performed By: #### C BCWD #### MD ANDREAS CORLEY ([id number]) [facility] [address] [place] [address] MCH (RBC) [Entitic mass] 31.8 pg Normal 26.0-34.0 [facility] Comment on above: Performed By: #### C BCWD #### MD ANDREAS CORLEY ([id number]) [facility] ([facility] [address] [place] [address] MCHC (RBC) [Mass/Vol] 32.8 g/dL Normal 31.0-36.0 [facility] Comment on above: Performed By: #### C BCWD #### MD ANDREAS CORLEY ([id number]) [facility] [address] [place] [address] MCV (RBC) [Entitic vol] 97.0 fL Normal 80.0-100.0 [facility] Comment on above: Performed By: #### C BCWD #### MD ANDREAS CORLEY ([id number]) [facility] ([facility]) [address] [place] [address] Platelet mean volume (Bld) [Entitic vol] 7.6 fL Normal 5.0-10.5 [facility] Comment on above: Performed By: #### C BCWD #### MD ANDREAS CORLEY ([id number]) [facility] ([facility]) [address] [place] [address] Platelets (Bld) [#/Vol] 304 10*3/uL Normal 135-450 [facility] Comment on above: Performed By: #### C BCWD #### MD ANDREAS CORLEY ([id number]) [facility] ([facility]) [address] [place] [address] RBC (Bld) [#/Vol] 3.74 10*6/uL Low 4.20-5.90 [facility] Comment on above: Performed By: #### C BCWD #### MD ANDREAS CORLEY ([id number]) [facility] [address] [place] [address] WBC (Bld) [#/Vol] 17.7 10*3/uL High 4.0-11.0 [facility] Comment on above: Performed By: #### C BCWD #### MD ANDREAS CORLEY ([id number]) [facility] ([facility]) [address] [place] [address] [place] COVID-19on 09-01-2023 SARS-CoV-2 (COVID-19) RNA GEE+probe Ql (Unsp spec) Not detected Normal Not Detected [facility] Comment on above: Result Comment: Rapi [...] authorized laboratories. Fact sheet for Healthcare Providers: https://www.fda.gov/media/139670/download Fact sheet for Patients: https://www.fda.gov/media/006751/download METHODOLOGY: Isothermal Nucleic Acid Amplification Performed By: #### C OVRG #### MD ANDREAS CORLEY ([id number]) [facility] ([facility]) [address] [place] [address] Comprehensive Metabolic Pane l reflex Mgon 09-01-2023 Albumin [Mass/Vol] 3.1 g/dL Low 3.4-5.0 [facility] Comment on above: Performed By: #### C MPX #### MD ANDREAS CORLEY ([id number]) [facility] ([facility]) [address] [place] [address] Albumin/Globulin [Mass ratio] 1.1 {ratio} Normal 1.1-2.2 [facility] Comment on above: Performed By: #### C MPX #### MD ANDREAS CORLEY ([id number]) [facility] ([facility]) [address] [place] [address] ALP [Catalytic activity/Vol] 110 U/L Normal 40-129 [facility] Comment on above: Performed By: #### C MPX #### MD ANDREAS CORLEY ([id number]) [facility] ([facility]) [address] [place] [address] [place] ALT [Catalytic activity/Vol] 12 U/L Normal 10-40 [facility] Comment on above: Performed By: #### C MPX #### MD ANDREAS CORLEY ([id number]) [facility] [address] [place], [place] [phone] [facility] Anion gap [Moles/Vol] 7 mmol/L Normal 3-16 [facility] Comment on above: Performed By: #### C MPX #### MD ANDREAS CORLEY ([id number]) [facility] [address] [place], [place] [phone] [place] AST [Catalytic activity/Vol] 7 U/L Low 15-37 [facility] Comment on above: Performed By: #### C MPX #### MD ANDREAS CORLEY ([id number]) [facility] [address] [place] [address] Bilirubin [Mass/Vol] 0.5 mg/dL Normal 0.0-1.0 [facility] Comment on above: Performed By: #### C MPX #### MD ANDREAS CORLEY ([id number]) [facility] [address] [place] [address] [place] Calcium [Mass/Vol] 9.0 mg/dL Normal 8.3-10.6 [facility] Comment on above: Performed By: #### C MPX #### MD ANDREAS CORLEY ([id number]) [facility] [address] [place] [address] [place] Chloride [Moles/Vol] 99 mmol/L Normal 99-110 [facility] Comment on above: Performed By: #### C MPX #### MD ANDREAS CORLEY ([id number]) [facility] [address] [place], [place] [phone] [place] CO2 [Moles/Vol] 32 mmol/L Normal 21-32 [facility] Comment on above: Performed By: #### C MPX #### MD ANDREAS CORLEY ([id number]) [facility] [address] [place], [place] [phone] [place] Creatinine [Mass/Vol] 1.2 mg/dL Normal 0.8-1.3 [facility] Comment on above: Performed By: #### C MPX #### MD ANDREAS CORLEY ([id number]) [facility] ([facility] [address] [place] [address] GFR 64 Normal >60 [facility] Comment on above: Result Comment: Alina [...] #### C MPX #### MD ANDREAS CORLEY ([id number]) [facility] [address] [place] [address] Glucose [Mass/Vol] 142 mg/dL High 70-99 [facility] Comment on above: Performed By: #### C MPX #### MD ANDREAS CORLEY ([id number]) [facility] [address] [place] [address] Magnesium [Moles/Vol] 5.1 mmol/L Normal 3.5-5.1 [facility] Comment on above: Performed By: #### C MPX #### MD ANDREAS CORLEY ([id number]) [facility] ([facility] [address] [place], [place] [phone] [facility] Protein [Mass/Vol] 5.9 g/dL Low 6.4-8.2 [facility] Comment on above: Performed By: #### C MPX #### MD ANDREAS CORLEY ([id number]) [facility] ([facility] [address] [place], [place] [phone] [facility] Sodium [Moles/Vol] 138 mmol/L Normal 136-145 [facility] Comment on above: Performed By: #### C MPX #### MD ANDREAS CORLEY ([id number]) [facility] ([facility]) [address] [place] [address] Urea nitrogen [Mass/Vol] 21 mg/dL High 7-20 [facility] Comment on above: Performed By: #### C MPX #### MD ANDREAS CORLEY ([id number]) [facility] ([facility]) [address] [place] [address] Culture, Bloodon 09-01-2023 Microscopic examination of blood, culture Culture, Blood No Growth after 4 days of incubation. Normal [facility] Comment on above: Performed By: #### C BCWD #### MD ANDREAS CORLEY ([id number]) [facility] ([facility]) [address] [place] [address] Culture, Blood 2on 4 Culture, Blood 2 Culture, Blood 2 No Growth after 4 days of incubation. [facility] Comment on above: Performed By: #### C BCWD #### MD ANDREAS CORLEY ([id number]) [facility] ([facility]) [address] [place] [address] High Sensitivity Troponin To n 09-01-2023 High Sensitivity Troponin T 77 ng/L [facility] 022 [facility] Comment on above: Result Comment: The high-sensitivity troponin T result should not be compared with other troponin methodologies. Performed By: #### T RP5 #### MD ANDREAS CORLEY ([id number]) [facility] ([facility]) [address] [place] [address] High Sensitivity Troponin T 75 ng/L [facility] 022 [facility] Comment on above: Result Comment: The high-sensitivity troponin T result should not be compared with other troponin methodologies. Performed By: #### T RP5 #### MD ANDREAS CORLEY ([id number]) [facility] ([facility]) [address] [place] [address] Venous Blood Gason 4 CO2 [Moles/Vol] 31 mmol/L Normal Not Established [facility] Comment on above: Performed By: #### V BG #### MD ANDREAS CORLEY ([id number]) [facility] ([facility] [address] [place] [address] HCO3 (Bld) [Moles/Vol] 28.8 mmol/L Normal 23.0-29.0 [facility] Comment on above: Performed By: #### V BG #### MD ANDREAS CORLEY ([id number]) [facility] [address] [place] [address] Oxygen saturation in Blood 62 % Normal Not Established [facility] Comment on above: Performed By: #### V BG #### MD ANDREAS CORLEY ([id number]) [facility] [address] [place] [address] Venous Base Excess 1.1 mmol/L Normal -3.0-3.0 [facility] Comment on above: Performed By: #### V BG #### MD ANDREAS CORLEY ([id number]) [facility] [address] [place] [address] Venous Carboxyhemoglobin 3.5 % High 0.0-1.5 [facility] Comment on above: Result Comment: 0.0- 1.5 (Smokers 1.5-5.0) Performed By: #### V BG #### MD ANDREAS CORLEY ([id number]) [facility] [address] [place] [address] Venous Methemoglobin 0.3 % Normal <1.5 [facility] Comment on above: Performed By: #### V BG #### MD ANDREAS CORLEY ([id number]) [facility] [address] [place] [address] Venous O2 Content 12 VOL % Normal Not Established [facility] Comment on above: Performed By: #### V BG #### MD ANDREAS CORLEY ([id number]) [facility] [address] [place] [address] Venous PCO2 59.7 mmHg High 40.0-50.0 [facility] Comment on above: Performed By: #### V BG #### MD ANDREAS CORLEY ([id number]) [facility] [address] [place], [place] [phone] [facility] Venous pH 7.301 Low 7.350-7.450 [facility] Comment on above: Performed By: #### V BG #### MD ANDREAS CORLEY ([id number]) [facility] [address] [place] [address] Venous PO2 36.0 mmHg Normal 25.0-40.0 [facility] Comment on above: Performed By: #### V BG #### MD ANDREAS CORLEY ([id number]) [facility] ([facility]) [address] [place] [address] Venous O2 Therapy Unknown Normal [facility] Comment on above: Performed By: #### V BG #### MD ANDREAS CORLEY ([id number]) [facility] ([facility]) [address] [place] [address] CO2 [Moles/Vol] 33 mmol/L Normal Not [facility] Comment on above: Performed By: #### V BG #### MD ANDREAS CORLEY ([id number]) [facility] ([facility]) [address] [place] [address] HCO3 (Bld) [Moles/Vol] 31.2 mmol/L High 23.0-29.0 [facility] Comment on above: Performed By: #### V BG #### MD ANDREAS CORLEY ([id number]) [facility] [address] [place] [address] Oxygen saturation in Blood 92 % Normal Not [facility] Comment on above: Performed By: #### V BG #### MD ANDREAS CORLEY ([id number]) [facility] [address] [place] [address] Venous Base Excess 3.3 mmol/L High -3.0-3.0 [facility] Comment on above: Performed By: #### V BG #### MD ANDREAS CORLEY ([id number]) [facility] [address] [place] [address] Venous Carboxyhemoglobin 1.6 % High 0.0-1.5 [facility] Comment on above: Result Comment: 0.0- 1.5 (Smokers 1.5-5.0) Performed By: #### V BG #### MD ANDREAS CORLEY ([id number]) [facility] ([facility]) [address] [place] [address] [facility] Venous Methemoglobin 0.0 % Normal <1.5 [facility] Comment on above: Performed By: #### V BG #### MD ANDREAS CORLEY ([id number]) [facility] [address] [place] [address] [facility] Venous O2 Content 17 VOL % Normal Not Established [facility] Comment on above: Performed By: #### V BG #### MD ANDREAS CORLEY ([id number]) [facility] [address] [place] [address] [facility] Venous PCO2 62.6 mmHg High 40.0-50.0 [facility] Comment on above: Performed By: #### V BG #### MD ANDREAS CORLEY ([id number]) [facility] [address] [place] [address] [facility] Venous pH 7.315 Low 7.350-7.450 [facility] Comment on above: Performed By: #### V BG #### MD ANDREAS CORLEY ([id number]) [facility] [address] [place] [address] [facility] Venous PO2 70.9 mmHg High 25.0-40.0 [facility] Comment on above: Performed By: #### V BG #### MD ANDREAS CORLEY ([id number]) [facility] [address] [place] [address] [place] Venous O2 Therapy Unknown Normal [facility] Comment on above: Performed By: #### V BG #### MD ANDREAS CORLEY ([id number]) [facility] ([facility]) [address] [place] [address] [place] CO2 [Moles/Vol] 31 mmol/L Normal Not Established [facility] Comment on above: Performed By: #### V BG #### MD ANDREAS CORLEY ([id number]) [facility] ([facility]) [address] [place] [address] HCO3 (Bld) [Moles/Vol] 29.2 mmol/L High 23.0-29.0 [facility] Comment on above: Performed By: #### V BG #### MD ANDREAS CORLEY ([id number]) [facility] ([facility]) [address] [place] [address] Oxygen saturation in Blood 96 % Normal Not Established [facility] Comment on above: Performed By: #### V BG #### MD ANDREAS CORLEY ([id number]) [facility] [address] [place] [address] Venous Base Excess 1.9 mmol/L Normal -3.0-3.0 [facility] Comment on above: Performed By: #### V BG #### MD ANDREAS CORLEY ([id number]) [facility] ([facility]) [address] [place] [address] Venous Carboxyhemoglobin 3.0 % High 0.0-1.5 [facility] Comment on above: Result Comment: 0.0- 1.5 (Smokers 1.5-5.0) Performed By: #### V BG #### MD ANDREAS CORLEY ([id number]) [facility] ([facility]) [address] [place] [address] Venous Methemoglobin 0.0 % Normal <1.5 [facility] Comment on above: Performed By: #### V BG #### MD ANDREAS CORLEY ([id number]) [facility] ([facility]) [address] [place] [address] Venous PCO2 57.8 mmHg High 40.0-50.0 [facility] Comment on above: Performed By: #### V BG #### MD ANDREAS CORLEY ([id number]) [facility] ([facility]) [address] [place] [address] Venous pH 7.321 Low 7.350-7.450 [facility] Comment on above: Performed By: #### V BG #### MD ANDREAS CORLEY ([id number]) [facility] ([facility]) [address] [place] [address] Venous PO2 93.3 mmHg High 25.0-40.0 [facility] Comment on above: Performed By: #### V BG #### MD ANDREAS CORLEY ([id number]) [facility] ([facility]) [address] [place] [address] Venous O2 Therapy Unknown Normal [facility] Comment on above: Performed By: #### V BG #### MD ANDREAS CORLEY ([id number]) [facility] ([facility]) [address] [place] [address] XR CHEST PORTABLEon 09-01-19 XR CHEST PORTABLE [...] Ranjit Bradley MD 09/01/23 Final result Normal [facility] Comment on above: Order Comment: Reaso n for exam:->dyspnea Reason for exam?->Dyspnea CBCon 08-06-2023 Erythrocyte distribution width (RBC) [Ratio] 15.2 % High 11.0-15.0 [facility] Comment on above: Performed By: #### B C #### Roger Witt ([id number]) [address] Hematocrit (Bld) [Volume fraction] 43.4 % Normal 38.5-50.0 [facility] Comment on above: Performed By: #### B C #### Roger Witt ([id number]) [address] Hemoglobin (Bld) [Mass/Vol] 14.7 g/dL Normal 13.2-17.1 [facility] Comment on above: Performed By: #### B C #### Roger Witt ([id number]) [address] MCH (RBC) [Entitic mass] 32.6 pg Normal 27.0-33.0 [facility] Comment on above: Performed By: #### B C #### Roger Witt ([id number]) [address] MCHC (RBC) [Mass/Vol] 33.8 g/dL Normal 32.0-36.0 [facility] Comment on above: Performed By: #### B C #### Roger Witt ([id number]) [address] MCV (RBC) [Entitic vol] 96.7 fL Normal 80.0-100.0 [facility] [place] Comment on above: Performed By: #### B C #### Roger Witt ([id number]) [address] Platelet mean volume (Bld) [Entitic vol] 8.9 fL Normal 7.5-11.5 [facility] Comment on above: Performed By: #### B C #### Roger Witt ([id number]) [address] Platelets (Bld) [#/Vol] 397 10*3/uL Normal 140-400 [facility] [place] Comment on above: Performed By: #### B C #### Roger Witt ([id number]) [address] RBC (Bld) [#/Vol] 4.49 10*6/uL Normal 4.20-5.80 [facility] Comment on above: Performed By: #### B C #### Roger Witt ([id number]) [address] WBC (Bld) [#/Vol] 15.0 10*3/uL High 3.8-10.8 [facility] Comment on above: Performed By: #### B C #### Roger Witt ([id number]) [address] [facility] 08-06-2023 [facility] Department of Internal Medicine Inpatient Discharge Summary Patient: Maikel Riojas CSN: [id number] Date of Admission: 08/02/2023 Date of Discharge: [...] diaphragms with tip not included in the [id number]. Heart and Mediastinum: Cardiac silhouette is partially [...] Your Medications These medications were sent to [facility] [address] [place] [id number] Hours: Thursday - Thursday: 8:00AM - 6:00PM [...] status. Of note patient recently admitted [place] for COPD exacerbation which required ICU stay [...] chronic hypo (more content not included)... Normal [facility] [place] Nursingon 08-06-2023 Nursing PIV removed with catheter intact... report called to Zaf[facility] at the [facility] in [facility]. Pt will be transported via EMS Normal [facility] [place] POC GLU MONITORING DEVICEon 08-06-2023 POC GLU MONITORING DEVICE 173 mg/dL High 70-100 [facility] [place] Comment on above: Performed By: #### P OCGMD #### Roger Witt ([id number]) [address] POC GLU MONITORING DEVICE 235 mg/dL High 70-100 [facility] [place] Comment on above: Performed By: #### B C #### Roger Witt ([id number]) [address] RENAL FUNCTION PANEL W/EGFRo n 08-06-2023 Albumin [Mass/Vol] 3.8 g/dL Normal 3.5-5.7 [facility] Comment on above: Performed By: #### P OCGMD #### Roger Witt ([id number]) [address] Anion gap [Moles/Vol] 10 mmol/L Normal 3-16 [facility] Comment on above: Performed By: #### P OCGMD #### Roger Witt ([id number]) [address] Calcium [Mass/Vol] 9.6 mg/dL Normal 8.6-10.3 [facility] Comment on above: Performed By: #### P OCGMD #### Roger Witt ([id number]) [address] Chloride [Moles/Vol] 102 mmol/L Normal 98-110 [facility] Comment on above: Performed By: #### P OCGMD #### Roger Witt ([id number]) [address] CO2 [Moles/Vol] 29 mmol/L Normal 21-33 [facility] Comment on above: Performed By: #### P OCGMD #### Roger Witt ([id number]) [address] Creatinine [Mass/Vol] 1.10 mg/dL Normal 0.60-1.30 [facility] Comment on above: Performed By: #### P OCGMD #### Roger Witt ([id number]) [place] [address] [place] GFR/1.73 sq M.predicted among non-blacks MDRD (S/P/Bld) [Vol rate/Area] 71 mL/min/{1.73_m2} Normal [place] [facility] Comment on above: Result Comment: As [...] By: #### P OCGMD #### Roger Witt ([id number]) [place] [address] [place] Glucose [Mass/Vol] 213 mg/dL High 70-100 [facility] Comment on above: Performed By: #### P OCGMD #### Roger Witt ([id number]) [place] [address] [place] Osmolality [Osmolality] 309 mosm/kg High 278-305 [facility] [place] Comment on above: Performed By: #### P OCGMD #### Roger Witt ([id number]) [place] [address] [place] Phosphate [Mass/Vol] 3.0 mg/dL Normal 2.1-4.5 [facility] Comment on above: Result Comment: HEMO LYSIS EVIDENT. RESULTS MAY BE INFLUENCED. Performed By: #### P OCGMD #### Roger Witt ([id number]) [address] Potassium [Moles/Vol] 5.6 mmol/L High 3.5-5.3 [facility] Comment on above: Result Comment: Hemo lysis Present: Results may be influenced artificially. Recommend recollection as clinically indicated. Performed By: #### P OCGMD #### Roger Witt ([id number]) [address] Sodium [Moles/Vol] 141 mmol/L Normal 133-146 [facility] Comment on above: Performed By: #### P OCGMD #### Roger Witt ([id number]) [address] Urea nitrogen [Mass/Vol] 42 mg/dL High 7-25 [facility] [place] Comment on above: Performed By: #### P OCGMD #### Roger Witt ([id number]) [address] CARE PLANon 08-05-2023 CARE PLAN Problem: [...] and interventions as needed. Outcome: Progressing Normal [facility] [place] CONSULTon 08-05-2023 CONSULT [facility] Wound Care Assessment 08/05/2023 11:45 AM Maikel [...] cardiac disease, DM. Wound care recommends [place] to buttocks/scrotum, safe skin bundle, and low air loss (CATINA) mattress. [place] is a zinc-oxide based hydrophilic paste absorbs [...] non-rinse foam cleanser. Pat dry. Apply [place] paste to wound bed daily and as [...] thickness 08/05/23 1144 Site (Wound bed) Assessment Moist;[place];Red 08/05/23 1144 [place]-wound Assessment [place];Intact 08/05/23 1144 Closure None 08/05/23 1144 Hematoma [...] 1144 History: Diagnosis: Acute hypoxemic respiratory failure ([facility]) [J96.01] AMS (altered mental status) [R41.82] Past [...] Sign Unable (more content not included)... Normal [facility] [place] POC GLU MONITORING DEVICEon 08-05-2023 POC GLU MONITORING DEVICE 315 mg/dL High 70-100 [facility] [place] Comment on above: Performed By: #### B C #### Roger Witt ([id number]) [address] POC GLU MONITORING DEVICE 252 mg/dL High 70-100 [facility] [place] Comment on above: Performed By: #### B C #### Roger Witt ([id number]) [address] POC GLU MONITORING DEVICE 192 mg/dL High 70-100 [facility] [place] Comment on above: Performed By: #### B C #### Roger Witt ([id number]) [address] POC GLU MONITORING DEVICE 213 mg/dL High 70-100 [facility] [place] Comment on above: Performed By: #### E DHCVR #### Roger Witt ([id number]) [address] RENAL FUNCTION PANEL W/EGFRo n 08-05-2023 Albumin [Mass/Vol] 3.9 g/dL Normal 3.5-5.7 [facility] Comment on above: Performed By: #### B C #### Roger Witt ([id number]) [address] Anion gap [Moles/Vol] 10 mmol/L Normal 3-16 [facility] Comment on above: Performed By: #### B C #### Roger Witt ([id number]) [address] Calcium [Mass/Vol] 8.8 mg/dL Normal 8.6-10.3 [facility] Comment on above: Performed By: #### B C #### Roger Witt ([id number]) [address] Chloride [Moles/Vol] 101 mmol/L Normal 98-110 [facility] Comment on above: Performed By: #### B C #### Roger Witt ([id number]) [address] CO2 [Moles/Vol] 27 mmol/L Normal 21-33 [facility] Comment on above: Performed By: #### B C #### Roger Witt ([id number]) [address] Creatinine [Mass/Vol] 1.36 mg/dL High 0.60-1.30 [facility] Comment on above: Performed By: #### B C #### Roger Witt ([id number]) [place] [address] [place] GFR/1.73 sq M.predicted among non-blacks MDRD (S/P/Bld) [Vol rate/Area] 55 mL/min/{1.73_m2} Normal [place] [facility] Comment on above: Result Comment: As [...] By: #### B C #### Roger Witt ([id number]) [address] Glucose [Mass/Vol] 338 mg/dL High 70-100 [facility] Comment on above: Performed By: #### B C #### Roger Witt ([id number]) [place] [address] [place] Osmolality [Osmolality] 310 mosm/kg High 278-305 [facility] [place] Comment on above: Performed By: #### B C #### Roger Witt ([id number]) [address] Phosphate [Mass/Vol] 2.5 mg/dL Normal 2.1-4.5 [facility] Comment on above: Performed By: #### B C #### Roger Witt ([id number]) [address] Potassium [Moles/Vol] 5.0 mmol/L Normal 3.5-5.3 [facility] Comment on above: Performed By: #### B C #### Roger Witt ([id number]) [address] Sodium [Moles/Vol] 138 mmol/L Normal 133-146 [facility] Comment on above: Performed By: #### B C #### Roger Witt ([id number]) [address] Urea nitrogen [Mass/Vol] 44 mg/dL High 7- [facility] [place] Comment on above: Performed By: #### B C #### Roger Witt ([id number]) [address] CBCon 08-04-2023 Erythrocyte distribution width (RBC) [Ratio] 15.0 % Normal 11.0-15.0 [facility] [place] Comment on above: Performed By: #### H KRISTY #### Roger Witt ([id number]) [address] Hematocrit (Bld) [Volume fraction] 42.7 % Normal 38.5-50.0 [facility] [place] Comment on above: Performed By: #### H STROPI #### Roger Witt ([id number]) [address] Hemoglobin (Bld) [Mass/Vol] 14.2 g/dL Normal 13.2-17.1 [facility] [place] Comment on above: Performed By: #### H STROPI #### Roger Witt ([id number]) [address] MCH (RBC) [Entitic mass] 32.1 pg Normal 27.0-33.0 [facility] [place] Comment on above: Performed By: #### H STROPI #### Roger Witt ([id number]) [address] MCHC (RBC) [Mass/Vol] 33.3 g/dL Normal 32.0-36.0 [facility] Comment on above: Performed By: #### H STROPI #### Roger Witt ([id number]) [address] MCV (RBC) [Entitic vol] 96.5 fL Normal 80.0-100.0 [facility] [place] Comment on above: Performed By: #### H STROPI #### Roger Witt ([id number]) [address] Platelet mean volume (Bld) [Entitic vol] 8.1 fL Normal 7.5-11.5 [facility] Comment on above: Performed By: #### H STROPI #### Roger Witt ([id number]) [address] Platelets (Bld) [#/Vol] 280 10*3/uL Normal 140-400 [facility] [place] Comment on above: Performed By: #### H STROPI #### Roger Witt ([id number]) [address] RBC (Bld) [#/Vol] 4.43 10*6/uL Normal 4.20-5.80 [facility] Comment on above: Performed By: #### H STROPI #### Roger Witt ([id number]) [address] WBC (Bld) [#/Vol] 14.6 10*3/uL High 3.8-10.8 [facility] Comment on above: Performed By: #### H KRISTY #### Roger Kiran Witt ([id number]) [facility] - [address] CONSULTon 08-04-2023 CONSULT Speech Language Pathology Clinical Swallow Assessment Name: Maikel Riojas : 1950 Attending Physician: Narayan Ramos MD Admission Diagnosis: Acute hypoxemic respiratory failure (CMS-HCC) [J96.01] AMS (altered mental status) [R41.82] Date: 08/04/2023 Reviewed Pertinent hospital course: Yes Hospital Course BRADDER: 73 y/o male presents with AMS. PMH: COPD, T2DM, HFpEF, HTN, HARIS, BPH, multiple recent falls. Patient with recent admission to [place] for COPD exacerbation requiring ICU stay and [...] aspiration. 3. Trivial trace bilateral pleural effusions. BRADDER Hx: none at [facility]. Assessment: Patient presents with increased risk [...] (IDDSI 0) - Instrumental recommendation: FEES - BRADDER therapy recommendations TBD pending results of instrumental [...] 0) Medication Administration: whole Recommendation Recommendations Recommendation: BRADDER recommendation pending clinical progress Baseline Assessment History [...] Patient educated on, instrumental procedure, role of BRADDER, current POC Education response: Patient demonstrated understanding End of Session: Patient was left in bed with call light within reach and all needs met. Safety handoff completed with RN. Jessica Mitchell M.A, [facility] Speech Language Pathologist--Rehab Services [facility] [place] MBSImP Certified Clinician Time Start Time: 1330 Stop Time: 1355 Time Calculation (min): 25 min Charges $Clinical Swallow: 1 Procedure Patient Class Inpatient Normal [facility] [place] CONSULT Speech Language Pathology Speech, Language and Cognitive Initial Assessment Name: Maikel Riojas : 1950 Attending Physician: Narayan Ramos MD Admission Diagnosis: Acute hypoxemic respiratory failure (CMS-HCC) [J96.01] AMS (altered mental status) [R41.82] Date: 08/04/2023 Reviewed Pertinent hospital course: Yes Hospital Course BRADDER: 73 y/o male presents with AMS. PMH: COPD, T2DM, HFpEF, HTN, HARIS, BPH, multiple recent falls. Patient with recent admission to [place] for COPD exacerbation requiring ICU stay and [...] aspiration. 3. Trivial trace bilateral pleural effusions. BRADDER Hx: none at [facility]. Assessment: Patient presents with moderate cognitive-linguistic [...] 6 6 WFL Composite 62 76 Acute BRADDER intervention is warranted. Plan/Recommendation: - Diet: Regular (IDDSI 7) with Thin Liquids (IDDSI 0), FEES - BRADDER therapy 1-3x/week while inpatient - BRADDER at discharge is recommended Prognosis Diagnosis: Cognitive-linguistic [...] met in: 08/14/23 Recommendation Recommendations Services: Recommend BRADDER therapy at discharge Problem List There is [...] Primary Mode of Expression: Verbal Primary Language: Indonesian Confrontation Naming: Within Functional Limits Sentence Level [...] Patient Education Patient educated on: role of BRADDER, current POC, and discharge recommendations for BRADDER therapy;cognitive function and strategies to improve cognition Patient response: Patient verbalized understanding End of Session: Patient was left in bed with call light within reach and (more content not included)... Normal [facility] [place] LACTIC ACIDon 08-04-2023 Lactate [Moles/Vol] 1.1 mmol/L Normal 0.5-2.2 [facility] Comment on above: Performed By: #### H STROPI #### Roger Witt ([id number]) [address] MAGNESIUMon 08-04-2023 Magnesium [Mass/Vol] 2.3 mg/dL Normal 1.5-2.5 [facility] Comment on above: Performed By: #### H STROPI #### Roger Witt ([id number]) [address] Nursingon 08-04-2023 Nursing Patient has arrived from the MICU with belongings in stable condition, paitent has been oriented to room and call light is within reach Normal [facility] [place] POC GLU MONITORING DEVICEon 08-04-2023 POC GLU MONITORING DEVICE 246 mg/dL High 70-100 [facility] [place] Comment on above: Performed By: #### E DHCVR #### Roger Witt ([id number]) [address] POC GLU MONITORING DEVICE 213 mg/dL High 70-100 [facility] [place] Comment on above: Performed By: #### E DHCVR #### Roger Witt ([id number]) [address] POC GLU MONITORING DEVICE 145 mg/dL High 70-100 [facility] [place] Comment on above: Performed By: #### H STROPI #### Roger Witt ([id number]) [address] POC GLU MONITORING DEVICE 201 mg/dL High 70-100 [facility] [place] Comment on above: Performed By: #### H STROPI #### Roger Witt ([id number]) [address] RENAL FUNCTION PANEL W/EGFRo n 08-04-2023 Albumin [Mass/Vol] 3.6 g/dL Normal 3.5-5.7 [facility] Comment on above: Performed By: #### E DHCVR #### Roger Witt ([id number]) [address] Anion gap [Moles/Vol] 7 mmol/L Normal 3-16 [facility] Comment on above: Performed By: #### E DHCVR #### Roger Witt ([id number]) [place] [address] [place] Calcium [Mass/Vol] 9.1 mg/dL Normal 8.6-10.3 [facility] Comment on above: Performed By: #### E DHCVR #### Roger Witt ([id number]) [address] Chloride [Moles/Vol] 98 mmol/L Normal 98-110 [facility] Comment on above: Performed By: #### E DHCVR #### Roger Witt ([id number]) [address] CO2 [Moles/Vol] 33 mmol/L Normal 21-33 [facility] Comment on above: Performed By: #### E DHCVR #### Roger Witt ([id number]) [address] Creatinine [Mass/Vol] 2.06 mg/dL High 0.60-1.30 [facility] Comment on above: Performed By: #### E DHCVR #### Roger Witt ([id number]) [address] GFR/1.73 sq M.predicted among non-blacks MDRD (S/P/Bld) [Vol rate/Area] 33 mL/min/{1.73_m2} Normal [place] [facility] Comment on above: Result Comment: [...] By: #### E DHCVR #### Roger Witt ([id number]) [place] [address] [place] Glucose [Mass/Vol] 279 mg/dL High 70-100 [facility] Comment on above: Performed By: #### E DHCVR #### Roger Witt ([id number]) [place] [address] [place] Osmolality [Osmolality] 313 mosm/kg High 278-305 [facility] [place] Comment on above: Performed By: #### E DHCVR #### Roger Witt ([id number]) [address] Phosphate [Mass/Vol] 4.7 mg/dL High 2.1-4.5 [facility] Comment on above: Performed By: #### E DHCVR #### Roger Witt ([id number]) [address] Potassium [Moles/Vol] 4.7 mmol/L Normal 3.5-5.3 [facility] Comment on above: Performed By: #### E DHCVR #### Roger Witt ([id number]) [address] Sodium [Moles/Vol] 138 mmol/L Normal 133-146 [facility] Comment on above: Performed By: #### E DHCVR #### Roger Witt ([id number]) [address] Urea nitrogen [Mass/Vol] 61 mg/dL High 7-25 [facility] [place] Comment on above: Performed By: #### E DHCVR #### Roger Witt ([id number]) [address] Albumin [Mass/Vol] 3.3 g/dL Low 3.5-5.7 [facility] Comment on above: Performed By: #### E DHCVR #### Roger Witt ([id number]) [address] Anion gap [Moles/Vol] 11 mmol/L Normal 3-16 [facility] Comment on above: Performed By: #### E DHCVR #### Roger Witt ([id number]) [address] Calcium [Mass/Vol] 8.9 mg/dL Normal 8.6-10.3 [facility] Comment on above: Performed By: #### E DHCVR #### Roger Witt ([id number]) [address] Chloride [Moles/Vol] 100 mmol/L Normal 98-110 [facility] Comment on above: Performed By: #### E DHCVR #### Roger Witt ([id number]) [address] CO2 [Moles/Vol] 28 mmol/L Normal 21-33 [facility] Comment on above: Performed By: #### E DHCVR #### Rogre Witt ([id number]) [place] [address] [place] Creatinine [Mass/Vol] 2.29 mg/dL High 0.60-1.30 [facility] Comment on above: Performed By: #### E DHCVR #### Roger iWtt ([id number]) [place] [address] [place] GFR/1.73 sq M.predicted among non-blacks MDRD (S/P/Bld) [Vol rate/Area] 29 mL/min/{1.73_m2} Normal [place] [facility] Comment on above: Result Comment: As [...] By: #### E DHCVR #### Roger Witt ([id number]) [place] [address] [place] Glucose [Mass/Vol] 164 mg/dL High 70-100 [facility] Comment on above: Performed By: #### E DHCVR #### Roger Witt ([id number]) [place] [address] [place] Osmolality [Osmolality] 312 mosm/kg High 278-305 [facility] [place] Comment on above: Performed By: #### E DHCVR #### Roger Witt ([id number]) [address] Phosphate [Mass/Vol] 4.0 mg/dL Normal 2.1-4.5 [facility] Comment on above: Performed By: #### E DHCVR #### Roger Witt ([id number]) [address] Potassium [Moles/Vol] 3.9 mmol/L Normal 3.5-5.3 [facility] Comment on above: Performed By: #### E DHCVR #### Roger Witt ([id number]) [address] Sodium [Moles/Vol] 139 mmol/L Normal 133-146 [facility] Comment on above: Performed By: #### E DHCVR #### Roger Witt ([id number]) [address] Urea nitrogen [Mass/Vol] 69 mg/dL High 7-25 [facility] [place] Comment on above: Performed By: #### E DHCVR #### Roger Witt ([id number]) [address] AMMONIAon 08-03-2023 Ammonia (P) [Mass/Vol] 46 ug/dL Normal 27-90 [facility] [place] Comment on above: Performed By: #### L DVBG #### Roger Witt ([id number]) [address] CALCIUM FREE, SERUMon 2023 Calcium [Mass/Vol] 4.77 mg/dL Normal 4.40-5.40 [facility] Comment on above: Result Comment: Free calcium levels vary inversely with pH by approximately 5% for each 0.1 unit of pH change. Assay results have been normalized to pH = 7.40. Performed By: #### D IFF #### Roger Witt ([id number]) [address] Calcium [Mass/Vol] 11.27 mg/dL Critically high 4.40-5.40 [facility] [place] Comment on above: Result Comment: The critical result was called to, and read back by, licensed caregiver LONI KYLE RN AT 05T IN MICU Performed By: #### D IFF #### Roger Witt ([id number]) [address] Calcium [Mass/Vol] 4.73 mg/dL Normal 4.40-5.40 [facility] Comment on above: Result Comment: Free calcium levels vary inversely with pH by approximately 5% for each 0.1 unit of pH change. Assay results have been normalized to pH = 7.40. Performed By: #### L DVBG #### Roger Witt ([id number]) [address] CARE PLANon 08-03-2023 CARE PLAN Problem: [...] and interventions as needed. Outcome: Progressing Normal [facility] [place] CBCon 08-03-2023 Erythrocyte distribution width (RBC) [Ratio] 14.5 % Normal 11.0-15.0 [facility] [place] Comment on above: Performed By: #### C BC #### Roger Witt ([id number]) [address] Hematocrit (Bld) [Volume fraction] 38.1 % Low 38.5-50.0 [facility] [place] Comment on above: Performed By: #### C BC #### Roger Witt ([id number]) [address] Hemoglobin (Bld) [Mass/Vol] 12.7 g/dL Low 13.2-17.1 [facility] [place] Comment on above: Performed By: #### C BC #### Roger Witt ([id number]) [address] MCH (RBC) [Entitic mass] 32.0 pg Normal 27.0-33.0 [facility] [place] Comment on above: Performed By: #### C BC #### Roger Witt ([id number]) [address] MCHC (RBC) [Mass/Vol] 33.3 g/dL Normal 32.0-36.0 [facility] Comment on above: Performed By: #### C BC #### Roger Witt ([id number]) [address] MCV (RBC) [Entitic vol] 96.1 fL Normal 80.0-100.0 [facility] [place] Comment on above: Performed By: #### C BC #### Roger Witt ([id number]) [address] Platelet mean volume (Bld) [Entitic vol] 8.6 fL Normal 7.5-11.5 [facility] Comment on above: Performed By: #### C BC #### Roger Witt ([id number]) [address] Platelets (Bld) [#/Vol] 255 10*3/uL Normal 140-400 [facility] [place] Comment on above: Performed By: #### C BC #### Roger Witt ([id number]) [address] RBC (Bld) [#/Vol] 3.96 10*6/uL Low 4.20-5.80 [facility] Comment on above: Performed By: #### C BC #### Roger Witt ([id number]) [address] WBC (Bld) [#/Vol] 12.9 10*3/uL High 3.8-10.8 [facility] Comment on above: Performed By: #### C BC #### Roger Witt ([id number]) [address] Erythrocyte distribution width (RBC) [Ratio] 15.2 % High 11.0-15.0 [facility] [place] Comment on above: Order Comment: Perip heral blood smear was scanned per review criteria approved by the laboratory medical translator. Performed By: #### L DVBG #### Roger Witt ([id number]) [address] Hematocrit (Bld) [Volume fraction] 43.0 % Normal 38.5-50.0 [facility] [place] Comment on above: Order Comment: Perip heral blood smear was scanned per review criteria approved by the laboratory medical translator. Performed By: #### L DVBG #### Roger Witt ([id number]) [address] Hemoglobin (Bld) [Mass/Vol] 14.5 g/dL Normal 13.2-17.1 [facility] [place] Comment on above: Order Comment: Perip heral blood smear was scanned per review criteria approved by the laboratory medical translator. Performed By: #### L DVBG #### Roger Witt ([id number]) [address] MCH (RBC) [Entitic mass] 32.2 pg Normal 27.0-33.0 [facility] [place] Comment on above: Order Comment: Perip heral blood smear was scanned per review criteria approved by the laboratory medical translator. Performed By: #### L DVBG #### Roger Witt ([id number]) [address] MCHC (RBC) [Mass/Vol] 33.7 g/dL Normal 32.0-36.0 [facility] Comment on above: Order Comment: Perip heral blood smear was scanned per review criteria approved by the laboratory medical translator. Performed By: #### L DVBG #### Roger Witt ([id number]) [address] MCV (RBC) [Entitic vol] 95.7 fL Normal 80.0-100.0 [facility] [place] Comment on above: Order Comment: Perip heral blood smear was scanned per review criteria approved by the laboratory medical translator. Performed By: #### L DVBG #### Roger Witt ([id number]) [address] Platelet estimate Adequate Normal [facility] Comment on above: Order Comment: Perip heral blood smear was scanned per review criteria approved by the laboratory medical translator. Performed By: #### L DVBG #### Roger Witt ([id number]) [address] Platelet mean volume (Bld) [Entitic vol] 8.2 fL Normal 7.5-11.5 [facility] Comment on above: Order Comment: Perip heral blood smear was scanned per review criteria approved by the laboratory medical translator. Performed By: #### L DVBG #### Roger Witt ([id number]) [address] Platelets (Bld) [#/Vol] 208 10*3/uL Normal 140-400 [facility] [place] Comment on above: Order Comment: Perip heral blood smear was scanned per review criteria approved by the laboratory medical translator. Result Comment: Spec imen checked for clots. None detected. Slide Reviewed for PLT Clumps. None Seen. Performed By: #### L DVBG #### Roger Witt ([id number]) [address] RBC (Bld) [#/Vol] 4.50 10*6/uL Normal 4.20-5.80 [facility] Comment on above: Order Comment: Perip heral blood smear was scanned per review criteria approved by the laboratory medical translator. Performed By: #### L DVBG #### Roger Witt ([id number]) [address] WBC (Bld) [#/Vol] 17.8 10*3/uL High 3.8-10.8 [facility] Comment on above: Order Comment: Perip heral blood smear was scanned per review criteria approved by the laboratory medical translator. Performed By: #### L DVBG #### Roger Witt ([id number]) [place] [address] [place] CHLORIDE, RANDOM URINEon Chloride, Ur 89 mmol/L Normal [facility] Comment on above: Result Comment: Refe rence range not established for this test. Performed By: #### L AVBG #### Roger Witt ([id number]) [place] [address] [place] CONSULTon 08-03-2023 CONSULT [facility] Clinical Pharmacy Service: Vancomycin Consult Primary team has transitioned patient off of vancomycin. Pharmacy will sign off consult at this time. If vancomycin is reinitiated, please feel free to consult pharmacy services again. Thank you. Carlita Friedman, PharmD, [facility] Clinical Motor Coach Supervisor, Critical Care Epic Secure Chat Preferred OnCall/Weekends: [phone] 08/03/23 1:03 PM Normal [facility] [place] ETHANOL, SERUMon 08-03-2023 Ethanol [Mass/Vol] mg/dL Normal 0-10 [facility] Comment on above: Performed By: #### L DVBG #### Roger Witt ([id number]) [address] FREE CALCIUM, WHOLE BLOODon 08-03-2023 Calcium [Mass/Vol] 4.71 mg/dL Normal 4.50-5.30 [facility] Comment on above: Performed By: #### D IFF #### Roger Witt ([id number]) [address] Calcium [Mass/Vol] 3.63 mg/dL Low 4.50-5.30 [facility] Comment on above: Performed By: #### C BC #### Roger Witt ([id number]) [address] GLYCOHEMOGLOBIN, A1Con 08-02 HbA1c (Bld) [Mass fraction] 7.3 % High 4.0-5.6 [facility] [place] Comment on above: Result Comment: Hemo globin [...] By: #### C BC #### Roger Witt ([id number]) [address] H AND Timothy 08-03-2023 H AND [...] status. Of note patient recently admitted [facility] for COPD exacerbation which required ICU stay [...] Prior to Admission Patient fills meds at [facility] Inpatient Medications Scheduled Medications vancomycin 25 mg/kg [...] diaphragms with tip not included in the [id number]. Heart and Mediastinum: Cardiac silhouette is partially obscured, but likely within normal size limits. Lungs and Pleura: Hypoexpanded lungs with mild bibasilar par (more content not included)... Normal [facility] [place] HEPATIC FUNCTION PANELon Albumin [Mass/Vol] 3.5 g/dL Normal 3.5-5.7 [facility] Comment on above: Performed By: #### L DVBG #### Roger Witt ([id number]) [address] ALP [Catalytic activity/Vol] 78 U/L Normal 36-125 [facility] [place] Comment on above: Performed By: #### L DVBG #### Roger Witt ([id number]) [address] ALT [Catalytic activity/Vol] 7 U/L Normal 7-52 [facility] [place] Comment on above: Performed By: #### L DVBG #### Roger Witt ([id number]) [address] AST [Catalytic activity/Vol] 8 U/L Low 13-39 [facility] [place] Comment on above: Performed By: #### L DVBG #### Roger Witt ([id number]) [address] BILI, Direct 0.17 mg/dL Normal 0.00-0.40 [facility] Comment on above: Performed By: #### L DVBG #### Roger Witt ([id number]) [address] BILI, Total 0.7 mg/dL Normal 0.0-1.5 [facility] [place] Comment on above: Performed By: #### L DVBG #### Roger Witt ([id number]) [address] Performed By: #### P OCGMD #### Roger Witt ([id number]) [address] Bilirubin, Indirect 0.53 mg/dL Normal 0.00-1.10 [facility] Comment on above: Performed By: #### L DVBG #### Roger Witt ([id number]) [address] Protein [Mass/Vol] 6.8 g/dL Normal 6.4-8.9 [facility] Comment on above: Performed By: #### L DVBG #### Roger Witt ([id number]) [address] ALP [Catalytic activity/Vol] 90 U/L Normal 36-125 [facility] [place] Comment on above: Performed By: #### P OCGMD #### Roger Witt ([id number]) [address] ALT [Catalytic activity/Vol] 8 U/L Normal 7-52 [facility] [place] Comment on above: Performed By: #### P OCGMD #### Roger Witt ([id number]) [address] AST [Catalytic activity/Vol] 12 U/L Low 13-39 [facility] [place] Comment on above: Performed By: #### P OCGMD #### Roger Witt ([id number]) [address] BILI, Direct 0.11 mg/dL Normal 0.00-0.40 [facility] Comment on above: Result Comment: HEMO LYSIS EVIDENT. RESULTS MAY BE INFLUENCED. Performed By: #### P OCGMD #### Roger Witt ([id number]) [address] Bilirubin, Indirect 0.59 mg/dL Normal 0.00-1.10 [facility] Comment on above: Performed By: #### P OCGMD #### Roger Witt ([id number]) [address] Protein [Mass/Vol] 7.8 g/dL Normal 6.4-8.9 [facility] Comment on above: Performed By: #### P OCGMD #### Roger Witt ([id number]) [address] LACTIC ACIDon 08-03-2023 Lactate [Moles/Vol] 2.6 mmol/L High 0.5-2.2 [facility] Comment on above: Performed By: #### B GAS PUMPING STATION SUPERVISOR #### Roger Witt ([id number]) [address] Lactate [Moles/Vol] 2.5 mmol/L High 0.5-2.2 [facility] Comment on above: Performed By: #### L AVBG #### Roger Witt ([id number]) [address] LIPASEon 08-03-2023 Lipase [Catalytic activity/Vol] 75 U/L Normal 4-82 [facility] [place] Comment on above: Performed By: #### P OCGMD #### Roger Witt ([id number]) [address] MAGNESIUMon 08-03-2023 Magnesium [Mass/Vol] 2.0 mg/dL Normal 1.5-2.5 [facility] Comment on above: Performed By: #### D IFF #### Roger Witt ([id number]) [address] Magnesium [Mass/Vol] 2.4 mg/dL Normal 1.5-2.5 [facility] Comment on above: Performed By: #### L DVBG #### Roger Witt ([id number]) [address] MRSA/Staph aureus DNA - Diag nostic testing for pneon 08-03-2023 MRSA, PCR Negative Normal Negative [facility] [place] Comment on above: Order Comment: Diagn osis of MRSA Pneumonia->Yes - Place [id number] (this order) Performed By: #### C BC #### Roger Witt ([id number]) [address] Staph Aureus, PCR Negative Normal Negative [facility] Comment on above: Order Comment: Diagn osis of MRSA Pneumonia->Yes - Place [id number] (this order) Result Comment: Test method is a FDA approved amplified DNA assay. Performed By: #### C BC #### Roger Witt ([id number]) [address] POC GLU MONITORING DEVICEon 08-03-2023 POC GLU MONITORING DEVICE 205 mg/dL High 70-100 [facility] [place] Comment on above: Performed By: #### H STROPI #### Roger Witt ([id number]) [address] POC GLU MONITORING DEVICE 239 mg/dL High 70-100 [facility] [place] Comment on above: Performed By: #### B GAS PUMPING STATION SUPERVISOR #### Roger Witt ([id number]) [address] POC GLU MONITORING DEVICE 216 mg/dL High 70-100 [facility] [place] Comment on above: Performed By: #### B GAS PUMPING STATION SUPERVISOR #### Roger Witt ([id number]) [address] POC GLU MONITORING DEVICE 191 mg/dL High 70-100 [facility] [place] Comment on above: Performed By: #### C BC #### Roger Witt ([id number]) [address] POC GLU MONITORING DEVICE 165 mg/dL High 70-100 [facility] [place] Comment on above: Performed By: #### L AVBG #### Roger Witt ([id number]) [address] POTASSIUM, RANDOM URINEon Potassium, Ur 30.0 mmol/L Normal [facility] [place] Comment on above: Result Comment: Refe rence range not established for this test. Performed By: #### L AVBG #### Roger Witt ([id number]) [address] PROTIMEon 08-03-2023 INR Coag (PPP) [Relative time] 0.9 {INR} Normal 0.9-1.1 [facility] [place] Comment on above: Result Comment: MESSI MMENDED THERAPEUTIC RANGES USING INR : Stable oral anticoagulant therapy: 2.0 - 3.0 Mechanical prosthetic heart valve: 2.5 - 3.5 Recurrent acute myocardial infarction: 2.5 - 3.5 Performed By: #### P OCGMD #### Roger Witt ([id number]) [address] PT Coag (PPP) [Time] 12.6 s Normal 12.1-15.1 [facility] Comment on above: Performed By: #### P OCGMD #### Roger Witt ([id number]) [address] PTHon 08-03-2023 PTH, Intact 185.0 pg/mL High 12.0-88.0 [facility] Comment on above: Performed By: #### B GAS PUMPING STATION SUPERVISOR #### Roger Witt ([id number]) [address] PTH-RELATED PROTEIN (PTH-RP) on 08-03-2023 PTH Related Protein <2.0 Normal [facility] Comment on above: Order Comment: PERFO RMED AT: [employer] [address] [id number] DIRECTOR: Mike Dotson MD PHONE: [phone] Result Comment: This test was developed and its performance characteristics determined by [employer]. It has not been cleared or approved [...] By: #### P OCGMD #### Roger Witt ([id number]) [address] RENAL FUNCTION PANEL W/EGFRo n 08-03-2023 Albumin [Mass/Vol] 3.6 g/dL Normal 3.5-5.7 [facility] Comment on above: Performed By: #### H STROPI #### Roger Witt ([id number]) [address] Anion gap [Moles/Vol] 15 mmol/L Normal 3-16 [facility] Comment on above: Performed By: #### H STROPI #### Roger Witt ([id number]) [address] Calcium [Mass/Vol] 9.2 mg/dL Normal 8.6-10.3 [facility] Comment on above: Performed By: #### H STROPI #### Roger Witt ([id number]) [address] Chloride [Moles/Vol] 94 mmol/L Low 98-110 [facility] Comment on above: Performed By: #### H STROPI #### Roger Witt ([id number]) [address] CO2 [Moles/Vol] 28 mmol/L Normal 21-33 [facility] Comment on above: Performed By: #### H STROPI #### Roger Witt ([id number]) [address] Creatinine [Mass/Vol] 3.01 mg/dL High 0.60-1.30 [facility] Comment on above: Performed By: #### H STROPI #### Roger Witt ([id number]) [address] GFR/1.73 sq M.predicted among non-blacks MDRD (S/P/Bld) [Vol rate/Area] 21 mL/min/{1.73_m2} Normal [place] [facility] Comment on above: Result Comment: [...] By: #### H STROPI #### Roger Witt ([id number]) [address] Glucose [Mass/Vol] 233 mg/dL High 70-100 [facility] Comment on above: Performed By: #### H STROPI #### Roger Witt ([id number]) [address] Osmolality [Osmolality] 317 mosm/kg High 278-305 [facility] [place] Comment on above: Performed By: #### H STROPI #### Roger Witt ([id number]) [address] Phosphate [Mass/Vol] 5.5 mg/dL High 2.1-4.5 [facility] Comment on above: Performed By: #### H STROPI #### Roger Witt ([id number]) [address] Potassium [Moles/Vol] 4.2 mmol/L Normal 3.5-5.3 [facility] Comment on above: Performed By: #### H STROPI #### Roger Witt ([id number]) [address] Sodium [Moles/Vol] 137 mmol/L Normal 133-146 [facility] Comment on above: Performed By: #### H STROPI #### Roger Witt ([id number]) [address] Urea nitrogen [Mass/Vol] 83 mg/dL High 7-25 [facility] [place] Comment on above: Performed By: #### H STROPI #### Roger Witt ([id number]) [address] Albumin [Mass/Vol] 3.5 g/dL Normal 3.5-5.7 [facility] Comment on above: Performed By: #### D IFF #### Roger Witt ([id number]) [address] Anion gap [Moles/Vol] 15 mmol/L Normal 3-16 [facility] Comment on above: Performed By: #### D IFF #### Roger Witt ([id number]) [address] Calcium [Mass/Vol] 9.1 mg/dL Normal 8.6-10.3 [facility] Comment on above: Performed By: #### D IFF #### Roger Witt ([id number]) [address] Chloride [Moles/Vol] 93 mmol/L Low 98-110 [facility] Comment on above: Performed By: #### D IFF #### Roger Witt ([id number]) [address] CO2 [Moles/Vol] 28 mmol/L Normal 21-33 [facility] Comment on above: Performed By: #### D IFF #### Roger Witt ([id number]) [place] [address] [place] Creatinine [Mass/Vol] 3.28 mg/dL High 0.60-1.30 [facility] Comment on above: Performed By: #### D IFF #### Roger Witt ([id number]) [place] [address] [place] GFR/1.73 sq M.predicted among non-blacks MDRD (S/P/Bld) [Vol rate/Area] 19 mL/min/{1.73_m2} [facility] Comment on above: Result Comment: As [...] By: #### D IFF #### Roger Witt ([id number]) [place] [address] [place] Glucose [Mass/Vol] 231 mg/dL High 70-100 [facility] Comment on above: Performed By: #### D IFF #### Roger Witt ([id number]) [place] [address] [place] Osmolality [Osmolality] 315 mosm/kg High 278-305 [facility] [place] Comment on above: Performed By: #### D IFF #### Roger Witt ([id number]) [address] Phosphate [Mass/Vol] 6.5 mg/dL High 2.1-4.5 [facility] Comment on above: Performed By: #### D IFF #### Roger Witt ([id number]) [address] Potassium [Moles/Vol] 4.8 mmol/L Normal 3.5-5.3 [facility] Comment on above: Performed By: #### D IFF #### Roger Witt ([id number]) [address] Sodium [Moles/Vol] 136 mmol/L Normal 133-146 [facility] Comment on above: Performed By: #### D IFF #### Roger Witt ([id number]) [address] Urea nitrogen [Mass/Vol] 84 mg/dL High 7-25 [facility] [place] Comment on above: Performed By: #### D IFF #### Roger Witt ([id number]) [address] Albumin [Mass/Vol] 2.9 g/dL Low 3.5-5.7 [facility] Comment on above: Performed By: #### D IFF #### Roger Witt ([id number]) [address] Anion gap [Moles/Vol] 14 mmol/L Normal 3-16 [facility] Comment on above: Performed By: #### D IFF #### Roger Witt ([id number]) [place] [address] [place] Calcium [Mass/Vol] 14.0 mg/dL High 8.6-10.3 [facility] Comment on above: Performed By: #### D IFF #### Roger Witt ([id number]) [place] [address] [place] Chloride [Moles/Vol] 98 mmol/L Normal 98-110 [facility] Comment on above: Performed By: #### D IFF #### Roger Witt ([id number]) [address] CO2 [Moles/Vol] 23 mmol/L Normal 21-33 [facility] Comment on above: Performed By: #### D IFF #### Roger Witt ([id number]) [address] Creatinine [Mass/Vol] 2.97 mg/dL High 0.60-1.30 [facility] Comment on above: Performed By: #### D IFF #### Roger Witt ([id number]) [address] GFR/1.73 sq M.predicted among non-blacks MDRD (S/P/Bld) [Vol rate/Area] 22 mL/min/{1.73_m2} [facility] Comment on above: Result Comment: [...] By: #### D IFF #### Roger Witt ([id number]) [address] Glucose [Mass/Vol] 205 mg/dL High 70-100 [facility] Comment on above: Performed By: #### D IFF #### Roger Witt ([id number]) [address] Osmolality [Osmolality] 308 mosm/kg High 278-305 [facility] [place] Comment on above: Performed By: #### D IFF #### Roger Witt ([id number]) [address] Phosphate [Mass/Vol] 5.2 mg/dL High 2.1-4.5 [facility] Comment on above: Performed By: #### D IFF #### Roger Witt ([id number]) [address] Potassium [Moles/Vol] 4.1 mmol/L Normal 3.5-5.3 [facility] Comment on above: Performed By: #### D IFF #### Roger Witt ([id number]) [address] Sodium [Moles/Vol] 135 mmol/L Normal 133-146 [facility] Comment on above: Performed By: #### D IFF #### Roger Witt ([id number]) [address] Urea nitrogen [Mass/Vol] 74 mg/dL High 7-25 [facility] [place] Comment on above: Performed By: #### D IFF #### Roger Witt ([id number]) [address] Albumin [Mass/Vol] 3.2 g/dL Low 3.5-5.7 [facility] Comment on above: Performed By: #### C BC #### Roger Witt ([id number]) [address] Anion gap [Moles/Vol] 15 mmol/L Normal 3-16 [facility] Comment on above: Performed By: #### C BC #### Roger Witt ([id number]) [address] Calcium [Mass/Vol] 7.1 mg/dL Low 8.6-10.3 [facility] Comment on above: Performed By: #### C BC #### Roger Witt ([id number]) [address] Chloride [Moles/Vol] 99 mmol/L Normal 98-110 [facility] Comment on above: Performed By: #### C BC #### Roger Witt ([id number]) [address] CO2 [Moles/Vol] 23 mmol/L Normal 21-33 [facility] Comment on above: Performed By: #### C BC #### Roger Witt ([id number]) [address] Creatinine [Mass/Vol] 2.99 mg/dL High 0.60-1.30 [facility] Comment on above: Performed By: #### C BC #### Roger Witt ([id number]) [place] [address] [place] GFR/1.73 sq M.predicted among non-blacks MDRD (S/P/Bld) [Vol rate/Area] 21 mL/min/{1.73_m2} Normal [place] [facility] Comment on above: Result Comment: As [...] By: #### C BC #### Roger Witt ([id number]) [place] [address] [place] Glucose [Mass/Vol] 177 mg/dL High 70-100 [facility] Comment on above: Performed By: #### C BC #### Roger Witt ([id number]) [place] [address] [place] Osmolality [Osmolality] 310 mosm/kg High 278-305 [facility] [place] Comment on above: Performed By: #### C BC #### Roger Witt ([id number]) [place] [address] [place] Phosphate [Mass/Vol] 5.2 mg/dL High 2.1-4.5 [facility] Comment on above: Performed By: #### C BC #### Roger Witt ([id number]) [address] Potassium [Moles/Vol] 4.3 mmol/L Normal 3.5-5.3 [facility] Comment on above: Performed By: #### C BC #### Roger Witt ([id number]) [address] Sodium [Moles/Vol] 137 mmol/L Normal 133-146 [facility] Comment on above: Performed By: #### C BC #### Roger Witt ([id number]) [address] Urea nitrogen [Mass/Vol] 74 mg/dL High 7-25 [facility] [place] Comment on above: Performed By: #### C BC #### Roger Witt ([id number]) [address] Anion gap [Moles/Vol] 15 mmol/L Normal 3-16 [facility] Comment on above: Performed By: #### L DVBG #### Roger Witt ([id number]) [address] Calcium [Mass/Vol] 8.6 mg/dL Normal 8.6-10.3 [facility] Comment on above: Performed By: #### L DVBG #### Roger Witt ([id number]) [address] Chloride [Moles/Vol] 95 mmol/L Low 98-110 [facility] Comment on above: Performed By: #### L DVBG #### Roger Witt ([id number]) [address] CO2 [Moles/Vol] 26 mmol/L Normal 21-33 [facility] Comment on above: Performed By: #### L DVBG #### Roger Witt ([id number]) [address] Creatinine [Mass/Vol] 3.55 mg/dL High 0.60-1.30 [facility] Comment on above: Performed By: #### L DVBG #### Roger Witt ([id number]) [address] GFR/1.73 sq M.predicted among non-blacks MDRD (S/P/Bld) [Vol rate/Area] 17 mL/min/{1.73_m2} Normal [place] [facility] Comment on above: Result Comment: [...] By: #### L DVBG #### Roger Witt ([id number]) [place] [address] [place] Performed By: #### P OCGMD #### Roger Witt ([id number]) [address] Glucose [Mass/Vol] 173 mg/dL High 70-100 [facility] Comment on above: Performed By: #### L DVBG #### Roger Witt ([id number]) [address] Osmolality [Osmolality] 312 mosm/kg High 278-305 [facility] [place] Comment on above: Performed By: #### L DVBG #### Roger Witt ([id number]) [address] Phosphate [Mass/Vol] 6.5 mg/dL High 2.1-4.5 [facility] Comment on above: Performed By: #### L DVBG #### Roger Witt ([id number]) [address] Potassium [Moles/Vol] 4.4 mmol/L Normal 3.5-5.3 [facility] Comment on above: Performed By: #### L DVBG #### Roegr Witt ([id number]) [address] Sodium [Moles/Vol] 136 mmol/L Normal 133-146 [facility] Comment on above: Performed By: #### L DVBG #### Roger Witt ([id number]) [address] Urea nitrogen [Mass/Vol] 84 mg/dL High 7-25 [facility] [place] Comment on above: Performed By: #### L DVBG #### Roger Witt ([id number]) [address] Albumin [Mass/Vol] 3.9 g/dL Normal 3.5-5.7 [facility] Comment on above: Performed By: #### P OCGMD #### Roger Witt ([id number]) [address] Anion gap [Moles/Vol] 16 mmol/L Normal 3-16 [facility] Comment on above: Performed By: #### P OCGMD #### Roger Witt ([id number]) [address] Calcium [Mass/Vol] 9.1 mg/dL Normal 8.6-10.3 [facility] Comment on above: Performed By: #### P OCGMD #### Roger Witt ([id number]) [address] Chloride [Moles/Vol] 92 mmol/L Low 98-110 [facility] Comment on above: Performed By: #### P OCGMD #### Roger Witt ([id number]) [address] CO2 [Moles/Vol] 27 mmol/L Normal 21-33 [facility] Comment on above: Performed By: #### P OCGMD #### Roger Witt ([id number]) [address] Creatinine [Mass/Vol] 3.70 mg/dL High 0.60-1.30 [facility] Comment on above: Performed By: #### P OCGMD #### Roger Witt ([id number]) [address] Glucose [Mass/Vol] 155 mg/dL High 70-100 [facility] Comment on above: Performed By: #### P OCGMD #### Roger Witt ([id number]) [address] Osmolality [Osmolality] 308 mosm/kg High 278-305 [facility] [place] Comment on above: Performed By: #### P OCGMD #### Roger Witt ([id number]) [address] Phosphate [Mass/Vol] 7.0 mg/dL High 2.1-4.5 [facility] Comment on above: Performed By: #### P OCGMD #### Roger Witt ([id number]) [address] Potassium [Moles/Vol] 4.6 mmol/L Normal 3.5-5.3 [facility] Comment on above: Result Comment: Hemo lysis Present: Results may be influenced artificially. Recommend recollection as clinically indicated. Performed By: #### P OCGMD #### Roger Witt ([id number]) [address] Sodium [Moles/Vol] 135 mmol/L Normal 133-146 [facility] Comment on above: Performed By: #### P OCGMD #### Roger Witt ([id number]) [address] Urea nitrogen [Mass/Vol] 81 mg/dL High 7-25 [facility] [place] Comment on above: Performed By: #### P OCGMD #### Roger Witt ([id number]) [address] SALICYLATEon 08-03-2023 Salicylate <3 Low 10-30 [facility] [place] Comment on above: Performed By: #### L DVBG #### Roger Witt ([id number]) [address] SERUM PROT ELECTROPHORESIS, REFLEX TO ITon 08-03-2023 Albumin [Mass/Vol] 3.3 g/dL Low 3.70-4.90 [facility] Comment on above: Performed By: #### H STROPI #### Roger Witt ([id number]) [address] Alpha 1 0.3 g/dL Normal 0.20-0.40 [facility] [place] Comment on above: Performed By: #### H STROPI #### Roger Witt ([id number]) [address] Alpha 2 0.8 g/dL Normal 0.50-1.00 [facility] [place] Comment on above: Performed By: #### H STROPI #### Roger Witt ([id number]) [address] Beta 0.7 g/dL Normal 0.60-1.00 [facility] [place] Comment on above: Performed By: #### H STROPI #### Roger Witt ([id number]) [place] [address] [place] Gamma 1.1 g/dL Normal 0.50-1.50 [facility] [place] Comment on above: Performed By: #### H STROPI #### Roger Witt ([id number]) [place] [address] [place] M Hung 0.0 g/dL Normal [facility] [place] Comment on above: Performed By: #### H STROPI #### Roger Witt ([id number]) [address] Protein [Mass/Vol] 6.3 g/dL Low 6.4-8.9 [facility] Comment on above: Performed By: #### H STROPI #### Roger Witt ([id number]) [address] SODIUM, RANDOM URINEon 08-02 Sodium (U) [Moles/Vol] 81 mmol/L Normal [facility] [place] Comment on above: Result Comment: Refe rence range not established for this test. Performed By: #### L AVBG #### Roger Witt ([id number]) [address] SPUTUM CULTURE PLUS STAINon 08-03-2023 SPUTUM [...] F VANCOMYCIN S <= 0.5 F Susceptible [facility] [place] Comment on above: Performed By: #### B GAS PUMPING STATION SUPERVISOR #### Roger Witt ([id number]) [address] UREA NITROGEN, RANDOM URINEo n 08-03-2023 Urea, Ur 247 mg/dL Normal [facility] [place] Comment on above: Result Comment: Refe rence range not established for this test. Performed By: #### C BC #### Roger Witt ([id number]) [address] URINE CREATININE, RANDOMon 0 08-03-2023 Creatinine, Ur 30.20 mg/dL Normal [facility] Comment on above: Result Comment: Refe rence range not established for this test. Performed By: #### C BC #### Roger Witt ([id number]) [address] URINE DRUG SCREEN WITHOUT CO NFIRMATION, Carlos 08-03-2023 Amphetamines, 500 cutoff Negative Normal Negative [facility] [place] Comment on above: Performed By: #### L DVBG #### Roger Witt ([id number]) [address] Barbiturates, 300 ng/mL Cutoff Negative Normal Negative [facility] [place] Comment on above: Performed By: #### L DVBG #### Roger Witt ([id number]) [place] [address] [place] Benzo, 300 ng/mL Cutoff Positive Abnormal Negative [facility] [place] Comment on above: Performed By: #### L DVBG #### Roger Witt ([id number]) [place] [address] [place] Buprenorphine, 5 ng/mL Cutoff Negative Normal Negative [facility] [place] Comment on above: Performed By: #### L DVBG #### Roger Witt ([id number]) [place] [address] [place] Cocaine, 300 ng/mL Cutoff Negative Normal Negative [facility] [place] Comment on above: Performed By: #### L DVBG #### Roger Witt ([id number]) [place] [address] [place] Fentanyl, 2 ng/mL Cutoff Positive Abnormal Negative [facility] [place] Comment on above: Result Comment: This test has been developed and its performance characteristics determined by [facility] which is certified under the [...] By: #### L DVBG #### Roger Witt ([id number]) [place] [address] [place] Methadone 300 ng/mLCutoff Negative Normal Negative [facility] [place] Comment on above: Performed By: #### L DVBG #### Roger Witt ([id number]) [place] [address] [place] Opiates, 300 ng/mL Cutoff Negative Normal Negative [facility] [place] Comment on above: Performed By: #### L DVBG #### Roger Witt ([id number]) [place] [address] [place] Oxycodone, 100 ng/mL Negative Normal Negative [facility] Comment on above: Performed By: #### L DVBG #### Roger Witt ([id number]) [place] [address] [place] TCA, 300 ng/mL Cutoff Negative Normal Negative [facility] Comment on above: Result Comment: This test has been developed and its performance characteristics determined by [facility] which is certified under the [...] By: #### L DVBG #### Roger Witt ([id number]) [address] THC, 50 ng/mL Cutoff Negative Normal Negative [facility] Comment on above: Result Comment: This is a screening method only and may be associated with false positive and/or false negative results. Results are not definitive without additional confirmatory testing by mass spectrometry. Performed By: #### L DVBG #### Roger Witt ([id number]) [address] URINE KAPPA/LAMBDA RANDOMon 08-03-2023 Ashdown Chains 112.13 mg/L High 0.39-15.10 [facility] [place] Comment on above: Performed By: #### E DHCVR #### Roger Witt ([id number]) [address] Ashdown/Lambda Ratio 4.85 ratio High 0.46-4.00 [facility] Comment on above: Performed By: #### E DHCVR #### Roger Witt ([id number]) [address] Lambda Chains 23.14 mg/L High 0.81-10.10 [facility] [place] Comment on above: Performed By: #### E DHCVR #### Roger Witt ([id number]) [address] URINE PROTEIN ELECTROPHORESI S, RANDOM W REFLEX TSTon 08-03-2023 Albumin 5.7 mg/dL Normal [facility] [place] Comment on above: Order Comment: This assay has been modified from the bacteriology teacher's specifications and has been validated with performance characteristics determined by [facility] in accordance with federal regulations under the Clinical Laboratory Act Amendment of 1988. The modification has not been approved by the FDA which has determined that such approval is not necessary. The test is for clinical purposes and should not be regarded as investigational or for research use. Performed By: #### H KRISTY #### Roger Witt ([id number]) [address] Dpigb-4-Tfrfcfnkh 11.8 mg/dL Normal [facility] Comment on above: Order Comment: This assay has been modified from the bacteriology teacher's specifications and has been validated with performance characteristics determined by [facility] in accordance with federal regulations under the Clinical Laboratory Act Amendment of 1988. The modification has not been approved by the FDA which has determined that such approval is not necessary. The test is for clinical purposes and should not be regarded as investigational or for research use. Performed By: #### H KRISTY #### Roger Witt ([id number]) [address] Upqeu-1-Vjywjirqs 4.7 mg/dL Normal [facility] Comment on above: Order Comment: This assay has been modified from the bacteriology teacher's specifications and has been validated with performance characteristics determined by [facility] in accordance with federal regulations under the Clinical Laboratory Act Amendment of 1988. The modification has not been approved by the FDA which has determined that such approval is not necessary. The test is for clinical purposes and should not be regarded as investigational or for research use. Performed By: #### H LEONIEPI #### Roger Witt ([id number]) [address] Beta Globulins 4.1 mg/dL Normal [facility] [place] Comment on above: Order Comment: This assay has been modified from the bacteriology teacher's specifications and has been validated with performance characteristics determined by [facility] in accordance with federal regulations under the Clinical Laboratory Act Amendment of 1988. The modification has not been approved by the FDA which has determined that such approval is not necessary. The test is for clinical purposes and should not be regarded as investigational or for research use. Performed By: #### H STROPI #### Roger Witt ([id number]) [address] Gamma Globulins 2.8 mg/dL Normal [facility] Comment on above: Order Comment: This assay has been modified from the bacteriology teacher's specifications and has been validated with performance characteristics determined by [facility] in accordance with federal regulations under the Clinical Laboratory Act Amendment of 1987. The modification has not been approved by the FDA which has determined that such approval is not necessary. The test is for clinical purposes and should not be regarded as investigational or for research use. Performed By: #### H STROPI #### Roger Witt ([id number]) [address] Interpretation See Note Normal [facility] [place] Comment on above: Order Comment: This assay has been modified from the bacteriology teacher's specifications and has been validated with performance characteristics determined by [facility] in accordance with federal regulations under the [...] By: #### H STROPI #### Roger Witt ([id number]) [address] Result Comment: Seru m protein separation shows an unremarkable pattern. No monoclonal protein seen. Reviewed by Jenise Grady M.D. M Hung 0.0 mg/dL Normal [facility] [place] Comment on above: Order Comment: This assay has been modified from the bacteriology teacher's specifications and has been validated with performance characteristics determined by [facility] in accordance with federal regulations under the Clinical Laboratory Act Amendment of 1987. The modification has not been approved by the FDA which has determined that such approval is not necessary. The test is for clinical purposes and should not be regarded as investigational or for research use. Performed By: #### H KRISTY #### Roger Witt ([id number]) [address] Protein (U) [Mass/Vol] 29 mg/dL Normal [facility] [place] Comment on above: Order Comment: This assay has been modified from the bacteriology teacher's specifications and has been validated with performance characteristics determined by [facility] in accordance with federal regulations [...] By: #### H KRISTY #### Roger Witt ([id number]) [address] US RETROPERITONEAL COMPLETEo n 08-03-2023 US [...] MD at 08/03/2023 2:10 PM EDT Normal [facility] [place] Comment on above: Performed By: #### B GAS [employer]MPING [employer]ATION SUPERVISOR #### Roger Witt ([id number]) [address] VANCOMYCIN, RANDOMon 024 Vancomycin, Random 28.0 ug/mL Normal [facility] Comment on above: Result Comment: Refe rence range not established for this test. Performed By: #### D IFF #### Roger Witt ([id number]) [address] VENOUS BLOOD GAS, LINE/SYRIN GEon 08-03-2023 %HBO2 79.3 % High 40.0-70.0 [facility] [place] Comment on above: Performed By: #### D IFF #### Roger Witt ([id number]) [address] Base Excess 0.0 mmol/L Normal -2.0-3.0 [facility] [place] Comment on above: Performed By: #### D IFF #### Roger Witt ([id number]) [address] Carboxyhgb 1.6 % Normal [facility] [place] Comment on above: Result Comment: CARB OXYHEMOGLOBIN (CO) REFERENCE RANGES: Non-Smokers: <2 % Smokers: <8 % TOXIC: >20 % Performed By: #### D IFF #### Roger Witt ([id number]) [address] CO2 [Moles/Vol] 29 mmol/L Normal 25-29 [facility] Comment on above: Performed By: #### D IFF #### Roger Witt ([id number]) [address] HCO3 (Bld) [Moles/Vol] 27 mmol/L Normal 24-28 [facility] [place] Comment on above: Performed By: #### D IFF #### Roger Witt ([id number]) [address] Methemoglobin 0.6 % Normal 0.0-1.5 [facility] [place] Comment on above: Performed By: #### D IFF #### Roger Witt ([id number]) [place] [address] [place] PCO2 54 mm Hg High 41-51 [facility] [place] Comment on above: Performed By: #### D IFF #### Roger Witt ([id number]) [address] pH (Bld) 7.31 [pH] Low 7.32-7.42 [facility] [place] Comment on above: Performed By: #### D IFF #### Roger Witt ([id number]) [place] [address] [place] PO2 48 mm Hg High 25-40 [facility] [place] Comment on above: Performed By: #### D IFF #### Roger Witt ([id number]) [address] Reduced Hemoglobin 18.5 % High 0.0-5.0 [facility] Comment on above: Performed By: #### D IFF #### Roger Witt ([id number]) [address] %HBO2 43.2 % Normal 40.0-70.0 [facility] [place] Comment on above: Performed By: #### C BC #### Roger Witt ([id number]) [address] Base Excess -1.6 mmol/L Normal -2.0-3.0 [facility] Comment on above: Performed By: #### C BC #### Roger Witt ([id number]) [address] Carboxyhgb 1.2 % Normal 0.0-2.0 [facility] [place] Comment on above: Result Comment: CARB OXYHEMOGLOBIN (CO) REFERENCE RANGES: Non-Smokers: <2 % Smokers: <8 % TOXIC: >20 % Performed By: #### C BC #### Roger Witt ([id number]) [address] CO2 [Moles/Vol] 26 mmol/L Normal 25-29 [facility] Comment on above: Performed By: #### C BC #### Roger Witt ([id number]) [address] HCO3 (Bld) [Moles/Vol] 25 mmol/L Normal 24-28 [facility] [place] Comment on above: Performed By: #### C BC #### Roger Witt ([id number]) [address] Methemoglobin 0.7 % Normal 0.0-1.5 [facility] [place] Comment on above: Performed By: #### C BC #### Roger Witt ([id number]) [place] [address] [place] PCO2 47 mm Hg Normal 41-51 [facility] [place] Comment on above: Performed By: #### C BC #### Roger Witt ([id number]) [address] pH (Bld) 7.33 [pH] Normal 7.32-7.42 [facility] [place] Comment on above: Performed By: #### C BC #### Roger Witt ([id number]) [place] [address] [place] PO2 26 mm Hg Normal 25-40 [facility] [place] Comment on above: Performed By: #### C BC #### Roger Witt ([id number]) [address] Reduced Hemoglobin 54.9 % High 0.0-5.0 [facility] Comment on above: Performed By: #### C BC #### Roger Witt ([id number]) [address] %HBO2 35.4 % Low 40.0-70.0 [facility] [place] Comment on above: Performed By: #### L AVBG #### Roger Witt ([id number]) [address] Base Excess 2.4 mmol/L Normal -2.0-3.0 [facility] [place] Comment on above: Performed By: #### L AVBG #### Roger Witt ([id number]) [address] Carboxyhgb 1.1 % Normal 0.0-2.0 [facility] [place] Comment on above: Result Comment: CARB OXYHEMOGLOBIN (CO) REFERENCE RANGES: Non-Smokers: <2 % Smokers: <8 % TOXIC: >20 % Performed By: #### L AVBG #### Roger Witt ([id number]) [address] CO2 [Moles/Vol] 33 mmol/L High 25-29 [facility] Comment on above: Performed By: #### L AVBG #### Roger Witt ([id number]) [address] Performed By: #### P OCGMD #### Roger Witt ([id number]) [facility] [address] HCO3 (Bld) [Moles/Vol] 31 mmol/L High 24-28 [facility] [place] Comment on above: Performed By: #### L AVBG #### Roger Witt ([id number]) [address] Performed By: #### P OCGMD #### Roger Witt ([id number]) [address] Methemoglobin 0.7 % Normal 0.0-1.5 [facility] [place] Comment on above: Performed By: #### L AVBG #### Roger Witt ([id number]) [address] PCO2 64 mm Hg High 41-51 [facility] [place] Comment on above: Performed By: #### L AVBG #### Roger Witt ([id number]) [address] pH (Bld) 7.29 [pH] Low 7.32-7.42 [facility] [place] Comment on above: Performed By: #### L AVBG #### Roger Witt ([id number]) [place] [address] [place] PO2 24 mm Hg Low 25-40 [facility] [place] Comment on above: Performed By: #### L AVBG #### Roger Witt ([id number]) [address] Reduced Hemoglobin 62.8 % High 0.0-5.0 [facility] Comment on above: Performed By: #### L AVBG #### Roger Witt ([id number]) [address] %HBO2 31.9 % Low 40.0-70.0 [facility] [place] Comment on above: Performed By: #### P OCGMD #### Roger Witt ([id number]) [address] Base Excess 1.1 mmol/L Normal -2.0-3.0 [facility] [place] Comment on above: Performed By: #### P OCGMD #### Roger Witt ([id number]) [address] Carboxyhgb 1.2 % Normal 0.0-2.0 [facility] [place] Comment on above: Result Comment: CARB OXYHEMOGLOBIN (CO) REFERENCE RANGES: Non-Smokers: <2 % Smokers: <8 % TOXIC: >20 % Performed By: #### P OCGMD #### Roger Witt ([id number]) [address] PCO2 67 mm Hg High 41-51 [facility] [place] Comment on above: Performed By: #### P OCGMD #### Roger Witt ([id number]) [address] pH (Bld) 7.27 [pH] Low 7.32-7.42 [facility] [place] Comment on above: Performed By: #### P OCGMD #### Roger Witt ([id number]) [address] PO2 22 mm Hg Low 25-40 [facility] [place] Comment on above: Performed By: #### P OCGMD #### Roger Witt ([id number]) [address] Reduced Hemoglobin 66.3 % High 0.0-5.0 [facility] Comment on above: Performed By: #### P OCGMD #### Roger Witt ([id number]) [address] VITAMIN B12on 08-03-2023 Cobalamin (Vitamin B12) [Mass/Vol] 248 pg/mL Normal 180-914 [facility] [place] Comment on above: Performed By: #### L DVBG #### Roger Witt ([id number]) [address] VITAMIN D 25-HYDROXYon 08-02 Vitamin D, 25 Hydroxy 42.0 ng/mL Normal 30.0-100.0 [facility] Comment on above: Result Comment: Keyla min D deficiency has been defined by the [place] [employer] (IOM) and an Endocrine Society [...] JCEM. 2010; 96(7):1911-30. Performed By: #### B GAS PUMPING STATION SUPERVISOR #### Roger Witt ([id number]) [address] B NATRIURETIC PEPTIDEon 07-06 Natriuretic peptide B (Bld) [Mass/Vol] 14 pg/mL Normal 0-100 [facility] [place] Comment on above: Order Comment: The p [...] Please interpret accordingly. Performed By: #### B GAS PUMPING STATION SUPERVISOR #### Roger Witt ([id number]) [address] BLOOD CULTURE-PERIPHERALon 0 08-02-2023 BLOOD CULTURE-PERIPHERAL Culture Result: No Growth After 5 Days Normal [facility] [place] Comment on above: Order Comment: Subop timal volume of blood received. Interpret results with caution. Performed By: #### B C #### Roger Witt ([id number]) [address] Performed By: #### P OCGMD #### Roger Witt ([id number]) [address] CBCon 08-02-2023 Erythrocyte distribution width (RBC) [Ratio] 15.3 % High 11.0-15.0 [facility] [place] Comment on above: Performed By: #### C BC #### Roger Witt ([id number]) [address] Hematocrit (Bld) [Volume fraction] 46.6 % Normal 38.5-50.0 [facility] [place] Comment on above: Performed By: #### C BC #### Roger Witt ([id number]) [address] Hemoglobin (Bld) [Mass/Vol] 15.7 g/dL Normal 13.2-17.1 [facility] [place] Comment on above: Performed By: #### C BC #### Roger Witt ([id number]) [address] MCH (RBC) [Entitic mass] 32.4 pg Normal 27.0-33.0 [facility] [place] Comment on above: Performed By: #### C BC #### Roger Witt ([id number]) [address] MCHC (RBC) [Mass/Vol] 33.6 g/dL Normal 32.0-36.0 [facility] Comment on above: Performed By: #### C BC #### Roger Witt ([id number]) [address] MCV (RBC) [Entitic vol] 96.5 fL Normal 80.0-100.0 [facility] [place] Comment on above: Performed By: #### C BC #### Roger Witt ([id number]) [address] Platelet mean volume (Bld) [Entitic vol] 8.6 fL Normal 7.5-11.5 [facility] Comment on above: Performed By: #### C BC #### Roger Witt ([id number]) [address] Platelets (Bld) [#/Vol] 318 10*3/uL Normal 140-400 [facility] [place] Comment on above: Performed By: #### C BC #### Roger Witt ([id number]) [address] RBC (Bld) [#/Vol] 4.83 10*6/uL Normal 4.20-5.80 [facility] Comment on above: Performed By: #### C BC #### Roger Witt ([id number]) [address] WBC (Bld) [#/Vol] 19.1 10*3/uL High 3.8-10.8 [facility] Comment on above: Performed By: #### C BC #### Roger Witt ([id number]) [address] HEAD WO CONTRASTon 2023 CT [...] scalp due to partial exclusion from the [id number]-gvie. Normal as included. Calvarium and skull base: [...] MD at 08/02/2023 10:47 PM EDT Normal [facility] [place] DIFFERENTIALon 08-02-2023 Abs BASO 76 /uL Normal 0-200 [facility] [place] Comment on above: Performed By: #### D IFF #### Roger Witt ([id number]) [address] Abs EOS 134 /uL Normal 15-500 [facility] [place] Comment on above: Performed By: #### D IFF #### Roger Witt ([id number]) [place] [address] [place] Abs MONO 1719 /uL High 200-950 [facility] [place] Comment on above: Performed By: #### D IFF #### Roger Witt ([id number]) [place] [address] [place] Abs NEUT 13504 /uL High 6507-3999 [facility] [place] Comment on above: Performed By: #### D IFF #### Roger Witt ([id number]) [place] [address] [place] Basophils/100 WBC (Bld) 0.4 % Normal 0.0-1.0 [facility] [place] Comment on above: Performed By: #### D IFF #### Roger iWtt ([id number]) [place] [address] [place] Eosinophils/100 WBC (Bld) 0.7 % Normal 0.0-8.0 [facility] [place] Comment on above: Performed By: #### D IFF #### Roger Witt ([id number]) [place] [address] [place] Lymphocytes (Bld) [#/Vol] 1.795 10*3/uL Normal 850-3900 [facility] [place] Comment on above: Performed By: #### D IFF #### Roger Witt ([id number]) [place] [address] [place] Lymphocytes/100 WBC (Bld) 9.4 % Low 15.0-45.0 [facility] [place] Comment on above: Performed By: #### D IFF #### Roger Witt ([id number]) [place] [address] [place] Monocytes/100 WBC (Bld) 9.0 % Normal 0.0-12.0 [facility] [place] Comment on above: Performed By: #### D IFF #### Roger Witt ([id number]) [address] Neutrophils/100 WBC (Bld) 80.5 % High 40.0-80.0 [facility] [place] Comment on above: Performed By: #### D IFF #### Roger Witt ([id number]) [address] Nucleated RBC 0 /100 WBC Normal 0-0 [facility] [place] Comment on above: Performed By: #### D IFF #### Roger Witt ([id number]) [address] ED HCV AB REFLEX TO HCV JASPAL Ton 08-02-2023 HCVAB NUMBER 0.08 S/CO Normal 0.00-0.79 [facility] Comment on above: Performed By: #### E DHCVR #### Roger Witt ([id number]) [address] Hepatitis C Interp Non-Reactive Normal Nonreactive [facility] Comment on above: Result Comment: Heal th Department notified in accordance with reportable infectious disease guidelines. Performed By: #### E DHCVR #### Roger Witt ([id number]) [address] ED Prov Noteon 08-02-2023 ED Prov Note [facility] ED Note Date of Service: 08/02/2023 Reason for Visit: Altered Mental Status and Multiple Falls Patient History HPI Maikel Riojas is a 73 y.o. male with a history of COPD. DMT2, CHF , HTN who presents to the ED for evaluation of AMS. Patient presents via aircare after multiple falls and now presenting with AMS. Patient had been recently admitted to [facility] for a COPD exacerbation that required an [...] Vancomycin a (more content not included)... Normal [facility] [place] ED Triage Noon 08-02-2023 ED Triage No Pt to [facility] by air car e for AMS, multiple recent falls, COPD exacerbation. VSS per EMS. Istat remarkable only for lactic of 3. [facility]. On 4LPM O2, baseline 2 L. Normal [facility] [place] High Sensitivity Troponinon 08-02-2023 HSTROPI 14 ng/L Normal 0-20 [facility] [place] Comment on above: Performed By: #### L AVBG #### Roger Witt ([id number]) [address] Performed By: #### H STROPI #### Roger Witt ([id number]) [address] LACTIC ACID VENOUS WHOLE BLO ODon 08-02-2023 Lactate [Moles/Vol] 3.6 mmol/L High 0.5-2.2 [facility] Comment on above: Performed By: #### L AVBG #### Roger Witt ([id number]) [address] POC GLU MONITORING DEVICEon 08-02-2023 POC GLU MONITORING DEVICE 169 mg/dL High 70-100 [facility] [place] Comment on above: Performed By: #### P OCGMD #### Roger Witt ([id number]) [address] [place] [address] [place] URINALYSIS W/RFL TO [place]OS[place] Maykel 08-02-2023 Bilirubin, Urine Negative Normal Negative [facility] [facility] Comment on above: Order Comment: Micro scopic testing is not performed when the dipstick is negative for blood, leukocyte, protein and nitrite. Performed By: #### P OCGMD #### Roger Witt ([id number]) [address] Clarity (U) Clear Normal Clear [facility] [place] Comment on above: Order Comment: Micro scopic testing is not performed when the dipstick is negative for blood, leukocyte, protein and nitrite. Performed By: #### P OCGMD #### Roger Witt ([id number]) [address] Color (U) Yellow Normal Yellow,Straw [place] [facility] Comment on above: Order Comment: Micro scopic testing is not performed when the dipstick is negative for blood, leukocyte, protein and nitrite. Performed By: #### P OCGMD #### Roger Witt ([id number]) [address] Glucose Ql (U) Negative Normal Negative [facility] [place] Comment on above: Order Comment: Micro scopic testing is not performed when the dipstick is negative for blood, leukocyte, protein and nitrite. Performed By: #### P OCGMD #### Roger Witt ([id number]) [address] Hemoglobin Ql (U) Negative Normal Negative [facility] Comment on above: Order Comment: Micro scopic testing is not performed when the dipstick is negative for blood, leukocyte, protein and nitrite. Performed By: #### P OCGMD #### Roger Witt ([id number]) [address] [place] [address] [place] Hyaline Cast 16 /LPF High 0-2 [facility] Comment on above: Order Comment: Micro scopic testing is not performed when the dipstick is negative for blood, leukocyte, protein and nitrite. Performed By: #### P OCGMD #### Roger Witt ([id number]) [address] Ketone Negative Normal Negative [facility] [place] Comment on above: Order Comment: Micro scopic testing is not performed when the dipstick is negative for blood, leukocyte, protein and nitrite. Performed By: #### P OCGMD #### Roger Witt ([id number]) [address] Leukocyte esterase Test strip Ql (U) Negative Normal Negative [facility] [place] Comment on above: Order Comment: Micro scopic testing is not performed when the dipstick is negative for blood, leukocyte, protein and nitrite. Performed By: #### P OCGMD #### Roger Witt ([id number]) [address] Mucous Present Abnormal None Seen [facility] [place] Comment on above: Order Comment: Micro scopic testing is not performed when the dipstick is negative for blood, leukocyte, protein and nitrite. Performed By: #### P OCGMD #### Roger Witt ([id number]) [address] Nitrite Ql (U) Negative Normal Negative [facility] [place] Comment on above: Order Comment: Micro scopic testing is not performed when the dipstick is negative for blood, leukocyte, protein and nitrite. Performed By: #### P OCGMD #### Roger Witt ([id number]) [address] pH (U) 5.5 [pH] Normal 5.0-8.0 [facility] [place] Comment on above: Order Comment: Micro scopic testing is not performed when the dipstick is negative for blood, leukocyte, protein and nitrite. Performed By: #### P OCGMD #### Roger Witt ([id number]) [address] Protein, urine Negative Normal Negative [facility] [place] Comment on above: Order Comment: Micro scopic testing is not performed when the dipstick is negative for blood, leukocyte, protein and nitrite. Result Comment: Resu lts were rechecked. Performed By: #### P OCGMD #### Roger Witt ([id number]) [address] RBC. 1 /HPF Normal 0-3 [facility] [place] Comment on above: Order Comment: Micro scopic testing is not performed when the dipstick is negative for blood, leukocyte, protein and nitrite. Performed By: #### P OCGMD #### Roger Witt ([id number]) [address] Specific gravity (U) [Rel density] 1.015 Normal 1.005-1.035 [facility] [place] Comment on above: Order Comment: Micro scopic testing is not performed when the dipstick is negative for blood, leukocyte, protein and nitrite. Performed By: #### P OCGMD #### Roger Witt ([id number]) [place] [address] [place] Squamous, Epith 1 /HPF Normal 0-5 [facility] Comment on above: Order Comment: Micro scopic testing is not performed when the dipstick is negative for blood, leukocyte, protein and nitrite. Performed By: #### P OCGMD #### Roger Witt ([id number]) [place] [address] [place] Urobilinogen (U) [Mass/Vol] mg/dL Normal 0.2-1.9 [facility] [place] Comment on above: Order Comment: Micro scopic testing is not performed when the dipstick is negative for blood, leukocyte, protein and nitrite. Performed By: #### P OCGMD #### Roger Witt ([id number]) [address] WBC. 3 /HPF Normal 0-5 [facility] [place] Comment on above: Order Comment: Micro scopic testing is not performed when the dipstick is negative for blood, leukocyte, protein and nitrite. Performed By: #### P OCGMD #### Roger Witt ([id number]) [address] URINE CULTUREon 08-02-2023 Bacteria identified Cx Nom (U) Culture Result: No Growth After 2 Days Normal [facility] [place] Comment on above: Performed By: #### B GAS PUMPING STATION SUPERVISOR #### Roger Witt ([id number]) [address] VENOUS BLOOD GAS, LINE/SYRIN GEon 08-02-2023 %HBO2 43.1 % Normal 40.0-70.0 [facility] [place] Comment on above: Performed By: #### L DVBG #### Roger Witt ([id number]) [address] Base Excess 0.7 mmol/L Normal -2.0-3.0 [facility] [place] Comment on above: Performed By: #### L DVBG #### Roger Witt ([id number]) [address] Carboxyhgb 1.4 % Normal 0.0-2.0 [facility] [place] Comment on above: Result Comment: CARB OXYHEMOGLOBIN (CO) REFERENCE RANGES: Non-Smokers: <2 % Smokers: <8 % TOXIC: >20 % Performed By: #### L DVBG #### Roger Witt ([id number]) [address] CO2 [Moles/Vol] 32 mmol/L High 25-29 [facility] Comment on above: Performed By: #### L DVBG #### Roger Witt ([id number]) [address] HCO3 (Bld) [Moles/Vol] 30 mmol/L High 24-28 [facility] [place] Comment on above: Performed By: #### L DVBG #### Roger Witt ([id number]) [address] Methemoglobin 0.6 % Normal 0.0-1.5 [facility] [place] Comment on above: Performed By: #### P OCGMD #### Roger Witt ([id number]) [address] Performed By: #### L DVBG #### Roger Witt ([id number]) [address] PCO2 69 mm Hg High 41-51 [facility] [place] Comment on above: Performed By: #### L DVBG #### Roger Witt ([id number]) [address] pH (Bld) 7.25 [pH] Low 7.32-7.42 [facility] [place] Comment on above: Performed By: #### L DVBG #### Roger Witt ([id number]) [address] [address] [place] PO2 28 mm Hg Normal 25-40 [facility] [place] Comment on above: Performed By: #### L DVBG #### Roger Witt ([id number]) [address] Reduced Hemoglobin 54.9 % High 0.0-5.0 [facility] Comment on above: Performed By: #### L DVBG #### Roger Witt ([id number]) [address] XR PORTABLE CHESTon 08-02-19 XR PORTABLE CHEST EXAM: XR PORTABLE CHEST INDICATION: Intubation TECHNIQUE: 1 view of the chest. COMPARISON: Chest radiograph from less than 1 hour prior FINDINGS: Medical Devices: ET tube tip projects over the midthoracic trachea. Enteric tube courses below the level of the diaphragms with tip not included in the pumwv-ik-erfh. Heart and Mediastinum: Cardiac silhouette is partially [...] MD at 08/02/2023 9:13 PM EDT Normal [facility] [place] Comment on above: Performed By: #### P OCGMD #### Roger Witt ([id number]) [address] XR PORTABLE CHEST EXAM: XR PORTABLE [...] with trace bilateral pleural effusions. Approved by Zani Fajardo MD on 08/02/2023 10:34 PM EDT I have personally reviewed the images and I agree with this report. Report Verified by: Vivek Pedraza MD at 08/02/2023 11:04 PM EDT Normal [facility] [place] Comment on above: Performed By: #### L AVBG #### Roger Kiran Witt ([id number]) [address] Encounters Encounter Date Encounter Type Care Provider Facility Start: 12-10-2023 ambulatory Shari Tobar Facility :[facility] Start: 09-01-2023 End: 09-01-2023 Emergency department patient visit [facility] Start: 08-02-2023 End: 08-06-2023 Evaluation and management of inpatient PATRICE MARTIN [facility] [place] Payers Date Payer Category Payer Unknown [id number] 1950 Unknown [id number] 1950 Unknown [id number] 1950 Unknown [id number] Clinical Note 08-06-2023 Note Date & Type Note Facility 08-06-2023 Note [facility] Case Management/Social Work Department Progress Note [...] retention. PCP: ATTENDING PROVIDER UNKNOWN Home Pharmacy: [facility] [phone] [facility] [id number] Medical Insurance Coverage: Payor: [employer] CARE / Plan: [employer] [facility] / Product Type: Government / Other Pertinent Information RNCM met with interdisciplinary team for rounding/received report, and reviewed chart. Per team, patient is medically ready for discharge. Patient has been accepted at both [facility] and [facility]. Patient has chosen [facility]. Kirill, liaison with [facility]# [phone], is checking on which insurance to use and will reply back to RNCM. Discharge Plan Anticipated discharge plan: short term assisted Anticipated discharge date: today or tomorrow CM/SW will continue to follow and remain available for discharge planning needs. SUGAR HANEY Cell [phone] [facility] [place] Clinical Note 08-05-2023 Note Date & Type Note Facility 08-05-2023 Note [facility] Case Management/Social Work Department Progress Note [...] retention. PCP: ATTENDING PROVIDER UNKNOWN Home Pharmacy: [facility] [id number] [facility] [id number] Medical Insurance Coverage: Payor: [employer] / Plan: [employer] [facility] / Product Type: Government / Other Pertinent Information RNCM met with interdisciplinary team for rounding/received report, and reviewed chart. Per team, patient is medically ready for discharge. Patient needs SNF placement. [facility] who stated [facility] not [facility] for [facility] with [facility]. Referral sent to Ebonie at the [facility] who stated they do not have [...] for discharge planning needs. SUGAR HANEY Cell [phone] [facility] [place] Procedure note 08-05-2023 Note Date & Type Note Facility 08-05-2023 Note Speech Activity Director ology Fiberoptic Endoscopic Evaluation of Swallowing (FEES) Name: Maikel Riojas : 1950 Attending Physician: Narayan Ramos MD Admission Diagnosis: Acute hypoxemic respiratory failure (CMS-HCC) [J96.01] AMS (altered mental status) [R41.82] Date: 08/05/2023 Reviewed Pertinent hospital course: Yes Hospital Course BRADDER: 73 y/o male presents with AMS. PMH: COPD, T2DM, HFpEF, HTN, HARIS, BPH, multiple recent falls. Patient with recent admission to [facility] for COPD exacerbation requiring ICU stay and [...] aspiration. 3. Trivial trace bilateral pleural effusions. BRADDER Hx: none at [facility]. Assessment: Patient presents with oropharyngeal dysphagia [...] 1) with intermittent throat clear and re-swallow. BRADDER will follow up 1-2x to ensure implementation of compensatory and safe swallow strategy. Patient is at an increased risk of aspiration. Images are available for review in [employer]. Mortar Carrier: Elena Trace silent aspiration of thin liquid [...] obtained. Pre-Swallow Assessment Serial number Nasopharyngoscope used: [id number] Velopharyngeal closure: complete Base of tongue contact [...] and is not (more content not included)... [facility] [place] Clinical Note 08-03-2023 Note Date & Type Note Facility 08-03-2023 Note Problem: Non-violent , zia-svsv-iyvyudyebtw restraints Description: Less restrictive alternative interventions will [...] of medical procedures, or protection of medical apparatus model maker access. Outcome: Completed Restraints removed with extubation. notified. Leonor Fabian RN [facility] [place] Clinical Note 08-03-2023 Note Date & Type [...] Coverage: Payor: [employer] / [facility]: [facility] / Product Type: Government / Secondary [...] Services Community Services at Home: Home Health [facility] Health Services Types Prior to Admission: Home Health Aide Support Systems Emergency contact: Extended Emergency Contact Information Primary Emergency Contact: Hayden Riojas Mobile Relation: Son [employer] Internship needed? No Support Systems Primary Caregiver: Self, Family Marital Status: Single Number of children and their names: 13 Relative Search Completed: No Demographics Correct:: Yes Expected Discharge Disposition: Assisted Facility Next of Kin: Hayden Riojas Next of Kin Relationship: Son Next of Kin Assessment Information Obtained From:: Children, Chart Review Other Pertinent Information Wire Drawing Setter met with MICU team for daily rounds and completed chart review. Patient is not anticipated to be medically ready today. Pt is currently intubated. H&P: Maikel Riojas is a 73 y.o. male with a history of COPD, T2DM, HFpEF, HTN, HARIS, BPH, multiple recent falls presenting for altered mental status. Of note patient recently admitted to [facility] for COPD exacerbation which required ICU stay [...] have severe uremia on lab workup. Assessment: Hot Tamale Man/Wire Drawing Setter Malcolm Gerardo spoke with patient's son Hayden [phone] to complete psychosocial assessment for discharge planning [...] home oxygen No dialysis. No history of assisted facility Pt has a history of inpatient rehabilitation facility admissions. No history of home health care services. SW inquired regarding Advance Directives paperwork. Pt reportedly does have a HCPOA which is his son, Hayden Riojas [phone]. Son is aware that without this document on file we go to LNOK which is all of his children collectively. Patient's [place] are all 13 of his children (3 are leaving 10) until Hayden sends over HCPOA documentation. Advance Directives (For Healthcare) Advance Directive: Patient has advance directive, copy not (more content not included)... [facility] [place] Clinical Note 08-03-2023 Note Date & Type Note Facility 08-03-2023 Note Problem: Non-violent , ezi-jkxt-waagvykrwwg restraints Description: Less restrictive alternative interventions will [...] low air loss bed. Leonor Fabian RN [facility] [place] Clinical Note 08-03-2023 Note Date & Type Note Facility 08-03-2023 Note Problem: Non-violent , sqk-wzmy-wrygmfpadfv restraints Description: Less restrictive alternative interventions will [...] of medical procedures, or protection of medical apparatus model maker access. Outcome: Progressing Pt in BUE restraints to prevent from pulling at medical devices. Will educate and continue to monitor. [facility] [place] Clinical Note 08-03-2023 Note Date & Type Note Facility 08-03-2023 Note Problem: Non-violent , jni-ionj-ugifwuuxjcu restraints Description: Less restrictive alternative interventions will [...] 08/02/[id number] by Nnamdi Estrada RN Outcome: Progressing [facility] [place] Procedure note 08-02-2023 Note Date & Type Note Facility 08-02-2023 Note [facility] ED Procedu re Note Emergency Department Procedures Intubation Date/Time: 08/02/2023 8:40 PM Performed by: Юлия Pate MD Authorized by: Ulises Conway MD Consent: Consent obtained: Emergent situation [place] protocol: Patient identity confirmed: Arm band Pre-procedure [...] There were no complications unless otherwise documented. [facility] [place] Summary Purpose Family History No Family History [...] ORGANIZ ATION 09/11/2023 [facility] DATE CREATED AUTHOR AUTHOR'S ORGANIZ ATION 11/15/2023 [facility] FOR RECORDS PERTAINING TO PATIENTS WHO ARE [...] BE BASED ON THE PRIMARY CLINICAL RECORDS. [employer] provides no warranty or guarantee of the accuracy or completeness of information in this document.
--- NOTE | 2023-12-05 15:36 | RESP.RT ---
Increased IPAP to increase PS to 8 due to ABG results
--- NOTE | 2023-12-05 15:54 | P.HP_ITS ---
HPI H&P: HPI History of Present Illness Chief complaint: RESPIRATORY DISTRESS RSP FAILURE WITH HYPERCAPNIA Narrative: Pt at [facility], came to ER with altered mental status and hypoxia with sats <70%, placed on Bipap wiht improvement in oxygen - Labs with acute hypoxic hypercapnea resp failure with acute exacerbation COPD when I saw the patient in the ICU, mask in place, Seems to answer questions appropriately, Denies CP, Daugter present and has said in the last few omnths has needed to be intubated Opioid HPI Opioid Management Most Recent Pain and Opioid Data: No Data to Display Review of Systems ROS Status of ROS 10 or more systems reviewed and unremark able except as noted in history and below [facility] Medical History (Updated 12/05/23 @ 14:44 by Anish Zuniga MD) History of cognitive deficit ?Z87.898 - Personal history of other specified conditions (ICD-10) Gastro-esophageal reflux ?K21.9 - Gastro-esophageal reflux disease without esophagitis (ICD-10) Osteoarthritis ?M19.90 - Unspecified osteoarthritis, unspecified site (ICD-10) History of peripheral vascular disease ?Z86.79 - Personal history of other diseases of the circulatory system (ICD- 10) History of congestive heart disease ?Z86.79 - Personal history of other diseases of the circulatory system (ICD- 10) Hypertension ?I10 - Essential (primary) hypertension (ICD-10) History of obstructive sleep apnea ?Z86.69 - Personal history of other diseases of the nervous system and sense organs (ICD-10) History of panic disorder ?Z86.59 - Personal history of other mental and behavioral disorders (ICD-10) History of depression ?Z86.59 - Personal history of other mental and behavioral disorders (ICD-10) Morbid obesity ?E66.01 - Morbid (severe) obesity due to excess calories (ICD-10) Hx of diabetes mellitus ?Z86.39 - Personal history of other endocrine, nutritional and metabolic disease (ICD-10) COPD (chronic obstructive pulmonary disease) ?J44.9 - Chronic obstructive pulmonary disease, unspecified (ICD-10) Meds Home Medications and Allergies Home Medications ?Medication ?Instructions ?Recorded ?Confirmed ?Type acetaminophen 500 mg tablet 1,000 mg PO BID 12/05/23 12/05/23 History albuterol sulfate 2.5 mg/3 mL 2.5 mg inhalation Q6H PRN 12/05/23 12/05/23 History (0.083 %) solution for nebulization shortness of breath or wheezing albuterol sulfate 90 mcg/actuation 2 puff inhalation QID PRN 12/05/23 12/05/23 History aerosol inhaler shortness of breath or wheezing amlodipine 5 mg tablet 5 mg PO DAILY 12/05/23 12/05/23 History aspirin 81 mg chewable tablet 81 mg PO DAILY 12/05/23 12/05/23 History atorvastatin 20 mg tablet 20 mg PO .QHS 12/05/23 12/05/23 History buspirone 5 mg tablet 7.5 mg PO BID 12/05/23 12/05/23 History cetirizine 10 mg tablet 10 mg PO DAILY 12/05/23 12/05/23 History cholecalciferol (vitamin D3) 25 25 mcg PO DAILY 12/05/23 12/05/23 History mcg (1,000 unit) capsule cromolyn 5.2 mg/spray (4 %) nasal 1 spray intranasal DAILY 12/05/23 12/05/23 History spray cyanocobalamin (vitamin B-12) 1,000 mcg PO DAILY 12/05/23 12/05/23 History 1,000 mcg tablet diclofenac sodium 1 % topical gel 4 g topical QID 12/05/23 12/05/23 History duloxetine 60 mg capsule,delayed 60 mg PO DAILY 12/05/23 12/05/23 History release fluticasone 250 mcg-salmeterol 50 1 inh inhalation Q12H 12/05/23 12/05/23 History mcg/dose blistr powdr for inhalation fluticasone propionate 50 2 spray intranasal DAILY 12/05/23 12/05/23 History mcg/actuation nasal spray,suspension (24 Hour Allergy Relief) ipratropium 0.5 mg-albuterol 3 mg 3 ml inhalation Q6H 12/05/23 12/05/23 History (2.5 mg base)/3 mL nebulization soln levofloxacin 500 mg tablet 500 mg PO DAILY 12/05/23 12/05/23 History metformin 1,000 mg tablet 1,000 mg PO BID 12/05/23 12/05/23 History metoprolol tartrate 25 mg tablet 25 mg PO BID 12/05/23 12/05/23 History miconazole nitrate 2 % topical 1 applic topical BID 12/05/23 12/05/23 History powder (Antifungal (miconazole)) omeprazole 20 mg capsule,delayed 20 mg PO DAILY 12/05/23 12/05/23 History release polyethylene glycol 3350 17 gram 17 g PO DAILY PRN constipation 12/05/23 12/05/23 History oral powder packet (Miralax) potassium chloride 10 mEq 10 meq PO DAILY 12/05/23 12/05/23 History capsule,extended release pregabalin 150 mg capsule 150 mg PO BID 12/05/23 12/05/23 History sennosides 8.6 mg tablet (Natural 8.6 mg PO BID PRN constipation 12/05/23 12/05/23 History Senna Laxative) sodium chloride 0.65 % nasal spray 2 spray intranasal BID PRN dry 12/05/23 12/05/23 History aerosol ([place] Saline) nasal passages spironolactone 25 mg tablet 12.5 mg PO DAILY 12/05/23 12/05/23 History tamsulosin 0.4 mg capsule 0.8 mg PO .QHS 12/05/23 12/05/23 History tiotropium 2.5 mcg-olodaterol 2.5 2 puff inhalation BID 12/05/23 12/05/23 History mcg/actuation mist for inhalation (Stiolto Respimat) torsemide 20 mg tablet 60 mg PO DAILY 12/05/23 12/05/23 History zinc oxide 20 % topical ointment 1 applic topical BID PRN skin 12/05/23 12/05/23 History irritation Allergies Allergy/AdvReac Type Severity Reaction Status Date / Time gabapentin Allergy Unknown Unknown Verified 12/05/23 11:04 tomato Allergy Unknown Unknown Verified 12/05/23 11:41 Exam Constitutional Vital Signs, click to edit/add: Last Vital Signs Temp 99.1 F 12/05/23 15:30 Pulse 80 12/05/23 15:39 Resp 18 12/05/23 15:30 BP 106/75 12/05/23 15:30 Pulse Ox 98 12/05/23 15:39 O2 Del Method BIPAP 12/05/23 13:24 O2 Flow Rate 10 12/05/23 10:45 FiO2 35 12/05/23 15:39 Documenting provider has reviewed patient's vital signs: yes Common normals: apparent distress (Mod resp distress) Chest Common normals: inspection of chest normal Respiratory Common normals: no retractions and no use of accessory muscles; abnormal respiratory effort and not clear to ascultation bilaterally Auscultation: rhonchi and diminished lung sounds Cardio Common normals: regular rate and regular rhythm GI Common normals: Normal to inspection, nondistended, normoactive bowel sounds present and soft to palpation; tender (mild tenderness) Extremity Common normals: normal to inspection, full ROM and normal capillary refill Results Labs Labs: Short CBC 12/05/23 Range/Units 11:13 WBC 10.8 (4.0-11.0) 10^3/uL Hgb 11.6 L (14.0-18.0) g/dL Hct 37.4 L (42.0-54.0) % Plt Count 266 (150-450) 10^3/uL BMP 12/05/23 11:13 Sodium 144 Potassium 5.5 H Chloride 101 Carbon Dioxide 39.3 H BUN 34.0 H Creatinine 1.80 H Glucose 111 H Calcium 8.8 Liver Function 12/05/23 Range/Units 11:13 Total Bilirubin 0.4 (0.2-1.0) mg/dL AST 7 L (15-37) U/L ALT 12 L (16-63) U/L Alkaline Phosphatase 81 (46-116) U/L Albumin 3.1 L (3.4-5.0) g/dL Urine 12/05/23 Range/Units 12:45 Urine Color Lt. yellow (YELLOW) Urine Clarity Clear (CLEAR) Urine pH 5.5 (5.0-9.0) Ur Specific [place] 1.025 (1.005-1.025) Urine Protein Negative (NEG/TRACE) mg/dL Urine Glucose (UA) Negative (NEGATIVE) mg/dL ABG ABG results: 12/05/23 12/05/23 12/05/23 10:56 11:13 12:32 ABG pH 7.230 L* 7.290 L* ABG pCO2 86.0 H* 73.2 H* ABG pO2 198.0 H 67.3 L ABG HCO3 36.0 H 35.1 H ABG O2 Saturation 99.9 93.6 ABG Base Excess 8.5 H 8.5 H VBG pH 7.254 L VBG pCO2 85.8 H* Assessment and Plan Assessment and Plan (1) Respiratory failure with hypercapnia: (2) History of cognitive deficit: (3) Gastro-esophageal reflux: (4) History of congestive heart disease: (5) Hx of diabetes mellitus: Plan Admission findings: Altered mental status, REsp distress due to acute hypoxic (OS sats <70%) hypercapnic (CO@ on abg >60) resp failure wiht acute resp acidosis due to acute exacerbation COPD L Acute exacerbation copd with acute resp acidosis: With acute hypoxia and acute hypercapnia - Steroids, aeresols, IV ab - acute exacerbation due to acute bronchitis with Healthcare acquired infection Altered mental status - likely related to the hypercapnia DM - Insulin SS _ home meds Hyperkalemia - likly due to the acidosis, recheck in am Uncontrolled hypertension but then dropped his pressure with significant hypotension in the ER - monitor closely Iron deficiency anemia - monitor daily Acute renal failure - 1.2 for normal - up to 1.8 on admission - 150% above bas stella- IV Fluids MOderate Protein Calorie Malnutrition - diet management Peripheral neuropathy - Home meds Hypercholesterolemia - dont with meds Depression - Cont with meds GERD - IV protonix Hs Chronic Combined CHF - Holding diuretics with the Hyperkalemia and acute renal failure Admission Criteria: Altered mental status due to Acute exacerbation of COD resulting in acute hypoxic, hypercapnic resp failure -0 medically neccessary treatment will span more than 2 midnights. Inpatient status in the ICU Urinary Catheter Management Urinary Catheter Management Urethral: Cath placed during this visit: yes Urethral indwelling: Yes Reason for continuing: measure accurate output Insertion date: 12/05/23 Insertion time: 13:14
[2023-12-05 16:17] LABS: Glucometer 124 mg/dL (74-106)
[2023-12-05] MEDS: LACTATED RINGER'S SOLUTION 1,000 ML 100 ML IV (16:53)
[2023-12-05] MEDS: METHYLPREDNISOLONE SOD SUCC PF 125 MG/2 ML VIAL 60 MG IVP ×2 (16:58→22:00)
[2023-12-05] MEDS: PIPERACILLIN SODIUM/TAZOBACTAM 3.375 GM in 0.9 % SODIUM CHLORIDE 50 ML IV ×2 (16:59→22:10)
[2023-12-05 17:21] LABS: Lactate/Lactic Acid 0.7 mmol/L (0.4-2.0)
[2023-12-05] MEDS: VANCOMYCIN HCL 2,000 MG in 0.9 % SODIUM CHLORIDE 500 ML 250 MG IV (18:48)
[2023-12-05 19:06] LABS: HCO3 ABG 33.9 mmol/L (22.0-26.0); pH ABG 7.328 (7.350-7.450)
[2023-12-05 19:07] LABS: Allen Test POSITIVE (POSITIVE); Base Excess ABG 7.9 mmol/L (-2.0-2.0); Fractionated Inspired Oxygen 25 %; O2 Mode BIPAP; Oxygen Saturation ABG 86.8 %; Puncture Site LR; Rate 16
[2023-12-05 19:09] LABS: ABG PCO2 64.6 mmHg (35.0-45.0); PO2 ABG 50.4 mmHg (80.0-100.0)
[2023-12-05] MEDS: SODIUM BICARBONATE 100 MEQ in DEXTROSE 5 % IN WATER 1,000 ML 125 MEQ IV (20:07)
[2023-12-05 20:22] LABS: Allen Test POSITIVE (POSITIVE); Base Excess ABG 8.3 mmol/L (-2.0-2.0); HCO3 ABG 34.4 mmol/L (22.0-26.0); Oxygen Saturation ABG 95.8 %; PO2 ABG 76.6 mmHg (80.0-100.0); pH ABG 7.318 (7.350-7.450)
[2023-12-05 20:23] LABS: BIPAP Pressure 16/8; Liters per Minute 35; O2 Mode BIPAP; Puncture Site LR; Rate 16
[2023-12-05 20:24] LABS: ABG PCO2 67.1 mmHg (35.0-45.0)
--- NOTE | 2023-12-05 21:37 | PC.NURSE ---
upon assessment patient is still acutely lethargic, secondary to his hypercapnia. Provider Niya Fernández informed of this patient status and this RN explained how oral medications are unsafe to be given at this time. Order received to hold medications until lethargy improves/safe to give medications to this patient.
[2023-12-05] MEDS: PANTOPRAZOLE SODIUM 40 MG VIAL IV (21:51)
[2023-12-05] MEDS: NYSTATIN 100,000 UNITS/GRAM CREAM 15 GM TUBE 1 APPLIC TOPICAL (21:59)
[2023-12-05 22:03] LABS: Glucometer 162 mg/dL (74-106)
[2023-12-05] MEDS: INSULIN ASPART 300 UNIT/3 ML PEN SUBQ (22:04)
[2023-12-06] VITALS (139 sets, daily range): BP systolic 99–142; BP diastolic 49–88; PULSE 59–168; RESP 16; TEMP 36.8–37.1; O2SAT 61–97
[2023-12-06] MEDS: IPRATROPIUM/ALBUTEROL SULFATE 3 ML AMPUL.NEB IH ×2 (05:19→11:29)
[2023-12-06 05:35] LABS: Allen Test POSITIVE (POSITIVE); Base Excess ABG 13.1 mmol/L (-2.0-2.0); HCO3 ABG 38.7 mmol/L (22.0-26.0); Oxygen Saturation ABG 95.3 %; PO2 ABG 72.2 mmHg (80.0-100.0); pH ABG 7.351 (7.350-7.450)
[2023-12-06 05:36] LABS: BIPAP Pressure 16/8; Fractionated Inspired Oxygen 35 %; O2 Mode BIPAP; Puncture Site LR; Rate 16
[2023-12-06] MEDS: METHYLPREDNISOLONE SOD SUCC PF 125 MG/2 ML VIAL 60 MG IVP ×4 (05:51→22:29)
[2023-12-06] MEDS: LACTATED RINGER'S SOLUTION 1,000 ML 100 ML IV (05:51)
--- NOTE | 2023-12-06 06:11 | PC.NURSE ---
Patient is alert and oriented this morning. responding appropriately and concise. Patient able to state orientation as to what was documented as well as knowing who the current president was and who the presidential candidates are.
[2023-12-06 08:23] LABS: Glucometer 177 mg/dL (74-106)
--- NOTE | 2023-12-06 09:22 | P.PN_ITS ---
Progress Note: Subjective Subjective Interval history: On initial rounds this morning, patient was still obtunded, did awaken to questions, came back later in the morning, still somewhat obtunded but does seem to be more awake. Exam Constitutional Vital Signs, click to edit/add: Last Vital Signs Temp 97.2 F L 12/05/23 23:43 Pulse 73 12/06/23 07:16 Resp 17 12/06/23 05:45 BP 127/78 12/06/23 05:30 Pulse Ox 95 12/06/23 07:16 O2 Del Method BIPAP 12/06/23 05:36 O2 Flow Rate 35 12/05/23 20:22 FiO2 35 12/06/23 07:16 Documenting provider has reviewed patient's vital signs: yes Common normals: apparent distress (Mod resp distress) Chest Common normals: inspection of chest normal Respiratory Common normals: no retractions and no use of accessory muscles; abnormal respiratory effort and not clear to ascultation bilaterally Auscultation: rhonchi and diminished lung sounds Cardio Common normals: regular rate and regular rhythm GI Common normals: Normal to inspection, nondistended, normoactive bowel sounds present and soft to palpation; tender (mild tenderness) Extremity Common normals: normal to inspection, full ROM and normal capillary refill Progress Note: Objective Labs Labs: Short CBC 12/05/23 Range/Units 11:13 WBC 10.8 (4.0-11.0) 10^3/uL Hgb 11.6 L (14.0-18.0) g/dL Hct 37.4 L (42.0-54.0) % Plt Count 266 (150-450) 10^3/uL BMP 12/05/23 11:13 Sodium 144 Potassium 5.5 H Chloride 101 Carbon Dioxide 39.3 H BUN 34.0 H Creatinine 1.80 H Glucose 111 H Calcium 8.8 Liver Function 12/05/23 Range/Units 11:13 Total Bilirubin 0.4 (0.2-1.0) mg/dL AST 7 L (15-37) U/L ALT 12 L (16-63) U/L Alkaline Phosphatase 81 (46-116) U/L Albumin 3.1 L (3.4-5.0) g/dL Urine 12/05/23 Range/Units 12:45 Urine Color Lt. yellow (YELLOW) Urine Clarity Clear (CLEAR) Urine pH 5.5 (5.0-9.0) Ur Specific [place] 1.025 (1.005-1.025) Urine Protein Negative (NEG/TRACE) mg/dL Urine Glucose (UA) Negative (NEGATIVE) mg/dL Progress Note: A&P Assessment and Plan (1) Respiratory failure with hypercapnia: (2) History of cognitive deficit: (3) Gastro-esophageal reflux: (4) History of congestive heart disease: (5) Hx of diabetes mellitus: Plan Admission findings: Altered mental status, REsp distress due to acute hypoxic (OS sats <70%) hypercapnic (CO@ on abg >60) resp failure with acute resp acidosis due to acute exacerbation COPD Acute exacerbation copd with acute resp acidosis: Acidosis pretty much resolved this morning, pCO2 still significantly elevated. Will continue to titrate supplemental oxygen keeping his saturations in the low range. Maintain BiPAP. Repeat ABG later this morning depending on his overall progression Altered mental status - likely related to the hypercapnia-no focal neurological deficits DM - Insulin SS _ home meds Hyperkalemia - likly due to the acidosis, recheck in am-Labs pending patient refused blood work this morning Uncontrolled hypertension but then dropped his pressure with significant hypotension in the ER -stable this morning Iron deficiency anemia - monitor daily Acute renal failure - 1.2 for normal - up to 1.8 on admission - 150% above baseline- IV Fluids-will cut back on fluids he does have a history of chronic combined congestive heart failure. Unable to obtain labs at the present time MOderate Protein Calorie Malnutrition - diet management Peripheral neuropathy - Home meds-May need to adjust these to hold off on anything sedating of Hypercholesterolemia - dont with meds Depression - Cont with meds GERD - IV protonix Hs Chronic Combined CHF - Holding diuretics with the Hyperkalemia and acute re nal failure Admission Criteria: Altered mental status due to Acute exacerbation of COD resulting in acute hypoxic, hypercapnic resp failure -0 medically necessary t reatment will span more than 2 midnights. Inpatient status in the ICU Urinary Catheter Management Urinary Catheter Management Urethral: Cath placed during this visit: yes Urethral indwelling: Yes Reason for continuing: measure accurate output Insertion date: 12/05/23 Insertion time: 13:14
[2023-12-06] MEDS: INSULIN ASPART 300 UNIT/3 ML PEN SUBQ ×3 (09:26→22:42)
[2023-12-06] MEDS: NYSTATIN 15 GM POWDER 1 APPLIC TOPICAL ×2 (09:36→22:38)
--- NOTE | 2023-12-06 10:52 | XR_ITS ---
The [address] [address] Patient Name: JENNIFER RIOJAS MRN: [id number] date: 1950 Sex: M Assigned Patient Location: ICU Current Patient Location: ICU Accession/Order Number: [id number] Exam Date: 12/06/2023 11:05 Report Date: 12/06/2023 11:23 At the request of: MYRNA BAI Procedure: XR chest 1V EXAM: XR chest 1V HISTORY: hypoxia COMPARISON: 12/05/2023 TECHNIQUE: Chest X-ray AP, 1 view FINDINGS: Support devices: None. Lungs/pleura: Bilateral lower lobes airspace opacities with blunting of bilateral costophrenic angles, likely representing pleural effusions. No pneumothorax. Heart and mediastinum: Normal contours. Bones: No acute abnormality identified. XR/XR chest 1V Impression: No radiographic evidence of left greater than right pleural effusions with bilateral lower lobes atelectasis and/or consolidation. Electronically authenticated by: SALOME RODRIGEZ Date: 12/06/2023 11:23
[2023-12-06] MEDS: BUDESONIDE 0.5 MG/2 ML AMPULE NEB IH (11:29)
[2023-12-06 11:33] LABS: Glucometer 155 mg/dL (74-106)
[2023-12-06 11:39] LABS: Hematocrit 35.7 % (42.0-54.0); Mean Corpuscular HGB Conc 30.8 g/dL (29.9-35.2); Mean Corpuscular Hemoglobin 31.3 pg (25.9-34.0); Mean Corpuscular Volume 101.4 fL (80.0-94.0); Mean Platelet Volume 9.8 fL (9.5-13.5); Platelet Count 280 10^3/uL (150-450); Red Blood Count 3.52 10^6/uL (4.70-6.10); Red Cell Distribution Width 14.5 % (11.0-15.0); White Blood Count 8.3 10^3/uL (4.0-11.0)
[2023-12-06] MEDS: PIPERACILLIN SODIUM/TAZOBACTAM 3.375 GM in 0.9 % SODIUM CHLORIDE 50 ML IV ×2 (11:47→19:43)
[2023-12-06 11:54] LABS: Alanine Aminotransferase 7 U/L (16-63); Albumin Globulin Ratio 0.7; Albumin Level 2.6 g/dL (3.4-5.0); Alkaline Phosphatase 66 U/L (46-116); Anion Gap 7.7; Aspartate Amino Transferase <5 U/L (15-37); BUN Creatinine Ratio 17.4; Bilirubin Total 0.4 mg/dL (0.2-1.0); Calcium 8.7 mg/dL (8.5-10.1); Carbon Dioxide 37.6 mmol/L (21.0-32.0); Chloride 104 mmol/L (98-107); Estimated GFR (African America >60 (>=60); Estimated GFR (Non-African Ame >60 (>=60); Globulin 3.5 g/dL; Glucose 171 mg/dL (74-106); Potassium 4.3 mmol/L (3.5-5.1); Sodium 145 mmol/L (136-145); Total Protein 6.1 g/dL (6.4-8.2)
--- NOTE | 2023-12-06 12:02 | PM.CSD1 ---
Advance Care Planning Advance Care Planning Discussion Advance care planning discussion summary: When patient was alert and oriented last night he expressed to the nurses that he did not want anything else to be done including being put on the ventilator, when I came to see the patient this morning however, he was still too sedated with a pCO2 of 70. However later this morning he was much more awake, alert and oriented to place and time and person. Expressed to me, respiratory therapy, nursing that if he were to get worse she does not want to be put on the ventilator understanding that there is a potential that not putting you on the ventilator would lead to his . Will change patient to DNR-cc-A with no intubation Attending Attestation - Gen Attending Addendum Addendum details: See details above
[2023-12-06 13:01] LABS: Band Neutrophils Absolute 0.2 10^3/uL (0.0-0.3); Lymphocytes Absolute Manual 0.83 10^3/uL (1.20-3.80); Metamyelocytes Absolute Manual 0.08; Segmented Neut Absolute Manual 7.22 10^3/uL (1.4-6.5)
[2023-12-06] MEDS: LACTATED RINGER'S SOLUTION 1,000 ML 125 ML IV ×2 (13:55→22:48)
[2023-12-06] MEDS: VANCOMYCIN HCL 1,250 MG in 0.9 % SODIUM CHLORIDE 250 ML 166.667 MG IV (17:13)
[2023-12-06 17:16] LABS: Glucometer 145 mg/dL (74-106)
[2023-12-06] MEDS: PANTOPRAZOLE SODIUM 40 MG VIAL IV (22:36)
[2023-12-06 22:43] LABS: Glucometer 159 mg/dL (74-106)
[2023-12-06] MEDS: MORPHINE SULFATE 2 MG/ML SYRINGE 1 MG IV (22:44)
[2023-12-07] VITALS (12 sets, daily range): BP systolic 116–135; BP diastolic 62–75; PULSE 82–92; TEMP 36.7–36.8; O2SAT 91–97
[2023-12-07] MEDS: PIPERACILLIN SODIUM/TAZOBACTAM 3.375 GM in 0.9 % SODIUM CHLORIDE 50 ML IV (02:29)
[2023-12-07] MEDS: METHYLPREDNISOLONE SOD SUCC PF 125 MG/2 ML VIAL 60 MG IVP ×2 (05:45→11:14)
[2023-12-07] MEDS: DICLOFENAC SODIUM 1% 100 GM TUBE TOPICAL (05:46)
[2023-12-07 06:04] LABS: Alanine Aminotransferase 10 U/L (16-63); Albumin Globulin Ratio 0.7; Albumin Level 2.4 g/dL (3.4-5.0); Alkaline Phosphatase 61 U/L (46-116); Anion Gap 9.4; Aspartate Amino Transferase 8 U/L (15-37); Bilirubin Total 0.5 mg/dL (0.2-1.0); Calcium 8.7 mg/dL (8.5-10.1); Carbon Dioxide 31.8 mmol/L (21.0-32.0); Chloride 103 mmol/L (98-107); Estimated GFR (African America >60 (>=60); Estimated GFR (Non-African Ame >60 (>=60); Globulin 3.5 g/dL; Glucose 168 mg/dL (74-106); Potassium 4.2 mmol/L (3.5-5.1); Sodium 140 mmol/L (136-145); Total Protein 5.9 g/dL (6.4-8.2)
[2023-12-07] MEDS: LACTATED RINGER'S SOLUTION 1,000 ML 125 ML IV (08:07)
[2023-12-07] MEDS: FLUTICASONE PROPIONATE 50 MCG NASAL SPRAY 2 SPRAY NS (08:39)
[2023-12-07] MEDS: CETIRIZINE HCL 10 MG TABLET PO (08:39)
[2023-12-07] MEDS: ASPIRIN 81 MG TAB.CHEW PO (08:39)
[2023-12-07] MEDS: NYSTATIN 15 GM POWDER 1 APPLIC TOPICAL (08:39)
--- NOTE | 2023-12-07 08:54 | P.DS_ITS ---
DS: Providers Provider Date of admission: 12/05/23 15:21 Primary care physician: JENNIFER PUENTE Consults: 12/05/23 15:31 Occupational Therapy Eval and Treat Routine Reason for consultation: Only if needed for Rehab Has provider been notified: No Physical Therapy Eval and Treat Routine Reason for consultation: Eval and Treat Has provider been notified: No DS: Diagnosis Discharge Diagnosis (1) Respiratory failure with hypercapnia: (2) History of cognitive deficit: (3) Gastro-esophageal reflux: (4) History of congestive heart disease: (5) Hx of diabetes mellitus: Plan Admission findings: Altered mental status, REsp distress due to acute hypoxic (OS sats <70%) hypercapnic (CO@ on abg >60) resp failure with acute resp acidosis due to acute exacerbation COPD Acute exacerbation copd with acute resp acidosis with acute hypoxia and acute hypercapnic respiratory failure: Improved at the time of discharge, down to 1 L, need to maintain sats 88 to 92% and no higher Altered mental status -much improved at the time of discharge DM - Insulin SS _ home meds Hyperkalemia -resolved at the time of discharge Uncontrolled hypertension stable at the time of discharge Iron deficiency anemia -stable at the time of discharge Acute renal failure -improved with discharge MOderate Protein Calorie Malnutrition - diet management Peripheral neuropathy - Home meds-May need to adjust these to hold off on anything sedating of Hypercholesterolemia -continue with meds Depression - Cont with meds GERD -proton pump inhibitors long-term Hs Chronic Combined CHF -off diuretics Admission Criteria: Altered mental status due to Acute exacerbation of COD resulting in acute hypoxic, hypercapnic resp failure -0 medically necessary treatment will span more than 2 midnights. Inpatient status in the ICU DS: Summary Hospital Course Hospital Course: Patient was admitted through the emergency room with altered mental status, acute hypoxic respiratory failure with acute hypercapnic respiratory failure with acute respiratory acidosis due to acute exacerbation of COPD. Patient treated with aerosols, and IV antibiotics, IV steroids.-Weaning steroids.. Patient very difficult to manage in the first 36 hours. Placed on BiPAP initially still had some altered mental status with some apnea. Were able to decrease his FiO2 and he had some improvement with that. FiO2 was increased and he had further apnea. Again decrease the FiO2, patient became more awake, transition to nasal cannula yesterday. He did well with that throughout the day. Still on too much supplemental oxygen overnight, but is awake and alert this morning. We did reduce him down to 1 L by nasal cannula today and is doing well with that so far. Definitely CO2 retainer needs to maintain his saturations in the 88 to 92% range, any higher and likely resulted in the reoccurrence of this event. Medications see list. Will transfer back to [facility] for continued management see PCP there. All patient was alert and oriented x 3 and in the presence of for individuals, he stated he wished to be DNR-cc-A. Those papers were signed Status at Discharge Overall status at discharge: patient is not back to baseline Time Spent with Patient Time attestation: Total time spent providing and/or coordinating discharge services: Time spent: greater than 30 minutes Exam Constitutional Vital Signs, click to edit/add: Last Vital Signs Temp 98.0 F 12/07/23 08:00 Pulse 92 H 12/07/23 08:00 Resp 18 12/07/23 04:00 BP 135/75 12/07/23 08:00 Pulse Ox 93 L 12/07/23 08:00 O2 Del Method Nasal Cannula 12/07/23 07:15 O2 Flow Rate 1 12/07/23 08:00 FiO2 30 12/06/23 11:31 Documenting provider has reviewed patient's vital signs: yes Common normals: no apparent distress (No distress this morning. Much improved) Chest Common normals: inspection of chest normal Respiratory Common normals: normal respiratory effort, no retractions and no use of accessory muscles; not clear to ascultation bilaterally Auscultation: rhonchi (Minimal rhonchi much improved) and diminished lung sounds (Much better air exchange) Cardio Common normals: regular rate and regular rhythm GI Common normals: Normal to inspection, nondistended, normoactive bowel sounds present and soft to palpation; tender (mild tenderness) Extremity Common normals: normal to inspection, full ROM and normal capillary refill DS: Data Data Completed and Pending Labs on day of discharge: Labs from last 24 hours 12/07/23 12/06/23 12/06/23 05:31 22:41 17:16 WBC RBC Hgb Hct MCV MCH MCHC RDW Plt Count MPV Seg Neuts % (Manual) Band Neutrophils % Lymphocytes % (Manual) Monocytes % (Manual) Eosinophils % (Manual) Basophils % (Manual) Metamyelocytes % Neutrophils # (Manual) Band Neutrophils # Lymphocytes # (Manual) Monocytes # (Manual) Eosinophils # (Manual) Basophils # (Manual) Metamyelocytes # Sodium 140 Potassium 4.2 Chloride 103 Carbon Dioxide 31.8 Anion Gap 9.4 BUN 22.0 H Creatinine 1.10 Est GFR ( Amer) >60 Est GFR (Non-Af Amer) >60 BUN/Creatinine Ratio 20.0 Glucose 168 H Calcium 8.7 Total Bilirubin 0.5 AST 8 L ALT 10 L Alkaline Phosphatase 61 Total Protein 5.9 L Albumin 2.4 L Globulin 3.5 Albumin/Globulin Ratio 0.7 POC Glucose 159 H 145 H 12/06/23 12/06/23 11:32 11:18 WBC 8.3 RBC 3.52 L Hgb 11.0 L Hct 35.7 L MCV 101.4 H MCH 31.3 MCHC 30.8 RDW 14.5 Plt Count 280 MPV 9.8 Seg Neuts % (Manual) 87.0 H Band Neutrophils % 2.0 Lymphocytes % (Manual) 10.0 L Monocytes % (Manual) 0.0 L Eosinophils % (Manual) 0.0 L Basophils % (Manual) 0.0 L Metamyelocytes % 1.0 Neutrophils # (Manual) 7.22 H Band Neutrophils # 0.2 Lymphocytes # (Manual) 0.83 L Monocytes # (Manual) 0.00 L Eosinophils # (Manual) 0.00 Basophils # (Manual) 0.00 Metamyelocytes # 0.08 Sodium 145 Potassium 4.3 Chloride 104 Carbon Dioxide 37.6 H Anion Gap 7.7 BUN 20.0 H Creatinine 1.15 Est GFR ( Amer) >60 Est GFR (Non-Af Amer) >60 BUN/Creatinine Ratio 17.4 Glucose 171 H Calcium 8.7 Total Bilirubin 0.4 AST <5 L ALT 7 L Alkaline Phosphatase 66 Total Protein 6.1 L Albumin 2.6 L Globulin 3.5 Albumin/Globulin Ratio 0.7 POC Glucose 155 H Discharge Plan Discharge Disposition: Xfer [facility] Discharge Medications: New doxycycline monohydrate 100 mg capsule 100 mg PO BID 7 Days Qty: 14 0RF prednisone 10 mg tablet 50 mg PO DAILY Qty: 47 0RF Rx Instructions: 5/day for 3 days. 4/day for 3 days, 3/day for 3 days, 2/day for 3 days, 1/day for 3 days, 1/2 /day for 4 days Continued albuterol sulfate 2.5 mg /3 mL (0.083 %) solution for nebulization 2.5 mg inhalation Q6H PRN (Reason: shortness of breath or wheezing) albuterol sulfate 90 mcg/actuation HFA aerosol inhaler 2 puff inhalation QID PRN (Reason: shortness of breath or wheezing) atorvastatin 20 mg tablet 20 mg PO .QHS buspirone 5 mg tablet 7.5 mg PO BID cetirizine 10 mg tablet 10 mg PO DAILY cholecalciferol (vitamin D3) 25 mcg (1,000 unit) capsule 25 mcg PO DAILY cromolyn 5.2 mg/spray (4 %) spray,non-aerosol 1 spray intranasal DAILY cyanocobalamin (vitamin B-12) 1,000 mcg tablet 1,000 mcg PO DAILY diclofenac sodium 1 % gel 4 g topical QID Rx Instructions: apply to single knee, ankle, foot; for foot includes sole/toes/top of foot duloxetine 60 mg capsule,delayed release(DR/EC) 60 mg PO DAILY fluticasone propion-salmeterol 250-50 mcg/dose blister with device 1 inh inhalation Q12H metformin 1,000 mg tablet 1,000 mg PO BID metoprolol tartrate 25 mg tablet 25 mg PO BID omeprazole 20 mg capsule,delayed release(DR/EC) 20 mg PO DAILY polyethylene glycol 3350 [Miralax] 17 gram powder in packet 17 g PO DAILY PRN (Reason: constipation) pregabalin 150 mg capsule 150 mg PO BID Stiolto Respimat 2.5-2.5 mcg/actuation mist 2 puff inhalation BID tamsulosin 0.4 mg capsule 0.8 mg PO .QHS fluticasone propionate [24 Hour Allergy Relief] 50 mcg/actuation spray,suspension 2 spray intranasal DAILY Rx Instructions: administer into each nostril miconazole nitrate [Antifungal (miconazole)] 2 % powder 1 applic topical BID sennosides [Natural Senna Laxative] 8.6 mg tablet 8.6 mg PO BID PRN (Reason: constipation) [place] Saline 0.65 % aerosol,spray 2 spray intranasal BID PRN (Reason: dry nasal passages) ipratropium-albuterol 0.5 mg-3 mg(2.5 mg base)/3 mL solution for nebulization 3 ml inhalation Q6H acetaminophen 500 mg tablet 1,000 mg PO BID aspirin 81 mg tablet,chewable 81 mg PO DAILY zinc oxide 20 % ointment 1 applic topical BID PRN (Reason: skin irritation) Discontinued amlodipine 5 mg tablet 5 mg PO DAILY levofloxacin 500 mg tablet 500 mg PO DAILY Patient Comments: 11/30/23-12/09/23 spironolactone 25 mg tablet 12.5 mg PO DAILY torsemide 20 mg tablet 60 mg PO DAILY potassium chloride 10 mEq capsule, extended release 10 meq PO DAILY Print Language: Tamazight Forms: Portal Instructions
--- NOTE | 2023-12-07 08:54 | PC.NURSE ---
Attempted to call [facility] for patient return. No answer after several rings
--- NOTE | 2023-12-07 09:07 | PC.NURSE ---
No answer [facility]
--- NOTE | 2023-12-07 09:38 | PC.NURSE ---
[facility] aware of pending return of patient to their facility
[2023-12-07] MEDS: BUDESONIDE 0.5 MG/2 ML AMPULE NEB IH (10:34)
[2023-12-07] MEDS: IPRATROPIUM/ALBUTEROL SULFATE 3 ML AMPUL.NEB IH (10:34)
--- NOTE | 2023-12-07 10:48 | RESP.RT ---
Pt took approximately 3-4 min of Rx and states he is done, that was enough.
== END 2023-12-07 13:50 | DRG 189 ==
LOC: ER 15:06 → ICU 15:24
PROVIDERS: Admitting Provider Family Medicine; Emergency Provider Emergency Medicine Emergency Medical Services; PCP Family Medicine; Visit Provider Family Medicine
DX: J96.01 Acute respiratory failure with hypoxia (principal); J44.1 Chronic obstructive pulmonary disease with (acute) exacerbation; J44.0 Chronic obstructive pulmonary disease with (acute) lower respiratory infection; N17.9 Acute kidney failure, unspecified; E44.0 Moderate protein-calorie malnutrition; I50.42 Chronic combined systolic (congestive) and diastolic (congestive) heart failure; Z68.41 Body mass index [BMI] 40.0-44.9, adult; J96.02 Acute respiratory failure with hypercapnia; J20.9 Acute bronchitis, unspecified; Z79.84 Long term (current) use of oral hypoglycemic drugs; E87.5 Hyperkalemia; D50.9 Iron deficiency anemia, unspecified; E11.42 Type 2 diabetes mellitus with diabetic polyneuropathy; E78.00 Pure hypercholesterolemia, unspecified; F32.A Depression, unspecified; K21.9 Gastro-esophageal reflux disease without esophagitis; I11.0 Hypertensive heart disease with heart failure; R41.82 Altered mental status, unspecified; Z66 Do not resuscitate; E66.01 Morbid (severe) obesity due to excess calories; G47.33 Obstructive sleep apnea (adult) (pediatric)
CPT/HCPCS: 36415; 36600; 51702; 71045; 80053; 81003; 82800; 82805; 82948; 83605; 83880; 84484; 85007; 85025; 85027; 85610; 87040; 93005; 94640; 94660; 94667; 94761; 96361; 96365; 96366; 96367; 96368; 96375; 96376; 97110; 97161; 99285; J2270; J2543; J2919; J3370